=== PATIENT | male | born 1950 | race Caucasian/White ===

== ENCOUNTER 2018-11-03 08:21 | Day surgery (SDC) | payer MEDICARE, SELFPAY | END 2018-11-03 14:33 | disposition home or self-care (01) | PROVIDERS: Family Provider Family Medicine; Visit Provider Podiatrist Foot & Ankle Surgery | DX: M86.8X7 Other osteomyelitis, ankle and foot (principal); E11.621 Type 2 diabetes mellitus with foot ulcer; Z79.2 Long term (current) use of antibiotics; I10 Essential (primary) hypertension; I25.2 Old myocardial infarction; E11.40 Type 2 diabetes mellitus with diabetic neuropathy, unspecified | CPT/HCPCS: 28810; 36569; 71045; 73620; 82962; 87070; 87077; 87176; 87186 ×5; 87205; 88304; 88311; 93005; J0690; J2001; J2704; J3010; J3490 ==

== ENCOUNTER 2019-11-19 10:29 | Outpatient (CLI) | payer MEDICARE, SELFPAY ==
--- NOTE | 2019-11-19 10:35 | MR_ITS ---
WS: [id number] MRI LUMBAR SPINE NONCONTRAST TECHNIQUE: Sagittal T1, T2 and STIR imaging. Axial T1 and T2 imaging. CLINICAL INFORMATION: LOW BACK PAIN COMPARISON: None. FINDINGS: Mild lumbar curve. No acute compression. Disc space narrowing throughout the lumbar spine. Endplate d egenerative changes. L1-L2: Mild disc bulging with narrowing of the subarticular recess bilaterally. Mild right and no sig nificant left foraminal narrowing. Mild facet arthropathy. L2-L3: Mild disc bulging with slight impingement on the left subarticular recess and traversing left L3 nerve root. Mild central canal stenosis. Mild left foraminal narrowing. Right foramen is patent. M ild facet arthropathy. L3-L4: Slight retrolisthesis L3 on L4. Disc osteophytic ridging with moderate facet arthropathy. Narr owing of the subarticular recess bilaterally. Mild to moderate left and mild right foraminal narrowin g. Mild to moderate central canal stenosis. L4-L5: Disc osteophyte complex with endplate ridging. Impingement traversing L5 nerve roots worse on the right. Moderate central canal stenosis. Moderate right and mild left foraminal narrowing. L5-S1: Mild disc bulging and osteophytic ridging. Moderate facet arthropathy. Moderate right and mild left foraminal narrowing. Slight impingement traversing right S1 nerve root. Visualized pelvic bony structures: Normal. Paravertebral soft tissues: Normal. MR/MR lumbar spine wo con* [id number] IMPRESSION: 1. Mild lumbar curve. No acute compression. 2. Moderate central canal stenosis L3-L4 and L4-L5 with impingement on the sub articular recess worse at right L4-5. 3. Disc bulging L5-S1 impinges the traversing S1 nerve root in the right subar ticular recess. 4. Mild to moderate foraminal narrowing worse at right L1-2, left L2-3, right L4-5 and right L5-S1
--- NOTE | 2019-11-19 12:30 | XRR_ITS ---
PROCEDURE INFORMATION: Exam: XR Lumbosacral Spine, 2 or 3 Views Exam date and time: 11/19/2019 12:50 PM Age: 69 years old Clinical indication: Low back pain; Additional info: Low back pain, please comment on presence or absence of spinal instabililty TECHNIQUE: Imaging protocol: XR of the lumbosacral spine, 2 or 3 views. COMPARISON: MR lumbar spine wo con* [id number] 11/19/2019 10:47 AM FINDINGS: Vertebrae: No acute fracture. No translation with extension or were flexion. There is disc space narrowing and osteophyte formation throughout the lumbar spine. Soft tissues: Unremarkable. XR/XR lumbar spine f/e only [id number] IMPRESSION: No translation with extension or were flexion.
== END 2019-11-19 10:30 | disposition home or self-care (01) ==
LOC: RAD 10:33
PROVIDERS: PCP Family Medicine; Visit Provider Nurse Practitioner
DX: M48.061 Spinal stenosis, lumbar region without neurogenic claudication (principal)
CPT/HCPCS: 72120; 72148

== ENCOUNTER 2020-09-29 11:23 | Emergency (ER) | payer MEDICARE, SELFPAY ==
[2020-09-29 11:39] VITALS: BP 173/83; PULSE 72; RESP 16; TEMP 36.8; O2SAT 96; BMI 32.5
[2020-09-29 11:47] VITALS: PULSE 77; O2SAT 95
--- NOTE | 2020-09-29 12:46 | XRR_ITS ---
PROCEDURE INFORMATION: Exam: XR Abdomen Exam date and time: 09/29/2020 12:46 PM Age: 70 years old Clinical indication: Abdominal pain; Prior surgery; Surgery date: 6+ months; Surgery type: Gallbladder; Patient HX: RT. Upper and lower quadrant more than left side; Additional info: No bm x 7 days TECHNIQUE: Imaging protocol: XR of the abdomen. Views: Frontal supine view of the abdomen. 1 View. COMPARISON: CR XR lumbar spine f/e only [id number] 11/19/2019 12:42 PM FINDINGS: Gastrointestinal tract: Moderate to severe retained feces. Bones/joints: Unremarkable. XR/XR KUB portable [id number] IMPRESSION: Moderate to severe retained feces.
[2020-09-29 12:47] VITALS: BP 178/93; PULSE 82; O2SAT 100
--- NOTE | 2020-09-29 12:55 | ED_ITS ---
HPI - General Adult General: Chief complaint: General Medical Stated complaint: No Recent Bowel Movement Time Seen by Provider: 09/29/20 12:43 History of Present Illness: HPI narrative: Patient said he has had a history of constipation and diarrhea. Constipation is gone for the last 7 days. Patient said he is not tried any ofud-prf-hlefrkr enemas are strong laxative had used a couple Duca locks. Said blood sugars are doing pretty good slightly high denies any other problems MD complaint: Constipation Onset (ago): day(s) Severity: mild Quality: aching Associated symptoms: Reports no associated symptoms; Deny chest pain, dyspnea, headache(s), nausea, rash or vomiting Review of Systems Const: Denies: fever(s), chills or body aches Eyes: Denies: change in vision or blurry vision ENMT: Denies: throat pain or nasal congestion Card: Denies: chest pain or dyspnea on exertion Resp: Denies: dyspnea, productive cough or non-productive cough GI: Reports: constipation; Denies: abdominal pain, nausea or vomiting : Denies: difficulty urinating Musc: Denies: extremity pain Skin/Breast: Denies: rash Neuro: Denies: headache(s) Psych: Denies: anxiety or depression Brooks/Lymph: Denies: easy bruising PFSH ED PFSH: Medical History (Updated 09/29/20 @ 13:17 by JUANIS Elmore) Carotid artery disease HTN (hypertension) Peripheral Vascular Disease Venous insufficiency Surgical History Status post amputation of toe of right foot Family History Father Heart disease Diabetes Mother Cancer Cervical CA Social History Smoking and tobacco status: never smoked History of recent travel: No Physical Exam Const: COMMON NORMALS: no acute distress, average body habitus and patient oriented x3 HENMT: COMMON NORMALS: normocephalic HEAD & SCALP: normal to inspection and normocephalic FACE & SINUS: normal facial exam Eye: COMMON NORMALS: conjunctivae normal GENERAL EYE: appearance normal, both eyes and all related structures CONJUNCTIVA: Yes conjunctivae normal Neck/C-Spine: COMMON NORMALS: no JVD Chest: COMMONS NORMALS: normal inspection of the chest Resp: COMMON NORMALS: normal respiratory effort Cardio: COMMON NORMALS: no JVD, regular rate and regular rhythm RATE: regular rate RHYTHM: regular rhythm GI: AUSCULTATION: Yes Hypoactive bowel sounds present PALPATION: Yes Tenderness to palpation present (GI) Details: RUQ PERCUSSION: dullness to percussion Extremity: COMMON NORMALS: normal to inspection and full ROM Neuro: COMMON NORMALS: patient oriented x3 Course Vital Signs: Vital signs: Vital Signs Temperature 98.3 F 09/29/20 11:39 Pulse Rate 121 H 09/29/20 13:33 Respiratory Rate 16 09/29/20 11:39 Blood Pressure 178/93 09/29/20 13:33 Pulse Oximetry 100 09/29/20 13:33 MDM - General Adult MDM Narrative: Medical decision making narrative: X-ray revealed moderate to severe feces retention. Which consistent with patient history. Patient encouraged to try some mheq-bmn-injljci measures are use lactulose to help with bowel movements and also went through long discussion about exercise , diet and follow-up primary care provider worsening symptoms patient return here see primary care provider is possible patient might have some IBS, and/or gastroparesis along with his use of hydrocodone which slows his got down. Discharge Plan Discharge Patient Disposition: Home Clinical Impression: Constipation Qualifiers: Constipation type: slow transit constipation Qualified Code(s): K59.01 - Slow transit constipation Condition: Stable Prescriptions: New lactulose 10 gram/15 mL solution 10 g PO DAILY PRN (Reason: constipation) Qty: 237 RF: 0 No Action atorvastatin 20 mg tablet 20 mg PO DAILY RF: 0 carbamazepine 200 mg tablet 200 mg PO Q8H RF: 0 amlodipine 5 mg tablet 5 mg PO DAILY RF: 0 metoprolol tartrate 25 mg tablet 12.5 mg PO DAILY RF: 0 metformin 850 mg tablet 850 mg PO BID RF: 0 dorzolamide 2 % drops 1 drop ophthalmic (eye) TID RF: 0 latanoprost 0.005 % drops 1 drop ophthalmic (eye) DAILY RF: 0 brimonidine 0.2 % drops 1 drop ophthalmic (eye) Q8H RF: 0 insulin lispro [Humalog KwikPen Insulin] 100 unit/mL insulin pen 15 unit SUBCUT TID RF: 0 aspirin [Adult Low Dose Aspirin] 81 mg tablet,delayed release (DR/EC) 81 mg PO DAILY RF: 0 losartan 100 mg tablet 100 mg PO DAILY RF: 0 hydrochlorothiazide 12.5 mg tablet 12.5 mg PO DAILY RF: 0 Discharge Orders: Discharge ED (Routine); Ordered 09/29/20 Ordered By: Juanjo Bernabe Referrals: Rashel Alford, [Primary Care Provider] - Discharge Diet: As Directed Patient Instructions: Constipation (ED) Activity Restrictions/Additional Instructions: Follow-up with medical provider as directed. Take medications as prescribed. Return to the ER or your medical provider if condition worsens. Please read and understand discharge instructions. If any questions ask please. I suggest increasing your physical activity. Increase in fiber in your diet. Follow strict diabetic diet. Can use sueo-[id number]-[id number] magnesium citrate to help with bowel movement. Can use fleets enemas also. Follow-up your primary care provider discuss your health status. Coding Level of Care Code ED Advertising Operations Manager for Chg Fwd Exam Comprehensive
[2020-09-29 13:33] VITALS: BP 178/93; PULSE 121; O2SAT 100
== END 2020-09-29 13:36 | disposition home or self-care (01) ==
PROVIDERS: Emergency Provider Nurse Practitioner Family; PCP Family Medicine
DX: K59.01 Slow transit constipation (principal); Z79.82 Long term (current) use of aspirin; Z79.4 Long term (current) use of insulin; I10 Essential (primary) hypertension
CPT/HCPCS: 74018; 99282

== ENCOUNTER → 2021-11-18 14:16 | Outpatient (BNVA) | payer MEDICARE, SELFPAY | PROVIDERS: PCP Family Medicine; Visit Provider Internal Medicine | DX: I73.9 Peripheral vascular disease, unspecified (principal); E78.2 Mixed hyperlipidemia; E16.0 Drug-induced hypoglycemia without coma; T38.3X5A Adverse effect of insulin and oral hypoglycemic [antidiabetic] drugs, initial encounter; E10.649 Type 1 diabetes mellitus with hypoglycemia without coma; Z79.4 Long term (current) use of insulin; Z79.84 Long term (current) use of oral hypoglycemic drugs | CPT/HCPCS: 99204 ==

== ENCOUNTER → 2022-02-10 10:17 | Outpatient (BNVA) | payer MEDICARE, SELFPAY | PROVIDERS: PCP Family Medicine; Visit Provider Internal Medicine | DX: E16.0 Drug-induced hypoglycemia without coma (principal); T38.3X5A Adverse effect of insulin and oral hypoglycemic [antidiabetic] drugs, initial encounter; E78.2 Mixed hyperlipidemia; E10.9 Type 1 diabetes mellitus without complications | CPT/HCPCS: 80061; 83036 ==

== ENCOUNTER → 2022-02-22 13:01 | Outpatient (BNVA) | payer MEDICARE, SELFPAY | PROVIDERS: PCP Family Medicine; Visit Provider Internal Medicine | DX: E10.649 Type 1 diabetes mellitus with hypoglycemia without coma (principal); E16.0 Drug-induced hypoglycemia without coma; T38.3X5A Adverse effect of insulin and oral hypoglycemic [antidiabetic] drugs, initial encounter; E78.2 Mixed hyperlipidemia; I73.9 Peripheral vascular disease, unspecified; Z79.4 Long term (current) use of insulin; Z79.84 Long term (current) use of oral hypoglycemic drugs | CPT/HCPCS: 99214 ==

== ENCOUNTER → 2022-05-19 10:56 | Outpatient (BNVA) | payer MEDICARE, SELFPAY | PROVIDERS: PCP Family Medicine; Visit Provider Internal Medicine | DX: E78.2 Mixed hyperlipidemia (principal); E10.9 Type 1 diabetes mellitus without complications; E16.0 Drug-induced hypoglycemia without coma; T38.3X5A Adverse effect of insulin and oral hypoglycemic [antidiabetic] drugs, initial encounter | CPT/HCPCS: 80053; 80061; 83036; 86337; 86341 ==

== ENCOUNTER → 2022-05-25 14:07 | Outpatient (BNVA) | payer MEDICARE, SELFPAY | PROVIDERS: PCP Family Medicine; Visit Provider Internal Medicine | DX: E10.51 Type 1 diabetes mellitus with diabetic peripheral angiopathy without gangrene (principal); E10.649 Type 1 diabetes mellitus with hypoglycemia without coma; E78.2 Mixed hyperlipidemia; I73.9 Peripheral vascular disease, unspecified; E16.0 Drug-induced hypoglycemia without coma; T38.3X5A Adverse effect of insulin and oral hypoglycemic [antidiabetic] drugs, initial encounter; Z79.4 Long term (current) use of insulin; Z79.84 Long term (current) use of oral hypoglycemic drugs | CPT/HCPCS: 99214 ==

== ENCOUNTER → 2022-06-02 13:24 | Outpatient (BNVA) | payer MEDICARE, SELFPAY | PROVIDERS: PCP Nurse Practitioner Family; Visit Provider Podiatrist Foot & Ankle Surgery | DX: E11.621 Type 2 diabetes mellitus with foot ulcer (principal); L97.522 Non-pressure chronic ulcer of other part of left foot with fat layer exposed; L97.312 Non-pressure chronic ulcer of right ankle with fat layer exposed; I73.9 Peripheral vascular disease, unspecified; L84 Corns and callosities; I87.2 Venous insufficiency (chronic) (peripheral); E11.42 Type 2 diabetes mellitus with diabetic polyneuropathy; L60.3 Nail dystrophy; Z89.432 Acquired absence of left foot; Z79.4 Long term (current) use of insulin | CPT/HCPCS: 11042 ==

== ENCOUNTER → 2022-06-16 14:42 | Outpatient (BNVA) | payer MEDICARE, SELFPAY | PROVIDERS: PCP Nurse Practitioner Family; Visit Provider Podiatrist Foot & Ankle Surgery | DX: I73.9 Peripheral vascular disease, unspecified (principal); I87.2 Venous insufficiency (chronic) (peripheral); E11.42 Type 2 diabetes mellitus with diabetic polyneuropathy; Z79.4 Long term (current) use of insulin; S91.001D Unspecified open wound, right ankle, subsequent encounter; Z89.421 Acquired absence of other right toe(s); X58.XXXD Exposure to other specified factors, subsequent encounter | CPT/HCPCS: 99214 ==

== ENCOUNTER → 2022-06-30 13:08 | Outpatient (BNVA) | payer MEDICARE, SELFPAY | PROVIDERS: PCP Nurse Practitioner Family; Visit Provider Podiatrist Foot & Ankle Surgery | DX: I73.9 Peripheral vascular disease, unspecified (principal); I87.2 Venous insufficiency (chronic) (peripheral); E11.42 Type 2 diabetes mellitus with diabetic polyneuropathy; E11.622 Type 2 diabetes mellitus with other skin ulcer; L97.311 Non-pressure chronic ulcer of right ankle limited to breakdown of skin; Z79.4 Long term (current) use of insulin; Z89.432 Acquired absence of left foot | CPT/HCPCS: 99214 ==

== ENCOUNTER → 2022-07-14 12:58 | Outpatient (BNVA) | payer MEDICARE, SELFPAY | PROVIDERS: PCP Nurse Practitioner Family; Visit Provider Podiatrist Foot & Ankle Surgery | DX: I73.9 Peripheral vascular disease, unspecified (principal); I87.2 Venous insufficiency (chronic) (peripheral); E11.42 Type 2 diabetes mellitus with diabetic polyneuropathy; Z89.9 Acquired absence of limb, unspecified; E11.621 Type 2 diabetes mellitus with foot ulcer; L97.319 Non-pressure chronic ulcer of right ankle with unspecified severity; Z79.4 Long term (current) use of insulin | CPT/HCPCS: 99213 ==

== ENCOUNTER → 2022-08-04 13:33 | Outpatient (BNVA) | payer MEDICARE, SELFPAY | PROVIDERS: PCP Nurse Practitioner Family; Visit Provider Podiatrist Foot & Ankle Surgery | DX: I87.2 Venous insufficiency (chronic) (peripheral) (principal); M20.42 Other hammer toe(s) (acquired), left foot; E11.42 Type 2 diabetes mellitus with diabetic polyneuropathy; S91.001A Unspecified open wound, right ankle, initial encounter; Z79.4 Long term (current) use of insulin; X58.XXXA Exposure to other specified factors, initial encounter | CPT/HCPCS: 99213 ==

== ENCOUNTER → 2022-08-24 08:59 | Outpatient (BNVA) | payer MEDICARE, SELFPAY | PROVIDERS: PCP Nurse Practitioner Family; Visit Provider Internal Medicine | DX: E10.9 Type 1 diabetes mellitus without complications (principal); E16.0 Drug-induced hypoglycemia without coma; T38.3X5A Adverse effect of insulin and oral hypoglycemic [antidiabetic] drugs, initial encounter; E78.2 Mixed hyperlipidemia | CPT/HCPCS: 80053; 80061; 82043; 83036 ==

== ENCOUNTER → 2022-08-25 13:48 | Outpatient (BNVA) | payer MEDICARE, SELFPAY | PROVIDERS: PCP Nurse Practitioner Family; Visit Provider Podiatrist Foot & Ankle Surgery | DX: I87.2 Venous insufficiency (chronic) (peripheral) (principal); E11.42 Type 2 diabetes mellitus with diabetic polyneuropathy; E11.621 Type 2 diabetes mellitus with foot ulcer; L97.522 Non-pressure chronic ulcer of other part of left foot with fat layer exposed; L97.511 Non-pressure chronic ulcer of other part of right foot limited to breakdown of skin; Z79.4 Long term (current) use of insulin; M20.42 Other hammer toe(s) (acquired), left foot | CPT/HCPCS: 99214 ==

== ENCOUNTER → 2022-08-30 14:26 | Outpatient (BNVA) | payer MEDICARE, SELFPAY | PROVIDERS: PCP Nurse Practitioner Family; Visit Provider Internal Medicine | DX: E10.649 Type 1 diabetes mellitus with hypoglycemia without coma (principal); E16.0 Drug-induced hypoglycemia without coma; T38.3X5A Adverse effect of insulin and oral hypoglycemic [antidiabetic] drugs, initial encounter; X58.XXXA Exposure to other specified factors, initial encounter; E78.2 Mixed hyperlipidemia; I73.9 Peripheral vascular disease, unspecified | CPT/HCPCS: 99214 ==

== ENCOUNTER 2022-09-04 20:18 | Inpatient (IN) | payer MEDICARE, SELFPAY ==
[2022-09-04] VITALS (9 sets, daily range): BP systolic 110–124; BP diastolic 53–69; PULSE 80–98; RESP 16–29; TEMP 36.7–36.8; O2SAT 89–97
--- NOTE | 2022-09-04 20:47 | XRR_ITS ---
PROCEDURE INFORMATION: Exam: XR Chest Exam date and time: 09/04/2022 9:07 PM Age: 72 years old Clinical indication: Shortness of breath; TECHNIQUE: Imaging protocol: Radiologic exam of the chest. Views: 1 view. COMPARISON: CR XR chest 1V [id number] 12/20/2018 7:23 PM FINDINGS: Lungs: Unremarkable. No consolidation. Pleural spaces: Blunting of the costophrenic angles is suggestive of small pleural effusions. Heart/Mediastinum: Unremarkable. No cardiomegaly. Bones/joints: Unremarkable. XR/XR chest 1V portable [id number] IMPRESSION: Blunting of the costophrenic angles is suggestive of small pleural effusions.
--- NOTE | 2022-09-04 20:47 | XRR_ITS ---
PROCEDURE INFORMATION: Exam: XR Cervical Spine Exam date and time: 09/04/2022 9:07 PM Age: 72 years old Clinical indication: Injury or trauma; Fall; Blunt trauma; Additional info: Neck pain, fell 3 days ago TECHNIQUE: Imaging protocol: Radiologic exam of the cervical spine. Views: 2 or 3 views. COMPARISON: CR XR chest 1V [id number] 12/20/2018 7:23 PM FINDINGS: Bones/joints: There are degenerative changes throughout the visualized spine including marginal osteophyte formations, endplate degenerative changes, and facet arthropathy. Multilevel disc space narrowing. Soft tissues: There are benign-appearing soft tissue calcifications. Other findings: Patient is edentulous. XR/XR cervical spine 3V* [id number] IMPRESSION: There are degenerative changes as described above. No evidence for acute fracture.
--- NOTE | 2022-09-04 20:48 | ECG_ITS ---
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 Measurements Intervals [facility] Rate: 93 P: 249 WA: 137 QRS: 266 QRSD: 77 T: 42 QT: 321 QTc: 401 Interpretive Statements SINUS RHYTHM POSSIBLE RIGHT VENTRICULAR HYPERTROPHY INFERIOR MYOCARDIAL INFARCTION , OF INDETERMINATE AGE ANTEROLATERAL MYOCARDIAL INFARCTION , OF INDETERMINATE AGE MARKED ST ELEVATION, CONSIDER SEPTAL INJURY [MARKED ST ELEVATION W/O NORMALLY INFLECTED T-WAVE IN V1/V2] ACUTE [place] Compared to ECG 12/20/2018 18:55:27 Myocardial infarct finding now present ST (T wave) deviation now present Sinus rhythm no longer present Left-axis deviation no longer present Electronically Signed On 09-05-2022 5:33:03 CDT by Elisa Alfaro M.D. [id number]
--- NOTE | 2022-09-04 20:50 | W.ED.FALL ---
Documented by User: MOHSEN Smith 09/04/22 21:52 HPI - Fall General: Chief Complaint: Fall Stated Complaint: neck/back apin, SOB Time Seen by Provider: 09/04/22 20:36 History of Present Illness: Patient is a 72-year-old male who comes to the ED with multiple complaints. is present in room and initially stated that since patient fell 3 days ago he has not been the same. He is complaining of increased shortness of breath over the last 2 days. Denies any worsening or improving factors. He endorses having a productive cough with a white sputum as well. Endorses some nasal drainage and congestion due to allergies. Patient also complains of having some left-sided neck pain that just started today. He says it is a constant throbbing type pain on the left side of neck. Neck pain started earlier today. Neck pain worsens slightly with range of motion. Patient did state that he fell in his house 3 days ago. He says he tripped and landed face first. Denies any loss of consciousness and is able to get up on his own. He had no complaints after fall. He is also complaining of bilateral flank pain its been going on for several weeks. Flank pain worsens when he stands up and starts walking. Denies any fevers, chest pain, palpitations, abdominal pain, nausea/vomiting, bladder or bowel symptoms. Associated symptoms-after fall: Reports neck pain; Denies abdominal pain, chest pain, headache(s) or hematuria Review of Systems Const: Denies: fever(s), chills or fatigue Eyes: Denies: change in vision or eye discomfort ENMT: Reports: nasal discharge and nasal congestion; Denies: throat pain or odynophagia Card: Denies: chest pain, palpitations, edema, swelling of feet/ankles, dyspnea on exertion or orthopnea Resp: Reports: dyspnea and productive cough; Denies: non-productive cough GI: Denies: abdominal pain, nausea, vomiting, diarrhea, constipation or hematochezia : Reports: flank pain (Bilateral flank pain); Denies: difficulty urinating, dysuria or hematuria Musc: Reports: neck pain; Denies: back pain or extremity swelling Skin/Breast: Denies: rash or new lesions Neuro: Denies: headache(s), numbness in extremities or weakness in extremities PFS ED PFSH: Medical History Carotid artery disease Diabetes mellitus HTN (hypertension) Peripheral Vascular Disease Venous insufficiency Surgical History Status post amputation of toe of right foot Family History Father Heart disease Diabetes Mother Cancer Cervical CA Social History Smoking and tobacco status: never smoked Physical Exam Const: COMMON NORMALS: patient oriented x3 and alert GENERAL APPEARANCE: cooperative HENMT: COMMON NORMALS: normocephalic HEAD & SCALP: normocephalic MOUTH: Normal oral and palatal mucosa present THROAT: posterior oropharynx normal and uvula midline Neck/C-Spine: COMMON NORMALS: supple GENERAL: Yes normal visual inspection Resp: COMMON NORMALS: normal respiratory effort, No retractions, No use of accessory muscles and clear to auscultation bilaterally AUSCULTATION: clear to auscultation bilaterally Cardio: COMMON NORMALS: regular rate, regular rhythm, S1 normal heart sound present, S2 normal heart sound present, No gallops present (Cardio), No clicks present (Cardio), No murmurs present (Cardio) and Peripheral pulses 2+ throughout RATE: regular rate RHYTHM: regular rhythm HEART SOUNDS: S1 normal heart sound present and S2 normal heart sound present PERIPHERAL PULSES: Peripheral pulses 2+ throughout GI: COMMON NORMALS: Normal to inspection, nondistended, normoactive bowel sounds present, Soft to palpation, non-tender and no masses PALPATION: Yes Soft to palpation : COMMON NORMALS: Yes no CVA tenderness BLADDER/KIDNEY EXAM: Yes no CVA tenderness Back/Pelvis: COMMON NORMALS: no CVA tenderness Neuro: COMMON NORMALS: patient oriented x3, CN's II-XII intact bilaterally, moves all extremities and no focal motor deficits SENSORIUM/ORIENTATION: Yes alert SPEECH: speech normal GAIT: Yes Normal gait present MOTOR EXAM: 5/5 motor strength present throughout Course Vital Signs: Vital signs: Vital Signs Temperature 98.0 F 09/04/22 20:25 Pulse Rate 89 09/04/22 21:39 Respiratory Rate 19 H 09/04/22 21:39 Blood Pressure 110/53 09/04/22 21:39 Pulse Oximetry 95 09/04/22 21:39 Oxygen Delivery Me thod Room Air 09/04/22 20:25 MDM - Fall Lab Data I reviewed the patient's lab results. 09/04/22 20:10 09/04/22 20:10 Radiology Impressions Chest X-Ray 09/04/22 20:47 IMPRESSION: Blunting of the costophrenic angles is suggestive of small pleural effusions. Laboratory Results WBC 7.5 10^3/uL (4.0-10.0) 09/04/22 20:10 RBC 3.80 10^6/uL (4.1-5.3) L 09/04/22 20:10 Hgb 11.7 g/dL (11.7-16.6) 09/04/22 20:10 Hct 35.9 % (42.0-52.0) L 09/04/22 20:10 MCV 94.5 fl (80-94) H 09/04/22 20:10 MCH 30.8 pg (28.0-34.0) 09/04/22 20:10 MCHC 32.6 g/dL (30.0-36.0) 09/04/22 20:10 RDW 12.6 % (12.1-15.1) 09/04/22 20:10 Plt Count 239 10^3/cmm (130-400) 09/04/22 20:10 MPV 10.5 fL (7.4-10.4) H 09/04/22 20:10 Neut % (Auto) 76.8 % 09/04/22 20:10 Lymph % (Auto) 13.8 % 09/04/22 20:10 [place] % (Auto) 7.1 % 09/04/22 20:10 Eos % (Auto) 1.3 % 09/04/22 20:10 Baso % (Auto) 0.7 % 09/04/22 20:10 Neut # (Auto) 5.77 10^3/uL (1.8-7.7) 09/04/22 20:10 Lymph # (Auto) 1.0 10^3/uL (0.8-4.8) 09/04/22 20:10 [place] # (Auto) 0.5 10^3/uL (0.2-0.9) 09/04/22 20:10 Eos # (Auto) 0.1 10^3/uL (0.0-0.8) 09/04/22 20:10 Baso # (Auto) 0.1 10^3/uL (0.0-0.1) 09/04/22 20:10 Nucleated RBC % (auto) 0 % 09/04/22 20:10 Nucleated RBCs # 0.0 /100WBC 09/04/22 20:10 Sodium 129 mmol/L (136-145) L 09/04/22 20:10 Potassium 3.6 mmol/L (3.5-5.1) 09/04/22 20:10 Chloride 93 mmol/L (98-107) L 09/04/22 20:10 Carbon Dioxide 27 mmol/L (22-29) 09/04/22 20:10 Anion Gap 12.6 (5-19) 09/04/22 20:10 BUN 22 mg/dL (8-23) 09/04/22 20:10 Creatinine 1.2 mg/dL (0.7-1.2) 09/04/22 20:10 GFR Calculation Not Reportable 09/04/22 20:10 Glucose 317 mg/dL (65-115) H 09/04/22 20:10 Calculated Osmolality 283 mOsm/kg (285-295) L 09/04/22 20:10 Calcium 8.5 mg/dL (8.5-10.5) 09/04/22 20:10 Total Bilirubin 0.4 mg/dL (0.15-1.2) 09/04/22 20:10 AST 26 U/L (0-40) 09/04/22 20:10 ALT 18 U/L (0-41) 09/04/22 20:10 Alkaline Phosphatase 144 U/L (40-130) H 09/04/22 20:10 Troponin T Baseline 1093 ng/L (0-15) H* 09/04/22 20:10 NT-Pro-B Natriuret Pep 83811 pg/mL (0-125) H 09/04/22 20:10 Total Protein 6.4 g/dL (6.6-8.7) L 09/04/22 20:10 Albumin 3.6 g/dL (3.5-5.2) 09/04/22 20:10 Globulin 2.8 g/dL (1.3-4.6) 09/04/22 20:10 EKG Data EKG 1: EKG interpretation date: 09/04/22 Interpretation: Concern for possible STEMI in V2 and V3, EKG taken to Dr. Kothari and he agreed and called STEMI alert. Discharge Plan Discharge Patient Disposition: Admitted As Inpatient Clinical Impression: ST elevation (STEMI) myocardial infarction Condition: Stable Coding Level of Care Code ED Residential Builder for Chg Fwd Documented by User: Nancy Kothari MD 09/04/22 21:46 HPI - Fall General: Chief Complaint: Fall Stated Complaint: neck/back apin, SOB Time Seen by Provider: 09/04/22 20:36 PFSH ED PFSH: Medical History Carotid artery disease Diabetes mellitus HTN (hypertension) Peripheral Vascular Disease Venous insufficiency Surgical History Status post amputation of toe of right foot Family History Father Heart disease Diabetes Mother Cancer Cervical CA Social History Smoking and tobacco status: never smoked Course Vital Signs: Vital signs: Vital Signs Temperature 98.0 F 09/04/22 20:25 Pulse Rate 89 09/04/22 21:39 Respiratory Rate 19 H 09/04/22 21:39 Blood Pressure 110/53 09/04/22 21:39 Pulse Oximetry 95 09/04/22 21:39 Oxygen Delivery Me thod Room Air 09/04/22 20:25 MDM - Fall Medical Decision Making Patient recently presented here with neck pain and shortness of breath. Patient had an EKG done at 2050 was brought to the midlevel never brought to the physician the midlevel showed me the EKG at [address] elevation STEMI in V1 V2 V3 I did call a STEMI alert at that time went and saw the patient he is having some neck pain dyspnea he is diaphoretic started on heparin and Plavix aspirin and patient is going to the Precision Agriculture Technician at this time. Lab Data 09/04/22 20:10 09/04/22 20:10 Radiology Impressions Chest X-Ray 09/04/22 20:47 IMPRESSION: Blunting of the costophrenic angles is suggestive of small pleural effusions. Laboratory Results WBC 7.5 10^3/uL (4.0-10.0) 09/04/22 20:10 RBC 3.80 10^6/uL (4.1-5.3) L 09/04/22 20:10 Hgb 11.7 g/dL (11.7-16.6) 09/04/22 20:10 Hct 35.9 % (42.0-52.0) L 09/04/22 20:10 MCV 94.5 fl (80-94) H 09/04/22 20:10 MCH 30.8 pg (28.0-34.0) 09/04/22 20:10 MCHC 32.6 g/dL (30.0-36.0) 09/04/22 20:10 RDW 12.6 % (12.1-15.1) 09/04/22 20:10 Plt Count 239 10^3/cmm (130-400) 09/04/22 20:10 MPV 10.5 fL (7.4-10.4) H 09/04/22 20:10 Neut % (Auto) 76.8 % 09/04/22 20:10 Lymph % (Auto) 13.8 % 09/04/22 20:10 [place] % (Auto) 7.1 % 09/04/22 20:10 Eos % (Auto) 1.3 % 09/04/22 20:10 Baso % (Auto) 0.7 % 09/04/22 20:10 Neut # (Auto) 5.77 10^3/uL (1.8-7.7) 09/04/22 20:10 Lymph # (Auto) 1.0 10^3/uL (0.8-4.8) 09/04/22 20:10 [place] # (Auto) 0.5 10^3/uL (0.2-0.9) 09/04/22 20:10 Eos # (Auto) 0.1 10^3/uL (0.0-0.8) 09/04/22 20:10 Baso # (Auto) 0.1 10^3/uL (0.0-0.1) 09/04/22 20:10 Nucleated RBC % (auto) 0 % 09/04/22 20:10 Nucleated RBCs # 0.0 /100WBC 09/04/22 20:10 Sodium 129 mmol/L (136-145) L 09/04/22 20:10 Potassium 3.6 mmol/L (3.5-5.1) 09/04/22 20:10 Chloride 93 mmol/L (98-107) L 09/04/22 20:10 Carbon Dioxide 27 mmol/L (22-29) 09/04/22 20:10 Anion Gap 12.6 (5-19) 09/04/22 20:10 BUN 22 mg/dL (8-23) 09/04/22 20:10 Creatinine 1.2 mg/dL (0.7-1.2) 09/04/22 20:10 GFR Calculation Not Reportable 09/04/22 20:10 Glucose 317 mg/dL (65-115) H 09/04/22 20:10 Calculated Osmolality 283 mOsm/kg (285-295) L 09/04/22 20:10 Calcium 8.5 mg/dL (8.5-10.5) 09/04/22 20:10 Total Bilirubin 0.4 mg/dL (0.15-1.2) 09/04/22 20:10 AST 26 U/L (0-40) 09/04/22 20:10 ALT 18 U/L (0-41) 09/04/22 20:10 Alkaline Phosphatase 144 U/L (40-130) H 09/04/22 20:10 Troponin T Baseline 1093 ng/L (0-15) H* 09/04/22 20:10 NT-Pro-B Natriuret Pep 54686 pg/mL (0-125) H 09/04/22 20:10 Total Protein 6.4 g/dL (6.6-8.7) L 09/04/22 20:10 Albumin 3.6 g/dL (3.5-5.2) 09/04/22 20:10 Globulin 2.8 g/dL (1.3-4.6) 09/04/22 20:10 Critical Care Time Critical Care Time: Critical Care Time: Yes Total Critical Care Time: 45 Attestation: The high probability of a clinically significant, sudden or life threatening deterioration of the patient's cv system(s) required my full and direct attention, intervention and personal management. The critical care time is as shown. This time is in addition to time spent performing any reported procedures but includes the following: [x] Data and vital sign review and interpretation [x] Patient assessment, examination and intervention [x] Documentation [x] Medication orders and management Discharge Plan Discharge Patient Disposition: Admitted As Inpatient Clinical Impression: ST elevation (STEMI) myocardial infarction Condition: Stable Coding Level of Care Code ED Residential Builder for Ashia Saldivar
[2022-09-04 21:02] LABS: Basophils # 0.1 10^3/uL (0.0-0.1); Basophils % 0.7 %; Eosinophils # 0.1 10^3/uL (0.0-0.8); Eosinophils % 1.3 %; Hematocrit 35.9 % (42.0-52.0); Hemoglobin 11.7 g/dL (11.7-16.6); Lymphocytes % 13.8 %; Mean Corpuscular HGB Conc 32.6 g/dL (30.0-36.0); Mean Corpuscular Hemoglobin 30.8 pg (28.0-34.0); Mean Corpuscular Volume 94.5 fl (80-94); Mean Platelet Volume 10.5 fL (7.4-10.4); Monocytes # 0.5 10^3/uL (0.2-0.9); Monocytes % 7.1 %; Neutrophils # 5.77 10^3/uL (1.8-7.7); Neutrophils % 76.8 %; Nucleated Red Blood Cells % 0 %; Platelet Count 239 10^3/cmm (130-400); Red Cell Distribution Width 12.6 % (12.1-15.1); White Blood Count 7.5 10^3/uL (4.0-10.0)
[2022-09-04] MEDS: clopidogrel 300 mg Tablet 600 MG PO (21:26)
[2022-09-04] MEDS: morphine 4 mg/mL SDV 1 mL IVP (21:27)
[2022-09-04] MEDS: aspirin 81 mg Chew Tablet 324 MG PO (21:27)
[2022-09-04 21:28] LABS: Alanine Aminotransferase 18 U/L (0-41); Albumin Level 3.6 g/dL (3.5-5.2); Alkaline Phosphatase 144 U/L (40-130); Anion Gap 12.6 (5-19); Aspartate Amino Transferase 26 U/L (0-40); Blood Urea Nitrogen 22 mg/dL (8-23); Calcium 8.5 mg/dL (8.5-10.5); Carbon Dioxide 27 mmol/L (22-29); Chloride 93 mmol/L (98-107); Globulin 2.8 g/dL (1.3-4.6); Glucose 317 mg/dL (65-115); NT Pro B Type Natriuretic Pept 10647 pg/mL (0-125); Osmolality Calculated 283 mOsm/kg (285-295); Potassium 3.6 mmol/L (3.5-5.1); Sodium 129 mmol/L (136-145); Total Bilirubin 0.4 mg/dL (0.15-1.2); Total Protein 6.4 g/dL (6.6-8.7)
[2022-09-04 21:30] LABS: Troponin(5th) Baseline 1093 ng/L (0-15)
[2022-09-04] MEDS: heparin 5,000 unit/mL INJ 1 mL 4000 UNIT IVP (21:30)
--- NOTE | 2022-09-04 21:36 | XACV_ITS ---
Exam Room: [facility] Ht: 183 cm Wt: 109 kg BSA: 2.39 m2 Gender: Male : 1950 Any Known Allergies: No known allergies Exam Priority: Routine Procedure(s): Procedure Description: Diagnostic procedure Procedure Description: PCI procedure Procedure Description: Coronary IVUS Procedure Description: Drug Eluting Coronary Stent Procedure Description: PTCA Procedure Description: Miscellaneous Procedure Description: ACT Procedure Description: Coronary Angiography Diagnostic Cath Status: Emergency Diagnostic Findings * INDICATION: 72 year old male with past medical history of diabetes, peripheral artery disease, hypertension was presented with 3 days of shortness of breath. He started having neck pain today in the afternoon. Also has been having back pain for several days. His initial EKG shows ST elevations in leads V1 to V4. Initial troponin is over 1000. [place] [address]. Blood pressure is stable. technical laboratory asst was activated by ER and patient brought to laboratory technical specialist emergently after activation. * Left Main has mild to moderate 30% distal stenosis. * Circumflex has mild luminal irregularities. * Right Coronary Artery has mild luminal irregularities. * Ostial Left Anterior Descending: critical 95% stenosis, YADIRA:1 flow. There is a large thrombus noted in the ostium LAD as well. Mid to distal vessel is very small in caliber, appearance consistent with prior ID.. * Coronary angiography shows right dominance. PCI Status: Emergency PCI Indication: STEMI - Immediate PCI for STEMI Interventional Findings * Procedure detail: We engaged left main artery with XB 3.5 guide catheter. IV heparin was administered to maintain anticoagulation. 0.014 run-through guidewire was used to cross critical ostial LAD stenosis and was put in distal vessel. We predilated the stenosis with 2.5 x 12 mm semicompliant balloon. This was followed by placement of 2.75 x 15 mm resolute Maximo drug-eluting stent. We then performed IVUS of the left main artery and the stent. MLA of left main artery was found to be 5.1 mm2. This was significant however as it is not critical, we decided to treated medically at this time. Guidewire and guide catheter were removed. Patient left the Chronometer Repairer in a stable condition.. Conclusions 1. Subtotal thrombotic occlusion of 2. ostial LAD s/p successful revascularization with ANTONINO x1. 3. Distally LAD is a very small caliber vessel 4. likely secondary to old ID. 5. This is 6. a late presentation of ST elevation ID.. 7. Left main artery has borderline severe disease with MLA of 5.1 mm2. We will medically manage it at this time. Recommendations * Dual platelet therapy with aspirin and Plavix for at least 1 year. * High intensity statin therapy. * Order echocardiogram.. * Transfer to ICU. Interventional RX Recommendation: PCI w/o planned CABG Diagnostic RX Recommendation: PCI w/o planned CABG Anticoagulation: Heparin Pressures Phase:Rest AO : 98 / 62 ( 79 ) @ 5:55:55 PM 93 / 61 ( 75 ) @ 5:55:55 PM 96 / 64 ( 80 ) @ 5:55:55 PM 96 / 62 ( 78 ) @ 5:55:55 PM 94 / 61 ( 75 ) @ 5:55:55 PM 89 / 56 ( 72 ) @ 5:55:55 PM Clinical Evaluation EBL: 5mL-10mL Procedural Details Pre-Procedure Time Out. Identified patient by full name and date of as verbalized by the patient/guarantor. Does the consent match the physician's order: N/A Emergent. Accurate & Complete Informed Consent: N/A Emergent. Inpatient/Outpatient History & Physical on Chart: N/A Emergent. If H&P is completed, is and addenduem needed: N/A Emergent; If yes, is the addendum complete: N/A Emergent. Visualize and Verify Site with Patient/Guarantor: N/A. Relevant Radiology Images available: N/A Emergent. The risks, benefits, and alternatives of sedation and/or procedure were discussed by physician. The patient agrees to continue. Procedure started. Chronometer Repairer Indications: ACS <= 24 hours. Chest Pain Symptom Assessment: Typical Angina Symptoms. Correct patient, site and procedure confirmed by cath team. Current diagnosis: STEMI. PERRLA. Strong, equal hand pulp roller bilaterally. Lungs clear x 5 lobes. IV Site on Arrival: 20 gauge in the right anticubital. IV Site on Arrival: 20 gauge in the left anticubital. IV Fluids: 0.9% NaCl at KVO. 50 mL infused prior to laboratory technical specialist. Pre Procedural Pulses: bilateral dorsalis pedis was 1+. Oxygen started at 2liters/min via nasal canula. bilateral groins was prepped with chloroprep then draped in the usual sterile fashion. Baseline sample Acquired. HR: 85 BPM. Physician notified. Physician arrived. Physician scrubbed in. Immediate Pre-Procedure Time Out. Correct Patient: N/A Emergent; Correct Procedure: N/A Emergent; Correct Site: N/A Emergent; Correct Patient Position: N/A Emergent; Correct Supplies: N/A Emergent; Dried Flammable Prep: N/A Emergent; Blood Products Available: N/A Emergent;. Lidocaine 1% infiltrated to the right groin. Arterial access obtained with micropuncture set. Admit Source: Emergency department. 6 ukrainian XB 3.5 guide catheter was inserted over the wire. Multiple views taken of left coronary artery. Runthrough guidewire was advanced through the guide catheter to lesion in the ostial LAD. Inflation number : 1 A AB TREK 2.50X12 RX BALLOON was prepped and advanced across the ostial LAD, then inflated to 12 RUI for 0:15 seconds. Inflation number: 2 The AB TREK 2.50X12 RX BALLOON was reinflated across the 1st Diag, to 12 RUI for 0:08 seconds. Balloon out. Results checked. Inflation Number : 3 Gorge Martini MAXIMO 2.75X15 ANTONINO -Lot Number#[id number] exp date 10/16/23 was prepped and advanced across the LAD. The stent was deployed at 12 RUI for 0:22 seconds. Stent balloon out over wire. Results checked. ACT drawn. Results 395 seconds. Therapeutic limits - pre-heparin administration 90-150 seconds and monitoring heparin during a vascular procedure >250 seconds. IVUS catherter inserted. IVUS catherter removed. Results checked. Wire out. A 5 ukrainian JR4 catheter in over wire. Multiple views taken of right coronary artery. Catheter out. ACT drawn. Results 257 seconds. Therapeutic limits - pre-heparin administration 90-150 seconds and monitoring heparin during a vascular procedure >250 seconds. Post Procedure: Pulses reassessed and unchanged. PERRLA. Strong, equal hand pulp roller bilaterally. No VTE prophylaxis required. Medication's Wasted: Heparin = 3000 units. Medication's Wasted: Other = versed 1 mg. Medication's Wasted: Other = 25 mcg fentanyl. Total IV fluids: 30 mL. A Suture was successful obtaining hemostatsis at the Right Femoral artery insertion site. Post-op diagnosis: subtotal thrombotic occlusion of the ostial LAD. S/p successful revascularization with ANTONINO x1.. Complications: none. Estimated blood loss: 5mL-10mL. Responsiveness - Normal response to verbal stimuli; alert and oriented, PERRLA. Airway - Unaffected, no intervention required; spontaneous ventilation. Circulation: W/N/L, pulses unchanged. Nausea/Vomiting: No. Procedure completed. Patient transferred by bed to ICU. Vital chart was stopped. Access Site Site: Right Femoral artery Sheath Size: 6 Fr Hemostasis Method: Suture Hemostasis Success: Successful Procedure Medications Start: 9:59 PM Stop: 9:59 PM Medication: Versed 1 mg and Fentanyl 25 mcg Amount: 1 Route: I.V. Start: 10:02 PM Stop: 10:02 PM Medication: Heparin Amount: 6000 units Route: I.V. Start: 10:12 PM Stop: 10:12 PM Medication: Fentanyl Amount: 25 mcg Route: I.V. Start: 10:25 PM Stop: 10:25 PM Medication: Aggrastat 12.5 mg/250 mL Amount: 55 ml Route: I.V. bolus Start: 10:25 PM Stop: 10:25 PM Medication: Aggrastat 12.5 mg/250 mL Amount: 19.8 ml/hr Route: I.V. drip Start: 10:28 PM Stop: 10:28 PM Medication: Fentanyl Amount: 25 mcg Route: I.V. I, the attending physician, have reviewed and verified all procedure medications. Yes, all medications given per verbal order Report Signatures Finalized by Jeremiah Mullins MD on 09/15/2022 06:13 PM
[2022-09-04] MEDS: sodium chloride 0.9% 1,000 ML 999 ML IV (21:47)
--- NOTE | 2022-09-04 21:51 | PM.HP ---
Providers/Chief Complaint Admitting Physician: Jeremiah Mullins MD/ Interventional Cardiology Primary Care Provider: Greer Kennedy NP Chief Complaint: Shortness of breath History of Present Illness Rashel Phillips is a 72 year old male with past medical history of diabetes, peripheral artery disease, hypertension was presented with 3 days of shortness of breath. He started having neck pain today in the afternoon. Also has been having back pain for several days. His initial EKG shows ST elevations in leads V1 to V4. Initial troponin is over 1000. [place] 72564. Blood pressure is stable. recyclable products sorter was activated by ER and patient brought to labor relations specialist emergently after activation. Review of Systems Const: Denies: fever(s), chills or fatigue Eyes: Denies: change in vision or eye discomfort ENMT: Reports: nasal discharge and nasal congestion; Denies: throat pain or odynophagia Card: Reports: dyspnea on exertion and orthopnea; Denies: chest pain, palpitations, edema or swelling of feet/ankles Resp: Reports: dyspnea and productive cough; Denies: non-productive cough GI: Denies: abdominal pain, nausea, vomiting, diarrhea, constipation or hematochezia : Reports: flank pain (Bilateral flank pain); Denies: difficulty urinating, dysuria or hematuria Musc: Reports: neck pain; Denies: back pain or extremity swelling Skin/Breast: Denies: rash or new lesions Neuro: Denies: headache(s), numbness in extremities or weakness in extremities Medications/Allergies Home Medications Medication Instructions Recorded Confirmed Last Taken Type amlodipine 5 mg tablet 5 mg PO DAILY 05/17/19 08/30/22 Unknown History aspirin 81 mg tablet,delayed 81 mg PO DAILY 05/17/19 08/30/22 Unknown History release (Adult Low Dose Aspirin) atorvastatin 20 mg tablet 20 mg PO DAILY 05/17/19 08/30/22 Unknown History brimonidine 0.2 % eye drops 1 drop ophthalmic (eye) Q8H 05/17/19 08/30/22 Unknown History carbamazepine 200 mg tablet 200 mg PO Q8H 05/17/19 08/30/22 Unknown History dorzolamide 2 % eye drops 1 drop ophthalmic (eye) TID 05/17/19 08/30/22 Unknown History hydrochlorothiazide 12.5 mg tablet 12.5 mg PO DAILY 05/17/19 08/30/22 Unknown History insulin lispro 100 unit/mL 15 unit SUBCUT TID 05/17/19 08/30/22 Unknown History subcutaneous pen (Humalog KwikPen (U-100) Insulin) latanoprost 0.005 % eye drops 1 drop ophthalmic (eye) DAILY 05/17/19 08/30/22 Unknown History losartan 100 mg tablet 100 mg PO DAILY 05/17/19 08/30/22 Unknown History metoprolol tartrate 25 mg tablet 12.5 mg PO DAILY 05/17/19 08/30/22 Unknown History glucagon 1 mg solution for 1 mg SUBCUT Q20M PRN hypoglycemia 11/18/21 08/30/22 Unknown Rx injection (Glucagon Emergency Kit) #1 ea insulin degludec 200 unit/mL (3 See Rx Instructions .Route 05/27/22 08/30/22 Unknown Rx mL) subcutaneous pen (Tresiba .COMPLEX #21.6 mL FlexTouch U-200 insulin) Excell SAP, PolyMem Max Silver, #1 ea 06/03/22 08/30/22 Unknown Rx and 2x2 Gauze FreeStyle Isma 2 Sensor (flash #6 ea 09/02/22 Unknown Rx glucose sensor) Allergies Allergy/AdvReac Type Severity Reaction Status Date / Time vancomycin Allergy ALGY-Hives Verified 09/04/22 20:30 Hay Fever Allergy ADR-Itching Uncoded 09/04/22 20:30 PFSH Acute PFSH: Medical History Carotid artery disease Diabetes mellitus HTN (hypertension) Peripheral Vascular Disease Venous insufficiency Surgical History Status post amputation of toe of right foot Family History Father Heart disease Diabetes Mother Cancer Cervical CA Social History Smoking and tobacco status: never smoked Vitals/I&O/Wt Last Vital Signs Temp 98.0 F 09/04/22 20:25 Pulse 89 09/04/22 21:39 Resp 19 H 09/04/22 21:39 BP 110/53 09/04/22 21:39 Pulse Ox 95 09/04/22 21:39 O2 Del Method Room Air 09/04/22 20:25 Weight last 48 hrs Weight 241 lb Physical Exam Narrative: GENERAL: Patient is alert, awake and oriented x3. [] NECK: No jugular vein distension. [] HEENT: No cyanosis. No icterus. No pallor. [] HEART: Regular S1 and S2. LUNGS:Diminished air entry bilaterally CENTRAL NERVOUS SYSTEM: Grossly nonfocal. [] EXTREMITIES: Lower extremities with 1+ edema bilaterally. Data 09/04/22 20:10 09/04/22 20:10 A&P Assessment and plan (1) ST elevation (STEMI) myocardial infarction: (2) Diabetes type 2, uncontrolled: (3) Carotid artery disease: (4) Peripheral Vascular Disease: (5) HTN (hypertension): Plan Patient has presented with several day symptoms of shortness of breath and neck pain that started today. EKG demonstrates ST elevation in septal and anterior leads. Given ongoing neck discomfort, will take him emergently to cardiac Low Voltage Electrician. He has been loaded with aspirin and Plavix. Heparin bolus given. Ordered echocardiogram. For management of diabetes and medical issues, we will consult medicine team. Attestations Medical Necessity Statement*: Care expected to cross 2 midnights. Patient has presented with late presentation of ST elevation GA. He will be going for coronary angiogram emergently. Coding Level of Care Code Acute Code for [facility] Fwd Diagnoses ST elevation (STEMI) myocardial infarction I21.3 Diabetes type 2, uncontrolled Carotid artery disease I73.9 Peripheral Vascular Disease I73.9 HTN (hypertension) I10
--- NOTE | 2022-09-04 21:55 | PC.NURSE ---
STEMI alert paper work given to collaborative physician nurses.
[2022-09-04 22:09] LABS: Influenza A by IFA negative (Negative); Influenza B by IFA negative (Negative)
[2022-09-04 22:30] LABS: SARS Covid-2 Antigen negative (Negative)
[2022-09-04] MEDS: tirofiban 5 MG/100 ML PREMIX 19.68 MG IV (23:15)
[2022-09-04] MEDS: FUROsemide 10 mg/mL SDV 4mL 40 MG IVP (23:30)
[2022-09-04] MEDS: fentaNYL 50 mcg/mL INJ 2mL IVP (23:49)
--- NOTE | 2022-09-04 23:55 | PM.CONSULT ---
Providers/Reason For Consult Consulting Physician/Specialty*: Marlene Joseph MD/Internal Medicine Hospitalist Reason for Consult*: Medical Management Attending Physician: Jeremiah Mullins M.D Primary Care Provider: Greer Kennedy NP History of Present Illness History of Present Illness Rashel Phillips is a 72 year old male With past medical history of carotid artery disease, diabetes mellitus uncontrolled, noncompliant to medication, hypertension, peripheral vascular disease presented to the hospital today mainly with increasing shortness of breath over the last 2 days. He was having some whitish sputum production as well. Nasal congestion and drainage as well. Today he developed left-sided neck pain which was constant throbbing type and it was related to position change. With range of motion the pain would worsen. He also had a fall 3 days ago in his house he reported that he tripped and landed face first. Denies any loss of consciousness. And he was able to get up on his own. No complaints after a fall. Unsure of circumstances prior to fall whether it was a mechanical fall or not. Patient denied any fever, chest pain in particular abdominal pain, nausea vomiting diarrhea. Above information was obtained by ER note. On arrival to ER blood pressure 110/53, respiratory 19, pulse 89, temperature 98.0 saturating 95% on room air. Chest x-ray did show blunting of costophrenic angles suggestive of small pleural effusion, hemoglobin 11.7, WBC 7.5, platelet 239 sodium 129, potassium 3.6, creatinine 1.2. Baseline troponin was still pending at the time EKG was obtained. EKG showed STEMI in V1 V2 V3 V4. STEMI alert was called. Patient was emergently taken to [facility]. Baseline troponin later returned at 1093. BNP 10,000 647. Spoke with cardiology. Patient had LAD thrombus and received 1 stent. Echo has been ordered already. Cardiology is primary. Patient was given Lasix 40 IV by cardiology. I was also told that he has chronic lower back pain and has been complaining of it for a long time. Back pain has been bothering him for the last couple of days now. Medicine was consulted for medical management of diabetes, back pain, other comorbid conditions. Patient will be going to ICU post-cath. I saw patient at bedside status post cath. He is unable to provide any history at this time. When asked any question he says I do not know. He is just wanting to rest for now. There is no family present at bedside. is gone home for the day. Patient however does state that he feels comfortable at this time and denies any chest pain, shortness of breath or any other symptoms. Medications/Allergies Home Medications Medication Instructions Recorded Confirmed Last Taken Type amlodipine 5 mg tablet 5 mg PO DAILY 05/17/19 08/30/22 Unknown History aspirin 81 mg tablet,delayed 81 mg PO DAILY 05/17/19 08/30/22 Unknown History release (Adult Low Dose Aspirin) atorvastatin 20 mg tablet 20 mg PO DAILY 05/17/19 08/30/22 Unknown History brimonidine 0.2 % eye drops 1 drop ophthalmic (eye) Q8H 05/17/19 08/30/22 Unknown History carbamazepine 200 mg tablet 200 mg PO Q8H 05/17/19 08/30/22 Unknown History dorzolamide 2 % eye drops 1 drop ophthalmic (eye) TID 05/17/19 08/30/22 Unknown History hydrochlorothiazide 12.5 mg tablet 12.5 mg PO DAILY 05/17/19 08/30/22 Unknown History insulin lispro 100 unit/mL 15 unit SUBCUT TID 05/17/19 08/30/22 Unknown History subcutaneous pen (Humalog KwikPen (U-100) Insulin) latanoprost 0.005 % eye drops 1 drop ophthalmic (eye) DAILY 05/17/19 08/30/22 Unknown History losartan 100 mg tablet 100 mg PO DAILY 05/17/19 08/30/22 Unknown History metoprolol tartrate 25 mg tablet 12.5 mg PO DAILY 05/17/19 08/30/22 Unknown History glucagon 1 mg solution for 1 mg SUBCUT Q20M PRN hypoglycemia 11/18/21 08/30/22 Unknown Rx injection (Glucagon Emergency Kit) #1 ea insulin degludec 200 unit/mL (3 See Rx Instructions .Route 05/27/22 08/30/22 Unknown Rx mL) subcutaneous pen (Tresiba .COMPLEX #21.6 mL FlexTouch U-200 insulin) Excell SAP, PolyMem Max Silver, #1 ea 06/03/22 08/30/22 Unknown Rx and 2x2 Gauze FreeStyle Isma 2 Sensor (flash #6 ea 09/02/22 Unknown Rx glucose sensor) Allergies Allergy/AdvReac Type Severity Reaction Status Date / Time vancomycin Allergy ALGY-Hives Verified 09/04/22 20:30 Hay Fever Allergy ADR-Itching Uncoded 09/04/22 20:30 Current Medications Generic Name Dose Route Start Last Admin Trade Name Freq PRN Reason Stop Dose Admin Fentanyl 50 mcg 09/04/22 22:57 09/04/22 23:49 Fentanyl 50 Mcg/Ml Inj 2ml IVP 50 mcg PRN PRN Administration Pain PFSH Acute PFSH: Medical History Carotid artery disease Diabetes mellitus HTN (hypertension) Peripheral Vascular Disease Venous insufficiency Surgical History Status post amputation of toe of right foot Family History Father Heart disease Diabetes Mother Cancer Cervical CA Social History Smoking and tobacco status: never smoked Vitals/I&O/Wt Last Vital Signs Temp 98.0 F 09/04/22 20:25 Pulse 89 09/04/22 21:39 Resp 22 H 09/04/22 23:49 BP 110/53 09/04/22 21:39 Pulse Ox 95 09/04/22 23:49 O2 Del Method Room Air 09/04/22 20:25 Weight last 48 hrs Weight 109.316 kg Physical Exam Narrative: General: Alert oriented x3, patient seen laying in bed appearing comfortable, appears slightly drowsy. He is status post cath. HEENT: Normocephalic, atraumatic, EOMI, eating 2 L nasal cannula at this time. Cardio: Regular rate rhythm, normal S1-S2 Respiratory: Clear to auscultation bilaterally GI: Abdomen soft, nontender, bowel sounds + Extremities: No edema bilateral lower extremities. Data 09/04/22 20:10 09/04/22 20:10 A&P Assessment and plan (1) ST elevation (STEMI) myocardial infarction: (2) BMI 32.0-32.9,adult: (3) Diabetes type 2, uncontrolled: (4) Peripheral Vascular Disease: (5) HTN (hypertension): (6) Venous insufficiency: (7) Carotid artery disease: Plan #ST elevation [place], anterior, V1 V2 V3 V4 #Dyslipidemia #Diabetes mellitus type 2, uncontrolled #Acute congestive systolic heart failure #Hypertension #Glaucoma #Peripheral vascular disease #Chronic lumbar back pain ? Patient presented with STEMI and was taken to [facility]. Received a stent to LAD ? For new onset heart failure received Lasix 40 IV x1 ? Cardiac echo pending. ? Place Schafer catheter for accurate output ? BNP 10,000 647. ? Baseline troponin 1000. ? Medicine has been consulted for medical management of comorbid conditions ? Accu-Chek ACHS. Consistent carbohydrate diet, cardiac ? Placed on moderate intensity sliding scale insulin ? Recently saw endocrinology. Most recent A1c 24 Aug 2022 10.2. ? He typically wears a glucose sensor. ? Patient on Tresiba 24 units daily at home. ? Patient on Humalog 12 to 16 units with meals. ? Metformin was recently stopped due to diarrhea. ? We will place on Lantus 20 units daily at this time ? Check lumbar CT spine in a.m. ? Continue aspirin atorvastatin, Plavix. ? Defer rest of cardiac management to cardiology. ? We will continue to follow. ? Discussed with cardiology and patient's nurse. ? Patient also recently had lipid profile done with endocrinology. I will not repeat at this time. Full code Consult Attestations Medical Necessity Statement: Defer to primary team. Coding Level of Care Code G0425 (30 min) TH Encounter Time (min): 45 Patient seen via Telehealth in the acute care setting (hospital or ED location) by agreement and consent of patient or patient employee relations representative. Telehealth technology used during the visit includes video and audio. This patient encounter is appropriate and reasonable under the circumstances given the patient?s particular presentation at this time. The patient has been advised of the potential risks and limitations of this mode of treatment (including but not limited to the absence of in-person examination at this time) and has agreed to be treated by an off-site physician for this visit. If deemed clinically necessary from this telehealth visit, or if condition or consent for telehealth visit changes, an in-person visit will be arranged. For this encounter, total time for the origination of telehealth care on this date is as shown. Diagnoses ST elevation (STEMI) myocardial infarction I21.3 BMI 32.0-32.9,adult Z68.32 Diabetes type 2, uncontrolled Peripheral Vascular Disease I73.9 HTN (hypertension) I10 Venous insufficiency I87.2 Carotid artery disease I73.9
[2022-09-05] VITALS (42 sets, daily range): BP systolic 88–143; BP diastolic 50–92; PULSE 69–92; RESP 15–29; TEMP 37.2–38.4; O2SAT 92–99
[2022-09-05 01:46] LABS: Partial Thromboplastin Time 85.5 SECONDS (23.9-36.7)
[2022-09-05 01:53] LABS: Troponin 5 2HR 1536 ng/L (0-15)
[2022-09-05 01:55] LABS: Troponin 5 2HR Delta 443 ABS# (0-10)
[2022-09-05 02:30] LABS: Urine Appearance Hazy (CLEAR); Urine Color Brown (Yellow); pH Urine 5 (5-7)
[2022-09-05 02:31] LABS: Add Urine Microscopic? YES; Bilirubin Urine Neg (Negative); Blood Urine 3+ (Negative); Glucose Urine UA Norm (Normal); Ketones Urine Negative (Negative); Leukocyte Esterase Urine Trace (Negative); Nitrate Urine Positive (Negative); Protein Urine 2+ (Negative); Urobilinogen Urine Norm (Negative)
[2022-09-05 02:34] LABS: RBC Urine TOO NUMEROUS TO CNT /hpf (0-2)
[2022-09-05 02:35] LABS: Squamous Epithelial Cell Urine 0-4 /hpf (0-5)
[2022-09-05 02:36] LABS: Add Urine Culture? Yes; Bacteria Urine 2+ /hpf
--- NOTE | 2022-09-05 03:11 | ECG_ITS ---
[facility] Test Date: 2022-09-05 Pat Name: Rashel Phillips Department: Room: ICU08 Gender: Male Fish Icer: : 1950 Requested By: Pravin Chi Order Number: [id number] Peoples MD: Elisa Alfaro M.D. Measurements Intervals [place] Rate: 83 P: 29 MA: 148 QRS: 268 QRSD: 109 T: 36 QT: 379 QTc: 447 Interpretive Statements SINUS RHYTHM POSSIBLE RIGHT VENTRICULAR HYPERTROPHY [SOME/ALL OF: PROMINENT R IN V1, LATE TRANSITION, RAD, ROSSANA, SSS] POSSIBLE ANTERIOR MYOCARDIAL INFARCTION , OF INDETERMINATE AGE [30 ms Q WAVE IN V3/V4, OR R < 0.2 mV IN V4] Compared to ECG 09/04/2022 20:51:42 Junctional rhythm no longer present ST (T wave) deviation no longer present Myocardial infarct finding still present Electronically Signed On 09-05-2022 5:38:31 CDT by Elisa Alfaro M.D. [email or web address]
--- NOTE | 2022-09-05 04:18 | CTR_ITS ---
PROCEDURE INFORMATION: Exam: CT Lumbar Spine Without Contrast Exam date and time: 09/05/2022 10:59 AM Age: 72 years old Clinical indication: Low back pain TECHNIQUE: Imaging protocol: Computed tomography of the lumbar spine without contrast. Total images: 1 Radiation optimization: All CT scans at this facility use at least one of these dose optimization techniques: automated exposure control; mA and/or kV adjustment per patient size (includes targeted exams where dose is matched to clinical indication); or iterative reconstruction. REPORTING DATA: Count of CT and Cardiac NM exams in prior 12 months: This patient has received 0 known CTs and 0 known cardiac nuclear medicine studies in the 12 months prior to the current study. COMPARISON: MR lumbar spine wo con* [id number] 11/19/2019 10:47 AM RADIATION DOSE METRICS: Total DLP (mGy-cm): 1179.64 FINDINGS: Bones/joints: Multilevel degenerative disc disease is noted with vacuum phenomenon. Osteophytes are noted extending from the vertebrae. No acute spinal pathology is detected. Facet joint degenerative changes are present. L3-L4 mild spinal canal stenosis and moderate right neural foraminal stenosis secondary to disc osteophyte complex and facet hypertrophy. L4-L5 moderate spinal canal stenosis and moderate bilateral neural foraminal stenosis secondary to disc osteophyte complex and facet hypertrophy. L5-S1 severe bilateral neural foraminal stenosis secondary to disc osteophyte complex and facet hypertrophy. L2-L5 Baastrup's disease. Vertebral body heights are maintained. No evidence of spondylolysis nor spondylolisthesis. Degenerative vertebral fusion T11-12. Pleural spaces: Small bilateral pleural effusions are present. Kidneys and ureters: Nonobstructive bilateral kidney stones measure as large as 7 mm. Vasculature: Moderate atherosclerotic disease is evident. Soft tissues: Unremarkable. CT/CT lumbar spine wo con* [id number] IMPRESSION: 1. Small bilateral pleural effusions are present. 2. L3-L4 mild spinal canal stenosis and moderate right neural foraminal stenosis secondary to disc osteophyte complex and facet hypertrophy. 3. L4-L5 moderate spinal canal stenosis and moderate bilateral neural foraminal stenosis secondary to disc osteophyte complex and facet hypertrophy. 4. L5-S1 severe bilateral neural foraminal stenosis secondary to disc osteophyte complex and facet hypertrophy. 5. L2-L5 Baastrup's disease.
[2022-09-05 05:41] LABS: Basophils % 0.4 %; Hematocrit 32.1 % (42.0-52.0); Hemoglobin 10.5 g/dL (11.7-16.6); Lymphocytes % 8.6 %; Mean Corpuscular HGB Conc 32.7 g/dL (30.0-36.0); Mean Corpuscular Hemoglobin 30.9 pg (28.0-34.0); Mean Corpuscular Volume 94.4 fl (80-94); Mean Platelet Volume 10.8 fL (7.4-10.4); Monocytes # 0.7 10^3/uL (0.2-0.9); Monocytes % 6.5 %; Neutrophils # 9.31 10^3/uL (1.8-7.7); Nucleated Red Blood Cells % 0 %; Platelet Count 204 10^3/cmm (130-400); Red Cell Distribution Width 12.9 % (12.1-15.1); White Blood Count 11.1 10^3/uL (4.0-10.0)
[2022-09-05 06:03] LABS: Anion Gap 13.6 (5-19); Blood Urea Nitrogen 24 mg/dL (8-23); Calcium 8.2 mg/dL (8.5-10.5); Carbon Dioxide 25 mmol/L (22-29); Chloride 99 mmol/L (98-107); Glucose 237 mg/dL (65-115); Osmolality Calculated 290 mOsm/kg (285-295); Potassium 3.6 mmol/L (3.5-5.1); Sodium 134 mmol/L (136-145)
[2022-09-05 06:23] LABS: Troponin 5 6HR 1823 ng/L (0-15); Troponin 5 6HR Delta 730 ng/L (0-12)
[2022-09-05 06:26] LABS: Partial Thromboplastin Time 30.7 SECONDS (23.9-36.7)
[2022-09-05] MEDS: fentaNYL 50 mcg/mL INJ 2mL IVP (07:42)
[2022-09-05 08:33] LABS: Glucose Point of Care 294 mg/dL (70-110)
[2022-09-05] MEDS: insulin lispro 100 unit/1 mL SUBCUT ×4 (08:47→20:48)
[2022-09-05] MEDS: aspirin 81 mg EC Tablet PO (08:47)
[2022-09-05] MEDS: clopidogrel 75 mg Tablet PO (08:47)
--- NOTE | 2022-09-05 09:07 | USR_ITS ---
PROCEDURE INFORMATION: Exam: US Retroperitoneal; Complete; Kidneys and Bladder Exam date and time: 09/05/2022 7:17 PM Age: 72 years old Clinical indication: Condition or disease; Kidney or ureter condition; Chronic kidney disease or failure; Not specified; Additional info: R/O pyleonephritis TECHNIQUE: Imaging protocol: Real-time ultrasound of the retroperitoneum with image documentation. Complete exam focused on the kidneys and bladder. COMPARISON: CR XR KUB portable [id number] 09/29/2020 12:47 PM FINDINGS: Right kidney: Normal. No stones. No hydronephrosis. Left kidney: Normal. No stones. No hydronephrosis. Urinary bladder: Unremarkable. US/US renal BI* [id number] IMPRESSION: Unremarkable kidneys and bladder.
--- NOTE | 2022-09-05 09:27 | PC.PHAR ---
pt states he takes care of his own medications-pt states he uses humalog kwikpen 10-12 units tid rx filled 07/28/22 15-20 units tid-on previous entered med list someone had entered atorvastatin 20mg daily ext doesnt show when last filled-pt states he doesnt take ozh augustus not open to verify if or when last filled
[2022-09-05] MEDS: tamsulosin 0.4 mg Capsule PO (09:37)
[2022-09-05] MEDS: cefTRIAXone 1,000 MG in sodium chloride 0.9% (plus) 50 ML 100 MG IV (09:37)
--- NOTE | 2022-09-05 09:44 | PC.NURSE ---
Sheath pull: Right groin sheath pulled at 0800 per protocol, 15min of pressure held. No hemotoma formation noted, distal pulses present, patient tolerated procedure well. Dressing in place, no bleeding noted at Q15 minute checks, distal pulses present. Patient reports no discomfort.
--- NOTE | 2022-09-05 10:31 | XRR_ITS ---
PROCEDURE INFORMATION: Exam: XR Chest Exam date and time: 09/05/2022 11:08 AM Age: 72 years old Clinical indication: Other: Chest congestion/fluid TECHNIQUE: Imaging protocol: Radiologic exam of the chest. Views: 1 view. Total images: 2 COMPARISON: CR (CHEST, ) 09/04/2022 9:07 PM FINDINGS: Lungs: Trace atelectasis or scar noted in the left lung base. Pleural spaces: Unremarkable. No pleural effusion. No pneumothorax. Heart/Mediastinum: Upper normal heart size noted. Bones/joints: Osseous structures are unchanged from the prior exam. XR/XR chest 1V portable [id number] IMPRESSION: Trace atelectasis or scar noted in the left lung base.
[2022-09-05] MEDS: FUROsemide 10 mg/mL SDV 10mL 60 MG IVP ×2 (10:47→17:16)
--- NOTE | 2022-09-05 10:50 | P.PN_ITS ---
Subjective Subjective: Patient says he is feeling well. He had late STEMI presentation. LAD was diffusely diseased and small caliber. Had large thrombus in ostial LAD with underlying stenosis. He underwent successful revascularization with ANTONINO x1. Vitals/I&O/Wt Last Vital Signs Temp 98.3 F 09/04/22 23:30 Pulse 80 09/05/22 00:30 Resp 15 09/05/22 07:42 BP 107/64 09/05/22 00:30 Pulse Ox 99 09/05/22 07:42 O2 Del Method Nasal Cannula 09/05/22 00:18 O2 Flow Rate 4 09/04/22 23:30 09/04/22 09/05/22 09/05/22 22:59 06:59 14:59 Intake Total 1100 / 1100 530 / 530 Output Total 400 / 400 Balance 700 / 700 530 / 530 Weight last 48 hrs Weight 241 lb Physical Exam Narrative: GENERAL: Patient is alert, awake and oriented x3. [] NECK: No jugular vein distension. [] HEENT: No cyanosis. No icterus. No pallor. [] HEART: Regular S1 and S2. LUNGS:Has bilateral crackles. CENTRAL NERVOUS SYSTEM: Grossly nonfocal. [] EXTREMITIES: Lower extremities with 1+ edema bilaterally. Urinary Catheter Management: Schafer: Cath Placed During This Visit: yes Reason for Continuing Indwelling Catheter: Accurate Measurement of Urinary Output in Critically Ill Patients Urinary Catheter Date of Insertion: 09/04/22 Urinary Catheter Time of Insertion: 23:30 Data 09/05/22 05:15 09/05/22 05:15 A&P Assessment and plan (1) ST elevation (STEMI) myocardial infarction: (2) Diabetes type 2, uncontrolled: (3) Carotid artery disease: (4) Peripheral Vascular Disease: (5) HTN (hypertension): (6) Acute heart failure: Plan Patient had presented with ST elevation TN. He underwent successful r evascularization of ostial LAD with ANTONINO x1. At this artery is diffusely diseased though and small caliber secondary to late presentation of TN. Dual antiplatelet therapy with aspirin and Plavix for 1 year High intensity statin therapy. Patient is volume overloaded. We will start Lasix 60 mg twice daily. He had 1 dose of Lasix last night. We will start low-dose beta-alta. Echocardiogram ordered. Medicine team is on board for diabetes management. Also has been started on antibiotics as has leukocytosis today. We will repeat chest x-ray. Appreciate recommendations Attestations Medical Necessity Statement*: Care expected to cross 2 midnights. Patient presented with non-ST elevation TN. Underwent successful revascularization of ostial LAD with ANTONINO x1. He is in heart failure. He will need diuresis. Coding Level of Care Code Acute Code for [facility] Diagnoses ST elevation (STEMI) myocardial infarction I21.3 Diabetes type 2, uncontrolled Carotid artery disease I73.9 Peripheral Vascular Disease I73.9 HTN (hypertension) I10 Acute heart failure I50.9
[2022-09-05 12:41] LABS: Glucose Point of Care 327 mg/dL (70-110)
[2022-09-05 17:16] LABS: Glucose Point of Care 275 mg/dL (70-110)
--- NOTE | 2022-09-05 17:16 | P.PN_ITS ---
Subjective Subjective: Patient was seen and examined this morning he was complaining of lower back pain, denied any chest pain shortness of breath, states that he has difficulty passing urine and has to strain. UA is consistent with UTI, also has hematuria.Possibly secondary to UTI. Medications: Medication Review Details: Generic Name Dose Route Start Last Admin Trade Name Elizabeth PRN Reason Stop Dose Admin Aspirin 81 mg 09/05/22 09:00 09/05/22 08:47 Aspirin 81 Mg Ec Tablet PO 81 mg DAILY JOSESITO Administration Clopidogrel Bisulf ate 75 mg 09/05/22 09:00 09/05/22 08:47 Clopidogrel 75 M g Tablet PO 75 mg DAILY JOSESITO Administration Furosemide 60 mg 09/05/22 11:00 09/05/22 10:47 Furosemide 10 Mg /Ml Sdv 10ml IVP 60 mg BID JOSESITO Administration Tirofiban/Sodium C hloride 5 mg in 100 mls @ 0 mls/hr 09/04/22 23:15 09/05/22 04:23 Aggrastat IV Infused .Q0M JOSESITO Titration Protocol Per Protocol Ceftriaxone Sodium 1,000 mg/ 50 mls @ 100 mls/ hr 09/05/22 09:15 09/05/22 10:22 Sodium Chloride IV Infused Q24H JOSESITO Infusion Protocol Insulin Human Lisp ro 0 unit 09/05/22 08:00 09/05/22 12:41 Insulin Lispro 1 00 Unit/1 Ml SUBCUT 14 unit WM&BEDTIME JOSESITO Administration Protocol Tamsulosin HCl 0.4 mg 09/05/22 09:30 09/05/22 09:37 Tamsulosin 0.4 M g Capsule PO 0.4 mg DAILY JOSESITO Administration Vitals/I&O/Wt Last Vital Signs Temp 98.3 F 09/04/22 23:30 Pulse 87 09/05/22 14:03 Resp 15 09/05/22 07:42 BP 107/64 09/05/22 00:30 Pulse Ox 99 09/05/22 07:42 O2 Del Method Nasal Cannula 09/05/22 00:18 O2 Flow Rate 4 09/04/22 23:30 09/05/22 09/05/22 09/05/22 06:59 14:59 22:59 Intake Total 1100 / 1100 1010 / 1010 Output Total 400 / 400 900 / 900 Balance 700 / 700 110 / 110 Weight last 48 hrs Weight 109.316 kg Physical Exam Const: COMMON NORMALS: patient oriented x3 HENMT: COMMON NORMALS: normocephalic and atraumatic HEAD & SCALP: normocephalic and atraumatic Resp: COMMON NORMALS: clear to auscultation bilaterally AUSCULTATION: clear to auscultation bilaterally Cardio: COMMON NORMALS: regular rate, regular rhythm, S1 normal heart sound present, S2 normal heart sound present, No gallops present (Cardio), No murmurs present (Cardio), No rub (Cardio) and Peripheral pulses 2+ throughout RATE: regular rate RHYTHM: regular rhythm HEART SOUNDS: S1 normal heart sound present and S2 normal heart sound present PERIPHERAL PULSES: Peripheral pulses 2+ throughout GI: COMMON NORMALS: Normal to inspection, nondistended, normoactive bowel sounds present, Soft to palpation, non-tender, No hepatosplenomegaly present and no masses AUSCULTATION: Yes normoactive bowel sounds PALPATION: Yes Soft to palpation and Yes No hepatosplenomegaly present RECTAL EXAM: Yes deferred Extremity: NARRATIVE EXTREMITY EXAM: Trace bilateral lower extremity pitting edema Neuro: COMMON NORMALS: patient oriented x3 Urinary Catheter Management: Schafer: Cath Placed During This Visit: yes Reason for Continuing Indwelling Catheter: Accurate Measurement of Urinary Output in Critically Ill Patients Urinary Catheter Date of Insertion: 09/04/22 Urinary Catheter Time of Insertion: 23:30 Data 09/05/22 05:15 09/05/22 05:15 A&P Assessment and plan (1) ST elevation (STEMI) myocardial infarction: (2) BMI 32.0-32.9,adult: (3) Diabetes type 2, uncontrolled: (4) Peripheral Vascular Disease: (5) HTN (hypertension): (6) Venous insufficiency: (7) Carotid artery disease: (8) UTI (urinary tract infection): (9) Hematuria: Plan 72-year-old male with past medical history of hypertension diabetes, carotid artery disease, came in with chief complaint of worsening shortness of breath as well as left-sided neck pain, He was diagnosed with STEMI on arrival, s/p PCI to LAD with ANTONINO*1, medicine on consult for management of comorbid medical condition. Assessment: STEMI: 2D echo is pending S/p PCI to LAD. Currently on aspirin Plavix statin Cardiology on board UTI: Follow urine culture Empirically on ceftriaxone Hematuria:Could be possibly secondary to UTI Renal ultrasound: Follow repeat urinalysis after some time If hematuria persist: Patient will have to follow urology for further work-up. History of diabetes: Currently on Lantus medium dose sliding scale insulin Monitor fingerstick glucose Diabetic diet Acute heart failure: On Lasix 60 twice daily Monitor output charting Daily weight Monitor electrolytes History of hypertension: Currently blood pressure is on the softer side Home antihypertensive medication on hold Chronic low back pain: CT scan lumbar spine without contrast has shown: L3-L4 mild spinal canal stenosis and moderate right neural foraminal stenosis secondary to disc osteophyte complex and facet hypertrophy. L4-L5 moderate spinal canal stenosis and moderate bilateral neural foraminal stenosis secondary to disc osteophyte complex and facet hypertrophy. L5-S1 severe bilateral neural foraminal stenosis secondary to disc osteophyte complex and facet hypertrophy. L2-L5 Baastrup's disease. Pain control Muscle relaxant Spine surgery follow-up as outpatient CODE STATUS: Full code Attestations Medical Necessity Statement*: Per primary team Coding Level of Care Code Acute Code for [facility] Diagnoses ST elevation (STEMI) myocardial infarction I21.3 BMI 32.0-32.9,adult Z68.32 Diabetes type 2, uncontrolled Peripheral Vascular Disease I73.9 HTN (hypertension) I10 Venous insufficiency I87.2 Carotid artery disease I73.9 UTI (urinary tract infection) N39.0 Hematuria R31.9
--- NOTE | 2022-09-05 18:25 | PC.NURSE ---
Dr. Tejada notified of increased temperature of 101.1. Verbal order to give PRN Tylenol, and requested blood cultures. See MAR for administration.
[2022-09-05] MEDS: acetaminophen 325 mg Tablet 650 MG PO (18:30)
[2022-09-05 19:25] LABS: Lactate (Lactic Acid level) 1.8 mmol/L (0.5-2.2)
[2022-09-05 19:33] LABS: Procalcitonin 0.24 ng/mL (0-0.5)
[2022-09-05 20:44] LABS: Glucose Point of Care 264 mg/dL (70-110)
[2022-09-05] MEDS: atorvastatin 40 mg Tablet 80 MG PO (20:47)
[2022-09-05] MEDS: insulin glargine 100 units/1 mL 20 UNIT SUBCUT (20:48)
[2022-09-05] MEDS: temazepam 15 mg Capsule PO (20:48)
--- NOTE | 2022-09-05 23:02 | USCV_ITS ---
Rashel Phillips Age: 72 Gender: M : 1950 Exam Date: 09/05/2022 19:34 Ordering Phys: Jeremiah Mullins M.D ([email or web address]) Technologist: GARRET [place] [facility] [place] stem[place] BP: / HR: 81 Rhythm: Sinus Technical Quality: Adequate MEASUREMENTS (Male / Female) Normal Values 2D ECHO LV Diastolic Diameter PLAX 6.7 cm 4.2 - 5.9 / 3.9 - 5.3 cm LV Systolic Diameter PLAX 5.5 cm IVS Diastolic Thickness 0.9 cm 0.6 - 1.0 / 0.6 - 0.9 cm IVS Systolic Thickness 1.2 cm LVPW Diastolic Thickness 0.9 cm 0.6 - 1.0 / 0.6 - 0.9 cm LVPW Systolic Thickness 1.2 cm LVOT Diameter 2.4 cm LV Ejection Fraction 2D Teich 35.9 % LV Ejection Fraction MOD 2C 21.9 % LV Ejection Fraction 2C AL 22.8 % LA Diameter 3.7 cm M-MODE Aortic Annulus Diameter 3.4 cm LA Ao Ratio MM 1.1 MV E Point Septal Separation 0.4 cm DOPPLER AV Peak Velocity 116.0 cm/s LVOT Peak Velocity 76.0 cm/s AV Area Cont Eq vti 3.0 cm squared AV Area Cont Eq pk 2.9 cm squared MV Area PHT 4.5 cm squared Mitral E to A Ratio 1.2 MV E' Velocity 44.0 cm/s Mitral E to MV E' Ratio 13.1 Mitral E to LV E' Lateral Ratio 10.6 Mitral E to LV E' Septal Ratio 17.3 TR Peak Velocity 302.0 cm/s TR Peak Gradient 36.5 mmHg TV Peak E Velocity 51.0 cm/s Right Atrial Pressure 6.0 mmHg Pulmonary Artery Systolic Pressu 42.5 mmHg PV Peak Velocity 73.0 cm/s FINDINGS Left Ventricle Left ventricle is dilated. LV systolic function is severely reduced with EF 15 to 20%. Apical and anterior shaffer are akinetic Right Ventricle Grossly normal Right Atrium Normal in size Left Atrium Normal in size Mitral Valve Moderate mitral annular calcification. Trace mitral regurgitation. Aortic Valve Grossly normal. No significant stenosis or regurgitation is seen. Tricuspid Valve Mild tricuspid regurgitation. RVSP is 40 to 45 mmHg. This is consistent with mild pulmonary hypertension. Pulmonic Valve Not well-visualized Pericardium Normal Aorta Normal in size IVC Not well visualized CONCLUSIONS Left ventricle is dilated. LV systolic function is severely reduced with EF of 15 to 20%. Trace mitral regurgitation Mild tricuspid regurgitation Mild pulmonary hypertension No comparison studies are available Jeremiah Mullins MD (Electronically Signed) Final Date: 06 September 2022 08:02 S
[2022-09-06] VITALS (25 sets, daily range): BP systolic 96–141; BP diastolic 38–81; PULSE 79–99; RESP 16–27; TEMP 36.8–37.2; O2SAT 91–97
[2022-09-06 03:46] LABS: Basophils % 0.3 %; Eosinophils # 0.2 10^3/uL (0.0-0.8); Eosinophils % 2.3 %; Hematocrit 33.1 % (42.0-52.0); Hemoglobin 10.8 g/dL (11.7-16.6); Lymphocytes # 1.5 10^3/uL (0.8-4.8); Lymphocytes % 15.3 %; Mean Corpuscular HGB Conc 32.6 g/dL (30.0-36.0); Mean Corpuscular Volume 95.1 fl (80-94); Mean Platelet Volume 10.8 fL (7.4-10.4); Monocytes # 0.6 10^3/uL (0.2-0.9); Monocytes % 6.6 %; Neutrophils # 7.28 10^3/uL (1.8-7.7); Neutrophils % 75.3 %; Nucleated Red Blood Cells % 0 %; Platelet Count 205 10^3/cmm (130-400); Red Blood Count 3.48 10^6/uL (4.1-5.3); White Blood Count 9.7 10^3/uL (4.0-10.0)
[2022-09-06 04:04] LABS: Blood Urea Nitrogen 31 mg/dL (8-23); Calcium 8.5 mg/dL (8.5-10.5); Carbon Dioxide 26 mmol/L (22-29); Chloride 99 mmol/L (98-107); Glucose 142 mg/dL (65-115); Osmolality Calculated 293 mOsm/kg (285-295); Sodium 137 mmol/L (136-145)
[2022-09-06 07:36] LABS: Glucose Point of Care 181 mg/dL (70-110)
[2022-09-06] MEDS: cefTRIAXone 1,000 MG in sodium chloride 0.9% (plus) 50 ML 100 MG IV (08:09)
[2022-09-06] MEDS: clopidogrel 75 mg Tablet PO (08:09)
[2022-09-06] MEDS: aspirin 81 mg EC Tablet PO (08:09)
[2022-09-06] MEDS: tamsulosin 0.4 mg Capsule PO (08:09)
--- NOTE | 2022-09-06 08:09 | USCV_ITS ---
Alan Rashel Age: 72 Gender: M : 1950 Exam Date: 09/06/2022 09:46 Ordering Phys: Jeremiah Mullins M.D ([email or web address]) Technologist: Flaquito Shepherd [place] [facility] [place]: ? lv thrombus BP: / HR: Rhythm: Sinus Technical Quality: Adequate MEASUREMENTS (Male / Female) Normal Values 2D ECHO LV Ejection Fraction MOD 2C 29.5 % LV Ejection Fraction 2C AL 28.4 % FINDINGS Left Ventricle Right Ventricle Right Atrium Left Atrium Mitral Valve Aortic Valve Tricuspid Valve Pulmonic Valve Pericardium Aorta IVC CONCLUSIONS This is a limited echocardiogram performed to rule out LV thrombus. Systolic function is severely reduced with EF of 20 to 25%. Apical wall is hypokinetic. Severe hypokinesis of anterior wall. No LV thrombus is seen Jeremiah Mullins MD (Electronically Signed) Final Date: 06 September 2022 17:25 S
--- NOTE | 2022-09-06 08:09 | PM.PN ---
Subjective Subjective: Patient is currently being treated for UTI. He had 1 for episode of fever yesterday. He denies complaints of chest pain. Has mild shortness of breath. Vitals/I&O/Wt Last Vital Signs Temp 98.9 F 09/06/22 00:00 Pulse 84 09/06/22 06:00 Resp 20 H 09/06/22 06:00 BP 140/69 09/06/22 06:00 Pulse Ox 96 09/06/22 06:00 O2 Del Method Nasal Cannula 09/05/22 18:28 O2 Flow Rate 2 09/05/22 18:28 09/05/22 09/06/22 09/06/22 22:59 06:59 14:59 Intake Total 300 / 1310 250 / 1560 Output Total 775 / 1675 500 / 2175 Balance -475 / -365 -250 / -615 Weight last 48 hrs Weight 241 lb Physical Exam Narrative: GENERAL: Patient is alert, awake and oriented x3. [] NECK: No jugular vein distension. [] HEENT: No cyanosis. No icterus. No pallor. [] HEART: Regular S1 and S2. LUNGS:Has bilateral crackles. CENTRAL NERVOUS SYSTEM: Grossly nonfocal. [] EXTREMITIES: Lower extremities with 1+ edema bilaterally. Urinary Catheter Management: Schafer: Cath Placed During This Visit: yes Reason for Continuing Indwelling Catheter: Accurate Measurement of Urinary Output in Critically Ill Patients Urinary Catheter Date of Insertion: 09/04/22 Urinary Catheter Time of Insertion: 23:30 Data 09/06/22 03:01 09/06/22 03:01 Micro: Microbiology 09/05/22 18:45 Blood Culture - Preliminary Blood SPECIMEN COLLECTED 09/05/22 18:45 Blood Culture - Preliminary Blood SPECIMEN COLLECTED A&P Assessment and plan (1) ST elevation (STEMI) myocardial infarction: (2) Diabetes type 2, uncontrolled: (3) Carotid artery disease: (4) Peripheral Vascular Disease: (5) HTN (hypertension): (6) Acute heart failure: (7) UTI (urinary tract infection): (8) Hematuria: Plan Patient had presented with ST elevation NC. He underwent successful revascularization of ostial LAD with ANTONINO x1. This artery is diffusely diseased though and small caliber secondary to late presentation of NC. Dual antiplatelet therapy with aspirin and Plavix for 1 year High intensity statin therapy. We will down titrate Lasix to 40 mg twice daily today. Creatinine went up slightly. Monitor renal function. I&O's. LV systolic function is severely reduced with EF of 15 to 20%. We will have a limited echo with contrast to rule out LV thrombus. Medicine team is on board for diabetes management. Currently on ceftriaxone per medicine team for UTI treatment. He had one febrile episode yesterday. He is hypokalemic today. We will replace potassium. Attestations Medical Necessity Statement*: Care expected to cross 2 midnights. Patient had presented with ST elevation NC. Also has UTI. He is in congestive heart failure and getting treatment for that. Coding Level of Care Code Acute Code for [facility] Diagnoses ST elevation (STEMI) myocardial infarction I21.3 Diabetes type 2, uncontrolled Carotid artery disease I73.9 Peripheral Vascular Disease I73.9 HTN (hypertension) I10 Acute heart failure I50.9 UTI (urinary tract infection) N39.0 Hematuria R31.9
[2022-09-06] MEDS: insulin lispro 100 unit/1 mL SUBCUT ×4 (08:10→20:43)
[2022-09-06] MEDS: FUROsemide 10 mg/mL SDV 10mL 60 MG IVP (08:10)
[2022-09-06] MEDS: metoprolol tartrate 25 mg Tablet PO ×2 (08:15→20:42)
[2022-09-06] MEDS: perflutren protein-a microsphr 0.22 mg/mL SDV 3 mL IV (10:06)
[2022-09-06] MEDS: potassium chloride premix 100 ML 25 MEQ IV (11:10)
[2022-09-06] MEDS: potassium chloride ER 20 mEq Tablet 40 MEQ PO (11:10)
[2022-09-06] MEDS: lidocaine 1% INJ 10 mL (per mL) 5 ML IV (11:10)
[2022-09-06 11:11] LABS: Glucose Point of Care 338 mg/dL (70-110)
[2022-09-06 11:29] LABS: Iron 14 ug/dL (59-158); Percent Saturation 7.3 % (20-50); Total Iron Binding Capacity 190 mcg/dl; Unsaturated Iron Binding 176 ug/dL (112-347)
[2022-09-06 11:37] LABS: Thyroid Stimulating Hormone 0.87 uIU/mL (0.27-4.20)
[2022-09-06 11:45] LABS: Vitamin B12 1174 pg/mL (232-1245)
[2022-09-06 16:49] LABS: Glucose Point of Care 348 mg/dL (70-110)
--- NOTE | 2022-09-06 17:10 | P.PN_ITS ---
Subjective Subjective: Hospital course, labs appreciated. On examination patient lying comfortably in bed. Denies any nausea, vomiting, headache. Denies any chest pain. States she is feeling extremely weak. Vitals appreciated to be stable. Requiring 2 L to maintain oxygen saturation over 92%. Blood work appreciated for resolution of leukocytosis, stable hemoglobin of around 10, potassium of 3, creatinine of 1.2 Vitals/I&O/Wt Last Vital Signs Temp 98.9 F 09/06/22 00:00 Pulse 84 09/06/22 16:00 Resp 25 H 09/06/22 16:00 BP 108/68 09/06/22 16:00 Pulse Ox 94 09/06/22 15:00 O2 Del Method Nasal Cannula 09/06/22 11:29 O2 Flow Rate 2 09/06/22 11:29 09/06/22 09/06/22 09/06/22 06:59 14:59 22:59 Intake Total 250 / 1560 480 / 480 Output Total 500 / 2175 550 / 550 Balance -250 / -615 480 / 480 -550 / -70 Weight last 48 hrs Weight 109.316 kg Physical Exam Narrative: General: Alert oriented x3, patient seen laying in bed appearing comfortable, appears slightly drowsy. He is status post cath. HEENT: Normocephalic, atraumatic, EOMI, eating 2 L nasal cannula at this time. Cardio: Regular rate rhythm, normal S1-S2 Respiratory: Clear to auscultation bilaterally GI: Abdomen soft, nontender, bowel sounds + Extremities: No edema bilateral lower extremities. Const: COMMON NORMALS: patient oriented x3 HENMT: COMMON NORMALS: normocephalic and atraumatic HEAD & SCALP: normocephalic and atraumatic Resp: COMMON NORMALS: clear to auscultation bilaterally AUSCULTATION: clear to auscultation bilaterally Cardio: COMMON NORMALS: regular rate, regular rhythm, S1 normal heart sound present, S2 normal heart sound present, No gallops present (Cardio), No murmurs present (Cardio), No rub (Cardio) and Peripheral pulses 2+ throughout RATE: regular rate RHYTHM: regular rhythm HEART SOUNDS: S1 normal heart sound present and S2 normal heart sound present PERIPHERAL PULSES: Peripheral pulses 2+ throughout GI: COMMON NORMALS: Normal to inspection, nondistended, normoactive bowel sounds present, Soft to palpation, non-tender, No hepatosplenomegaly present and no masses AUSCULTATION: Yes normoactive bowel sounds PALPATION: Yes Soft to palpation and Yes No hepatosplenomegaly present RECTAL EXAM: Yes deferred Extremity: NARRATIVE EXTREMITY EXAM: Trace bilateral lower extremity pitting edema Neuro: COMMON NORMALS: patient oriented x3 Urinary Catheter Management: Schafer: Cath Placed During This Visit: yes Reason for Continuing Indwelling Catheter: Accurate Measurement of Urinary Output in Critically Ill Patients Urinary Catheter Date of Insertion: 09/04/22 Urinary Catheter Time of Insertion: 23:30 Data 09/06/22 03:01 09/06/22 03:01 Micro: Microbiology 09/04/22 02:15 Urine Culture - Preliminary Urine,Clean Catch 09/05/22 18:45 Blood Culture - Preliminary Blood SPECIMEN COLLECTED 09/05/22 18:45 Blood Culture - Preliminary Blood SPECIMEN COLLECTED A&P Assessment and plan (1) UTI (urinary tract infection): (2) ST elevation (STEMI) myocardial infarction: (3) Diabetes type 2, uncontrolled: (4) BMI 32.0-32.9,adult: (5) Peripheral Vascular Disease: (6) HTN (hypertension): (7) Venous insufficiency: (8) Carotid artery disease: (9) Hematuria: Plan 72-year-old male with past medical history of hypertension diabetes, carotid artery disease, came in with chief complaint of worsening shortness of breath as well as left-sided neck pain, He was diagnosed with STEMI on arrival, s/p PCI to LAD with ANTONINO*1, medicine on consult for management of comorbid medical condition. Assessment: STEMI: Treatment as per primary team. Post PCI to LAD. Continue on aspirin, Plavix, statin. Echocardiogram done shows EF of 1525%, apical anterior wall akinesia with mild MR. Fever: Most likely in setting of UTI: Follow-up urine culture. Continue with IV ceftriaxone. Blood cultures so far negative. Type 2 diabetes mellitus: History of uncontrolled diabetes. Blood sugars trending up. Increase Lantus to 25 units nightly, insulin sliding scale to high-dose protocol. Check HbA1c. Acute systolic congestive heart failure: Ischemic cardiomyopathy. Strict input output charting, daily weights. Lasix as per primary team. Monitor electrolytes. Does have hypokalemia today. Repleted with 40 mEq of IV. Start on potassium 20 mEq twice daily. Repeat BMP in evening. Chronic lower back pain: CT scan appreciated. Plan to follow-up as an outpatient with orthopedic surgery. WILLIAM Schafer. Physical therapy evaluation. Full code. Carb consistent diet. Start on heparin for DVT prophylaxis. Famotidine for PUD prophylaxis. Can transfer out of ICU to CSU if okay with primary team. Attestations Medical Necessity Statement*: Requires further hospitalization for management of UTI in a patient who was admitted with acute ST elevation [place] post PCI to [facility] Diagnoses UTI (urinary tract infection) N39.0 ST elevation (STEMI) myocardial infarction I21.3 Diabetes type 2, uncontrolled BMI 32.0-32.9,adult Z68.32 Peripheral Vascular Disease I73.9 HTN (hypertension) I10 Venous insufficiency I87.2 Carotid artery disease I73.9 Hematuria R31.9
[2022-09-06 17:43] LABS: Anion Gap 12.8 (5-19); Blood Urea Nitrogen 40 mg/dL (8-23); Calcium 8.1 mg/dL (8.5-10.5); Carbon Dioxide 27 mmol/L (22-29); Chloride 93 mmol/L (98-107); Glucose 327 mg/dL (65-115); Osmolality Calculated 290 mOsm/kg (285-295); Potassium 3.8 mmol/L (3.5-5.1); Sodium 129 mmol/L (136-145)
[2022-09-06] MEDS: heparin 5,000 unit/mL INJ 1 mL 5000 UNIT SUBCUT (17:45)
[2022-09-06] MEDS: famotidine 20 mg Tablet PO (17:46)
[2022-09-06] MEDS: potassium chloride ER 10 mEq Tablet PO (17:46)
[2022-09-06] MEDS: FUROsemide 10 mg/mL SDV 10mL 40 MG IVP (17:46)
--- NOTE | 2022-09-06 18:42 | PC.NURSE ---
Schafer removed at 1640
[2022-09-06] MEDS: sodium chloride 0.9% 1,000 ML 50 ML IV (18:58)
--- NOTE | 2022-09-06 19:28 | PC.NURSE ---
Unequal Eyes Patient's left eye unreactive to light with a pupil size of 3 while his right eye is brisk and a size 2. Patient states this is normal for him, he states he has glaucoma and has had multiple eye surgeries in the left.
[2022-09-06 20:36] LABS: Glucose Point of Care 367 mg/dL (70-110)
[2022-09-06] MEDS: insulin glargine 100 units/1 mL 25 UNIT SUBCUT (20:42)
[2022-09-06] MEDS: atorvastatin 40 mg Tablet 80 MG PO (20:42)
[2022-09-06] MEDS: TRAMadol 50 mg Tablet PO (22:25)
--- NOTE | 2022-09-06 22:25 | PC.NURSE ---
Pain/Straight Cath Schafer catheter removed around 1640 in the afternoon. By 2039, patient sill unable to urinate despite patient efforts. Bladder scan performed revealing 277 ml of urine remaining in the bladder. Additionally, patient complaining of generalized pain at a 9 on a numerical pain scale of 1-10. Dr. Tan contacted; order received for 50 mg tramodol PO once and to straight cath patient. Straight cath performed with a return of 260 ml.
[2022-09-07] VITALS (29 sets, daily range): BP systolic 109–140; BP diastolic 57–87; PULSE 74–103; RESP 16–29; TEMP 36.9; O2SAT 84–97; BMI 32.5
[2022-09-07 03:08] LABS: Glucose Point of Care 127 mg/dL (70-110)
[2022-09-07 04:07] LABS: Basophils % 0.5 %; Eosinophils # 0.4 10^3/uL (0.0-0.8); Eosinophils % 4.2 %; Hematocrit 31.3 % (42.0-52.0); Hemoglobin 10.1 g/dL (11.7-16.6); Lymphocytes # 1.6 10^3/uL (0.8-4.8); Mean Corpuscular HGB Conc 32.3 g/dL (30.0-36.0); Mean Corpuscular Hemoglobin 30.6 pg (28.0-34.0); Mean Corpuscular Volume 94.8 fl (80-94); Mean Platelet Volume 11.1 fL (7.4-10.4); Monocytes # 0.6 10^3/uL (0.2-0.9); Monocytes % 6.7 %; Neutrophils # 6.04 10^3/uL (1.8-7.7); Neutrophils % 70.3 %; Nucleated Red Blood Cells % 0 %; Platelet Count 217 10^3/cmm (130-400); Red Cell Distribution Width 12.6 % (12.1-15.1); White Blood Count 8.6 10^3/uL (4.0-10.0)
[2022-09-07 04:22] LABS: Alanine Aminotransferase 15 U/L (0-41); Albumin Level 2.7 g/dL (3.5-5.2); Alkaline Phosphatase 110 U/L (40-130); Anion Gap 12.6 (5-19); Aspartate Amino Transferase 17 U/L (0-40); Blood Urea Nitrogen 39 mg/dL (8-23); Calcium 8.3 mg/dL (8.5-10.5); Carbon Dioxide 27 mmol/L (22-29); Chloride 98 mmol/L (98-107); Globulin 2.8 g/dL (1.3-4.6); Glucose 112 mg/dL (65-115); Osmolality Calculated 288 mOsm/kg (285-295); Potassium 3.6 mmol/L (3.5-5.1); Sodium 134 mmol/L (136-145); Total Bilirubin 0.3 mg/dL (0.15-1.2); Total Protein 5.5 g/dL (6.6-8.7)
[2022-09-07 04:41] LABS: Folate Level 12.2 ng/mL (4.5-32.2)
[2022-09-07] MEDS: heparin 5,000 unit/mL INJ 1 mL 5000 UNIT SUBCUT ×2 (05:56→17:46)
[2022-09-07] MEDS: ondansetron 2 mg/ML SDV 2 mL 4 MG IVP (06:01)
--- NOTE | 2022-09-07 06:40 | PC.NURSE ---
Straight Cath/Nausea Around 0300, patient still unable to urinate; bladder scan reveals 244 mls of urine. While standing at bedside to attempt to urinate, patient became dizzy and nauseous. No change in vital signs. Patient returned to bed, nausea slightly better. At 0445, patient still unable to urinate and still complaining of nausea. Dr. Tan contacted; order received for 4 mg zofran IVP Q6H PRN for nausea and to straight cath as needed. At 0640, no urine output. Bladder scan revealed 404 mls of urine remaining in the bladder. Straight cath performed with a return of 350 ml of urine. See MAR for medication administration.
[2022-09-07 07:15] LABS: Glucose Point of Care 158 mg/dL (70-110)
[2022-09-07] MEDS: potassium chloride ER 10 mEq Tablet PO ×2 (09:03→17:45)
[2022-09-07] MEDS: tamsulosin 0.4 mg Capsule PO (09:03)
[2022-09-07] MEDS: clopidogrel 75 mg Tablet PO (09:03)
[2022-09-07] MEDS: aspirin 81 mg EC Tablet PO (09:03)
[2022-09-07] MEDS: famotidine 20 mg Tablet PO ×2 (09:04→17:46)
[2022-09-07] MEDS: metoprolol tartrate 25 mg Tablet PO ×2 (09:05→21:58)
[2022-09-07] MEDS: cefTRIAXone 1,000 MG in sodium chloride 0.9% (plus) 50 ML 100 MG IV (09:05)
--- NOTE | 2022-09-07 10:35 | PC.SOCIAL ---
Imm update Imm updated with patient at bedside. Copy of page 2 provided. Patient verbalized understanding. Copy in chart initialed, dated and timed.
--- NOTE | 2022-09-07 15:47 | PM.PN ---
Subjective Subjective: No acute events overnight. Patient denies any nausea, vomiting, headache. States he feels weak but better than yesterday. Worked with physical therapy yesterday and today morning. Had some dizziness yesterday morning when he stood up but none today. Sat down in chair for few hours yesterday. Denies any nausea, vomiting, headache. Vitals appreciated. Blood work appreciated for resolving BILL, no leukocytosis. Has remained afebrile in last 24 hours. Vitals/I&O/Wt Last Vital Signs Temp 98.4 F 09/07/22 03:00 Pulse 77 09/07/22 13:24 Resp 19 H 09/07/22 10:00 BP 122/72 09/07/22 12:00 Pulse Ox 93 09/07/22 13:24 O2 Del Method Nasal Cannula 09/07/22 13:24 O2 Flow Rate 2 09/07/22 13:24 09/07/22 09/07/22 09/07/22 06:59 14:59 22:59 Intake Total 480 / 480 Output Total 350 / 1160 1800 / 1800 Balance -350 / -390 -1320 / -1320 Weight last 48 hrs Weight 108.771 kg Physical Exam Narrative: General: Alert oriented x3, patient seen laying in bed appearing comfortable, appears slightly drowsy. He is status post cath. HEENT: Normocephalic, atraumatic, EOMI, eating 2 L nasal cannula at this time. Cardio: Regular rate rhythm, normal S1-S2 Respiratory: Clear to auscultation bilaterally GI: Abdomen soft, nontender, bowel sounds + Extremities: No edema bilateral lower extremities. Urinary Catheter Management: Schafer: Cath Placed During This Visit: yes Reason for Continuing Indwelling Catheter: Accurate Measurement of Urinary Output in Critically Ill Patients Urinary Catheter Date of Insertion: 09/04/22 Urinary Catheter Time of Insertion: 23:30 Data 09/07/22 02:45 09/07/22 02:45 Micro: Microbiology 09/04/22 02:15 Urine Culture - Final Urine,Clean Catch 09/05/22 18:45 Blood Culture - Preliminary Blood NEGATIVE TO DATE 09/05/22 18:45 Blood Culture - Preliminary Blood NEGATIVE TO DATE A&P Assessment and plan (1) UTI (urinary tract infection): (2) ST elevation (STEMI) myocardial infarction: (3) Diabetes type 2, uncontrolled: (4) BMI 32.0-32.9,adult: (5) Peripheral Vascular Disease: (6) HTN (hypertension): (7) Venous insufficiency: (8) Carotid artery disease: (9) Hematuria: (10) Acute kidney injury: Plan 72-year-old male with past medical history of hypertension diabetes, carotid artery disease, came in with chief complaint of worsening shortness of breath as well as left-sided neck pain, He was diagnosed with STEMI on arrival, s/p PCI to LAD with ANTONINO*1, medicine on consult for management of comorbid medical condition. Assessment: STEMI: Treatment as per primary team. Post PCI to LAD. Continue on aspirin, Plavix, statin. Echocardiogram done shows EF of 1525%, apical anterior wall akinesia with mild MR. Fever: Most likely in setting of UTI: Blood culture has remained negative, urine culture negative. Leukocytosis has resolved. Patient has remained afebrile for next 24 hours. Continue IV ceftriaxone to finish a 5-day course with last dose on 09/10. If getting discharged prior to that can discharge on oral Levaquin or Keflex. Acute kidney injury: Most likely in setting of mild LAMONTE along with dehydration while patient was on Lasix for congestive heart failure. Gentle IV hydration done yesterday. BILL has resolved. Hold off on any further Lasix or fluid for now. Medical reconciliation done for nephrotoxic drugs. Holding off on JERALD inhibitors for now. Type 2 diabetes mellitus: History of uncontrolled diabetes. Blood sugars better controlled. Continue with Lantus 30 units nightly, sliding scale at high-dose protocol. A1c 10.2. Acute systolic congestive heart failure: Ischemic cardiomyopathy. Strict input output charting, daily weights. Lasix as per primary team. Monitor electrolytes. Hypokalemia has resolved. Chronic lower back pain: CT scan appreciated. Plan to follow-up as an outpatient with orthopedic surgery. Appreciate PT evaluation. Orthostatic check. Full code. Carb consistent diet. Start on heparin for DVT prophylaxis. Famotidine for PUD prophylaxis. Transfer to CSU. Care discussed in detail with patient's primary team, RN at bedside. Please feel free to call back if any questions. Attestations Medical Necessity Statement*: Requires further hospitalization for management of post STEMI care, BILL, UTI while safe discharge planning is sought Diagnoses UTI (urinary tract infection) N39.0 ST elevation (STEMI) myocardial infarction I21.3 Diabetes type 2, uncontrolled BMI 32.0-32.9,adult Z68.32 Peripheral Vascular Disease I73.9 HTN (hypertension) I10 Venous insufficiency I87.2 Carotid artery disease I73.9 Hematuria R31.9 Acute kidney injury N17.9
[2022-09-07 16:58] LABS: Glucose Point of Care 475 mg/dL (70-110)
--- NOTE | 2022-09-07 17:08 | P.PN_ITS ---
Subjective Subjective: Patient is feeling better. No chest pain. Minimal shortness of breath. Yesterday creatinine went up and Lasix was held. He was started on IV fluids. Vitals/I&O/Wt Last Vital Signs Temp 98.4 F 09/07/22 03:00 Pulse 84 09/07/22 16:00 Resp 24 H 09/07/22 16:00 BP 129/72 09/07/22 16:00 Pulse Ox 84 L 09/07/22 16:00 O2 Del Method Room Air 09/07/22 16:00 O2 Flow Rate 2 09/07/22 13:24 09/07/22 09/07/22 09/07/22 06:59 14:59 22:59 Intake Total 480 / 480 Output Total 350 / 1160 1800 / 1800 Balance -350 / -390 -1320 / -1320 Weight last 48 hrs Weight 239 lb 12.8 oz Physical Exam Narrative: GENERAL: Patient is alert, awake and oriented x3. [] NECK: No jugular vein distension. [] HEENT: No cyanosis. No icterus. No pallor. [] HEART: Regular S1 and S2. LUNGS:Has bilateral crackles. CENTRAL NERVOUS SYSTEM: Grossly nonfocal. [] EXTREMITIES: Lower extremities with 1+ edema bilaterally. Urinary Catheter Management: Schafer: Cath Placed During This Visit: yes Reason for Continuing Indwelling Catheter: Accurate Measurement of Urinary Output in Critically Ill Patients Urinary Catheter Date of Insertion: 09/04/22 Urinary Catheter Time of Insertion: 23:30 Data 09/07/22 02:45 09/07/22 02:45 Micro: Microbiology 09/04/22 02:15 Urine Culture - Final Urine,Clean Catch 09/05/22 18:45 Blood Culture - Preliminary Blood NEGATIVE TO DATE 09/05/22 18:45 Blood Culture - Preliminary Blood NEGATIVE TO DATE A&P Assessment and plan (1) ST elevation (STEMI) myocardial infarction: (2) Diabetes type 2, uncontrolled: (3) Carotid artery disease: (4) Peripheral Vascular Disease: (5) HTN (hypertension): (6) Acute heart failure: (7) UTI (urinary tract infection): (8) Hematuria: Plan We will continue dual antiplatelet therapy with aspirin and Plavix. High intensity statin therapy. Lasix were held yesterday and was put on IV fluids. We will hold IV fluids today. Monitor renal function closely. Medicine team on board for medical therapy. LV systolic function is severely reduced. We will order LifeVest prior to discharge Patient will be transferred out of ICU Attestations Medical Necessity Statement*: Care expected to cross 2 midnights. Patient had STEMI and has congestive heart failure. Getting active treatment and monitoring of renal function Coding Level of Care Code Acute Code for [facility] Fwd Diagnoses ST elevation (STEMI) myocardial infarction I21.3 Diabetes type 2, uncontrolled Carotid artery disease I73.9 Peripheral Vascular Disease I73.9 HTN (hypertension) I10 Acute heart failure I50.9 UTI (urinary tract infection) N39.0 Hematuria R31.9
[2022-09-07] MEDS: insulin lispro 100 unit/1 mL SUBCUT ×2 (17:44→21:59)
[2022-09-07] MEDS: ferrous gluconate 324 mg Tablet PO (17:46)
[2022-09-07 21:34] LABS: Glucose Point of Care 414 mg/dL (70-110)
[2022-09-07] MEDS: finasteride 5 mg Tablet PO (21:58)
[2022-09-07] MEDS: atorvastatin 40 mg Tablet 80 MG PO (21:58)
[2022-09-07] MEDS: insulin glargine 100 units/1 mL 30 UNIT SUBCUT (21:59)
[2022-09-08] VITALS (11 sets, daily range): BP systolic 111–134; BP diastolic 64–87; PULSE 75–92; RESP 17–33; TEMP 37; O2SAT 90–99
[2022-09-08] MEDS: heparin 5,000 unit/mL INJ 1 mL 5000 UNIT SUBCUT ×2 (04:16→17:50)
[2022-09-08 06:10] LABS: Basophils # 0.1 10^3/uL (0.0-0.1); Basophils % 0.7 %; Eosinophils # 0.4 10^3/uL (0.0-0.8); Eosinophils % 5.4 %; Hematocrit 31.5 % (42.0-52.0); Hemoglobin 10.4 g/dL (11.7-16.6); Lymphocytes # 1.1 10^3/uL (0.8-4.8); Lymphocytes % 15.2 %; Mean Corpuscular Hemoglobin 31.1 pg (28.0-34.0); Mean Corpuscular Volume 94.3 fl (80-94); Mean Platelet Volume 10.8 fL (7.4-10.4); Monocytes # 0.5 10^3/uL (0.2-0.9); Monocytes % 6.7 %; Neutrophils # 5.14 10^3/uL (1.8-7.7); Neutrophils % 71.6 %; Nucleated Red Blood Cells % 0 %; Platelet Count 259 10^3/cmm (130-400); Red Blood Count 3.34 10^6/uL (4.1-5.3); Red Cell Distribution Width 12.5 % (12.1-15.1); White Blood Count 7.2 10^3/uL (4.0-10.0)
[2022-09-08 06:29] LABS: Alanine Aminotransferase 14 U/L (0-41); Albumin Level 2.7 g/dL (3.5-5.2); Alkaline Phosphatase 111 U/L (40-130); Anion Gap 11.8 (5-19); Aspartate Amino Transferase 15 U/L (0-40); Blood Urea Nitrogen 37 mg/dL (8-23); Calcium 8.7 mg/dL (8.5-10.5); Carbon Dioxide 27 mmol/L (22-29); Chloride 98 mmol/L (98-107); Glucose 127 mg/dL (65-115); Osmolality Calculated 286 mOsm/kg (285-295); Potassium 3.8 mmol/L (3.5-5.1); Sodium 133 mmol/L (136-145); Total Bilirubin 0.4 mg/dL (0.15-1.2); Total Protein 5.7 g/dL (6.6-8.7)
[2022-09-08 06:35] LABS: Glucose Point of Care 143 mg/dL (70-110)
[2022-09-08] MEDS: famotidine 20 mg Tablet PO ×2 (08:00→17:49)
[2022-09-08] MEDS: metoprolol tartrate 25 mg Tablet PO ×2 (08:00→19:59)
[2022-09-08] MEDS: FUROsemide 40 mg Tablet PO ×2 (08:00→17:54)
[2022-09-08] MEDS: potassium chloride ER 10 mEq Tablet PO ×2 (08:00→17:50)
[2022-09-08] MEDS: aspirin 81 mg EC Tablet PO (08:00)
[2022-09-08] MEDS: ferrous gluconate 324 mg Tablet PO ×2 (08:00→17:49)
[2022-09-08] MEDS: clopidogrel 75 mg Tablet PO (08:01)
[2022-09-08] MEDS: tamsulosin 0.4 mg Capsule PO (08:01)
[2022-09-08] MEDS: insulin lispro 100 unit/1 mL SUBCUT ×4 (08:01→19:58)
[2022-09-08] MEDS: insulin glargine 100 units/1 mL 20 UNIT SUBCUT ×2 (08:14→17:50)
[2022-09-08] MEDS: cefTRIAXone 1,000 MG in sodium chloride 0.9% (plus) 50 ML 100 MG IV (08:14)
[2022-09-08 11:43] LABS: Glucose Point of Care 153 mg/dL (70-110)
--- NOTE | 2022-09-08 12:38 | PM.PN ---
Subjective Subjective: Patient doing well. Denies complaints of chest pain. Vitals/I&O/Wt Last Vital Signs Temp 98.4 F 09/07/22 03:00 Pulse 75 09/08/22 08:00 Resp 21 H 09/08/22 08:00 BP 114/71 09/08/22 08:00 Pulse Ox 99 09/08/22 08:00 O2 Del Method Nasal Cannula 09/08/22 08:00 O2 Flow Rate 2 09/08/22 08:00 09/07/22 09/08/22 09/08/22 22:59 06:59 14:59 Intake Total 1290 / 1770 200 / 1970 410 / 410 Output Total 350 / 2150 450 / 2600 Balance 940 / -380 -250 / -630 410 / 410 Weight last 48 hrs Weight 245 lb 11.2 oz Weight 239 lb 12.8 oz Physical Exam Narrative: GENERAL: Patient is alert, awake and oriented x3. [] NECK: No jugular vein distension. [] HEENT: No cyanosis. No icterus. No pallor. [] HEART: Regular S1 and S2. LUNGS: Diminished air entry CENTRAL NERVOUS SYSTEM: Grossly nonfocal. [] EXTREMITIES: Lower extremities with 1+ edema bilaterally. Urinary Catheter Management: Schafer: Cath Placed During This Visit: yes Reason for Continuing Indwelling Catheter: Accurate Measurement of Urinary Output in Critically Ill Patients Urinary Catheter Date of Insertion: 09/04/22 Urinary Catheter Time of Insertion: 23:30 Data 09/08/22 05:05 09/08/22 05:05 Micro: Microbiology 09/04/22 02:15 Urine Culture - Final Urine,Clean Catch A&P Assessment and plan (1) ST elevation (STEMI) myocardial infarction: (2) Diabetes type 2, uncontrolled: (3) Carotid artery disease: (4) Peripheral Vascular Disease: (5) HTN (hypertension): (6) Acute heart failure: (7) UTI (urinary tract infection): (8) Hematuria: Plan Patient overall doing well. Continue aspirin and Plavix. High intensity statin therapy. P.o. Lasix started today. Monitor renal function closely. Medicine team on board for medical therapy. Appreciate recommendations. LV systolic function is severely reduced. LifeVest ordered. If patient stays stable by tomorrow, can discharge home. Attestations Medical Necessity Statement*: Care expected to cross 2 midnights. Patient did come with ST elevation [place]. He has congestive heart failure. Getting treatment for that. Awaiting LifeVest. Possible discharge tomorrow. Coding Level of Care Code Acute Code for g Fwd Diagnoses ST elevation (STEMI) myocardial infarction I21.3 Diabetes type 2, uncontrolled Carotid artery disease I73.9 Peripheral Vascular Disease I73.9 HTN (hypertension) I10 Acute heart failure I50.9 UTI (urinary tract infection) N39.0 Hematuria R31.9
--- NOTE | 2022-09-08 14:17 | PM.PN ---
Subjective Subjective: No acute events overnight. Patient has remained hemodynamically stable and afebrile. Last episode of fever on 09/05. Denies any nausea, vomiting, headache, dizziness or chest pain. Working with physical therapy. Vitals/I&O/Wt Last Vital Signs Temp 98.4 F 09/07/22 03:00 Pulse 82 09/08/22 12:00 Resp 24 H 09/08/22 12:00 BP 118/64 09/08/22 12:00 Pulse Ox 98 09/08/22 12:00 O2 Del Method Nasal Cannula 09/08/22 12:00 O2 Flow Rate 2 09/08/22 08:00 09/07/22 09/08/22 09/08/22 22:59 06:59 14:59 Intake Total 1290 / 1770 200 / 1970 890 / 890 Output Total 350 / 2150 450 / 2600 650 / 650 Balance 940 / -380 -250 / -630 240 / 240 Weight last 48 hrs Weight 111.448 kg Weight 108.771 kg Physical Exam Narrative: General: Alert oriented x3, patient seen laying in bed appearing comfortable, appears slightly drowsy. He is status post cath. HEENT: Normocephalic, atraumatic, EOMI, eating 2 L nasal cannula at this time. Cardio: Regular rate rhythm, normal S1-S2 Respiratory: Clear to auscultation bilaterally GI: Abdomen soft, nontender, bowel sounds + Extremities: No edema bilateral lower extremities. Urinary Catheter Management: Schafer: Cath Placed During This Visit: yes Reason for Continuing Indwelling Catheter: Accurate Measurement of Urinary Output in Critically Ill Patients Urinary Catheter Date of Insertion: 09/04/22 Urinary Catheter Time of Insertion: 23:30 Data 09/08/22 05:05 09/08/22 05:05 A&P Assessment and plan (1) UTI (urinary tract infection): (2) ST elevation (STEMI) myocardial infarction: (3) Diabetes type 2, uncontrolled: (4) BMI 32.0-32.9,adult: (5) Peripheral Vascular Disease: (6) HTN (hypertension): (7) Venous insufficiency: (8) Carotid artery disease: (9) Hematuria: (10) Acute kidney injury: (11) Urinary retention: Plan 72-year-old male with past medical history of hypertension diabetes, carotid artery disease, came in with chief complaint of worsening shortness of breath as well as left-sided neck pain, He was diagnosed with STEMI on arrival, s/p PCI to LAD with ANTONINO*1, medicine on consult for management of comorbid medical condition. Assessment: STEMI: Treatment as per primary team. Post PCI to LAD. Continue on aspirin, Plavix, statin. Echocardiogram done shows EF of 15?25%, apical anterior wall akinesia with mild MR. Plan for LifeVest per primary team. Fever: Most likely in setting of UTI: Blood culture has remained negative, urine culture negative. Leukocytosis has resolved. Patient has remained afebrile for next 24 hours. Continue IV ceftriaxone to finish a 7-day course with last dose on 09/12 given requirement of recatheterization. If getting discharged prior to that can discharge on Keflex. Urinary retention: Failed Schafer removal. Schafer replaced on 09/07. Continue with Flomax. Finasteride added. Acute kidney injury: Resolved. Most likely in setting of mild LAMONTE along with dehydration while patient was on Lasix for congestive heart failure. Restart oral Lasix 40 mg twice daily today. Continue to monitor. Medical reconciliation done for nephrotoxic drugs. Holding off on JERALD inhibitors for now. Type 2 diabetes mellitus: History of uncontrolled diabetes. Blood sugars continues to remain uncontrolled. We will change Lantus to 20 units twice daily. Continue insulin sliding scale high-dose protocol. Most likely will discharge patient on Lantus twice daily along with Humalog. A1c 10.2. Acute systolic congestive heart failure: Ischemic cardiomyopathy. Strict input output charting, daily weights. Restarted oral Lasix 40 mg twice daily today. Monitor electrolytes. Hypokalemia has resolved. Chronic lower back pain: CT scan appreciated. Plan to follow-up as an outpatient with orthopedic surgery. Appreciate PT evaluation. Plan for discharge with home health. Full code. Carb consistent diet. Start on heparin for DVT prophylaxis. Famotidine for PUD prophylaxis. Care discussed in detail with patient's primary team, RN at bedside. Please feel free to call back if any questions. Attestations Medical Necessity Statement*: Requires further hospitalization for management of both [employer]IVE care vitae LifeVest is arranged, acute systolic congestive heart failure, resolving BILL, uncontrolled type 2 diabetes mellitus and urinary retention leading to UTI Diagnoses UTI (urinary tract infection) N39.0 ST elevation (STEMI) myocardial infarction I21.3 Diabetes type 2, uncontrolled BMI 32.0-32.9,adult Z68.32 Peripheral Vascular Disease I73.9 HTN (hypertension) I10 Venous insufficiency I87.2 Carotid artery disease I73.9 Hematuria R31.9 Acute kidney injury N17.9 Urinary retention R33.9
[2022-09-08 16:28] LABS: Glucose Point of Care 244 mg/dL (70-110)
[2022-09-08] MEDS: finasteride 5 mg Tablet PO (19:59)
[2022-09-08] MEDS: temazepam 15 mg Capsule PO (19:59)
[2022-09-08] MEDS: atorvastatin 40 mg Tablet 80 MG PO (19:59)
[2022-09-08 20:18] LABS: Glucose Point of Care 278 mg/dL (70-110)
[2022-09-09] VITALS (15 sets, daily range): BP systolic 76–141; BP diastolic 33–86; PULSE 77–116; RESP 17–27; TEMP 36.7–36.9; O2SAT 90–97
[2022-09-09] MEDS: heparin 5,000 unit/mL INJ 1 mL 5000 UNIT SUBCUT ×2 (04:00→17:36)
[2022-09-09 06:07] LABS: Glucose Point of Care 128 mg/dL (70-110)
--- NOTE | 2022-09-09 06:16 | PC.NURSE ---
Patient reports feeling some chest congestion this morning. Having problems coughing anything up. Auscultated patient heard some moisture that moves and clears with cough. Informed Dr Emanuel of patient's request.
[2022-09-09] MEDS: potassium chloride ER 10 mEq Tablet PO ×2 (08:17→17:37)
[2022-09-09] MEDS: tamsulosin 0.4 mg Capsule PO (08:17)
[2022-09-09] MEDS: aspirin 81 mg EC Tablet PO (08:17)
[2022-09-09] MEDS: ferrous gluconate 324 mg Tablet PO ×2 (08:17→17:37)
[2022-09-09] MEDS: clopidogrel 75 mg Tablet PO (08:18)
[2022-09-09] MEDS: metoprolol tartrate 25 mg Tablet PO ×2 (08:18→20:45)
--- NOTE | 2022-09-09 08:21 | PC.SOCIAL ---
IMM Update pg 2 of IMM updated and reviewed w/ patient. Copy provided and Copy in chart dated, and initialed.
[2022-09-09] MEDS: insulin glargine 100 units/1 mL 20 UNIT SUBCUT ×2 (08:25→17:35)
[2022-09-09] MEDS: FUROsemide 10 mg/mL SDV 4mL 40 MG IVP ×2 (08:25→09:39)
--- NOTE | 2022-09-09 08:31 | XR_ITS ---
WS: [id number] XR chest 1V portable [id number] REASON FOR EXAM: SOB FINDINGS: The chest is unchanged compared to 09/05/2022. Moderate tortuosity the thoracic aorta. Heart size at the upper limits of normal. Calcified granulomatous disease bilaterally. Mild chronic interstitial lung opacities. No acute pulmonary parenchymal or pleural abnormality is id entified. Degenerative spondylosis, moderate, in the mid and lower thoracic spine. XR/XR chest 1V portable [id number] IMPRESSION: Chronic appearing lung changes with no definite acute abnormality.
[2022-09-09 08:54] LABS: Anion Gap 13.8 (5-19); Blood Urea Nitrogen 24 mg/dL (8-23); Calcium 8.4 mg/dL (8.5-10.5); Carbon Dioxide 28 mmol/L (22-29); Chloride 99 mmol/L (98-107); Glucose 121 mg/dL (65-115); Osmolality Calculated 289 mOsm/kg (285-295); Potassium 3.8 mmol/L (3.5-5.1); Sodium 137 mmol/L (136-145)
[2022-09-09] MEDS: famotidine 20 mg Tablet PO ×2 (09:39→17:37)
[2022-09-09] MEDS: losartan 50 mg Tablet PO (09:39)
[2022-09-09] MEDS: cefTRIAXone 1,000 MG in sodium chloride 0.9% (plus) 50 ML 100 MG IV (09:39)
--- NOTE | 2022-09-09 10:41 | PM.PN ---
Subjective Subjective: Patient got short of breath earlier this morning and desatted. Denies chest pain. Vitals/I&O/Wt Last Vital Signs Temp 98.5 F 09/09/22 07:02 Pulse 79 09/09/22 09:29 Resp 20 H 09/09/22 07:02 BP 135/69 09/09/22 09:39 Pulse Ox 97 09/09/22 09:29 O2 Del Method Nasal Cannula 09/09/22 09:29 O2 Flow Rate 2 09/09/22 08:00 09/08/22 09/09/22 09/09/22 22:59 06:59 14:59 Intake Total 677 / 1567 478 / 478 Output Total 850 / 1500 900 / 2400 1000 / 1000 Balance -173 / 67 -900 / -833 -522 / -522 Weight last 48 hrs Weight 243 lb 12.8 oz Weight 245 lb 11.2 oz Physical Exam Narrative: GENERAL: Patient is alert, awake and oriented x3. [] NECK: No jugular vein distension. [] HEENT: No cyanosis. No icterus. No pallor. [] HEART: Regular S1 and S2. LUNGS: Diminished air entry, mild bilateral crackles CENTRAL NERVOUS SYSTEM: Grossly nonfocal. [] EXTREMITIES: Lower extremities with 1+ edema bilaterally. Urinary Catheter Management: Schafer: Cath Placed During This Visit: yes Reason for Continuing Indwelling Catheter: Accurate Measurement of Urinary Output in Critically Ill Patients Urinary Catheter Date of Insertion: 09/04/22 Urinary Catheter Time of Insertion: 23:30 Data 09/08/22 05:05 09/09/22 08:25 A&P Assessment and plan (1) ST elevation (STEMI) myocardial infarction: (2) Diabetes type 2, uncontrolled: (3) Carotid artery disease: (4) Peripheral Vascular Disease: (5) HTN (hypertension): (6) Acute heart failure: (7) UTI (urinary tract infection): (8) Hematuria: Plan Patient getting IV Lasix today as it got more short of breath and. Volume overloaded. We will obtain chest x-ray. Continue dual antiplatelet therapy with aspirin and Plavix. LifeVest has been set up. Once he gets euvolemic, we will discharge him home. Hospitalist team on board. Appreciate recommendations Attestations Medical Necessity Statement*: Care expected to cross 2 midnights. Coding Level of Care Code Acute Code for Chg Fwd Diagnoses ST elevation (STEMI) myocardial infarction I21.3 Diabetes type 2, uncontrolled Carotid artery disease I73.9 Peripheral Vascular Disease I73.9 HTN (hypertension) I10 Acute heart failure I50.9 UTI (urinary tract infection) N39.0 Hematuria R31.9
--- NOTE | 2022-09-09 11:13 | PC.NURSE ---
0730 AM pt sitting up on the side of the bed, report of being short of breath,congested unable to cough up phlegm pt denies any chest pain or discomfort. Lungs sounds are crackly throughout upon auscultation. Pt stated he feels lightheaded. Assisted pt back in bed, noticed oxygen desaturated down to 86-87% when repositioned laying in bed. Applied 2 L NC, spo2 came up to 94%. BP-141/86, HR-85. Notified hospitalist, received order to give IVP 40 mg lasix. Notified chief customer officer and received orders to give additional dose of 40 mg IV lasix for a total of 80 mg, 50 mg of losartan and a portable chest xray.
[2022-09-09 11:19] LABS: Glucose Point of Care 269 mg/dL (70-110)
[2022-09-09] MEDS: insulin lispro 100 unit/1 mL SUBCUT ×3 (12:20→20:46)
--- NOTE | 2022-09-09 13:09 | P.PN_ITS ---
Subjective Subjective: No acute events overnight. Patient has remained hemodynamically stable and afebrile. Today morning patient did complain of difficulty in breathing along with chest pressure for which he received IV Lasix. After that he put out around 1100 cc of urine and his breathing improved. Examination patient is back on room air. Denies any further chest heaviness. Denies any nausea, vomiting, headache. Blood was appreciated for a stable CBC, creatinine of 1, sodium of 137 and potassium of 3.8. BUN slightly elevated 24. Blood sugar much better controlled. Vitals/I&O/Wt Last Vital Signs Temp 98.1 F 09/09/22 11:18 Pulse 81 09/09/22 11:18 Resp 18 09/09/22 11:18 BP 133/69 09/09/22 11:18 Pulse Ox 97 09/09/22 11:18 O2 Del Method Room Air 09/09/22 11:18 O2 Flow Rate 2 09/09/22 08:00 09/08/22 09/09/22 09/09/22 22:59 06:59 14:59 Intake Total 677 / 1567 886 / 886 Output Total 850 / 1500 900 / 2400 2100 / 2100 Balance -173 / 67 -900 / -833 -1214 / -1214 Weight last 48 hrs Weight 110.586 kg Weight 111.448 kg Physical Exam Narrative: General: Alert oriented x3, patient seen laying in bed appearing comfortable, appears slightly drowsy. He is status post cath. HEENT: Normocephalic, atraumatic, EOMI, eating 2 L nasal cannula at this time. Cardio: Regular rate rhythm, normal S1-S2 Respiratory: Clear to auscultation bilaterally GI: Abdomen soft, nontender, bowel sounds + Extremities: No edema bilateral lower extremities. Const: COMMON NORMALS: patient oriented x3 HENMT: COMMON NORMALS: normocephalic and atraumatic HEAD & SCALP: normocephalic and atraumatic Resp: COMMON NORMALS: clear to auscultation bilaterally AUSCULTATION: clear to auscultation bilaterally Cardio: COMMON NORMALS: regular rate, regular rhythm, S1 normal heart sound present, S2 normal heart sound present, No gallops present (Cardio), No murmurs present (Cardio), No rub (Cardio) and Peripheral pulses 2+ throughout RATE: regular rate RHYTHM: regular rhythm HEART SOUNDS: S1 normal heart sound present and S2 normal heart sound present PERIPHERAL PULSES: Peripheral puls es 2+ throughout GI: COMMON NORMALS: Normal to inspection, nondistended, normoactive bowel sounds present, Soft to palpation, non-tender, No hepatosplenomegaly present and no masses AUSCULTATION: Yes normoactive bowel sounds PALPATION: Yes Soft to palpation and Yes No hepatosplenomegaly present RECTAL EXAM: Yes deferred Extremity: NARRATIVE EXTREMITY EXAM: Trace bilateral lower extremity pitting edema Neuro: COMMON NORMALS: patient oriented x3 Urinary Catheter Management: Schafer: Cath Placed During This Visit: yes Reason for Continuing Indwelling Catheter: Accurate Measurement of Urinary Output in Critically Ill Patients Urinary Catheter Date of Insertion: 09/04/22 Urinary Catheter Time of Insertion: 23:30 Data 09/08/22 05:05 09/09/22 08:25 A&P Assessment and plan (1) UTI (urinary tract infection): (2) ST elevation (STEMI) myocardial infarction: (3) Diabetes type 2, uncontrolled: (4) BMI 32.0-32.9,adult: (5) Peripheral Vascular Disease: (6) HTN (hypertension): (7) Venous insufficiency: (8) Carotid artery disease: (9) Hematuria: (10) Acute kidney injury: (11) Urinary retention: Plan 72-year-old male with past medical history of hypertension diabetes, carotid artery disease, came in with chief complaint of worsening shortness of breath as well as left-sided neck pain, He was diagnosed with STEMI on arrival, s/p PCI to LAD with ANTONINO*1, medicine on consult for management of comorbid medical condition. Assessment: STEMI: Treatment as per primary team. Post PCI to LAD. Continue on aspirin, Plavix, statin. Echocardiogram done shows EF of 15?25%, apical anterior wall akinesia with mild MR. Plan for LifeVest per primary team. Fever: Most likely in setting of UTI: Blood culture has remained negative, urine culture negative. Leukocytosis has resolved. Patient has remained afebrile for next 24 hours. Continue IV ceftriaxone to finish a 7-day course with last dose on 09/12 given requirement of recatheterization. If getting discharged prior to that can discharge on Keflex. Urinary retention: Failed Schafer removal. Schafer replaced on 09/07. Continue with Flomax. Finasteride added. Acute kidney injury: Resolved. Most likely in setting of mild LAMONTE along with dehydration while patient was on Lasix for congestive heart failure. Restart oral Lasix 40 mg twice daily today. Continue to monitor. Medical reconciliation done for nephrotoxic drugs. Holding off on JERALD inhibitors for now. Type 2 diabetes mellitus: History of uncontrolled diabetes. Blood sugars continues to remain uncontrolled. We will change Lantus to 20 units twice daily. Continue insulin sliding scale high-dose protocol. Most likely will discharge patient on Lantus twice daily along with Humalog. A1c 10.2. Acute systolic congestive heart failure: Ischemic cardiomyopathy. Strict input output charting, daily weights. Restarted oral Lasix 40 mg twice daily today. Monitor electrolytes. Hypokalemia has resolved. Chronic lower back pain: CT scan appreciated. Plan to follow-up as an outpatient with orthopedic surgery. Appreciate PT evaluation. Plan for discharge with home health. Full code. Carb consistent diet. Start on heparin for DVT prophylaxis. Famotidine for PUD prophylaxis. Plan for the day: Continue IV ceftriaxone to finish a 7-day course. LifeVest today. Continue with DAPT, beta-alta. IV Lasix 40 mg one-time. Will repeat oral Lasix in a.m. Strict input output charting. Patient did have acute hypoxia with mild failure today morning for which she required extra dose of Lasix after which she improved. Monitor BMP daily. Continue with current insulin sliding scale and Lantus 20 units twice daily. Most likely will discharge him on the same. Care discussed in detail with patient's primary team, RN at bedside. Please feel free to call back if any questions. Attestations Medical Necessity Statement*: Requires further hospitalization for management of systolic congestive heart failure in setting of need for recent ST elevation [place], UTI Diagnoses UTI (urinary tract infection) N39.0 ST elevation (STEMI) myocardial infarction I21.3 Diabetes type 2, uncontrolled BMI 32.0-32.9,adult Z68.32 Peripheral Vascular Disease I73.9 HTN (hypertension) I10 Venous insufficiency I87.2 Carotid artery disease I73.9 Hematuria R31.9 Acute kidney injury N17.9 Urinary retention R33.9
--- NOTE | 2022-09-09 16:23 | PC.NURSE ---
nurse was notified over BP retook manually and BP was 82/50
[2022-09-09] MEDS: FUROsemide 40 mg Tablet PO (17:36)
[2022-09-09 17:46] LABS: Glucose Point of Care 282 mg/dL (70-110)
--- NOTE | 2022-09-09 18:00 | PC.NURSE ---
life vest in pt's room
[2022-09-09] MEDS: finasteride 5 mg Tablet PO (20:45)
[2022-09-09] MEDS: atorvastatin 40 mg Tablet 80 MG PO (20:45)
[2022-09-09 21:51] LABS: Glucose Point of Care 84 mg/dL (70-110)
[2022-09-09 23:00] LABS: Glucose Point of Care 66 mg/dL (70-110)
[2022-09-09 23:18] LABS: Glucose Point of Care 67 mg/dL (70-110)
[2022-09-09 23:49] LABS: Glucose Point of Care 94 mg/dL (70-110)
[2022-09-10] VITALS (8 sets, daily range): BP systolic 104–127; BP diastolic 52–72; PULSE 75–87; RESP 18–20; TEMP 36.6–37; O2SAT 91–94
[2022-09-10] MEDS: heparin 5,000 unit/mL INJ 1 mL 5000 UNIT SUBCUT (04:39)
[2022-09-10 07:37] LABS: Glucose Point of Care 266 mg/dL (70-110)
[2022-09-10] MEDS: ferrous gluconate 324 mg Tablet PO (08:16)
[2022-09-10] MEDS: clopidogrel 75 mg Tablet PO (08:17)
[2022-09-10] MEDS: losartan 50 mg Tablet 25 MG PO (08:17)
[2022-09-10] MEDS: insulin lispro 100 unit/1 mL SUBCUT ×2 (08:18→11:52)
[2022-09-10] MEDS: famotidine 20 mg Tablet PO (08:18)
[2022-09-10] MEDS: tamsulosin 0.4 mg Capsule PO (08:18)
[2022-09-10] MEDS: aspirin 81 mg EC Tablet PO (08:18)
[2022-09-10] MEDS: potassium chloride ER 10 mEq Tablet PO (08:18)
[2022-09-10] MEDS: insulin glargine 100 units/1 mL 20 UNIT SUBCUT (08:51)
[2022-09-10 09:02] LABS: Basophils # 0.1 10^3/uL (0.0-0.1); Basophils % 0.6 %; Eosinophils # 0.3 10^3/uL (0.0-0.8); Eosinophils % 3.5 %; Hematocrit 35.9 % (42.0-52.0); Hemoglobin 11.8 g/dL (11.7-16.6); Lymphocytes # 1.2 10^3/uL (0.8-4.8); Lymphocytes % 14.7 %; Mean Corpuscular HGB Conc 32.9 g/dL (30.0-36.0); Mean Corpuscular Hemoglobin 31.2 pg (28.0-34.0); Mean Platelet Volume 10.2 fL (7.4-10.4); Monocytes # 0.7 10^3/uL (0.2-0.9); Monocytes % 8.4 %; Neutrophils # 5.72 10^3/uL (1.8-7.7); Neutrophils % 72.4 %; Nucleated Red Blood Cells % 0 %; Platelet Count 308 10^3/cmm (130-400); Red Blood Count 3.78 10^6/uL (4.1-5.3); Red Cell Distribution Width 12.6 % (12.1-15.1); White Blood Count 7.9 10^3/uL (4.0-10.0)
[2022-09-10 09:22] LABS: Anion Gap 12.8 (5-19); Blood Urea Nitrogen 20 mg/dL (8-23); Calcium 8.3 mg/dL (8.5-10.5); Carbon Dioxide 28 mmol/L (22-29); Chloride 99 mmol/L (98-107); Glucose 238 mg/dL (65-115); Osmolality Calculated 292 mOsm/kg (285-295); Potassium 3.8 mmol/L (3.5-5.1); Sodium 136 mmol/L (136-145)
[2022-09-10] MEDS: FUROsemide 10 mg/mL SDV 10mL 60 MG IVP (09:49)
--- NOTE | 2022-09-10 09:52 | PC.NURSE ---
Dr Mullins ordered a one time order for lasix 60mg IVP given at 0900 (documentation says [id number]) and to hold the PO lasix this morning.
[2022-09-10] MEDS: metoprolol tartrate 25 mg Tablet PO (10:14)
[2022-09-10 11:07] LABS: Glucose Point of Care 298 mg/dL (70-110)
--- NOTE | 2022-09-10 12:47 | P.DS_ITS ---
Discharge Providers Date of Admission: 09/04/22 22:43 Date of Discharge: September 10, 2022 Attending Provider at Admission: Jeremiah Mullins M.D Attending Provider at Discharge: Jeremiah Mullins M.D Primary Care Provider: Greer Kennedy NP Diagnoses at Discharge Discharge Diagnosis (1) ST elevation (STEMI) myocardial infarction: Status: Acute (2) Diabetes type 2, uncontrolled: Status: Acute (3) Carotid artery disease: Status: Inactive (4) Peripheral Vascular Disease: Status: Inactive (5) HTN (hypertension): Status: Inactive (6) Acute heart failure: Status: Inactive (7) UTI (urinary tract infection): Status: Acute (8) Hematuria: Status: Inactive (9) Urinary retention: Status: Acute (10) HFrEF (heart failure with reduced ejection fraction): Status: Acute Reason for Visit Reason for Visit: Shortness of breath Brief History: 72 year old male with past medical history of diabetes, peripheral artery disease, hypertension presented with 3 days of shortness of breath.? He started having neck pain today in the afternoon.? Also has been having back pain for several days.? His initial EKG shows ST elevations in leads V1 to V4.? Initial troponin is over 1000. NT Pro BNP is over 15769.? Blood pressure is stable. geophysical laboratory chief was activated by ER and patient brought to laboratory cureman emergently after a ctivation. Hospital Course Hospital Course Coronary angiogram confirmed delayed presentation of ST elevation [place]. Patient had critical thrombotic stenosis of ostial LAD that underwent successful revascularization with ANTONINO x1. Left main artery was borderline significant on the IVUS. We decided to treat it medically. Patient had a severely reduced LV systolic function with EF of 15-20%. Patient had diuresis. He had urinary retention and was discharged home with a urinary catheter and outpatient urology consullt. Medicine team helped with managment of medical issues. He was also treated for UTI. Patient was also discharged home on a Lifevest with close outpatient cardiology follow up. Physical Exam Narrative: GENERAL: Patient is alert, awake and oriented x3. [] NECK: No jugular vein distension. [] HEENT: No cyanosis. No icterus. No pallor. [] HEART: Regular S1 and S2. LUNGS: Diminished air entry, mild bilateral crackles CENTRAL NERVOUS SYSTEM: Grossly nonfocal. [] EXTREMITIES: Lower extremities with 1+ edema bilaterally. Urinary Catheter Management: Schafer: Cath Placed During This Visit: yes Reason for Continuing Indwelling Catheter: Accurate Measurement of Urinary Output in Critically Ill Patients Urinary Catheter Date of Insertion: 09/04/22 Urinary Catheter Time of Insertion: 23:30 Discharge Data Studies Completed and Pending Completed Studies During Hospitalization Category Date Time Status CT lumbar spine wo con* [id number] Routine Cat Scan 09/05/22 04:18 Completed XR cervical spine 3V* [id number] Stat Exams 09/04/22 20:47 Completed XR chest 1V portable [id number] Routine Exams 09/05/22 10:31 Completed XR chest 1V portable [id number] Stat Exams 09/04/22 20:47 Completed XR chest 1V portable [id number] Stat Exams 09/09/22 08:31 Completed CV. echo complete* [id number] Routine Ultrasound 09/05/22 23:02 Completed US echo limited with contrast [CV. echo lmt w/w contras Ultrasound 09/06/22 08:09 Completed [id number]] Routine US renal BI* [id number] Routine Ultrasound 09/05/22 09:07 Completed Pending at discharge Category Date Time Status BLEACHER SULFITE PULP request for service Stat Exams 09/04/22 21:36 Taken Blood Culture Stat Lab 09/05/22 18:45 Results Radiology Impressions Cervical Spine X-Ray 09/04/22 20:47 IMPRESSION: There are degenerative changes as described above. No evidence for acute fracture. Lumbar Spine CT 09/05/22 04:18 IMPRESSION: 1. Small bilateral pleural effusions are present. 2. L3-L4 mild spinal canal stenosis and moderate right neural foraminal stenosis secondary to disc osteophyte complex and facet hypertrophy. 3. L4-L5 moderate spinal canal stenosis and moderate bilateral neural foraminal stenosis secondary to disc osteophyte complex and facet hypertrophy. 4. L5-S1 severe bilateral neural foraminal stenosis secondary to disc osteophyte complex and facet hypertrophy. 5. L2-L5 Baastrup's disease. Renal Ultrasound 09/05/22 09:07 IMPRESSION: Unremarkable kidneys and bladder. Chest X-Ray 09/09/22 08:31 IMPRESSION: Chronic appearing lung changes with no definite acute abnormality. Laboratory Results WBC 7.9 10^3/uL (4.0-10.0) 09/10/22 08:45 RBC 3.78 10^6/uL (4.1-5.3) L 09/10/22 08:45 Hgb 11.8 g/dL (11.7-16.6) 09/10/22 08:45 Hct 35.9 % (42.0-52.0) L 09/10/22 08:45 MCV 95.0 fl (80-94) H 09/10/22 08:45 MCH 31.2 pg (28.0-34.0) 09/10/22 08:45 MCHC 32.9 g/dL (30.0-36.0) 09/10/22 08:45 RDW 12.6 % (12.1-15.1) 09/10/22 08:45 Plt Count 308 10^3/cmm (130-400) 09/10/22 08:45 MPV 10.2 fL (7.4-10.4) 09/10/22 08:45 Neut % (Auto) 72.4 % 09/10/22 08:45 Lymph % (Auto) 14.7 % 09/10/22 08:45 Desha % (Auto) 8.4 % 09/10/22 08:45 Eos % (Auto) 3.5 % 09/10/22 08:45 Baso % (Auto) 0.6 % 09/10/22 08:45 Neut # (Auto) 5.72 10^3/uL (1.8-7.7) 09/10/22 08:45 Lymph # (Auto) 1.2 10^3/uL (0.8-4.8) 09/10/22 08:45 Desha # (Auto) 0.7 10^3/uL (0.2-0.9) 09/10/22 08:45 Eos # (Auto) 0.3 10^3/uL (0.0-0.8) 09/10/22 08:45 Baso # (Auto) 0.1 10^3/uL (0.0-0.1) 09/10/22 08:45 Nucleated RBC % (auto) 0 % 09/10/22 08:45 Nucleated RBCs # 0.0 /100WBC 09/10/22 08:45 APTT 30.7 SECONDS (23.9-36.7) D 09/05/22 05:15 Sodium 136 mmol/L (136-145) 09/10/22 08:45 Potassium 3.8 mmol/L (3.5-5.1) 09/10/22 08:45 Chloride 99 mmol/L (98-107) 09/10/22 08:45 Carbon Dioxide 28 mmol/L (22-29) 09/10/22 08:45 Anion Gap 12.8 (5-19) 09/10/22 08:45 BUN 20 mg/dL (8-23) 09/10/22 08:45 Creatinine 0.9 mg/dL (0.7-1.2) 09/10/22 08:45 GFR Calculation Not Reportable 09/10/22 08:45 Glucose 238 mg/dL (65-115) H 09/10/22 08:45 POC Glucose 298 mg/dL (70-110) H 09/10/22 10:54 Calculated Osmolality 292 mOsm/kg (285-295) 09/10/22 08:45 Lactate 1.8 mmol/L (0.5-2.2) 09/05/22 18:45 Calcium 8.3 mg/dL (8.5-10.5) L 09/10/22 08:45 Iron 14 ug/dL (59-158) L 09/06/22 03:01 TIBC 190 mcg/dl 09/06/22 03:01 % Saturation 7.3 % (20-50) L 09/06/22 03:01 Unsat Iron Binding 176 ug/dL (112-347) 09/06/22 03:01 Total Bilirubin 0.4 mg/dL (0.15-1.2) 09/08/22 05:05 AST 15 U/L (0-40) 09/08/22 05:05 ALT 14 U/L (0-41) 09/08/22 05:05 Alkaline Phosphatase 111 U/L (40-130) 09/08/22 05:05 Troponin T Baseline 1093 ng/L (0-15) H* 09/04/22 20:10 Troponin T 120 Minute 1536 ng/L (0-15) H 09/04/22 01:10 Delta Troponin T 443 ABS# (0-10) H* 09/04/22 01:10 Troponin T Hi Sens 6Hr 1823 ng/L (0-15) H 09/05/22 05:15 Troponin T Hi Sens 6Hr Delta 730 ng/L (0-12) H* 09/05/22 05:15 NT-Pro-B Natriuret Pep 31596 pg/mL (0-125) H 09/04/22 20:10 Total Protein 5.7 g/dL (6.6-8.7) L 09/08/22 05:05 Albumin 2.7 g/dL (3.5-5.2) L 09/08/22 05:05 Globulin 3.0 g/dL (1.3-4.6) 09/08/22 05:05 Vitamin B12 1174 pg/mL (232-1245) 09/06/22 03:01 Folate 12.2 ng/mL (4.5-32.2) 09/07/22 02:45 Procalcitonin 0.24 ng/mL (0-0.5) 09/05/22 18:45 TSH 0.87 uIU/mL (0.27-4.20) 09/06/22 03:01 Urine Color Brown (Yellow) 09/04/22 02:15 Urine Appearance Hazy (CLEAR) A 09/04/22 02:15 Urine pH 5 (5-7) 09/04/22 02:15 Ur Specific [place] 1.000 (1.005-1.030) L 09/04/22 02:15 Urine Protein 2+ (Negative) H 09/04/22 02:15 Urine Glucose (UA) Norm (Normal) 09/04/22 02:15 Urine Ketones Negative (Negative) 09/04/22 02:15 Urine Blood 3+ (Negative) H 09/04/22 02:15 Urine Nitrate Positive (Negative) H 09/04/22 02:15 Urine Bilirubin Neg (Negative) 09/04/22 02:15 Urine Urobilinogen Norm mg/dL (Negative) 09/04/22 02:15 Ur Leukocyte Esterase Trace (Negative) H 09/04/22 02:15 Urine RBC Too numerous to cnt /hpf (0-2) H 09/04/22 02:15 Urine WBC 5-10 /hpf (0-5) H 09/04/22 02:15 Ur Squamous Epith Cells 0-4 /hpf (0-5) H 09/04/22 02:15 Amorphous Sediment Not Reportable 09/04/22 02:15 Urine Bacteria 2+ /hpf (NONE) H 09/04/22 02:15 Influenza Type A Ag negative (Negative) 09/04/22 21:17 Influenza Type B Ag negative (Negative) 09/04/22 21:17 SARS-CoV-2 Ag (Rapid) negative (Negative) 09/04/22 21:17 Vitals Last Vital Signs Temp 97.8 F 09/10/22 12:00 Pulse 75 09/10/22 12:00 Resp 18 09/10/22 12:00 BP 105/61 09/10/22 12:00 Pulse Ox 94 09/10/22 12:00 O2 Del Method Room Air 09/10/22 12:00 O2 Flow Rate 2 09/09/22 08:00 Discharge Plan Discharge Patient Disposition: Home Health Service Condition: Stable Prescriptions: New famotidine 20 mg Tablet 20 mg PO BID Qty: 60 0RF tamsulosin 0.4 mg Capsule 0.4 mg PO DAILY Qty: 30 0RF finasteride 5 mg Tablet 5 mg PO BEDTIME Qty: 30 0RF ferrous gluconate 324 mg (37.5 mg iron) Tablet 324 mg PO BIDWM Qty: 60 0RF aspirin 81 mg Tablet,Delayed Release (Dr/Ec) 81 mg PO DAILY Qty: 90 3RF clopidogrel 75 mg Tablet 75 mg PO DAILY Qty: 90 3RF Continued carbamazepine 200 mg tablet 200 mg PO Q8H latanoprost 0.005 % drops 1 drop ophthalmic (eye) QPM Rx Instructions: left eye insulin lispro [Humalog KwikPen Insulin] 100 unit/mL insulin pen 10 - 12 unit SUBCUT TID Glucagon Emergency Kit (human) 1 mg recon soln 1 mg SUBCUT Q20M PRN (Reason: hypoglycemia) Qty: 1 0RF Rx Instructions: until target blood sugar attained (DME) Excell SAP, PolyMem Max Silver, and 2x2 Gauze See Rx Instructions .Route .MEDSUPPLY Qty: 1 0RF Rx Instructions: As directed HOME needs dressing changes Twice a Day- for 90 days (DME) FreeStyle Isma 2 Sensor Kit See Rx Instructions .ROUTE .MEDSUPPLY Qty: 6 0RF Rx Instructions: change every 14 days brimonidine 0.2 % drops 1 drp ophthalmic (eye) BID Rx Instructions: left eye dorzolamide-timolol 22.3-6.8 mg/mL Drops 1 drp OPHTHALMIC (EYE) DAILY Rx Instructions: Left Eye Changed Tresiba FlexTouch U-200 200 unit/mL (3 mL) insulin pen 30 unit SUBCUT QAM Qty: 9 0RF metoprolol tartrate 25 mg tablet 25 mg PO BEDTIME Qty: 120 3RF Discontinued amlodipine 5 mg tablet 5 mg PO BEDTIME aspirin [Adult Low Dose Aspirin] 81 mg tablet,delayed release (DR/EC) 81 mg PO QAM losartan 100 mg tablet 100 mg PO QAM hydrochlorothiazide 12.5 mg tablet 12.5 mg PO DAILY chlorthalidone 25 mg tablet 25 mg PO DAILY No Action atorvastatin 40 mg tablet 80 mg PO BEDTIME Qty: 90 3RF furosemide 40 mg tablet 40 mg PO BID@08,16 Qty: 180 3RF metolazone 2.5 mg tablet 2.5 mg PO DAILY Qty: 7 0RF Rx Instructions: Take 30 minutes before morning lasix dose Klor-Con 10 20 mEq tablet extended release 20 meq PO BID Qty: 7 1RF Rx Instructions: Increase dose while taking metolazone, then resume 10mEq twice a day Cipro 500 mg tablet 500 mg PO BID Qty: 20 0RF metolazone 5 mg tablet 5 mg PO DAILY Qty: 30 0RF Levsin 0.125 mg tablet 0.125 mg PO Q8H PRN (Reason: bladder spasms) Qty: 30 0RF Discharge Orders: Discharge Order (Routine); Ordered 09/10/22 Ordered By: Jeremiah Mullins Other Ambulatory Orders: Basic Metabolic Panel (Routine) Timeframe: [id number] Location: Determined by Patient Ordered By: Jeremiah Mullins DME: Walker (Order) Location: None Selected Ordered By: Brian Emanuel Referrals: [facility] [place] [facility] ([facility]) [Outside] J Luis Triana [Referring] - (Please call Dr. Triana's Office on Tuesday at [phone] to schedule a follow up appointment for 2 weeks. Thank you.) Jeremiah Mullins M.D [Physician] - 6 Weeks (Your Dr. Mullins follow up appointment will be scheduled while you are at your Jaimee Sepulveda appointment. Thank you.) Jaimee Sepulveda FNP [Nurse Practitioner] - 09/16/22 9:15 am (Please follow-up with Jaimee Sepulveda on September 16 at 9:15A.M. If youhave any questions or need to reschedule. Please call ) Ambreen Jesus MD [Physician] - 09/29/22 9:15 am Greer Kennedy NP [Primary Care Provider] - 09/29/22 9:40 am Discharge Diet: Cardiac and Diabetic Discharge Activity: Increase activity as tolerated Patient Instructions: Cephalexin (By mouth) (Bio-Cef, Keflex), Iron Supplements (By mouth) (Duofer, Fe-20, Bifera, Jonathan-Iron), Metoprolol (By mouth) (Lopressor, Toprol XL), Famotidine (By mouth) (Acid Controller, Acid Curriculum Designer, Pepcid AC, Pepcid), Potassium Chloride (By mouth) (K-Dur, K-Lisa, K-Tab, Vic Mur), Aspirin (By mouth) (Kishore Extra Strength, Kishore Aspirin Children's,..., Finasteride (By mouth) (Propecia, Proscar), Atorvastatin (By mouth) (Lipitor), Tamsulosin (By mouth) (Flomax), Clopidogrel (By mouth) (Plavix), Insulin Glargine (By injection) (Lantus, Lantus SoloStar, Toujeo, Semglee), Insulin Degludec (By injection) (Tresiba), Heart Failure (DC), Coronary Angioplasty (DC), Opioid Safety, Post Angiogram Home Care Instructions, Post Heart Attack Stoplight Activity Restrictions/Additional Instructions: If Schafer catheter remains in place for more than 1 month it should be replaced. Please follow-up with urology as an outpatient. Finasteride has been added to Flomax. Dose of Tresiba has been increased to 30 units. Please check your blood sugar and blood pressure daily at home and maintain a blood sugar and blood pressure diary. Please follow-up with your primary care provider within next 1 week. You should follow-up with endocrinology within next 1 month as well for further adjustment of antidiabetic's. Discharge Attestations Time Spent in Discharge Care*: greater than 30 min Quality Metrics Clinical Quality Measures [ Acute Myocardial Infaction { Clinical Trial Participant: No; Contraindication to aspirin: None; Aspirin prescribed; Contraindication to statin: None; Statin prescribed; Contraindication to PCI: None; PCI performed;}] Coding Level of Care Code Acute Code for Chg Fwd Diagnoses ST elevation (STEMI) myocardial infarction I21.3 Diabetes type 2, uncontrolled Carotid artery disease I73.9 Peripheral Vascular Disease I73.9 HTN (hypertension) I10 Acute heart failure I50.9 UTI (urinary tract infection) N39.0 Hematuria R31.9 Urinary retention R33.9 HFrEF (heart failure with reduced ejection fraction) I50.20
--- NOTE | 2022-09-10 14:37 | PM.PN ---
Subjective Subjective: No acute events overnight. Today morning seen with family at bedside. Patient denies any active complaints. No chest pain. States feeling better. Continues to remain on room air. Documented urine output in last 24 hours of 4 L. Around 2.1 L negative in last 24 hours. Has remained hemodynamically stable. Plan for discharge as per primary team. Vitals/I&O/Wt Last Vital Signs Temp 97.8 F 09/10/22 12:00 Pulse 79 09/10/22 14:00 Resp 18 09/10/22 12:00 BP 105/61 09/10/22 12:00 Pulse Ox 94 09/10/22 12:00 O2 Del Method Room Air 09/10/22 12:00 O2 Flow Rate 2 09/09/22 08:00 09/09/22 09/10/22 09/10/22 22:59 06:59 14:59 Intake Total 350 / 1236 500 / 1736 240 / 240 Output Total 525 / 2625 1300 / 3925 Balance -175 / -1389 -800 / -2189 240 / 240 Weight last 48 hrs Weight 108.21 kg Weight 110.586 kg Physical Exam Narrative: General: Alert oriented x3, patient seen laying in bed appearing comfortable, appears slightly drowsy. He is status post cath. HEENT: Normocephalic, atraumatic, EOMI, eating 2 L nasal cannula at this time. Cardio: Regular rate rhythm, normal S1-S2 Respiratory: Clear to auscultation bilaterally GI: Abdomen soft, nontender, bowel sounds + Extremities: No edema bilateral lower extremities. Urinary Catheter Management: Schafer: Cath Placed During This Visit: yes Reason for Continuing Indwelling Catheter: Accurate Measurement of Urinary Output in Critically Ill Patients Urinary Catheter Date of Insertion: 09/04/22 Urinary Catheter Time of Insertion: 23:30 Data 09/10/22 08:45 09/10/22 08:45 A&P Assessment and plan (1) UTI (urinary tract infection): (2) ST elevation (STEMI) myocardial infarction: (3) Diabetes type 2, uncontrolled: (4) BMI 32.0-32.9,adult: (5) Peripheral Vascular Disease: (6) HTN (hypertension): (7) Venous insufficiency: (8) Carotid artery disease: (9) Hematuria: (10) Acute kidney injury: (11) Urinary retention: Plan 72-year-old male with past medical history of hypertension diabetes, carotid artery disease, came in with chief complaint of worsening shortness of breath as well as left-sided neck pain, He was diagnosed with STEMI on arrival, s/p PCI to LAD with ANTONINO*1, medicine on consult for management of comorbid medical condition. Assessment: STEMI: Treatment as per primary team. Post PCI to LAD. Continue on aspirin, Plavix, statin. Echocardiogram done shows EF of 15?25%, apical anterior wall akinesia with mild MR. Plan for LifeVest per primary team. Fever: Most likely in setting of UTI: Blood culture has remained negative, urine culture negative. Leukocytosis has resolved. Patient has remained afebrile for next 24 hours. Continue IV ceftriaxone to finish a 7-day course with last dose on 09/12 given requirement of recatheterization. If getting discharged prior to that can discharge on Keflex. Urinary retention: Failed Schafer removal. Schafer replaced on 09/07. Continue with Flomax. Finasteride added. Acute kidney injury: Resolved. Most likely in setting of mild LAMONTE along with dehydration while patient was on Lasix for congestive heart failure. Restart oral Lasix 40 mg twice daily today. Continue to monitor. Medical reconciliation done for nephrotoxic drugs. Holding off on JERALD inhibitors for now. Type 2 diabetes mellitus: History of uncontrolled diabetes. Blood sugars continues to remain uncontrolled. We will change Lantus to 20 units twice daily. Continue insulin sliding scale high-dose protocol. Most likely will discharge patient on Lantus twice daily along with Humalog. A1c 10.2. Acute systolic congestive heart failure: Ischemic cardiomyopathy. Strict input output charting, daily weights. Restarted oral Lasix 40 mg twice daily today. Monitor electrolytes. Hypokalemia has resolved. Chronic lower back pain: CT scan appreciated. Plan to follow-up as an outpatient with orthopedic surgery. Appreciate PT evaluation. Plan for discharge with home health. Full code. Carb consistent diet. Start on heparin for DVT prophylaxis. Famotidine for PUD prophylaxis. Plan for the day: Patient is stable to be discharged from medical team. We will discharge on Keflex twice daily for 3 days to finish a 7-day course. Dose of Tresiba has been increased to 30 units daily. Please check your blood pressure daily and maintain a blood pressure diary. Please check your blood sugar daily and maintain a blood sugar diary. Finasteride has been added to home dose of Flomax. Patient will need to follow-up with urologist as an outpatient for voiding trial. If Schafer catheter remains in place for more than 1 month it should be replaced. Discharge plan discussed in detail with patient and patient's family at bedside. All the questions were answered. Discussed in detail with primary team and RN. Discussed with case management. Home health is being arranged. Attestations Medical Necessity Statement*: To be discharged as per primary team. Diagnoses UTI (urinary tract infection) N39.0 ST elevation (STEMI) myocardial infarction I21.3 Diabetes type 2, uncontrolled BMI 32.0-32.9,adult Z68.32 Peripheral Vascular Disease I73.9 HTN (hypertension) I10 Venous insufficiency I87.2 Carotid artery disease I73.9 Hematuria R31.9 Acute kidney injury N17.9 Urinary retention R33.9
== END 2022-09-10 15:53 | disposition home health service (06) | DRG 246 ==
LOC: ER 21:46 → CCL 21:50 → ICU 22:43 → CSU 09-07 15:31
PROVIDERS: Internal Medicine; Physician Assistant; Student in an Organized Health Care Education/Training Program; Admitting Provider Internal Medicine; Emergency Provider Emergency Medicine; PCP Nurse Practitioner Family; Visit Provider Internal Medicine
PROC: 027034Z Dilation of Coronary Artery, One Artery with Drug-eluting Intraluminal Device, Percutaneous Approach (ICD-10-PCS; principal; 2022-09-04 21:30)
PROC: 027034Z Dilation of Coronary Artery, One Artery with Drug-eluting Intraluminal Device, Percutaneous Approach (ICD-10-PCS; 2022-09-04 21:30)
DX: I21.02 ST elevation (STEMI) myocardial infarction involving left anterior descending coronary artery (principal); I50.21 Acute systolic (congestive) heart failure; N39.0 Urinary tract infection, site not specified; N17.9 Acute kidney failure, unspecified; E11.65 Type 2 diabetes mellitus with hyperglycemia; E11.51 Type 2 diabetes mellitus with diabetic peripheral angiopathy without gangrene; I11.0 Hypertensive heart disease with heart failure; R33.9 Retention of urine, unspecified; T50.8X5A Adverse effect of diagnostic agents, initial encounter; E86.0 Dehydration; I25.5 Ischemic cardiomyopathy; E87.6 Hypokalemia; R31.9 Hematuria, unspecified; I25.10 Atherosclerotic heart disease of native coronary artery without angina pectoris; H40.9 Unspecified glaucoma; E78.5 Hyperlipidemia, unspecified; Z89.421 Acquired absence of other right toe(s); M54.50 Low back pain, unspecified; G89.29 Other chronic pain
CPT/HCPCS: 36415; 36416; 51702; 71045; 72040; 72131; 76770; 80048; 80053; 81001; 82607; 82746; 82962; 83540; 83550; 83605; 83880; 84145; 84443; 84484; 85025; 85347; 85730; 87040; 87086; 87426; 87804; 92978; 93005; 93306; 93454; 96365; 96367; 96372; 96374; 96375; 96376; 97110; 97116; 97161; 97530; 99152; 99153; 99291; C1725; C1753; C1769; C1874; C1887; C1894; C8924; C9600; J0696; J1644; J1815; J1940; J2250; J2270; J2405; J3010; J3480; J3490; J7030; Q9956; Q9967

== ENCOUNTER → 2022-09-16 09:23 | Outpatient (BNVA) | payer MEDICARE, SELFPAY | PROVIDERS: PCP Nurse Practitioner Family; Visit Provider Nurse Practitioner Family | DX: I11.0 Hypertensive heart disease with heart failure (principal); I50.20 Unspecified systolic (congestive) heart failure; I21.3 ST elevation (STEMI) myocardial infarction of unspecified site | CPT/HCPCS: 36415; 83880; 99214 ==

== ENCOUNTER 2022-09-18 10:18 | Emergency (ER) | payer MEDICARE, SELFPAY ==
[2022-09-18 10:23] VITALS: BP 114/66; PULSE 81; RESP 18; TEMP 36.6; O2SAT 99; BMI 33.2
--- NOTE | 2022-09-18 10:45 | W.ED.GENADLT ---
HPI - General Adult General: Chief complaint: Urogenital-Male Stated complaint: can't urinate, swollen legs, cough, weakness Time Seen by Provider: 09/18/22 10:44 History of Present Illness: Mr. Phillips is a 72-year-old gentleman with complex recent history including STEMI with resulting heart failure with reduced ejection fraction presented to the emergency department for concern over possible volume overload and decreased urinary output. He reports having a catheter for measurement of output during hospitalization and since removal a few days ago has had difficulty with urine. He does note continued mild discomfort just from the catheter however denies penile swelling or other discharge. He notes mild abdominal discomfort. He has noticed shortness of breath and increased leg swelling. Overall course of symptoms has worsened. Intensity is moderate. No other specific changes in health, exacerbating, or alleviating factors identified. Onset (ago): day(s) Review of Systems General: Reports: 10 or more systems reviewed and unremarkable except in HPI and below PFSH ED PFSH: Medical History Acute heart failure BMI 32.0-32.9,adult Carotid artery disease Diabetes mellitus Glaucoma Hematuria HTN (hypertension) Neuropathy Peripheral Vascular Disease ST elevation (STEMI) myocardial infarction Venous insufficiency Surgical History H/O toe surgery left toe S/P cholecystectomy S/P eye surgery left S/P insertion of penile implant and removal Status post amputation of toe of right foot Family History Father Heart disease Diabetes Mother Cancer Cervical CA Social History Smoking and tobacco status: never smoked Physical Exam Const: COMMON NORMALS: alert GENERAL APPEARANCE: cooperative and well developed HENMT: COMMON NORMALS: normocephalic and atraumatic HEAD & SCALP: normocephalic and atraumatic Eye: COMMON NORMALS: conjunctivae normal CONJUNCTIVA: Yes conjunctivae normal SCLERA: sclerae normal Neck/C-Spine: COMMON NORMALS: supple GENERAL: Yes trachea midline Resp: COMMON NORMALS: normal respiratory effort EFFORT & INSPECTION: Yes able to speak in complete sentences AUSCULTATION: crackles (Bilateral bases) Cardio: COMMON NORMALS: regular rate and regular rhythm RATE: regular rate RHYTHM: regular rhythm GI: COMMON NORMALS: Soft to palpation PALPATION: Yes Soft to palpation and No Tenderness to palpation present (GI) : OTHER: Normal external genitalia Extremity: GENERAL: Yes normal exam except as noted and Yes edema Neuro: COMMON NORMALS: moves all extremities SENSORIUM/ORIENTATION: Yes alert and No Orientation impaired Psych: COMMON NORMALS: mental status grossly normal and Normal thought process present THOUGHT PROCESS: Normal thought process present Course Vital Signs: Vital signs: Vital Signs Temperature 97.8 F 09/18/22 10:23 Pulse Rate 83 09/18/22 13:51 Respiratory Rate 18 09/18/22 13:51 Blood Pressure 133/58 09/18/22 13:51 Pulse Oximetry 97 09/18/22 13:51 Oxygen Delivery Me thod Room Air 09/18/22 10:23 [facility] - General Adult Medical Decision Making 72-year-old gentleman presenting with concern over urine output and heart failure symptoms. Exam as above. EKG demonstrates sinus rhythm with septal Q waves and kussmaul QRS complexes, no STEMI, nonspecific ST segment abnormalities. Labs notable for leukocytosis, mild anemia, thrombocytosis. No severe electrolyte derangement. Troponin is improved from prior and within reasonable range given timeline of recent history. BNP elevated. UTI present. Chest x-ray with no lobar consolidation or pneumothorax. Catheter was replaced with adequate urine output and improvement in abdominal pain. Discussed with cardiology who recommended increase in metolazone. Will treat UTI with abx. The results of ED evaluation were discussed with the patient including prescriptions and/or symptomatic cares (if applicable) including appropriate and responsible use, followup plan, and return precautions. The patient verbalized understanding and felt safe for discharge. Medical Records I reviewed the patient's medical records. Lab Data I reviewed the patient's lab results. 09/18/22 11:36 09/18/22 11:36 Radiology Impressions Chest X-Ray 09/18/22 10:51 IMPRESSION: No acute findings. Laboratory Results WBC 14.9 10^3/uL (4.0-10.0) H 09/18/22 11:36 RBC 3.74 10^6/uL (4.1-5.3) L 09/18/22 11:36 Hgb 11.4 g/dL (11.7-16.6) L 09/18/22 11:36 Hct 37.2 % (42.0-52.0) L 09/18/22 11:36 MCV 99.5 fl (80-94) H 09/18/22 11:36 MCH 30.5 pg (28.0-34.0) 09/18/22 11:36 MCHC 30.6 g/dL (30.0-36.0) 09/18/22 11:36 RDW 13.5 % (12.1-15.1) 09/18/22 11:36 Plt Count 418 10^3/cmm (130-400) H 09/18/22 11:36 MPV 9.4 fL (7.4-10.4) 09/18/22 11:36 Neut % (Auto) 79.2 % 09/18/22 11:36 Lymph % (Auto) 12.4 % 09/18/22 11:36 [place] % (Auto) 6.7 % 09/18/22 11:36 Eos % (Auto) 1.1 % 09/18/22 11:36 Baso % (Auto) 0.3 % 09/18/22 11:36 Neut # (Auto) 11.78 10^3/uL (1.8-7.7) H 09/18/22 11:36 Lymph # (Auto) 1.9 10^3/uL (0.8-4.8) 09/18/22 11:36 [place] # (Auto) 1.0 10^3/uL (0.2-0.9) H 09/18/22 11:36 Eos # (Auto) 0.2 10^3/uL (0.0-0.8) 09/18/22 11:36 Baso # (Auto) 0.1 10^3/uL (0.0-0.1) 09/18/22 11:36 Nucleated RBC % (auto) 0 % 09/18/22 11:36 Nucleated RBCs # 0.0 /100WBC 09/18/22 11:36 Sodium 141 mmol/L (136-145) 09/18/22 11:36 Potassium 4.0 mmol/L (3.5-5.1) 09/18/22 11:36 Chloride 102 mmol/L (98-107) 09/18/22 11:36 Carbon Dioxide 29 mmol/L (22-29) 09/18/22 11:36 Anion Gap 14.0 (5-19) 09/18/22 11:36 BUN 16 mg/dL (8-23) 09/18/22 11:36 Creatinine 0.9 mg/dL (0.7-1.2) 09/18/22 11:36 GFR Calculation Not Reportable 09/18/22 11:36 Glucose 117 mg/dL (65-115) H 09/18/22 11:36 Calculated Osmolality 294 mOsm/kg (285-295) 09/18/22 11:36 Calcium 8.7 mg/dL (8.5-10.5) 09/18/22 11:36 Total Bilirubin 0.4 mg/dL (0.15-1.2) 09/18/22 11:36 AST 17 U/L (0-40) 09/18/22 11:36 ALT 13 U/L (0-41) 09/18/22 11:36 Alkaline Phosphatase 137 U/L (40-130) H 09/18/22 11:36 Troponin T Baseline 237 ng/L (0-15) H* 09/18/22 11:36 NT-Pro-B Natriuret Pep 70344 pg/mL (0-125) H 09/18/22 11:36 Total Protein 5.9 g/dL (6.6-8.7) L 09/18/22 11:36 Albumin 3.4 g/dL (3.5-5.2) L 09/18/22 11:36 Globulin 2.5 g/dL (1.3-4.6) 09/18/22 11:36 Urine Color Straw (Yellow) 09/18/22 11:36 Urine Appearance Hazy (CLEAR) A 09/18/22 11:36 Urine pH 7 (5-7) 09/18/22 11:36 Ur Specific [place]our 1.005 (1.005-1.030) 09/18/22 11:36 Urine Protein Neg (Negative) 09/18/22 11:36 Urine Glucose (UA) Norm (Normal) 09/18/22 11:36 Urine Ketones Negative (Negative) 09/18/22 11:36 Urine Blood 2+ (Negative) H 09/18/22 11:36 Urine Nitrate Positive (Negative) H 09/18/22 11:36 Urine Bilirubin Neg (Negative) 09/18/22 11:36 Urine Urobilinogen Norm mg/dL (Negative) 09/18/22 11:36 Ur Leukocyte Esterase 2+ (Negative) H 09/18/22 11:36 Urine RBC 5-10 /hpf (0-2) H 09/18/22 11:36 Urine WBC 25-40 /hpf (0-5) H 09/18/22 11:36 Ur Squamous Epith Cells None /hpf (0-5) 09/18/22 11:36 Amorphous Sediment Not Reportable 09/18/22 11:36 Urine Bacteria 3+ /hpf (NONE) H 09/18/22 11:36 Discharge Plan Discharge Patient Disposition: Home Clinical Impression: Acute urinary retention, UTI (urinary tract infection) Condition: Stable Prescriptions: New metolazone 5 mg tablet 5 mg PO DAILY Qty: 30 0RF No Action carbamazepine 200 mg tablet 200 mg PO Q8H latanoprost 0.005 % drops 1 drop ophthalmic (eye) QPM Rx Instructions: left eye insulin lispro [Humalog KwikPen Insulin] 100 unit/mL insulin pen 12 - 15 unit SUBCUT TID Rx Instructions: only with meals tid. Glucagon Emergency Kit (human) 1 mg recon soln 1 mg SUBCUT Q20M PRN (Reason: hypoglycemia) Qty: 1 0RF Rx Instructions: until target blood sugar attained atorvastatin 80 mg tablet 80 mg PO DAILY ferrous gluconate 324 mg (37.5 mg iron) tablet 324 mg PO BIDWM insulin degludec [Tresiba FlexTouch U-200] 200 unit/mL (3 mL) insulin pen 45 unit SUBCUT QAM metoprolol tartrate 25 mg tablet 12.5 mg PO BEDTIME potassium chloride 10 mEq capsule, extended release 10 meq PO BID tamsulosin 0.4 mg capsule 0.4 mg PO DAILY Qty: 30 0RF famotidine 20 mg tablet 20 mg PO BID Qty: 60 0RF finasteride 5 mg tablet 5 mg PO BEDTIME Qty: 30 0RF (DME) FreeStyle Isma 2 Sensor Kit See Rx Instructions .ROUTE .MEDSUPPLY Qty: 6 0RF Rx Instructions: change every 14 days (DME) Excell SAP, PolyMem Max Silver, and 2x2 Gauze See Rx Instructions .Route .MEDSUPPLY Qty: 1 0RF Rx Instructions: As directed HOME needs dressing changes Twice a Day- for 90 days furosemide 40 mg tablet 40 mg PO BID@08,16 Qty: 180 3RF brimonidine 0.2 % drops 1 drp ophthalmic (eye) BID Rx Instructions: left eye dorzolamide-timolol 22.3-6.8 mg/mL Drops 1 drp OPHTHALMIC (EYE) DAILY Rx Instructions: Left Eye aspirin 81 mg Tablet,Delayed Release (Dr/Ec) 81 mg PO DAILY Qty: 90 3RF clopidogrel 75 mg Tablet 75 mg PO DAILY Qty: 90 3RF Discharge Orders: Discharge ED (Routine); Ordered 09/18/22 Ordered By: Hunter Lynn Referrals: Greer Kennedy NP [Primary Care Provider] - Discharge Diet: Usual diet Discharge Activity: Limit activity as instructed Patient Instructions: Urinary Tract Infection in Men (ED), Schafer Catheter Placement and Care (ED) Activity Restrictions/Additional Instructions: Thank you for visiting the emergency department. You were seen and evaluated for urinary concerns. The most likely cause of your symptoms is urinary retention. We placed a catheter again that you require further outpatient follow-up with urology. I will also increase your metolazone from 2.5 mg daily to 5 mg daily. Please follow-up with cardiology and urology. Please also follow-up with your primary care provider. Return to the emergency department for changes in urine output, chest pain, shortness of breath, worsening weight gain, or anything else that you are concerned about and feel needs emergency department evaluation. Coding Level of Care Code ED Commercial Field Inspector for Ashia Saldivar
--- NOTE | 2022-09-18 10:51 | XRR_ITS ---
PROCEDURE INFORMATION: Exam: XR Chest Exam date and time: 09/18/2022 11:00 AM Age: 72 years old Clinical indication: Shortness of breath; Additional info: SOB TECHNIQUE: Imaging protocol: Radiologic exam of the chest. Views: 1 view. COMPARISON: CR XR chest 1V portable [id number] 09/09/2022 7:37 AM FINDINGS: Lungs: Unremarkable. No consolidation. Pleural spaces: Unremarkable. No pleural effusion. No pneumothorax. Heart/Mediastinum: Unremarkable. No cardiomegaly. Bones/joints: Unremarkable. XR/XR chest 1V portable [id number] IMPRESSION: No acute findings.
--- NOTE | 2022-09-18 10:52 | ECG_ITS ---
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 Measurements Intervals [place] Rate: 73 P: 28 CT: 163 QRS: 203 QRSD: 106 T: 131 QT: 447 QTc: 495 Interpretive Statements SINUS RHYTHM POSSIBLE RIGHT VENTRICULAR HYPERTROPHY [SOME/ALL OF: PROMINENT R IN V1, LATE TRANSITION, RAD, ROSSANA, SSS] ANTEROSEPTAL MYOCARDIAL INFARCTION , OF INDETERMINATE AGE [40+ ms Q WAVE IN V1-V4] Compared to ECG 09/05/2022 03:11:02 No significant changes Electronically Signed On 09-18-2022 12:28:01 CDT by Jeremiah Mullins M.D. [id number]
[2022-09-18 11:54] LABS: Basophils # 0.1 10^3/uL (0.0-0.1); Basophils % 0.3 %; Eosinophils # 0.2 10^3/uL (0.0-0.8); Eosinophils % 1.1 %; Hematocrit 37.2 % (42.0-52.0); Hemoglobin 11.4 g/dL (11.7-16.6); Lymphocytes # 1.9 10^3/uL (0.8-4.8); Lymphocytes % 12.4 %; Mean Corpuscular HGB Conc 30.6 g/dL (30.0-36.0); Mean Corpuscular Hemoglobin 30.5 pg (28.0-34.0); Mean Corpuscular Volume 99.5 fl (80-94); Mean Platelet Volume 9.4 fL (7.4-10.4); Monocytes % 6.7 %; Neutrophils # 11.78 10^3/uL (1.8-7.7); Neutrophils % 79.2 %; Nucleated Red Blood Cells % 0 %; Platelet Count 418 10^3/cmm (130-400); Red Blood Count 3.74 10^6/uL (4.1-5.3); Red Cell Distribution Width 13.5 % (12.1-15.1); White Blood Count 14.9 10^3/uL (4.0-10.0)
[2022-09-18 12:01] LABS: Glucose Urine UA Norm (Normal); Ketones Urine Negative (Negative); Protein Urine Neg (Negative); Specific Gravity, Urine 1.005 (1.005-1.030); Urine Appearance Hazy (CLEAR); Urine Color Straw (Yellow); pH Urine 7 (5-7)
[2022-09-18 12:02] LABS: Add Urine Culture? Yes; Add Urine Microscopic? YES; Bacteria Urine 3+ /hpf; Bilirubin Urine Neg (Negative); Blood Urine 2+ (Negative); Leukocyte Esterase Urine 2+ (Negative); Nitrate Urine Positive (Negative); Urobilinogen Urine Norm (Negative); WBC Urine 25-40 /hpf (0-5)
[2022-09-18 12:27] LABS: Alanine Aminotransferase 13 U/L (0-41); Albumin Level 3.4 g/dL (3.5-5.2); Alkaline Phosphatase 137 U/L (40-130); Aspartate Amino Transferase 17 U/L (0-40); Blood Urea Nitrogen 16 mg/dL (8-23); Calcium 8.7 mg/dL (8.5-10.5); Carbon Dioxide 29 mmol/L (22-29); Chloride 102 mmol/L (98-107); Globulin 2.5 g/dL (1.3-4.6); Glucose 117 mg/dL (65-115); NT Pro B Type Natriuretic Pept 15491 pg/mL (0-125); Osmolality Calculated 294 mOsm/kg (285-295); Sodium 141 mmol/L (136-145); Total Bilirubin 0.4 mg/dL (0.15-1.2); Total Protein 5.9 g/dL (6.6-8.7)
[2022-09-18 12:29] LABS: Troponin(5th) Baseline 237 ng/L (0-15)
--- NOTE | 2022-09-18 12:52 | ECG_ITS ---
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 Measurements Intervals [place] Rate: 79 P: 40 LA: 161 QRS: 205 QRSD: 100 T: 125 QT: 424 QTc: 487 Interpretive Statements SINUS RHYTHM POSSIBLE RIGHT VENTRICULAR HYPERTROPHY [SOME/ALL OF: PROMINENT R IN V1, LATE TRANSITION, RAD, ROSSANA, SSS] ANTEROSEPTAL MYOCARDIAL INFARCTION , OF INDETERMINATE AGE [40+ ms Q WAVE IN V1-V4] Compared to ECG 09/18/2022 10:58:48 No significant changes Electronically Signed On 09-18-2022 14:12:38 CDT by Jeremiah Mullins M.D. [id number]
[2022-09-18 13:51] VITALS: BP 133/58; PULSE 83; RESP 18; O2SAT 97
== END 2022-09-18 13:53 | disposition home or self-care (01) ==
PROVIDERS: Emergency Provider Emergency Medicine; PCP Nurse Practitioner Family
DX: R33.9 Retention of urine, unspecified (principal); N39.0 Urinary tract infection, site not specified; Z79.4 Long term (current) use of insulin; Z79.82 Long term (current) use of aspirin; Z79.02 Long term (current) use of antithrombotics/antiplatelets; E11.9 Type 2 diabetes mellitus without complications; I10 Essential (primary) hypertension; I25.2 Old myocardial infarction
CPT/HCPCS: 51702; 51798; 71045; 80053; 81001; 83880; 84484; 85025; 87077; 87086; 87186; 93005; 96374; 99285; J1980

== ENCOUNTER 2022-09-27 11:56 | Emergency (ER) | payer MEDICARE, SELFPAY ==
[2022-09-27 12:01] VITALS: BMI 33.9
--- NOTE | 2022-09-27 12:02 | XRR_ITS ---
PROCEDURE INFORMATION: Exam: XR Chest Exam date and time: 09/27/2022 12:07 PM Age: 72 years old Clinical indication: Other: Weakness TECHNIQUE: Imaging protocol: Radiologic exam of the chest. Views: 1 view. COMPARISON: CR (CHEST, ) 09/18/2022 11:00 AM FINDINGS: Lungs: Unremarkable. No consolidation. Pleural spaces: Unremarkable. No pleural effusion. No pneumothorax. Heart/Mediastinum: Unremarkable. No cardiomegaly. Bones/joints: Unremarkable. XR/XR chest 1V portable [id number] IMPRESSION: No acute findings.
[2022-09-27 12:09] VITALS: BP 98/50; PULSE 83; RESP 18; TEMP 37; O2SAT 92
--- NOTE | 2022-09-27 12:24 | PC.NURSE ---
Patient also states he has not had a bowel movement since last and is having a lot of gas.
[2022-09-27 12:30] LABS: Basophils # 0.1 10^3/uL (0.0-0.1); Basophils % 0.8 %; Eosinophils # 0.1 10^3/uL (0.0-0.8); Eosinophils % 1.5 %; Hematocrit 36.6 % (42.0-52.0); Hemoglobin 11.9 g/dL (11.7-16.6); Lymphocytes % 12.9 %; Mean Corpuscular HGB Conc 32.5 g/dL (30.0-36.0); Mean Corpuscular Hemoglobin 30.4 pg (28.0-34.0); Mean Corpuscular Volume 93.6 fl (80-94); Mean Platelet Volume 9.8 fL (7.4-10.4); Monocytes # 0.5 10^3/uL (0.2-0.9); Monocytes % 6.9 %; Neutrophils # 6.06 10^3/uL (1.8-7.7); Neutrophils % 77.6 %; Nucleated Red Blood Cells % 0 %; Platelet Count 249 10^3/cmm (130-400); Red Blood Count 3.91 10^6/uL (4.1-5.3); Red Cell Distribution Width 12.6 % (12.1-15.1); White Blood Count 7.8 10^3/uL (4.0-10.0)
--- NOTE | 2022-09-27 12:35 | ED_ITS ---
HPI - General Adult General: Chief complaint: General Medical Stated complaint: hyperglycemia Time Seen by Provider: 09/27/22 11:56 Source: patient Mode of arrival: ambulatory Limitations: no limitations History of Present Illness: 72-year-old male who had had a STEMI roughly 3 weeks ago he states that ever since then he just been feeling weak he is a diabetic states his blood sugars been running over 600 for 1 to 2 weeks he has not seen his house carpenter helper he states he has been taking his meds he had no vomiting or diarrhea he denies any chest pain denies any fevers denies any dysuria does have a Schafer in place from urinary retention. Associated symptoms: Reports malaise; Deny chest pain, dyspnea, headache(s), nausea, rash or vomiting Review of Systems Const: Reports: fatigue and malaise; Denies: fever(s), chills or body aches Eyes: Denies: eye discomfort ENMT: Denies: throat pain or dental pain Card: Denies: chest pain Resp: Denies: dyspnea GI: Denies: abdominal pain, nausea, vomiting or diarrhea Musc: Denies: neck pain or back pain Skin/Breast: Denies: rash Neuro: Denies: headache(s) Psych: Denies: depression PFSH ED PFSH: Medical History Acute heart failure BMI 32.0-32.9,adult Carotid artery disease Diabetes mellitus Glaucoma Hematuria HTN (hypertension) Neuropathy Peripheral Vascular Disease ST elevation (STEMI) myocardial infarction Venous insufficiency Surgical History H/O toe surgery left toe S/P cholecystectomy S/P eye surgery left S/P insertion of penile implant and removal Status post amputation of toe of right foot Family History Father Heart disease Diabetes Mother Cancer Cervical CA Social History Smoking and tobacco status: never smoked Physical Exam Const: COMMON NORMALS: no acute distress, patient oriented x3 and healthy appearing HENMT: COMMON NORMALS: normocephalic and atraumatic HEAD & SCALP: normocephalic and atraumatic Eye: COMMON NORMALS: Equal, round and reactive pupils present and EOMs intact bilaterally PUPIL: Yes Equal, round and reactive pupils present Neck/C-Spine: COMMON NORMALS: full ROM and supple Chest: COMMONS NORMALS: normal inspection of the chest and normal palpation of entire chest wall Resp: COMMON NORMALS: normal respiratory effort, No retractions, No use of accessory muscles and clear to auscultation bilaterally AUSCULTATION: clear to auscultation bilaterally Cardio: COMMON NORMALS: regular rate, regular rhythm and No murmurs present (Cardio) RATE: regular rate RHYTHM: regular rhythm GI: COMMON NORMALS: Normal to inspection, nondistended, normoactive bowel sounds present, Soft to palpation, non-tender and no masses PALPATION: Yes Soft to palpation Extremity: COMMON NORMALS: normal to inspection and full ROM Neuro: COMMON NORMALS: patient oriented x3, moves all extremities and no focal motor deficits Psych: COMMON NORMALS: mental status grossly normal, Normal thought process present and cooperative THOUGHT PROCESS: Normal thought process present Skin: COMMON NORMALS: no rashes or lesions noted and no wounds GENERAL SKIN EXAM: no rashes or lesions noted Course Vital Signs: Vital signs: Vital Signs Temperature 98.6 F 09/27/22 12:09 Pulse Rate 84 09/27/22 13:42 Respiratory Rate 19 H 09/27/22 13:42 Blood Pressure 125/68 09/27/22 13:42 Pulse Oximetry 92 09/27/22 13:42 Oxygen Delivery Me thod Room Air 09/27/22 13:42 MDM - General Adult Medical Decision Making Patient presents here with weakness to going on for almost a month he is well- appearing here he is hyperglycemic blood sugars improved here. He has no signs of acute coronary syndrome he feels improved here he is to follow-up with his house carpenter helper and return if worsening. Medical Records I reviewed the patient's medical records. Lab Data I reviewed the patient's lab results. 09/27/22 12:24 09/27/22 12:24 Radiology Impressions Chest X-Ray 09/27/22 12:02 IMPRESSION: No acute findings. Laboratory Results WBC 7.8 10^3/uL (4.0-10.0) 09/27/22 12:24 RBC 3.91 10^6/uL (4.1-5.3) L 09/27/22 12:24 Hgb 11.9 g/dL (11.7-16.6) 09/27/22 12:24 Hct 36.6 % (42.0-52.0) L 09/27/22 12:24 MCV 93.6 fl (80-94) 09/27/22 12:24 MCH 30.4 pg (28.0-34.0) 09/27/22 12:24 MCHC 32.5 g/dL (30.0-36.0) 09/27/22 12:24 RDW 12.6 % (12.1-15.1) 09/27/22 12:24 Plt Count 249 10^3/cmm (130-400) 09/27/22 12:24 MPV 9.8 fL (7.4-10.4) 09/27/22 12:24 Neut % (Auto) 77.6 % 09/27/22 12:24 Lymph % (Auto) 12.9 % 09/27/22 12:24 Mathews % (Auto) 6.9 % 09/27/22 12:24 Eos % (Auto) 1.5 % 09/27/22 12:24 Baso % (Auto) 0.8 % 09/27/22 12:24 Neut # (Auto) 6.06 10^3/uL (1.8-7.7) 09/27/22 12:24 Lymph # (Auto) 1.0 10^3/uL (0.8-4.8) 09/27/22 12:24 Mathews # (Auto) 0.5 10^3/uL (0.2-0.9) 09/27/22 12:24 Eos # (Auto) 0.1 10^3/uL (0.0-0.8) 09/27/22 12:24 Baso # (Auto) 0.1 10^3/uL (0.0-0.1) 09/27/22 12:24 Nucleated RBC % (auto) 0 % 09/27/22 12: Nucleated RBCs # 0.0 /100WBC 09/27/22 12:24 Sodium 129 mmol/L (136-145) L 09/27/22 12:24 Potassium 3.4 mmol/L (3.5-5.1) L 09/27/22 12:24 Chloride 84 mmol/L (98-107) L 09/27/22 12:24 Carbon Dioxide 31 mmol/L (22-29) H 09/27/22 12:24 Anion Gap 17.4 (5-19) 09/27/22 12:24 BUN 31 mg/dL (8-23) H 09/27/22 12:24 Creatinine 1.3 mg/dL (0.7-1.2) H 09/27/22 12:24 GFR Calculation Not Reportable 09/27/22 12:24 Glucose 591 mg/dL (65-115) H* 09/27/22 12:24 POC Glucose 397 mg/dL (70-110) H 09/27/22 15:04 Calculated Osmolality 302 mOsm/kg (285-295) H 09/27/22 12:24 Calcium 8.8 mg/dL (8.5-10.5) 09/27/22 12:24 Total Bilirubin 0.3 mg/dL (0.15-1.2) 09/27/22 12:24 AST 13 U/L (0-40) 09/27/22 12:24 ALT 11 U/L (0-41) 09/27/22 12:24 Alkaline Phosphatase 117 U/L (40-130) 09/27/22 12:24 Total Protein 6.3 g/dL (6.6-8.7) L 09/27/22 12:24 Albumin 2.9 g/dL (3.5-5.2) L 09/27/22 12:24 Globulin 3.4 g/dL (1.3-4.6) 09/27/22 12:24 Lipase 5 U/L (13-60) L 09/27/22 12:24 Urine Color Straw (Yellow) 09/27/22 13:40 Urine Appearance Sl hazy (CLEAR) A 09/27/22 13:40 Urine pH 5 (5-7) 09/27/22 13:40 Ur Specific [place] 1.010 (1.005-1.030) 09/27/22 13:40 Urine Protein Trace (Negative) 09/27/22 13:40 Urine Glucose (UA) 4+ (Normal) H 09/27/22 13:40 Urine Ketones 1+ (Negative) H 09/27/22 13:40 Urine Blood 3+ (Negative) H 09/27/22 13:40 Urine Nitrate Negative (Negative) 09/27/22 13:40 Urine Bilirubin Neg (Negative) 09/27/22 13:40 Urine Urobilinogen Norm mg/dL (Negative) 09/27/22 13:40 Ur Leukocyte Esterase Negative (Negative) 09/27/22 13:40 Urine RBC 0-4 /hpf (0-2) H 09/27/22 13:40 Urine WBC 0-4 /hpf (0-5) H 09/27/22 13:40 Ur Squamous Epith Cells 0-4 /hpf (0-5) H 09/27/22 13:40 Amorphous Sediment Not Reportable 09/27/22 13:40 Urine Bacteria Trace /hpf (NONE) 09/27/22 13:40 Urine Yeast 1+ /hpf H 09/27/22 13:40 EKG Data EKG 1: I personally reviewed and interpreted this EKG as follows: EKG interpretation date: 09/27/22 EKG interpretation time: 14:28 Interpretation: nsr hr [address] or t wave abnormalities qrs 112 qtc 480 Computer generated interpretation: Chest X-Ray 09/27/22 12:02 IMPRESSION: No acute findings. Discharge Plan Discharge Patient Disposition: Home Clinical Impression: Hyperglycemia, Weakness Condition: Stable Prescriptions: No Action carbamazepine 200 mg tablet 200 mg PO Q8H latanoprost 0.005 % drops 1 drop ophthalmic (eye) QPM Rx Instructions: left eye insulin lispro [Humalog KwikPen Insulin] 100 unit/mL insulin pen 12 - 15 unit SUBCUT TID Glucagon Emergency Kit (human) 1 mg recon soln 1 mg SUBCUT Q20M PRN (Reason: hypoglycemia) Qty: 1 0RF Rx Instructions: until target blood sugar attained (DME) Excell SAP, PolyMem Max Silver, and 2x2 Gauze See Rx Instructions .Route .MEDSUPPLY Qty: 1 0RF Rx Instructions: As directed HOME needs dressing changes Twice a Day- for 90 days (DME) FreeStyle Isma 2 Sensor Kit See Rx Instructions .ROUTE .MEDSUPPLY Qty: 6 0RF Rx Instructions: change every 14 days atorvastatin 40 mg tablet 80 mg PO BEDTIME Qty: 90 3RF furosemide 40 mg tablet 40 mg PO BID@08,16 Qty: 180 3RF Klor-Con 10 20 mEq tablet extended release 20 meq PO BID Qty: 7 1RF Rx Instructions: Increase dose while taking metolazone, then resume 10mEq twice a day brimonidine 0.2 % drops 1 drp ophthalmic (eye) BID Rx Instructions: left eye dorzolamide-timolol 22.3-6.8 mg/mL Drops 1 drp OPHTHALMIC (EYE) DAILY Rx Instructions: Left Eye famotidine 20 mg Tablet 20 mg PO BID Qty: 60 0RF tamsulosin 0.4 mg Capsule 0.4 mg PO DAILY Qty: 30 0RF finasteride 5 mg Tablet 5 mg PO BEDTIME Qty: 30 0RF ferrous gluconate 324 mg (37.5 mg iron) Tablet 324 mg PO BIDWM Qty: 60 0RF insulin degludec [Tresiba FlexTouch U-200] 200 unit/mL (3 mL) insulin pen 30 unit SUBCUT QAM Qty: 9 0RF aspirin 81 mg Tablet,Delayed Release (Dr/Ec) 81 mg PO DAILY Qty: 90 3RF clopidogrel 75 mg Tablet 75 mg PO DAILY Qty: 90 3RF metoprolol tartrate 25 mg tablet 25 mg PO BEDTIME Qty: 120 3RF metolazone 5 mg tablet 5 mg PO DAILY Qty: 30 0RF hyoscyamine sulfate [Levsin] 0.125 mg tablet 0.125 mg PO Q8H PRN (Reason: bladder spasms) Qty: 30 0RF Discharge Orders: Discharge ED (Routine); Ordered 09/27/22 Ordered By: Nancy Kothari Referrals: Ambreen Jesus MD [Physician] - 1-3 days Greer Kennedy NP [Primary Care Provider] - Discharge Diet: Advance as tolerated Discharge Activity: Resume usual activity Patient Instructions: Diabetic Hyperglycemia (ED) Coding Level of Care Code 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
[2022-09-27 12:40] LABS: Glucose Point of Care 540 mg/dL (70-110)
[2022-09-27] MEDS: insulin regular-human 100 units/1 mL 15 UNIT IVP (12:42)
[2022-09-27 12:56] LABS: Alanine Aminotransferase 11 U/L (0-41); Albumin Level 2.9 g/dL (3.5-5.2); Alkaline Phosphatase 117 U/L (40-130); Anion Gap 17.4 (5-19); Aspartate Amino Transferase 13 U/L (0-40); Blood Urea Nitrogen 31 mg/dL (8-23); Calcium 8.8 mg/dL (8.5-10.5); Carbon Dioxide 31 mmol/L (22-29); Chloride 84 mmol/L (98-107); Globulin 3.4 g/dL (1.3-4.6); Lipase 5 U/L (13-60); Osmolality Calculated 302 mOsm/kg (285-295); Potassium 3.4 mmol/L (3.5-5.1); Sodium 129 mmol/L (136-145); Total Bilirubin 0.3 mg/dL (0.15-1.2); Total Protein 6.3 g/dL (6.6-8.7)
[2022-09-27 12:58] LABS: Creatinine Clr Calc Pharmacy 67.7609; Glucose 591 mg/dL (65-115)
[2022-09-27 13:37] LABS: Glucose Point of Care 533 mg/dL (70-110)
[2022-09-27 13:42] VITALS: BP 125/68; PULSE 84; RESP 19; O2SAT 92
[2022-09-27] MEDS: sodium chloride 0.9% 250 ML 999 ML IV (14:07)
[2022-09-27] MEDS: insulin regular-human 100 units/1 mL 10 UNIT IVP (14:08)
[2022-09-27 14:19] LABS: Glucose Urine UA 4+ (Normal); Protein Urine Trace (Negative); Urine Appearance SL Hazy (CLEAR); Urine Color Straw (Yellow); pH Urine 5 (5-7)
[2022-09-27 14:20] LABS: Add Urine Microscopic? YES; Bilirubin Urine Neg (Negative); Blood Urine 3+ (Negative); Ketones Urine 1+ (Negative); Leukocyte Esterase Urine Negative (Negative); Nitrate Urine Negative (Negative); RBC Urine 0-4 /hpf (0-2); Squamous Epithelial Cell Urine 0-4 /hpf (0-5); Urobilinogen Urine Norm (Negative); WBC Urine 0-4 /hpf (0-5)
[2022-09-27 14:22] LABS: Bacteria Urine TRACE /hpf
[2022-09-27 14:23] LABS: Add Urine Culture? Yes
[2022-09-27 14:28] LABS: Glucose Point of Care 526 mg/dL (70-110)
--- NOTE | 2022-09-27 14:28 | ECG_ITS ---
[facility] Test Date: 2022-09-27 Pat Name: Rashel Phillips Department: Room: Gender: Male Podiatrist Assistant: : 1950 Requested By: Nancy Kothari Order Number: [id number] Richelle MD: Surjit Larose M.D. Measurements Intervals [place] Rate: 80 P: 26 RI: 160 QRS: 239 QRSD: 112 T: 117 QT: 444 QTc: 515 Interpretive Statements SINUS RHYTHM POSSIBLE RIGHT VENTRICULAR HYPERTROPHY [SOME/ALL OF: PROMINENT R IN V1, LATE TRANSITION, RAD, ROSSANA, SSS] POSSIBLE ANTERIOR MYOCARDIAL INFARCTION , OF INDETERMINATE AGE [30 ms Q WAVE IN V3/V4, OR R < 0.2 mV IN V4] Compared to ECG 09/18/2022 12:59:34 No significant changes Electronically Signed On 09-27-2022 18:41:05 CDT by Surjit Larose M.D. [id number]
[2022-09-27 15:07] LABS: Glucose Point of Care 397 mg/dL (70-110)
[2022-09-27] MEDS: insulin nph human 100 units/1 mL 8 UNIT SUBCUT (15:42)
== END 2022-09-27 15:45 | disposition home or self-care (01) ==
PROVIDERS: Emergency Provider Emergency Medicine; PCP Nurse Practitioner Family
DX: E11.65 Type 2 diabetes mellitus with hyperglycemia (principal); E11.42 Type 2 diabetes mellitus with diabetic polyneuropathy; I25.2 Old myocardial infarction; I11.0 Hypertensive heart disease with heart failure; I50.9 Heart failure, unspecified; Z79.899 Other long term (current) drug therapy; Z79.4 Long term (current) use of insulin
CPT/HCPCS: 36415; 36416; 71045; 80053; 81001; 82962; 83690; 85025; 87077; 87086; 87186; 93005; 96372; 96374; 96376; 99285; J1815; J7050

== ENCOUNTER → 2022-09-29 09:33 | Outpatient (BNVA) | payer MEDICARE, SELFPAY | PROVIDERS: PCP Nurse Practitioner Family; Visit Provider Internal Medicine | DX: Z09 Encounter for follow-up examination after completed treatment for conditions other than malignant neoplasm (principal); E10.59 Type 1 diabetes mellitus with other circulatory complications; E10.649 Type 1 diabetes mellitus with hypoglycemia without coma; E16.0 Drug-induced hypoglycemia without coma; T38.3X5A Adverse effect of insulin and oral hypoglycemic [antidiabetic] drugs, initial encounter; E78.2 Mixed hyperlipidemia; I73.9 Peripheral vascular disease, unspecified; I25.2 Old myocardial infarction; I11.0 Hypertensive heart disease with heart failure; X58.XXXA Exposure to other specified factors, initial encounter; Z79.4 Long term (current) use of insulin | CPT/HCPCS: 99214 ==

== ENCOUNTER → 2022-10-21 10:03 | Outpatient (BNVA) | payer MEDICARE, SELFPAY | PROVIDERS: PCP Nurse Practitioner Family; Visit Provider Family Medicine | DX: E11.621 Type 2 diabetes mellitus with foot ulcer (principal); L97.529 Non-pressure chronic ulcer of other part of left foot with unspecified severity | CPT/HCPCS: 80053 ==

== ENCOUNTER → 2022-10-26 11:05 | Outpatient (BNVA) | payer MEDICARE, SELFPAY | PROVIDERS: PCP Nurse Practitioner Family; Visit Provider Podiatrist Foot & Ankle Surgery | DX: E11.621 Type 2 diabetes mellitus with foot ulcer (principal); L97.529 Non-pressure chronic ulcer of other part of left foot with unspecified severity; I87.2 Venous insufficiency (chronic) (peripheral); E11.42 Type 2 diabetes mellitus with diabetic polyneuropathy; L97.319 Non-pressure chronic ulcer of right ankle with unspecified severity; Z89.432 Acquired absence of left foot; Z79.4 Long term (current) use of insulin | CPT/HCPCS: 99213 ==

== ENCOUNTER → 2022-11-08 13:36 | Outpatient (BNVA) | payer MEDICARE, SELFPAY | PROVIDERS: PCP Nurse Practitioner Family; Visit Provider Nurse Practitioner Family | DX: E11.52 Type 2 diabetes mellitus with diabetic peripheral angiopathy with gangrene (principal); L89.623 Pressure ulcer of left heel, stage 3; L89.892 Pressure ulcer of other site, stage 2 ==

== ENCOUNTER 2022-11-15 13:08 | Emergency (ER) | payer MEDICARE, SELFPAY ==
[2022-11-15 13:14] VITALS: BMI 32.3
[2022-11-15 13:21] LABS: Glucose Point of Care 484 mg/dL (70-110)
[2022-11-15 13:22] VITALS: BP 119/76; PULSE 93; RESP 16; TEMP 36.7; O2SAT 98
--- NOTE | 2022-11-15 13:27 | ECG_ITS ---
[facility] Test Date: 2022-11-15 Pat Name: Rashel Phillips Department: Room: Gender: Male Digital Media Representative: : 1950 Requested By: Donald Franco Order Number: [id number] Richelle MD: Elisa Alfaro M.D. Measurements Intervals [place] Rate: 89 P: 7 NE: 148 QRS: -79 QRSD: 104 T: 125 QT: 371 QTc: 453 Interpretive Statements SINUS RHYTHM INDETERMINATE AXIS LEFT ANTERIOR FASCICULAR BLOCK [QRS AXIS <= -45, QR IN I, RS IN II] POSSIBLE ANTERIOR MYOCARDIAL INFARCTION , OF INDETERMINATE AGE [30 ms Q WAVE IN V3/V4, OR R < 0.2 mV IN V4] Compared to ECG 09/27/2022 14:28:20 Indeterminate axis now present Left anterior fascicular block now present Atrial abnormality no longer present Myocardial infarct finding still present Electronically Signed On 11-15-2022 17:14:20 CDT by Elisa Alfaro M.D. [id number]
--- NOTE | 2022-11-15 13:46 | XR_ITS ---
WS: [id number] EXAMINATION: XR chest 1V portable [id number] REASON FOR EXAM: sob COMPARISON: 09/27/2022 ORDER DATE: 11/15/2022 1:48 PM TECHNIQUE: A single, portable frontal chest x-ray was obtained. X-RAY FINDINGS: The lungs are clear. Pleural spaces are clear. No pleural effusions or pneumothorax. Cardiomediastinal silhouette is normal. No evidence for pulmonary edema. Soft tissue and osseous structures are unremarkable. A life vest superimposes the chest. IMPRESSION: Unremarkable frontal portable chest x-ray.
--- NOTE | 2022-11-15 13:48 | ED_ITS ---
HPI - SOB/Dyspnea General: Chief Complaint: Shortness of Breath/Dyspnea Stated Complaint: sob, legs swelling Time Seen by Provider: 11/15/22 13:55 Source: patient and family Mode of arrival: ambulatory Limitations: no limitations History of Present Illness: HPI Narrative: This patient was referred to the emergency department from primary care office. The patient has known coronary disease and recently had a LAD STEMI with stent placed. He has a reduced ejection fraction subsequently. He apparently was sleeping last night and had a sensation of air hunger awoke his . She wears CPAP and placed her CPAP mask on him and he had resolution of his symptoms and felt better. tried to convince him to come to the emergency department at that time but he declined. He was seen on a routine visit at his primary care office and that history was obtained as well as an elevated blood sugar prompting them to advise him to come to the emergency department. He currently states he has air hunger when he exerts greater than normal and also has a sensation of fullness in his upper chest. He denies any fevers or chills. He does have a cough but is generally nonproductive. He states has been taking all his medications as prescribed. He has not eaten today. Pertinent past history: congestive heart failure Exacerbating factors: lying flat and exertion Associated symptoms: Reports chest pain; Deny abdominal pain, extremity pain, fever(s), nausea or vomiting Review of Systems Const: Denies: fever(s) or chills Eyes: Denies: change in vision ENMT: Denies: odynophagia, nasal congestion or nasal obstruction Card: Reports: chest pain and dyspnea on exertion Resp: Reports: non-productive cough; Denies: productive cough or wheezing GI: Denies: abdominal pain, nausea or vomiting : Reports: other (Has an indwelling Schafer due to chronic urinary retention) Musc: Denies: neck pain, back pain or extremity pain Skin/Breast: Reports: non-healing lesions (Pressure ulcer left heel); Denies: rash Neuro: Reports: numbness in extremities; Denies: headache(s) or weakness in extremities [facility] [place] [facility] PFSH: Medical History Acute heart failure BMI 32.0-32.9,adult Carotid artery disease Diabetes mellitus Glaucoma Hematuria HTN (hypertension) Neuropathy Peripheral Vascular Disease ST elevation (STEMI) myocardial infarction Venous insufficiency Surgical History H/O toe surgery left toe S/P cholecystectomy S/P eye surgery left S/P insertion of penile implant and removal Status post amputation of toe of right foot Family History Father Heart disease Diabetes Mother Cancer Cervical CA Social History Smoking and tobacco status: never smoked Alcohol intake: never Substance/Drug Use: never Physical Exam Narrative: EXAM NARRATIVE: Patient is alert and able to answer questions in a goal-directed fashion. Appears comfortable. Const: COMMON NORMALS: no acute distress and patient oriented x3 GENERAL APPEARANCE: cooperative and comfortable NUTRITIONAL APPEARANCE: overweight HENMT: COMMON NORMALS: normocephalic, Normal nasal mucous membranes and turbinates present and oropharynx normal HEAD & SCALP: normocephalic FACE & SINUS: face symmetric NOSE: Normal nasal mucous membranes and turbinates present Eye: COMMON NORMALS: Equal, round and reactive pupils present, EOMs intact bilaterally and conjunctivae normal CONJUNCTIVA: Yes conjunctivae normal PUPIL: Yes Equal, round and reactive pupils present Neck/C-Spine: COMMON NORMALS: full ROM, no lymphadenopathy, no JVD, Thyroid normal and No carotid bruits THYROID: Thyroid normal Chest: COMMONS NORMALS: normal inspection of the chest and normal palpation of entire chest wall Resp: COMMON NORMALS: normal respiratory effort and No retractions AUSCULTATION: crackles (At bases) Laterality: bilateral Cardio: COMMON NORMALS: no JVD, regular rate, regular rhythm, No murmurs present (Cardio) and Peripheral pulses 2+ throughout RATE: regular rate RHYTHM: regular rhythm PERIPHERAL PULSES: Peripheral pulses 2+ throughout GI: COMMON NORMALS: Normal to inspection, nondistended, normoactive bowel sounds present, Soft to palpation and non-tender INSPECTION: Yes central obesity PALPATION: Yes Soft to palpation : BLADDER/KIDNEY EXAM: Yes catheter in place Back/Pelvis: COMMON NORMALS: thoracic and lumbar spine normal to inspection, no thoracic nor lumbar tenderness and thoraco-lumbar ROM normal Extremity: COMMON NORMALS: capillary refill normal, no calf tenderness and no pedal edema NARRATIVE EXTREMITY EXAM: He has an AFO on his left lower extremity. He has a dressing over his left heel. Neuro: COMMON NORMALS: patient oriented x3, moves all extremities and no focal motor deficits CRANIAL NERVES: Yes CN normal except as noted SENSORY EXAM: Yes extremities (Decreased sensation to touch in both lower extremities.) Psych: COMMON NORMALS: mental status grossly normal Skin: COMMON NORMALS: no rashes or lesions noted and turgor normal GENERAL SKIN EXAM: no rashes or lesions noted and turgor normal Course Reevaluation(s): Reevaluation #1: Patient states he is improving and feels better. Serial troponins are essentially unchanged and I suspect he is probably has chronically elevated troponins due to his congestive heart failure and decreased ejection fraction. No dynamic changes on EKGs to represent acute ischemia at this time. He has diuresed well with additional dose of Lasix. His blood sugars were elevated these can be managed with resuming his normal short acting daily insulin. Discussed plan of care with the patient and he voices understanding. Time: 16:51 Vital Signs: Vital signs: Vital Signs Temperature 98.1 F 11/15/22 13:22 Pulse Rate 88 11/15/22 17:32 Respiratory Rate 18 11/15/22 17:32 Blood Pressure 136/83 11/15/22 17:32 Pulse Oximetry 99 11/15/22 17:32 Oxygen Delivery Me thod Room Air 11/15/22 15:17 MDM - SOB/Dyspnea Medical Decision Making This patient with a known history of coronary disease and a diminished ejection fraction presented to the emergency department because he had increasing orthopnea felt congested and was noted to have some increased edema over the past few days. He had recently been admitted to the hospital in August for a nonocclusive NM and found to have a LAD that required stenting. He was discharged after convalescing from that episode. He also has a history of type 2 diabetes which is has varying control as well as a diabetic ulcer on his left heel. He was evaluation today was to ensure there is no evidence of ACS significant pulmonary edema or other potential causes of his shortness of breath. Serial EKGs showed no dynamic changes and serial troponins were elevated over the URL but did not show any delta changes which is likely related to his clinical status with significant coronary disease with diminished ejection fraction resulting in a chronically elevated high-sensitivity troponin. Did not show any evidence of pneumonia or other potential worrisome etiology of his symptoms. He responded well to diuresis in the emergency department with significant urine output as per his chronic indwelling Schafer and subjective improvement. Blood sugar was elevated but this is apparently a chronically and fluctuating issue for him and he has shorting act short acting insulin at home available to address this issue. Was not felt to warrant acute care hospitalization or prolonged observation based upon his response to therapy and he desired to be discharged for continued home care and monitoring with good return precautions. Medical Records I reviewed the patient's medical records. Reviewed past hospital records from his August to include review of his BNP's and troponins at that time. Lab Data I reviewed the patient's lab results. 11/15/22 13:56 11/15/22 13:56 Labs/Radiology: Laboratory Results WBC 10.5 10^3/uL (4.0-10.0) H 11/15/22 13:56 RBC 3.70 10^6/uL (4.1-5.3) L 11/15/22 13:56 Hgb 11.0 g/dL (11.7-16.6) L 11/15/22 13:56 Hct 34.3 % (42.0-52.0) L 11/15/22 13:56 MCV 92.7 fl (80-94) 11/15/22 13:56 MCH 29.7 pg (28.0-34.0) 11/15/22 13:56 MCHC 32.1 g/dL (30.0-36.0) 11/15/22 13:56 RDW 14.3 % (12.1-15.1) 11/15/22 13:56 Plt Count 263 10^3/cmm (130-400) 11/15/22 13:56 MPV 9.7 fL (7.4-10.4) 11/15/22 13:56 Neut % (Auto) 74.3 % 11/15/22 13:56 Lymph % (Auto) 17.0 % 11/15/22 13:56 Turner % (Auto) 6.8 % 11/15/22 13:56 Eos % (Auto) 1.0 % 11/15/22 13:56 Baso % (Auto) 0.6 % 11/15/22 13:56 Neut # (Auto) 7.79 10^3/uL (1.8-7.7) H 11/15/22 13:56 Lymph # (Auto) 1.8 10^3/uL (0.8-4.8) 11/15/22 13:56 Turner # (Auto) 0.7 10^3/uL (0.2-0.9) 11/15/22 13:56 Eos # (Auto) 0.1 10^3/uL (0.0-0.8) 11/15/22 13:56 Baso # (Auto) 0.1 10^3/uL (0.0-0.1) 11/15/22 13:56 Nucleated RBC % (auto) 0 % 11/15/22 13:56 Nucleated RBCs # 0.0 /100WBC 11/15/22 13:56 Sodium 133 mmol/L (136-145) L 11/15/22 13:56 Potassium 3.8 mmol/L (3.5-5.1) 11/15/22 13:56 Chloride 94 mmol/L (98-107) L 11/15/22 13:56 Carbon Dioxide 30 mmol/L (22-29) H 11/15/22 13:56 Anion Gap 12.8 (5-19) 11/15/22 13:56 BUN 18 mg/dL (8-23) 11/15/22 13:56 Creatinine 0.8 mg/dL (0.7-1.2) 11/15/22 13:56 GFR Calculation Not Reportable 11/15/22 13:56 Glucose 452 mg/dL (65-115) H 11/15/22 13:56 POC Glucose 484 mg/dL (70-110) H 11/15/22 13:18 Calculated Osmolality 298 mOsm/kg (285-295) H 11/15/22 13:56 Calcium 8.7 mg/dL (8.5-10.5) 11/15/22 13:56 Total Bilirubin 0.4 mg/dL (0.15-1.2) 11/15/22 13:56 AST 13 U/L (0-40) 11/15/22 13:56 ALT 10 U/L (0-41) 11/15/22 13:56 Alkaline Phosphatase 164 U/L (40-130) H 11/15/22 13:56 Troponin T Baseline 35 ng/L (0-15) H 11/15/22 13:56 Troponin T 120 Minute 36.26 ng/L (0-15) H 11/15/22 16:01 Delta Troponin T 1.26 ABS# (0-10) 11/15/22 16:01 NT-Pro-B Natriuret Pep 5553 pg/mL (0-125) H 11/15/22 13:56 Total Protein 5.9 g/dL (6.6-8.7) L 11/15/22 13:56 Albumin 3.6 g/dL (3.5-5.2) 11/15/22 13:56 Globulin 2.3 g/dL (1.3-4.6) 11/15/22 13:56 EKG Data EKG 1: I personally reviewed and interpreted this EKG as follows: Interpretation: Resting EKG reveals a ventricular rate of 89 bpm consistent with sinus rhythm. He has a VA interval, QRS duration, corrected QT interval ulnar normal range. He has a leftward axis consistent with an ant left anterior Heema block. No acute ST-T wave changes noted at this time. He has low voltage across the precordium. EKG 2: I personally reviewed and interpreted this EKG as follows: Interpretation: Contemporaneous review of second EKG this visit reveals ventricular rate of 88 bpm, VA interval 155 ms, QRS duration 105 ms which is normal. Corrected QT intervals normal. Tyner are leftward. This EKG is essentially unchanged other than his leftward axis is shifted somewhat this is likely due to lead placement. No acute ST-T wave changes noted. Discharge Plan Discharge Patient Disposition: Home Clinical Impression: Congestive heart failure, Chronic hyperglycemia Condition: Stable Prescriptions: No Action carbamazepine 200 mg tablet 200 mg PO Q8H latanoprost 0.005 % drops 1 drop ophthalmic (eye) QPM Rx Instructions: left eye Glucagon Emergency Kit (human) 1 mg recon soln 1 mg SUBCUT Q20M PRN (Reason: hypoglycemia) Qty: 1 0RF Rx Instructions: until target blood sugar attained atorvastatin 80 mg tablet 80 mg PO DAILY ferrous gluconate 324 mg (37.5 mg iron) tablet 324 mg PO BIDWM insulin degludec [Tresiba FlexTouch U-200] 200 unit/mL (3 mL) insulin pen 35 - 45 unit SUBCUT QAM potassium chloride 10 mEq capsule, extended release 10 meq PO BID famotidine 20 mg tablet 20 mg PO BID Qty: 60 11RF finasteride 5 mg tablet 5 mg PO BEDTIME Qty: 30 11RF metoprolol tartrate 25 mg tablet 12.5 mg PO BEDTIME Qty: 90 3RF insulin lispro [Humalog KwikPen Insulin] 100 unit/mL insulin pen 12 - 15 unit SUBCUT TID Qty: 15 11RF Rx Instructions: only with meals tid. (DME) FreeStyle Isma 2 Sensor Kit See Rx Instructions .ROUTE .MEDSUPPLY Qty: 6 0RF Rx Instructions: change every 14 days (DME) Excell SAP, PolyMem Max Silver, and 2x2 Gauze See Rx Instructions .Route .MEDSUPPLY Qty: 1 0RF Rx Instructions: As directed HOME needs dressing changes Twice a Day- for 90 days furosemide 40 mg tablet 40 mg PO BID@08,16 Qty: 180 3RF brimonidine 0.2 % drops 1 drp ophthalmic (eye) BID Rx Instructions: left eye dorzolamide-timolol 22.3-6.8 mg/mL Drops 1 drp OPHTHALMIC (EYE) DAILY Rx Instructions: Left Eye metolazone 5 mg tablet 5 mg PO DAILY Qty: 30 0RF clopidogrel 75 mg tablet 75 mg PO DAILY@12 aspirin 81 mg tablet,delayed release (DR/EC) 81 mg PO DAILY@12 tamsulosin 0.4 mg capsule 0.4 mg PO DAILY@12 Discharge Orders: Discharge ED (Routine); Ordered 11/15/22 Ordered By: Roderick Colney Referrals: Greer eKnnedy NP [Primary Care Provider] - Discharge Diet: Low Salt Discharge Activity: Increase activity as tolerated Patient Instructions: Opioid Safety, Pain Management Activity Restrictions/Additional Instructions: As we discussed you have increased fluid retention and we would like to have you take an additional dose of Lasix daily for the next 5 days. You should take your first dose in the morning and then a second dose around dinnertime or thereafter. Do this for 5 days and then go back to your usual dose of medications. You should also monitor your blood sugar carefully and use your short acting insulin to adjust your blood sugars downward. If this does not continue to improve your symptoms or they worsen at any time return to the emergency department immediately for reevaluation. Follow-up with your simulation analyst as scheduled. Coding Level of Care Code ED Manufacturing Technician for Chg Fwd
[2022-11-15 14:18] LABS: Basophils # 0.1 10^3/uL (0.0-0.1); Basophils % 0.6 %; Eosinophils # 0.1 10^3/uL (0.0-0.8); Hematocrit 34.3 % (42.0-52.0); Lymphocytes # 1.8 10^3/uL (0.8-4.8); Mean Corpuscular HGB Conc 32.1 g/dL (30.0-36.0); Mean Corpuscular Hemoglobin 29.7 pg (28.0-34.0); Mean Corpuscular Volume 92.7 fl (80-94); Mean Platelet Volume 9.7 fL (7.4-10.4); Monocytes # 0.7 10^3/uL (0.2-0.9); Monocytes % 6.8 %; Neutrophils # 7.79 10^3/uL (1.8-7.7); Neutrophils % 74.3 %; Nucleated Red Blood Cells % 0 %; Platelet Count 263 10^3/cmm (130-400); Red Cell Distribution Width 14.3 % (12.1-15.1); White Blood Count 10.5 10^3/uL (4.0-10.0)
[2022-11-15 14:36] LABS: Alanine Aminotransferase 10 U/L (0-41); Albumin Level 3.6 g/dL (3.5-5.2); Alkaline Phosphatase 164 U/L (40-130); Anion Gap 12.8 (5-19); Aspartate Amino Transferase 13 U/L (0-40); Blood Urea Nitrogen 18 mg/dL (8-23); Calcium 8.7 mg/dL (8.5-10.5); Carbon Dioxide 30 mmol/L (22-29); Chloride 94 mmol/L (98-107); Globulin 2.3 g/dL (1.3-4.6); Glucose 452 mg/dL (65-115); Osmolality Calculated 298 mOsm/kg (285-295); Potassium 3.8 mmol/L (3.5-5.1); Sodium 133 mmol/L (136-145); Total Bilirubin 0.4 mg/dL (0.15-1.2); Total Protein 5.9 g/dL (6.6-8.7)
[2022-11-15 14:38] LABS: Troponin(5th) Baseline 35 ng/L (0-15)
[2022-11-15 15:07] LABS: NT Pro B Type Natriuretic Pept 5553 pg/mL (0-125)
[2022-11-15 15:17] VITALS: BP 140/89; PULSE 83; RESP 20; O2SAT 96
[2022-11-15 15:30] VITALS: BP 158/81; PULSE 84; RESP 17; O2SAT 96
--- NOTE | 2022-11-15 15:32 | PC.PHAR ---
pt state he takes care of his own medications-pt states he doesnt take chlorthalidone 25mg daily filled 08/31/22 90d/s-amlodipine 5mg daily filled 08/31/22 30d/s-and losartan 100mg daily filled 07/28/22 90d/s-pt states he finished the doxycycline hyclate 100mg bid filled 10/26/22 10d/s-pt states he is still taking carbamazepine 200mg q8h ozh [place] states last filled 07/28/22 30d/s-pt states he has been out of metolazone 5mg daily for a week ozh last filled 09/20/22 30d/s 5mg daily-pts state the pt got out of the ms october 18 2022 but states he has been taking care of his own medications -
--- NOTE | 2022-11-15 15:42 | ECG_ITS ---
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 Measurements Intervals [place] Rate: 88 P: 16 OR: 155 QRS: -41 QRSD: 105 T: 45 QT: 375 QTc: 456 Interpretive Statements SINUS RHYTHM WITH OCCASIONAL SUPRAVENTRICULAR PREMATURE COMPLEXES LEFT AXIS DEVIATION [QRS AXIS < -30] POSSIBLE ANTERIOR MYOCARDIAL INFARCTION , OF INDETERMINATE AGE [30 ms Q WAVE IN V3/V4, OR R < 0.2 mV IN V4] Compared to ECG 11/15/2022 13:27:34 Left-axis deviation now present Indeterminate axis no longer present Left anterior fascicular block no longer present Myocardial infarct finding still present Electronically Signed On 11-15-2022 17:16:32 CDT by Elisa Alfaro M.D. [id number]
[2022-11-15] MEDS: insulin lispro 100 unit/1 mL 12 UNIT SUBCUT (16:15)
[2022-11-15] MEDS: FUROsemide 10 mg/mL SDV 4mL 40 MG IVP (16:15)
[2022-11-15 16:23] LABS: Troponin 5 2HR 36.26 ng/L (0-15)
[2022-11-15 16:27] LABS: Troponin 5 2HR Delta 1.26 ABS# (0-10)
[2022-11-15 16:30] VITALS: BP 154/76; PULSE 86; RESP 18; O2SAT 97
[2022-11-15 17:00] VITALS: BP 136/83; PULSE 86; RESP 12; O2SAT 97
[2022-11-15 17:32] VITALS: BP 136/83; PULSE 88; RESP 18; O2SAT 99
[2022-11-16 19:35] LABS: Glucose Point of Care 461 mg/dL (70-110)
== END 2022-11-15 17:33 | disposition home or self-care (01) ==
PROVIDERS: Emergency Provider Emergency Medicine; PCP Nurse Practitioner Family
DX: I11.0 Hypertensive heart disease with heart failure (principal); I50.9 Heart failure, unspecified; E11.65 Type 2 diabetes mellitus with hyperglycemia; Z79.82 Long term (current) use of aspirin; Z79.02 Long term (current) use of antithrombotics/antiplatelets; Z79.4 Long term (current) use of insulin; I25.2 Old myocardial infarction
CPT/HCPCS: 36415; 36416; 71045; 80053; 82962; 83880; 84484; 85025; 93005; 96372; 96374; 99285; J1815; J1940

== ENCOUNTER 2022-11-17 17:33 | Emergency (ER) | payer MEDICARE, SELFPAY ==
[2022-11-17 17:39] VITALS: BP 148/62; PULSE 85; TEMP 38.1; O2SAT 96; BMI 32.3
--- NOTE | 2022-11-17 17:43 | XRR_ITS ---
PROCEDURE INFORMATION: Exam: XR Chest Exam date and time: 11/17/2022 5:50 PM Age: 72 years old Clinical indication: Pain; Chest pressure; Prior surgery; Surgery date: 1-6 months; Surgery type: Stent, maker in August; Additional info: Chest pain TECHNIQUE: Imaging protocol: Radiologic exam of the chest. Views: 1 view. COMPARISON: CR XR chest 1V portable [id number] 11/15/2022 1:51 PM FINDINGS: Lungs: Atelectasis versus fibrosis noted at the lung bases. No consolidative pulmonary infiltrates are noted. Pleural spaces: No pleural effusion. No pneumothorax. Heart/Mediastinum: No cardiomegaly. Bones/joints: Degenerative thoracic spine changes are noted. XR/XR chest 1V portable [id number] IMPRESSION: 1. No acute abnormality demonstrated. 2. There is no interval change from the prior examination.
--- NOTE | 2022-11-17 17:50 | ECG_ITS ---
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 Measurements Intervals [place] Rate: 84 P: 5 ND: 144 QRS: -70 QRSD: 106 T: 63 QT: 365 QTc: 433 Interpretive Statements SINUS RHYTHM PATTERN CONSISTENT WITH PULMONARY DISEASE LEFT ANTERIOR FASCICULAR BLOCK [QRS AXIS <= -45, QR IN I, RS IN II] MODERATE T-WAVE ABNORMALITY, CONSIDER ANTERIOR ISCHEMIA [-0.1+ mV T-WAVE IN V3/V4] Compared to ECG 11/15/2022 15:42:37 Left anterior fascicular block now present T-wave abnormality now present Possible ischemia now present Left-axis deviation no longer present Myocardial infarct finding no longer present Electronically Signed On 11-17-2022 20:08:17 CDT by Surjit Larose M.D. [id number]
--- NOTE | 2022-11-17 18:09 | W.ED.CHESTPA ---
HPI - Chest Pain General: Chief Complaint: Chest Pain Stated Complaint: Chest pain Time Seen by Provider: 11/17/22 17:42 History of Present Illness: Presents to the ER via EMS with complaints of left-sided chest pain that started around 6:00 this morning. Patient also felt the little bit short of breath and has a temperature of 100.6. Patient has extensive cardiac history with ejection fraction approximately 10% with multiple MIs and multiple stents in the past. Review of Systems General: Reports: 10 or more systems reviewed and unremarkable except in HPI and below PFSH ED PFSH: Medical History Acute heart failure BMI 32.0-32.9,adult Carotid artery disease Diabetes mellitus Glaucoma Hematuria HTN (hypertension) Neuropathy Peripheral Vascular Disease ST elevation (STEMI) myocardial infarction Venous insufficiency Surgical History H/O toe surgery left toe S/P cholecystectomy S/P eye surgery left S/P insertion of penile implant and removal Status post amputation of toe of right foot Family History Father Heart disease Diabetes Mother Cancer Cervical CA Social History Smoking and tobacco status: never smoked Alcohol intake: never Substance/Drug Use: never Physical Exam Const: COMMON NORMALS: no acute distress, average body habitus, patient oriented x3, no limitations, healthy appearing, alert and well nourished HENMT: COMMON NORMALS: normocephalic, atraumatic, hearing grossly normal bilaterally, external ears normal, Normal external nose present and moist oral mucous membranes HEAD & SCALP: normocephalic and atraumatic NOSE: Normal external nose present EXTERNAL EAR: Yes external ears normal Neck/C-Spine: COMMON NORMALS: full ROM, no lymphadenopathy, supple, no meningeal signs, no JVD and Thyroid normal THYROID: Thyroid normal Chest: COMMONS NORMALS: normal inspection of the chest and normal palpation of entire chest wall Resp: COMMON NORMALS: normal respiratory effort, No retractions, No use of accessory muscles and clear to auscultation bilaterally AUSCULTATION: clear to auscultation bilaterally Cardio: COMMON NORMALS: no JVD, regular rate, regular rhythm, S1 normal heart sound present, S2 normal heart sound present, No gallops present (Cardio), No clicks present (Cardio), No murmurs present (Cardio) and No rub (Cardio) RATE: regular rate RHYTHM: regular rhythm HEART SOUNDS: S1 normal heart sound present and S2 normal heart sound present GI: COMMON NORMALS: Normal to inspection, nondistended, normoactive bowel sounds present, Soft to palpation, non-tender, No hepatosplenomegaly present and no masses PALPATION: Yes Soft to palpation and Yes No hepatosplenomegaly present : COMMON NORMALS: Yes no CVA tenderness BLADDER/KIDNEY EXAM: Yes no CVA tenderness Back/Pelvis: COMMON NORMALS: no CVA tenderness Neuro: COMMON NORMALS: patient oriented x3 SENSORIUM/ORIENTATION: Yes alert MENINGEAL SIGNS: Yes no meningeal signs Course Vital Signs: Vital signs: Vital Signs Temperature 100.6 F H 11/17/22 17:39 Pulse Rate 84 11/17/22 21:00 Respiratory Rate 19 H 11/17/22 18:33 Blood Pressure 120/55 11/17/22 21:00 Pulse Oximetry 98 11/17/22 21:00 Oxygen Delivery Me thod Room Air 11/17/22 21:00 MDM - Chest Pain Medical Decision Making Presents to the ER with complaints of chest pain. Patient does have extensive cardiac history. Patient had physical exam performed and lab work in the normal cardiac fashion with serial troponins and serial EKGs. All of these which were benign for the patient. Patient have a temperature of 100.6 but chest x-ray was negative as well as COVID swab. These findings were explained to the patient and patient felt comfortable in going home. Patient be discharged home to follow-up with his PCP Differential Diagnosis Unlikely acute massive pulmonary embolism, acute respiratory failure, acute myocardial infarction, cardiac arrest or sudden cardiac Medical Records I reviewed the patient's medical records. Lab Data I reviewed the patient's lab results. 11/17/22 18:37 11/17/22 18:37 Radiology Impressions Chest X-Ray 11/17/22 17:43 IMPRESSION: 1. No acute abnormality demonstrated. 2. There is no interval change from the prior examination. Laboratory Results WBC 10.75 10^3/uL (3.29-11.43) 11/17/22 18:37 RBC 3.77 10^6/uL (3.85-5.65) L 11/17/22 18:37 Hgb 11.10 g/dL (11.27-16.99) L 11/17/22 18:37 Hct 34.5 % (37-53) L 11/17/22 18:37 MCV 91.5 fl (82-101) 11/17/22 18:37 MCH 29.4 pg (27-33) 11/17/22 18:37 MCHC 32.2 g/dL (30-55) 11/17/22 18:37 RDW 14.1 % (12.1-15.1) 11/17/22 18:37 Plt Count 267 10^3/cmm (157-399) 11/17/22 18:37 MPV 9.7 fL (7.4-10.4) 11/17/22 18:37 Neut % (Auto) 75.2 % 11/17/22 18:37 Lymph % (Auto) 17.4 % 11/17/22 18:37 [place] % (Auto) 4.9 % 11/17/22 18:37 Eos % (Auto) 1.7 % 11/17/22 18:37 Baso % (Auto) 0.5 % 11/17/22 18:37 Neut # (Auto) 8.09 10^3/uL (1.8-7.7) H 11/17/22 18:37 Lymph # (Auto) 1.9 10^3/uL (0.8-4.8) 11/17/22 18:37 [place] # (Auto) 0.5 10^3/uL (0.2-0.9) 11/17/22 18:37 Eos # (Auto) 0.2 10^3/uL (0.0-0.8) 11/17/22 18:37 Baso # (Auto) 0.1 10^3/uL (0.0-0.1) 11/17/22 18:37 Nucleated RBC % (auto) 0 % 11/17/22 18:37 Nucleated RBCs # 0.0 /100WBC 11/17/22 18:37 PT 13.50 SECONDS (12.1-14.9) 11/17/22 18:37 INR 1.00 (0.8-1.2) 11/17/22 18:37 Sodium 140 mmol/L (136-145) 11/17/22 18:37 Potassium 3.5 mmol/L (3.5-5.1) 11/17/22 18:37 Chloride 98 mmol/L (98-107) 11/17/22 18:37 Carbon Dioxide 32 mmol/L (22-29) H 11/17/22 18:37 Anion Gap 13.5 (5-19) 11/17/22 18:37 BUN 14 mg/dL (8-23) 11/17/22 18:37 Creatinine 0.7 mg/dL (0.7-1.2) 11/17/22 18:37 GFR Calculation Not Reportable 11/17/22 18:37 Glucose 144 mg/dL (65-115) H 11/17/22 18:37 Calculated Osmolality 293 mOsm/kg (285-295) 11/17/22 18:37 Calcium 8.4 mg/dL (8.5-10.5) L 11/17/22 18:37 Magnesium 1.7 mg/dL (1.7-2.3) 11/17/22 18:37 Total Bilirubin 0.4 mg/dL (0.15-1.2) 11/17/22 18:37 AST 16 U/L (0-40) 11/17/22 18:37 ALT 10 U/L (0-41) 11/17/22 18:37 Alkaline Phosphatase 129 U/L (40-130) 11/17/22 18:37 Troponin T Baseline 39 ng/L (0-15) H 11/17/22 18:37 Troponin T 120 Minute 43.37 ng/L (0-15) H 11/17/22 20:35 Delta Troponin T 4.37 ABS# (0-10) 11/17/22 20:35 NT-Pro-B Natriuret Pep 3549 pg/mL (0-125) H 11/17/22 18:37 Total Protein 6.1 g/dL (6.6-8.7) L 11/17/22 18:37 Albumin 3.2 g/dL (3.5-5.2) L 11/17/22 18:37 Globulin 2.9 g/dL (1.3-4.6) 11/17/22 18:37 SARS-CoV-2 Ag (Rapid) negative (Negative) 11/17/22 20:33 EKG Data EKG 1: I personally reviewed and interpreted this EKG as follows: EKG interpretation date: 11/17/22 EKG interpretation time: 17:50 Prior EKG tracings: not available for review Interpretation: EKG showed ventricular rate 84 beats a minute, NC interval 144, QRS duration 106, QTc of 406, sinus rhythm, left anterior fascicular block, moderate T wave abnormality T waves negative in V3 and V4 EKG 2: I personally reviewed and interpreted this EKG as follows: EKG interpretation date: 11/17/22 EKG interpretation time: 19:59 Prior EKG tracings: available for review Interpretation: EKG showed ventricular rate 84 beats minute, NC interval 151, QRS duration 108, QTc of 411, sinus rhythm with left axis deviation, T waves in V3 and V4 Discharge Plan Discharge Patient Disposition: Home Clinical Impression: Atypical chest pain Condition: Stable Prescriptions: No Action carbamazepine 200 mg tablet 200 mg PO Q8H latanoprost 0.005 % drops 1 drop ophthalmic (eye) QPM Rx Instructions: left eye Glucagon Emergency Kit (human) 1 mg recon soln 1 mg SUBCUT Q20M PRN (Reason: hypoglycemia) Qty: 1 0RF Rx Instructions: until target blood sugar attained atorvastatin 80 mg tablet 80 mg PO DAILY ferrous gluconate 324 mg (37.5 mg iron) tablet 324 mg PO BIDWM insulin degludec [Tresiba FlexTouch U-200] 200 unit/mL (3 mL) insulin pen 35 - 45 unit SUBCUT QAM potassium chloride 10 mEq capsule, extended release 10 meq PO BID famotidine 20 mg tablet 20 mg PO BID Qty: 60 11RF finasteride 5 mg tablet 5 mg PO BEDTIME Qty: 30 11RF metoprolol tartrate 25 mg tablet 12.5 mg PO BEDTIME Qty: 90 3RF insulin lispro [Humalog KwikPen Insulin] 100 unit/mL insulin pen 12 - 15 unit SUBCUT TID Qty: 15 11RF Rx Instructions: only with meals tid. (DME) FreeStyle Isma 2 Sensor Kit See Rx Instructions .ROUTE .MEDSUPPLY Qty: 6 0RF Rx Instructions: change every 14 days (DME) Excell SAP, PolyMem Max Silver, and 2x2 Gauze See Rx Instructions .Route .MEDSUPPLY Qty: 1 0RF Rx Instructions: As directed HOME needs dressing changes Twice a Day- for 90 days furosemide 40 mg tablet 40 mg PO BID@08,16 Qty: 180 3RF brimonidine 0.2 % drops 1 drp ophthalmic (eye) BID Rx Instructions: left eye dorzolamide-timolol 22.3-6.8 mg/mL Drops 1 drp OPHTHALMIC (EYE) DAILY Rx Instructions: Left Eye metolazone 5 mg tablet 5 mg PO DAILY Qty: 30 0RF clopidogrel 75 mg tablet 75 mg PO DAILY@12 aspirin 81 mg tablet,delayed release (DR/EC) 81 mg PO DAILY@12 tamsulosin 0.4 mg capsule 0.4 mg PO DAILY@12 Discharge Orders: Discharge ED (Routine); Ordered 11/17/22 Ordered By: Jose Guadalupe Saldaña Referrals: Greer Kennedy, ENGINEERING ANALYST [Primary Care Provider] - 1 week Patient Instructions: Noncardiac Chest Pain (ED) Activity Restrictions/Additional Instructions: Follow-up with your family practice physician in the next 7 to 10 days or sooner as needed. If your pain returns or worsens please feel free to come back to the ER for further evaluation. Coding Level of Care Code ED [employer] Professor for Ashia Saldivar
[2022-11-17] MEDS: aspirin 81 mg Chew Tablet 324 MG PO (18:30)
[2022-11-17 18:33] VITALS: BP 112/61; PULSE 94; RESP 19; O2SAT 100
--- NOTE | 2022-11-17 18:34 | PC.NURSE ---
PATIENT HOOKED UP TO CONTINUOUS BEDSIDE CARDIAC MONITORING.
[2022-11-17 19:04] LABS: Basophils # 0.1 10^3/uL (0.0-0.1); Basophils % 0.5 %; Eosinophils # 0.2 10^3/uL (0.0-0.8); Eosinophils % 1.7 %; Hematocrit 34.5 % (37-53); Lymphocytes # 1.9 10^3/uL (0.8-4.8); Lymphocytes % 17.4 %; Mean Corpuscular HGB Conc 32.2 g/dL (30-55); Mean Corpuscular Hemoglobin 29.4 pg (27-33); Mean Corpuscular Volume 91.5 fl (82-101); Mean Platelet Volume 9.7 fL (7.4-10.4); Monocytes # 0.5 10^3/uL (0.2-0.9); Monocytes % 4.9 %; Neutrophils # 8.09 10^3/uL (1.8-7.7); Neutrophils % 75.2 %; Nucleated Red Blood Cells % 0 %; Platelet Count 267 10^3/cmm (157-399); Red Blood Count 3.77 10^6/uL (3.85-5.65); Red Cell Distribution Width 14.1 % (12.1-15.1); White Blood Count 10.75 10^3/uL (3.29-11.43)
[2022-11-17 19:29] LABS: Troponin(5th) Baseline 39 ng/L (0-15)
[2022-11-17 19:37] LABS: Alanine Aminotransferase 10 U/L (0-41); Albumin Level 3.2 g/dL (3.5-5.2); Alkaline Phosphatase 129 U/L (40-130); Anion Gap 13.5 (5-19); Aspartate Amino Transferase 16 U/L (0-40); Blood Urea Nitrogen 14 mg/dL (8-23); Calcium 8.4 mg/dL (8.5-10.5); Carbon Dioxide 32 mmol/L (22-29); Chloride 98 mmol/L (98-107); Globulin 2.9 g/dL (1.3-4.6); Glucose 144 mg/dL (65-115); Magnesium 1.7 mg/dL (1.7-2.3); NT Pro B Type Natriuretic Pept 3549 pg/mL (0-125); Osmolality Calculated 293 mOsm/kg (285-295); Potassium 3.5 mmol/L (3.5-5.1); Sodium 140 mmol/L (136-145); Total Bilirubin 0.4 mg/dL (0.15-1.2); Total Protein 6.1 g/dL (6.6-8.7)
--- NOTE | 2022-11-17 19:43 | ECG_ITS ---
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 Measurements Intervals [place] Rate: 84 P: 20 HI: 151 QRS: -52 QRSD: 108 T: 55 QT: 369 QTc: 439 Interpretive Statements SINUS RHYTHM LEFT AXIS DEVIATION [QRS AXIS < -30] POSSIBLE ANTERIOR MYOCARDIAL INFARCTION , OF INDETERMINATE AGE [30 ms Q WAVE IN V3/V4, OR R < 0.2 mV IN V4] Compared to ECG 11/17/2022 17:50:38 Left-axis deviation now present Myocardial infarct finding now present Left anterior fascicular block no longer present T-wave abnormality no longer present Possible ischemia no longer present Electronically Signed On 11-17-2022 20:55:41 CDT by Surjit Larose M.D. [email or web address]/[id number]
[2022-11-17 20:00] VITALS: BP 114/63; PULSE 88; O2SAT 99
[2022-11-17 20:58] LABS: SARS Covid-2 Antigen negative (Negative)
[2022-11-17 21:00] VITALS: BP 120/55; PULSE 84; O2SAT 98
[2022-11-17 21:11] LABS: Troponin 5 2HR 43.37 ng/L (0-15)
[2022-11-17 21:13] LABS: Troponin 5 2HR Delta 4.37 ABS# (0-10)
[2022-11-17 21:43] VITALS: BP 127/63; PULSE 87; O2SAT 91
== END 2022-11-17 21:45 | disposition home or self-care (01) ==
PROVIDERS: Emergency Provider Emergency Medicine; PCP Nurse Practitioner Family
DX: R07.89 Other chest pain (principal); Z79.82 Long term (current) use of aspirin; Z79.02 Long term (current) use of antithrombotics/antiplatelets; Z79.4 Long term (current) use of insulin; Z20.822 Contact with and (suspected) exposure to COVID-19; I11.0 Hypertensive heart disease with heart failure; I50.9 Heart failure, unspecified; E11.9 Type 2 diabetes mellitus without complications; I25.2 Old myocardial infarction
CPT/HCPCS: 36415; 71045; 80053; 83735; 83880; 84484; 85025; 85610; 87426; 93005; 99285

== ENCOUNTER → 2022-11-23 17:03 | Outpatient (BNVA) | payer MEDICARE, SELFPAY | PROVIDERS: PCP Nurse Practitioner Family; Visit Provider Internal Medicine | DX: E16.0 Drug-induced hypoglycemia without coma (principal); T38.3X5A Adverse effect of insulin and oral hypoglycemic [antidiabetic] drugs, initial encounter | CPT/HCPCS: 80053; 80061; 82043; 83036 ==

== ENCOUNTER → 2022-12-02 11:18 | Outpatient (BNVA) | payer MEDICARE, SELFPAY | PROVIDERS: PCP Nurse Practitioner Family; Visit Provider Internal Medicine | DX: E16.0 Drug-induced hypoglycemia without coma (principal); T38.3X5A Adverse effect of insulin and oral hypoglycemic [antidiabetic] drugs, initial encounter; Z09 Encounter for follow-up examination after completed treatment for conditions other than malignant neoplasm; E78.2 Mixed hyperlipidemia; I73.9 Peripheral vascular disease, unspecified; Z79.4 Long term (current) use of insulin | CPT/HCPCS: 99215 ==

== ENCOUNTER → 2022-12-08 13:04 | Outpatient (BNVA) | payer MEDICARE, SELFPAY | PROVIDERS: PCP Nurse Practitioner Family; Visit Provider Internal Medicine | DX: I11.0 Hypertensive heart disease with heart failure (principal); I50.20 Unspecified systolic (congestive) heart failure; E10.9 Type 1 diabetes mellitus without complications; Z79.4 Long term (current) use of insulin; I25.10 Atherosclerotic heart disease of native coronary artery without angina pectoris | CPT/HCPCS: 99214 ==

== ENCOUNTER 2022-12-22 14:03 | Outpatient (CLI) | payer MEDICARE, SELFPAY ==
--- NOTE | 2022-12-22 14:15 | USCV_ITS ---
Alan Rashel Age: 72 Gender: M : 1950 Exam Date: 12/22/2022 14:52 Ordering Phys: Jeremiah Mullins M.D ([email or web address]) Technologist: Sangeeta Hawkins Exam Location: [facility] [place] Indication: EVALUATION OF EF BP: 109 / 80 HR: 84 Rhythm: Sinus Technical Quality: Adequate MEASUREMENTS (Male / Female) Normal Values 2D ECHO LV Diastolic Diameter PLAX 3.9 cm 4.2 - 5.9 / 3.9 - 5.3 cm LV Systolic Diameter PLAX 2.6 cm LV Chamber Size 2.7 cm IVS Diastolic Thickness 0.8 cm 0.6 - 1.0 / 0.6 - 0.9 cm IVS Systolic Thickness 1.2 cm LVPW Diastolic Thickness 1.4 cm 0.6 - 1.0 / 0.6 - 0.9 cm LVPW Systolic Thickness 1.3 cm RV Chamber Size 3.2 cm LVOT Diameter 2.1 cm LV Ejection Fraction 2D Teich 59.6 % LV Ejection Fraction MOD 2C 36.6 % LV Ejection Fraction 2C AL 38.4 % LA Diameter 3.6 cm LA Width 3.8 cm LA Height 4.5 cm RA Width 3.4 cm RA Height 4.6 cm Aorta at Sinotubular Diameter 3.3 cm M-MODE Aortic Annulus Diameter 3.6 cm LA Ao Ratio MM 1.2 MV E Point Septal Separation 2.6 cm DOPPLER AV Peak Velocity 113.0 cm/s LVOT Peak Velocity 73.3 cm/s AV Area Cont Eq vti 2.5 cm squared AV Area Cont Eq pk 2.2 cm squared MV Area PHT 7.6 cm squared Mitral E to A Ratio 0.6 MV E' Velocity 33.0 cm/s Mitral E to MV E' Ratio 9.5 Mitral E to LV E' Lateral Ratio 9.5 Mitral E to LV E' Septal Ratio 9.7 TR Peak Velocity 225.9 cm/s TR Peak Gradient 20.4 mmHg TR Mean Velocity 142.5 cm/s TR Mean Gradient 10.1 mmHg TR Velocity Time Integral 48.6 cm TV Peak E Velocity 54.0 cm/s Right Atrial Pressure 3.0 mmHg Pulmonary Artery Systolic Pressu 23.4 mmHg RV Acceleration Time 0.1 s RV Ejection Time 0.3 s RV AcT/ET 0.4 FINDINGS Left Ventricle Left ventricle is normal in size. LV systolic function is moderately reduced with EF of 35 to 40%. Moderate hypokinesis of apical wall. Grade 1 diastolic dysfunction. Right Ventricle Grossly RV function is normal Right Atrium Normal in size Left Atrium Normal in size Mitral Valve Moderate mitral annular calcification seen. Aortic Valve Grossly normal. No significant stenosis or regurgitation is seen. Tricuspid Valve Trace tricuspid regurgitation. Insufficient TR jet to calculate RVSP Pulmonic Valve Not well visualized Pericardium Small pericardial effusion seen. Aorta Normal in size IVC Not well visualized CONCLUSIONS LV systolic function is moderately reduced with EF of 35 to 40%. Grade 1 diastolic dysfunction Grossly RV function is normal Trace tricuspid regurgitation Small pericardial effusion. Compared to prior echocardiogram performed 09/04/2022, LV systolic function is significantly improved and is EF is 35 to 40% now. Small sized pericardial effusion is seen Jeremiah Mullins MD (Electronically Signed) Final Date: 26 December 2022 21:28 S
[2022-12-22] MEDS: perflutren protein-a microsphr 0.22 mg/mL SDV 3 mL IV (15:30)
== END 2022-12-22 14:04 | disposition home or self-care (01) ==
PROVIDERS: PCP Nurse Practitioner Family; Visit Provider Internal Medicine
DX: R07.9 Chest pain, unspecified (principal); R06.02 Shortness of breath; I51.89 Other ill-defined heart diseases; I31.39 Other pericardial effusion (noninflammatory)
CPT/HCPCS: C8929; Q9956

== ENCOUNTER 2023-01-05 10:24 | Observation (INO) | payer MEDICARE, SELFPAY ==
[2023-01-05] VITALS (58 sets, daily range): BP systolic 104–150; BP diastolic 62–86; PULSE 69–104; RESP 11–31; TEMP 36.6–36.9; O2SAT 77–100; BMI 31.8
--- NOTE | 2023-01-05 10:26 | XRR_ITS ---
PROCEDURE INFORMATION: Exam: XR Chest Exam date and time: 01/05/2023 10:40 AM Age: 72 years old Clinical indication: Pain; Angina pectoris; Prior surgery; Surgery date: 6+ months; Patient HX: Increased heart palp; Defib went off; Additional info: Cp TECHNIQUE: Imaging protocol: Radiologic exam of the chest. Views: 1 view. COMPARISON: CR (CHEST, ) 11/17/2022 5:50 PM FINDINGS: Tubes, catheters and devices: Unchanged electronic devices projecting over the lower chest and upper abdomen. Lungs: Unremarkable. No consolidation. Pleural spaces: Unremarkable. No pleural effusion. No pneumothorax. Heart/Mediastinum: Unremarkable. No cardiomegaly. Bones/joints: Unchanged mild and moderate multilevel thoracic spondylosis. XR/XR chest 1V portable [id number] IMPRESSION: No acute disease.
--- NOTE | 2023-01-05 10:35 | ECG_ITS ---
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 Measurements Intervals [place] Rate: 131 P: 0 MT: 0 QRS: -63 QRSD: 94 T: 30 QT: 337 QTc: 497 Interpretive Statements ATRIAL FIBRILLATION WITH RAPID VENTRICULAR RESPONSE LEFT ANTERIOR FASCICULAR BLOCK [QRS AXIS <= -45, QR IN I, RS IN II] POSSIBLE ANTERIOR MYOCARDIAL INFARCTION , OF INDETERMINATE AGE [30 ms Q WAVE IN V3/V4, OR R < 0.2 mV IN V4] Compared to ECG 11/17/2022 19:59:01 Left anterior fascicular block now present Sinus rhythm no longer present Left-axis deviation no longer present Myocardial infarct finding still present Electronically Signed On 01-05-2023 16:48:06 CDT by Victorino Marie M.D. [id number]
--- NOTE | 2023-01-05 10:35 | W.ED.ARRPALP ---
HPI - Arrhythmia/Palpitations General: Chief Complaint: Arrhythmia/Palpitations Stated Complaint: defib issues Time Seen by Provider: 01/05/23 10:25 Source: patient and EMS Mode of arrival: EMS Limitations: no limitations History of Present Illness: 72-year-old male who states he had an external defibrillator placed he states he is walking this morning and the defibrillator fired and shocked him. He denies having any chest pain he did not feel lightheaded he states that he has had no chest pain since the event this happened a little over an hour ago. Denies vomiting or shortness of breath. Associated symptoms: Deny nausea or vomiting Review of Systems Const: Denies: fever(s) or chills ENMT: Denies: throat pain or dental pain Card: Denies: chest pain Resp: Denies: dyspnea GI: Denies: abdominal pain, nausea, vomiting or diarrhea : Denies: dysuria Musc: Denies: neck pain or back pain Skin/Breast: Denies: rash Neuro: Denies: headache(s) PFSH ED PFSH: Medical History Acute heart failure BMI 32.0-32.9,adult Carotid artery disease Diabetes mellitus Glaucoma Hematuria HTN (hypertension) Neuropathy Peripheral Vascular Disease ST elevation (STEMI) myocardial infarction Venous insufficiency Surgical History H/O toe surgery left toe S/P cholecystectomy S/P eye surgery left S/P insertion of penile implant and removal Status post amputation of toe of right foot Family History Father Heart disease Diabetes Mother Cancer Cervical CA Social History Smoking and tobacco status: never smoked Alcohol intake: never Substance/Drug Use: never Physical Exam Const: COMMON NORMALS: patient oriented x3 HENMT: COMMON NORMALS: normocephalic and atraumatic HEAD & SCALP: normocephalic and atraumatic Eye: COMMON NORMALS: Equal, round and reactive pupils present and EOMs intact bilaterally PUPIL: Yes Equal, round and reactive pupils present Neck/C-Spine: COMMON NORMALS: full ROM and supple Chest: COMMONS NORMALS: normal inspection of the chest and normal palpation of entire chest wall Resp: COMMON NORMALS: normal respiratory effort, No retractions, No use of accessory muscles and clear to auscultation bilaterally AUSCULTATION: clear to auscultation bilaterally Cardio: COMMON NORMALS: regular rate, regular rhythm and No murmurs present (Cardio) RATE: regular rate RHYTHM: regular rhythm GI: COMMON NORMALS: Normal to inspection, nondistended, normoactive bowel sounds present, Soft to palpation, non-tender and no masses PALPATION: Yes Soft to palpation Extremity: COMMON NORMALS: normal to inspection and full ROM Neuro: COMMON NORMALS: patient oriented x3, moves all extremities and no focal motor deficits Psych: COMMON NORMALS: mental status grossly normal, Normal thought process present and cooperative THOUGHT PROCESS: Normal thought process present Skin: COMMON NORMALS: no rashes or lesions noted and no wounds GENERAL SKIN EXAM: no rashes or lesions noted Course Vital Signs: Vital signs: Vital Signs Temperature 97.8 F 01/05/23 10:26 Pulse Rate 92 01/05/23 11:01 Respiratory Rate 18 01/05/23 11:01 Blood Pressure 118/76 01/05/23 11:01 Pulse Oximetry 95 01/05/23 11:01 Oxygen Delivery Me thod Room Air 01/05/23 11:01 MDM - Arrhythmia/Palpitations Medical Decision Making Patient presents here after his defibrillator fired he has an external LifeVest I spoke to the hospitalist along with tuft machine operator and will admit at this time. He had no chest pain here his original EKG did show an A-fib no known history of A-fib heart rates now 84. Medical Records I reviewed the patient's medical records. Lab Data I reviewed the patient's lab results. 01/05/23 10:34 01/05/23 10:34 Radiology Impressions Chest X-Ray 01/05/23 10:26 IMPRESSION: No acute disease. Laboratory Results WBC 8.42 10^3/uL (3.29-11.43) 01/05/23 10:34 RBC 3.92 10^6/uL (3.85-5.65) 01/05/23 10:34 Hgb 11.50 g/dL (11.27-16.99) 01/05/23 10:34 Hct 35.5 % (37-53) L 01/05/23 10:34 MCV 90.6 fl (82-101) 01/05/23 10:34 MCH 29.3 pg (27-33) 01/05/23 10:34 MCHC 32.4 g/dL (30-55) 01/05/23 10:34 RDW 13.4 % (12.1-15.1) 01/05/23 10:34 Plt Count 372 10^3/cmm (157-399) 01/05/23 10:34 MPV 9.3 fL (7.4-10.4) 01/05/23 10:34 Neut % (Auto) 80.4 % 01/05/23 10:34 Lymph % (Auto) 12.5 % 01/05/23 10:34 [place] % (Auto) 4.8 % 01/05/23 10:34 Eos % (Auto) 1.5 % 01/05/23 10:34 Baso % (Auto) 0.6 % 01/05/23 10:34 Neut # (Auto) 6.77 10^3/uL (1.8-7.7) 01/05/23 10:34 Lymph # (Auto) 1.1 10^3/uL (0.8-4.8) 01/05/23 10:34 [place] # (Auto) 0.4 10^3/uL (0.2-0.9) 01/05/23 10:34 Eos # (Auto) 0.1 10^3/uL (0.0-0.8) 01/05/23 10:34 Baso # (Auto) 0.1 10^3/uL (0.0-0.1) 01/05/23 10:34 Nucleated RBC % (auto) 0 % 01/05/23 10:34 Nucleated RBCs # 0.0 /100WBC 01/05/23 10:34 PT 13.90 SECONDS (12.1-14.9) 01/05/23 10:34 INR 1.04 (0.8-1.2) 01/05/23 10:34 Sodium 134 mmol/L (136-145) L 01/05/23 10:34 Potassium 3.0 mmol/L (3.5-5.1) L 01/05/23 10:34 Chloride 85 mmol/L (98-107) L 01/05/23 10:34 Carbon Dioxide 38 mmol/L (22-29) H 01/05/23 10:34 Anion Gap 14.0 (5-19) 01/05/23 10:34 BUN 24 mg/dL (8-23) H 01/05/23 10:34 Creatinine 1.0 mg/dL (0.7-1.2) 01/05/23 10:34 GFR Calculation Not Reportable 01/05/23 10:34 Glucose 310 mg/dL (65-115) H 01/05/23 10:34 Calculated Osmolality 294 mOsm/kg (285-295) 01/05/23 10:34 Calcium 8.9 mg/dL (8.5-10.5) 01/05/23 10:34 Total Bilirubin 0.4 mg/dL (0.15-1.2) 01/05/23 10:34 AST 13 U/L (0-40) 01/05/23 10:34 ALT 9 U/L (0-41) 01/05/23 10:34 Alkaline Phosphatase 111 U/L (40-130) 01/05/23 10:34 Troponin T Baseline 36 ng/L (0-15) H 01/05/23 10:34 Total Protein 6.9 g/dL (6.6-8.7) 01/05/23 10:34 Albumin 2.7 g/dL (3.5-5.2) L 01/05/23 10:34 Globulin 4.2 g/dL (1.3-4.6) 01/05/23 10:34 No radiology studies performed this visit EKG Data EKG 1: I personally reviewed and interpreted this EKG as follows: EKG interpretation date: 01/05/23 EKG interpretation time: 10:35 Interpretation: afib with rvr hr [address] or t wave abnormalities qrs 94 qtc 414 Other EKG comments: Chest X-Ray 01/05/23 10:26 IMPRESSION: No acute disease. Discharge Plan Discharge Patient Disposition: Admitted As Inpatient Clinical Impression: Defibrillator discharge Condition: Stable Prescriptions: No Action carbamazepine 200 mg tablet 200 mg PO Q8H latanoprost 0.005 % drops 1 drop ophthalmic (eye) QPM Rx Instructions: left eye Glucagon Emergency Kit (human) 1 mg recon soln 1 mg SUBCUT Q20M PRN (Reason: hypoglycemia) Qty: 1 0RF Rx Instructions: until target blood sugar attained lubricants Gel 1 ea topical ONCE Qty: 1 0RF ferrous gluconate 324 mg (37.5 mg iron) tablet 324 mg PO BIDWM Qty: 180 3RF metolazone 5 mg tablet 5 mg PO DAILY Qty: 90 0RF (DME) FreeStyle Isma 2 Sensor Kit See Rx Instructions .ROUTE .MEDSUPPLY Qty: 6 0RF Rx Instructions: change every 14 days atorvastatin 80 mg tablet 80 mg PO DAILY insulin degludec [Tresiba FlexTouch U-200] 200 unit/mL (3 mL) insulin pen 35 - 45 unit SUBCUT QAM potassium chloride 10 mEq capsule, extended release 10 meq PO BID famotidine 20 mg tablet 20 mg PO BID Qty: 60 11RF finasteride 5 mg tablet 5 mg PO BEDTIME Qty: 30 11RF metoprolol tartrate 25 mg tablet 12.5 mg PO BEDTIME Qty: 90 3RF insulin lispro [Humalog KwikPen Insulin] 100 unit/mL insulin pen 12 - 15 unit SUBCUT TID Qty: 15 11RF Rx Instructions: only with meals tid. lidocaine HCl [Lidocaine Viscous] 2 % solution 1 applic topical ONCE Qty: 1 0RF lidocaine HCl [Lidocaine Viscous] 2 % solution 1 applic topical ONCE Qty: 1 0RF lidocaine HCl [Lidocaine Viscous] 2 % solution 1 applic topical ONCE Qty: 1 0RF (DME) Excell SAP, PolyMem Max Silver, and 2x2 Gauze See Rx Instructions .Route .MEDSUPPLY Qty: 1 0RF Rx Instructions: As directed HOME needs dressing changes Twice a Day- for 90 days furosemide 40 mg tablet 40 mg PO BID@08,16 Qty: 180 3RF brimonidine 0.2 % drops 1 drp ophthalmic (eye) BID Rx Instructions: left eye dorzolamide-timolol 22.3-6.8 mg/mL Drops 1 drp OPHTHALMIC (EYE) DAILY Rx Instructions: Left Eye clopidogrel 75 mg tablet 75 mg PO DAILY@12 aspirin 81 mg tablet,delayed release (DR/EC) 81 mg PO DAILY@12 tamsulosin 0.4 mg capsule 0.4 mg PO DAILY@12 Referrals: Greer Kennedy NP [Primary Care Provider] - Coding Level of Care Code ED Chief Cloth Finishing Range Operator for g Fwd
[2023-01-05 10:42] LABS: Basophils # 0.1 10^3/uL (0.0-0.1); Basophils % 0.6 %; Eosinophils # 0.1 10^3/uL (0.0-0.8); Eosinophils % 1.5 %; Hematocrit 35.5 % (37-53); Lymphocytes # 1.1 10^3/uL (0.8-4.8); Lymphocytes % 12.5 %; Mean Corpuscular HGB Conc 32.4 g/dL (30-55); Mean Corpuscular Hemoglobin 29.3 pg (27-33); Mean Corpuscular Volume 90.6 fl (82-101); Mean Platelet Volume 9.3 fL (7.4-10.4); Monocytes # 0.4 10^3/uL (0.2-0.9); Monocytes % 4.8 %; Neutrophils # 6.77 10^3/uL (1.8-7.7); Neutrophils % 80.4 %; Nucleated Red Blood Cells % 0 %; Platelet Count 372 10^3/cmm (157-399); Red Blood Count 3.92 10^6/uL (3.85-5.65); Red Cell Distribution Width 13.4 % (12.1-15.1); White Blood Count 8.42 10^3/uL (3.29-11.43)
[2023-01-05 10:53] LABS: INR 1.04 (0.8-1.2)
[2023-01-05 11:01] LABS: Alanine Aminotransferase 9 U/L (0-41); Albumin Level 2.7 g/dL (3.5-5.2); Alkaline Phosphatase 111 U/L (40-130); Aspartate Amino Transferase 13 U/L (0-40); Blood Urea Nitrogen 24 mg/dL (8-23); Calcium 8.9 mg/dL (8.5-10.5); Carbon Dioxide 38 mmol/L (22-29); Chloride 85 mmol/L (98-107); Globulin 4.2 g/dL (1.3-4.6); Glucose 310 mg/dL (65-115); Osmolality Calculated 294 mOsm/kg (285-295); Sodium 134 mmol/L (136-145); Total Bilirubin 0.4 mg/dL (0.15-1.2); Total Protein 6.9 g/dL (6.6-8.7); Troponin(5th) Baseline 36 ng/L (0-15)
--- NOTE | 2023-01-05 11:47 | PC.PHAR ---
Addendum entered by Kavitha Saab 01/05/23 11:54: PT ALSO, HAS 4 HYPERTENSION MEDICATIONS: AMLODIPINE 5 MG DAILY, CHLORTHALIDONE 25 MG DAILY, LOSARTAIN 100MG DAILY, AND METOPROLOL TARTRATE 25MG 12 TABLET DAILY AT BEDTIME. FYI Original Note: PT STATES HE TAKES BOTH HCTZ 12.5 ONCE DAILY AND FUROSEMIDE 40 MG TWICE DAILY. HE ALSO, STATES HE HAS HAD NO MEDICATIONS AT ALL TODAY. 01/05/23
--- NOTE | 2023-01-05 12:26 | ECG_ITS ---
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 Measurements Intervals [place] Rate: 87 P: 27 [place]: 163 QRS: -56 QRSD: 106 T: 17 QT: 395 QTc: 477 Interpretive Statements SINUS RHYTHM LEFT ANTERIOR FASCICULAR BLOCK [QRS AXIS <= -45, QR IN I, RS IN II] POSSIBLE ANTERIOR MYOCARDIAL INFARCTION , OF INDETERMINATE AGE [30 ms Q WAVE IN V3/V4, OR R < 0.2 mV IN V4] Compared to ECG 01/05/2023 10:35:16 Atrial fibrillation no longer present Myocardial infarct finding still present Electronically Signed On 01-05-2023 16:50:38 CDT by Victorino Marie M.D. [id number]
[2023-01-05 12:45] LABS: Magnesium 1.9 mg/dL (1.7-2.3); Thyroid Stimulating Hormone 1.22 uIU/mL (0.27-4.20)
[2023-01-05] MEDS: potassium chloride ER 20 mEq Tablet 40 MEQ PO (12:58)
[2023-01-05] MEDS: potassium chloride premix 100 ML 25 MEQ IV (12:59)
--- NOTE | 2023-01-05 13:04 | PM.HP ---
Providers/Chief Complaint Admitting Physician: Mat Arriaga MD Primary Care Provider: Greer Kennedy NP Chief Complaint: defib issues History of Present Illness Rashel Phillips is a 72 year old male who presents to the hospital after his LifeVest fired. He reports he had this placed following myocardial infarction in August and low ejection fraction. He reports it has not fired before. He denies any recent illness. He has had no vomiting or diarrhea. He has had no blood in his stools or black or tarry stools. The most he thinks he has had recently is an occasional dry cough. He reports his back hurts currently but that he has chronic back pain and this is not unusual. Review of Systems General: Reports: 10 or more systems reviewed and unremarkable except in HPI and below Card: Denies: chest pain Resp: Denies: dyspnea GI: Denies: abdominal pain, nausea, vomiting, hematochezia or melena Medications/Allergies Home Medications Medication Instructions Recorded Confirmed Last Taken Type carbamazepine 200 mg tablet 200 mg PO Q8H 05/17/19 01/05/23 01/04/23 History latanoprost 0.005 % eye drops 1 drop ophthalmic (eye) QPM 05/17/19 01/05/23 01/04/23 History glucagon 1 mg solution for 1 mg SUBCUT Q20M PRN hypoglycemia 11/18/21 01/05/23 Unknown Rx injection (Glucagon Emergency Kit) #1 ea Excell SAP, PolyMem Max Silver, #1 ea 06/03/22 01/05/23 Unknown Rx and 2x2 Gauze brimonidine 0.2 % eye drops 1 drp ophthalmic (eye) BID 09/05/22 01/05/23 01/04/23 History dorzolamide 22.3 mg-timolol 6.8 1 drp ophthalmic (eye) DAILY 09/09/22 01/05/23 01/04/23 History mg/mL eye drops furosemide 40 mg tablet 40 mg PO BID@08,16 #180 tabs 09/13/22 01/05/23 01/04/23 Rx atorvastatin 80 mg tablet 80 mg PO DAILY 09/30/22 01/05/23 01/04/23 History insulin degludec 200 unit/mL (3 35 - 45 unit SUBCUT QAM 09/30/22 01/05/23 01/04/23 History mL) subcutaneous pen (Tresiba FlexTouch U-200 insulin) potassium chloride 10 mEq 10 meq PO BID 09/30/22 01/05/23 01/04/23 History capsule,extended release famotidine 20 mg tablet 20 mg PO BID #60 tabs 10/21/22 01/05/23 01/04/23 Rx finasteride 5 mg tablet 5 mg PO BEDTIME #30 tabs 10/21/22 01/05/23 01/04/23 Rx insulin lispro 100 unit/mL 12 - 15 unit (0.12 - 0.15 mL) 10/21/22 01/05/23 01/04/23 Rx subcutaneous pen (Humalog KwikPen SUBCUT TID #15 mL (U-100) Insulin) metoprolol tartrate 25 mg tablet 12.5 mg PO BEDTIME #90 tabs 10/21/22 01/05/23 01/04/23 Rx aspirin 81 mg tablet,delayed 81 mg PO DAILY@11/15/22 01/05/23 01/04/23 History release clopidogrel 75 mg tablet 75 mg PO DAILY@11/15/22 01/05/23 01/04/23 History tamsulosin 0.4 mg capsule 0.4 mg PO DAILY@11/15/22 01/05/23 01/04/23 History ferrous gluconate 324 mg (37.5 mg 324 mg PO BIDWM #180 tabs 11/30/22 01/05/23 01/04/23 Rx iron) tablet metolazone 5 mg tablet 5 mg PO DAILY #90 tabs 11/30/22 01/05/23 01/04/23 Rx FreeStyle Isma 2 Sensor (flash #6 ea 12/02/22 01/05/23 Unknown Rx glucose sensor) amlodipine 5 mg tablet (Norvasc) 5 mg PO DAILY 01/05/23 01/05/23 01/04/23 History chlorthalidone 25 mg tablet 25 mg PO DAILY 01/05/23 01/05/23 01/04/23 History hydrochlorothiazide 12.5 mg tablet 12.5 mg PO DAILY 01/05/23 01/05/23 01/04/23 History losartan 100 mg tablet 100 mg PO DAILY 01/05/23 01/05/23 01/04/23 History Allergies Allergy/AdvReac Type Severity Reaction Status Date / Time vancomycin Allergy ALGY-Hives Verified 12/08/22 13:31 Hay Fever Allergy ADR-Itching Uncoded 12/08/22 13:31 PFSH Acute PFSH: Medical History (Updated 01/05/23 @ 13:14 by Mat Arriaga MD) Acute heart failure BMI 32.0-32.9,adult CAD (coronary artery disease) Carotid artery disease Diabetes mellitus Glaucoma Hematuria HTN (hypertension) Neuropathy Peripheral Vascular Disease ST elevation (STEMI) myocardial infarction Venous insufficiency Surgical History (Updated 01/05/23 @ 13:07 by Mat Arriaga MD) H/O toe surgery left toe History of coronary artery stent placement S/P cholecystectomy S/P eye surgery left S/P insertion of penile implant and removal Status post amputation of toe of right foot Family History Father Heart disease Diabetes Mother Cancer Cervical CA Social History Smoking and tobacco/nicotine status: never used tobacco/nicotine Alcohol intake: never Substance/Drug Use: never Vitals/I&O/Wt Last Vital Signs Temp 97.8 F 01/05/23 10:26 Pulse 89 01/05/23 12:55 Resp 15 01/05/23 12:55 BP 145/81 01/05/23 12:55 Pulse Ox 93 01/05/23 12:55 O2 Del Method Room Air 01/05/23 11:53 Weight last 48 hrs Weight 106.594 kg Physical Exam Narrative: General exam is a white male, conversant, reporting he has some chronic back pain HEENT: Atraumatic normocephalic. Pupils equally round. Oropharynx clear. Neck is supple no lymphadenopathy thyromegaly Cardiovascular regular rate and rhythm, no murmur. LifeVest noted. Lungs clear no wheezing or crackles Abdomen is soft. Nontender. No obvious organomegaly exam demonstrates Schafer. He reports this has been in 4 weeks and not changed. Extremities no cyanosis clubbing or edema, cap refill brisk Multiple dressings right sanchez, left heel, right lateral ankle. I will need to remove these in view these when nurses do a wound assessment. Skin see findings above Neuro no obvious focal deficits. Data 01/05/23 10:34 01/05/23 10:34 Other Labs: INR 1.04 LFTs normal Troponin 36 Magnesium 1.9 Calcium and albumin are normal TSH is normal Chest x-ray reviewed by me demonstrates questionable interstitial markings, LifeVest overlying chest Echo on December 22 demonstrated an EF of 35 to 40%, 1/4 diastolic dysfunction, small pericardial effusion EKG reviewed by me demonstrates atrial fibrillation, rate around 130, left axis deviation, nonspecific ST-T wave changes. Repeat EKG appears to show sinus rhythm A&P Assessment and plan (1) Defibrillator discharge: Patient with defibrillator discharge Interrogate device Cardiology consultation Supplement potassium TSH and magnesium are normal (2) Atrial fibrillation: Patient appears to be in atrial fibrillation on arrival Cardiology consult is being obtained Lovenox subcutaneous full dose currently. Rate is now under control. (3) Diabetes type 2, uncontrolled: Consistent carb diet Lantus 20 units daily Sliding scale insulin (4) Hypokalemia: Patient with hypokalemia Supplement oral and IV Recheck potassium tomorrow Magnesium has been checked and normal. Mag (5) Cardiomyopathy: Patient has underlying ischemic cardiomyopathy with EF of 35 to 40%. Continue Plavix, statin, beta-alta, diuretic. Continue ARB As he will be going on anticoagulation initially for atrial fibrillation will discontinue low-dose aspirin (6) Urinary retention: Patient with longstanding urinary retention Make sure he is taking Flomax Change out catheter as it has been 4 weeks since his last change Plan Diabetic foot ulcers Multiple other medical problems as outlined in past medical history Full code SCDs for DVT prophylaxis Lovenox will suffice for for pharmacological prophylaxis. Attestations Medical Necessity Statement*: Will need less than 2 midnight stay for evaluation of defibrillator discharge. Diagnoses Defibrillator discharge Z45.02 Atrial fibrillation I48.91 Diabetes type 2, uncontrolled Hypokalemia E87.6 Cardiomyopathy I42.9 Urinary retention R33.9 Time Spent (min) 49
[2023-01-05 13:31] LABS: Troponin 5 2HR 38.03 ng/L (0-15)
[2023-01-05 13:33] LABS: Troponin 5 2HR Delta 2.03 ABS# (0-10)
[2023-01-05] MEDS: carBAMazepine 200 mg Tablet PO ×2 (13:49→20:28)
[2023-01-05] MEDS: sodium chloride 0.9% 1,000 ML 30 ML IV (13:50)
[2023-01-05 13:51] LABS: Carbamazepine Tegretol 4.1 ug/mL (4.0-12.0)
[2023-01-05] MEDS: enoxaparin 100 mg/mL Syringe SUBCUT (16:15)
--- NOTE | 2023-01-05 16:26 | ECG_ITS ---
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 Measurements Intervals [place] Rate: 84 P: 9 [place]: 149 QRS: -43 QRSD: 100 T: 24 QT: 434 QTc: 514 Interpretive Statements SINUS RHYTHM LEFT AXIS DEVIATION [QRS AXIS < -30] POSSIBLE ANTERIOR MYOCARDIAL INFARCTION , OF INDETERMINATE AGE [30 ms Q WAVE IN V3/V4, OR R < 0.2 mV IN V4] Compared to ECG 01/05/2023 12:30:35 Left-axis deviation now present Left anterior fascicular block no longer present Myocardial infarct finding still present Electronically Signed On 01-06-2023 21:36:46 CDT by Surjit Larose M.D. [email or web address].[email or web address]/store/[id number]
[2023-01-05 17:03] LABS: Troponin 5 6HR 41.54 ng/L (0-15)
[2023-01-05 17:05] LABS: Troponin 5 6HR Delta 5.54 ng/L (0-12)
[2023-01-05 17:20] LABS: Glucose Point of Care 319 mg/dL (70-110)
[2023-01-05] MEDS: insulin lispro 100 unit/1 mL SUBCUT ×2 (18:00→21:12)
[2023-01-05] MEDS: FUROsemide 40 mg Tablet PO (18:01)
[2023-01-05] MEDS: docusate sodium 100 mg Capsule PO (18:01)
[2023-01-05] MEDS: potassium chloride ER 20 mEq Tablet PO (18:01)
[2023-01-05] MEDS: famotidine 20 mg Tablet PO (18:01)
[2023-01-05] MEDS: metoprolol tartrate 25 mg Tablet 12.5 MG PO (20:29)
[2023-01-05] MEDS: insulin glargine 100 units/1 mL 20 UNIT SUBCUT (20:29)
[2023-01-05] MEDS: finasteride 5 mg Tablet PO (20:29)
--- NOTE | 2023-01-05 20:41 | PM.CONSULT ---
Providers/Reason For Consult Consulting Physician/Specialty*: VINICIO Larose MD/cardiology Reason for Consult*: Patient with history of coronary disease, recent myocardial infarction presenting with a syncopal episode and? Discharge from the LifeVest Requesting Physician: Dr. Arriaga Attending Physician: Mat Arriaga MD Primary Care Provider: Greer Kennedy NP History of Present Illness History of Present Illness Rashel Phillips is a 72 year old male with a history of coronary disease, recent myocardial infarction in August of this year presented to the emergency room today with complaints of passing out spell and possible discharge from the LifeVest This patient is a very poor historian. He was admitted to hospital in August of this year with a features of an acute ST elevation myocardial infarction. His cardiac catheterization revealed thrombotic occlusion of the ostial LAD for which he underwent PCI with a drug-eluting stent. He had some disease in the left main but was not significant enough to be intervened, based on the intravascular ultrasound findings. Patient was found to have LV ejection fraction around 20%. He was placed on a LifeVest and was discharged home. According the patient, he had 2 episodes where he found himself on the floor. The first episode was a week ago when while he was in the kitchen, he dropped down to the floor with no chest pain, palpitations or any discomfort prior to this. He uses a walker for ambulation because of the hip pain. Today also he was at home moving around with a walker. He is of the red alert buttons on the LifeVest. He did not have any chest pain or palpitations. No dizziness. According to him, his feet became listless and dropped down to the floor. He do not know for sure whether the device discharge or not. He do not know for sure whether he completely passed out or not. He has no other associated symptoms. No seizure activities. No bladder or bowel incontinence. Patient denies any fever or chills. No cough. No unusual shortness of breath. Review of Systems Narrative: CONSTITUTIONAL: No fever or chills. [] EYES: No blurring of vision or other visual disturbances lately. [] ENT: No hoarseness of voice, auditory disturbances or sore throat. [] CARDIOVASCULAR: As mentioned above. [] RESPIRATORY: No significant cough. [] GASTROINTESTINAL: No hematemesis or melena. [] GENITOURINARY: No dysuria or hematuria. INTEGUMENTARY: No skin rashes or history of skin cancer. [] NEURO: No transient ischemic attacks or amaurosis. PSYCHIATRIC: No history of psychosis or major depression. [] HEMATOLOGIC: No bleeding disorders or significant anemia. [] ENDOCRINE: No history of polyuria or polydipsia. [] MUSCULOSKELETAL: No recent joint pain or swelling. [] ALLERGY/IMMUNOLOGY: As mentioned above. [] Medications/Allergies Home Medications Medication Instructions Recorded Confirmed Last Taken Type carbamazepine 200 mg tablet 200 mg PO Q8H 05/17/19 01/05/23 01/04/23 History latanoprost 0.005 % eye drops 1 drop ophthalmic (eye) QPM 05/17/19 01/05/23 01/04/23 History glucagon 1 mg solution for 1 mg SUBCUT Q20M PRN hypoglycemia 11/18/21 01/05/23 Unknown Rx injection (Glucagon Emergency Kit) #1 ea Excell SAP, PolyMem Max Silver, #1 ea 06/03/22 01/05/23 Unknown Rx and 2x2 Gauze brimonidine 0.2 % eye drops 1 drp ophthalmic (eye) BID 09/05/22 01/05/23 01/04/23 History dorzolamide 22.3 mg-timolol 6.8 1 drp ophthalmic (eye) DAILY 09/09/22 01/05/23 01/04/23 History mg/mL eye drops furosemide 40 mg tablet 40 mg PO BID@08,16 #180 tabs 09/13/22 01/05/23 01/04/23 Rx atorvastatin 80 mg tablet 80 mg PO DAILY 09/30/22 01/05/23 01/04/23 History insulin degludec 200 unit/mL (3 35 - 45 unit SUBCUT QAM 09/30/22 01/05/23 01/04/23 History mL) subcutaneous pen (Tresiba FlexTouch U-200 insulin) potassium chloride 10 mEq 10 meq PO BID 09/30/22 01/05/23 01/04/23 History capsule,extended release famotidine 20 mg tablet 20 mg PO BID #60 tabs 10/21/22 01/05/23 01/04/23 Rx finasteride 5 mg tablet 5 mg PO BEDTIME #30 tabs 10/21/22 01/05/23 01/04/23 Rx insulin lispro 100 unit/mL 12 - 15 unit (0.12 - 0.15 mL) 10/21/22 01/05/23 01/04/23 Rx subcutaneous pen (Humalog KwikPen SUBCUT TID #15 mL (U-100) Insulin) metoprolol tartrate 25 mg tablet 12.5 mg PO BEDTIME #90 tabs 10/21/22 01/05/23 01/04/23 Rx aspirin 81 mg tablet,delayed 81 mg PO DAILY@11/15/22 01/05/23 01/04/23 History release clopidogrel 75 mg tablet 75 mg PO DAILY@11/15/22 01/05/23 01/04/23 History tamsulosin 0.4 mg capsule 0.4 mg PO DAILY@11/15/22 01/05/23 01/04/23 History ferrous gluconate 324 mg (37.5 mg 324 mg PO BIDWM #180 tabs 11/30/22 01/05/23 01/04/23 Rx iron) tablet metolazone 5 mg tablet 5 mg PO DAILY #90 tabs 11/30/22 01/05/23 01/04/23 Rx FreeStyle Isma 2 Sensor (flash #6 ea 12/02/22 01/05/23 Unknown Rx glucose sensor) amlodipine 5 mg tablet (Norvasc) 5 mg PO DAILY 01/05/23 01/05/23 01/04/23 History chlorthalidone 25 mg tablet 25 mg PO DAILY 01/05/23 01/05/23 01/04/23 History hydrochlorothiazide 12.5 mg tablet 12.5 mg PO DAILY 01/05/23 01/05/23 01/04/23 History losartan 100 mg tablet 100 mg PO DAILY 01/05/23 01/05/23 01/04/23 History Allergies Allergy/AdvReac Type Severity Reaction Status Date / Time vancomycin Allergy ALGY-Hives Verified 12/08/22 13:31 Hay Fever Allergy ADR-Itching Uncoded 12/08/22 13:31 Current Medications Generic Name Dose Route Start Last Admin Trade Name Freq PRN Reason Stop Dose Admin Carbamazepine 200 mg 01/05/23 13:32 01/05/23 20:28 Carbamazepine 200 Mg Tablet PO 200 mg Q8H JOSESITO Administration Docusate Sodium 100 mg 01/05/23 18:00 01/05/23 18:01 Docusate Sodium 100 Mg Capsule PO 100 mg BID JOSESITO Administration Enoxaparin Sodium 100 mg 01/05/23 14:00 01/05/23 16:15 Enoxaparin 100 Mg/Ml Syringe SUBCUT 100 mg Q12H JOSESITO Administration Famotidine 20 mg 01/05/23 18:00 01/05/23 18:01 Famotidine 20 Mg Tablet PO 20 mg BID JOSESITO Administration Finasteride 5 mg 01/05/23 21:00 01/05/23 20:29 Finasteride 5 Mg Tablet PO 5 mg BEDTIME JOSESITO Administration Furosemide 40 mg 01/05/23 16:00 01/05/23 18:01 Furosemide 40 Mg Tablet PO 40 mg BID@08,16 JOSESITO Administration Sodium Chloride 1,000 mls @ 30 mls/hr 01/05/23 13:45 01/05/23 13:50 Sodium Chloride 0.9% IV 30 mls/hr .Q24H JOSESITO Administration Insulin Glargine 20 unit 01/05/23 21:00 01/05/23 20:29 Insulin Glargine 100 Units/1 Ml SUBCUT 20 unit BEDTIME JOSESITO Administration Insulin Human Lispro 0 unit 01/05/23 18:00 01/05/23 18:00 Insulin Lispro 100 Unit/1 Ml SUBCUT 10 unit WM&BEDTIME JOSESITO Administration Protocol Metoprolol Tartrate 12.5 mg 01/05/23 21:00 01/05/23 20:29 Metoprolol Tartrate 25 Mg Tablet PO 12.5 mg BEDTIME JOSESITO Administration Potassium Chloride 20 meq 01/05/23 18:00 01/05/23 18:01 Potassium Chloride Er 20 Meq Tablet PO 20 meq BID JOSESITO Administration PFSH Acute PFSH: Medical History Acute heart failure BMI 32.0-32.9,adult CAD (coronary artery disease) Carotid artery disease Diabetes mellitus Glaucoma Hematuria HTN (hypertension) Neuropathy Peripheral Vascular Disease ST elevation (STEMI) myocardial infarction Venous insufficiency Surgical History H/O toe surgery left toe History of coronary artery stent placement S/P cholecystectomy S/P eye surgery left S/P insertion of penile implant and removal Status post amputation of toe of right foot Family History Father Heart disease Diabetes Mother Cancer Cervical CA Social History Smoking and tobacco/nicotine status: never used tobacco/nicotine Alcohol intake: never Substance/Drug Use: never Vitals/I&O/Wt Last Vital Signs Temp 97.8 F 01/05/23 10:26 Pulse 88 01/05/23 16:49 Resp 31 H 01/05/23 16:00 BP 150/83 01/05/23 16:00 Pulse Ox 100 01/05/23 16:00 O2 Del Method Nasal Cannula 01/05/23 15:13 01/05/23 01/05/23 01/05/23 06:59 14:59 22:59 Intake Total 576.667 / 576.667 Balance 576.667 / 576.667 Weight last 48 hrs Weight 235 lb Physical Exam Narrative: GENERAL: The patient is alert and oriented times three. Not in any acute distress. HEENT: No significant pallor, icterus or lymphadenopathy.Oral cavity: There are no mucous membrane lesions. NECK: Trachea appears to be central. No masses noted. No JVD or thyromegaly appreciated. RESPIRATORY: Chest is symmetrical. No intercostals muscle retraction or any accessory muscle activation. There is no chest wall tenderness. Breath sounds are heard bilaterally. No rales or rhonchi heard. No evidence of any consolidation. BREASTS: Deferred. HEART: The heart sounds are normal. No S3 or S4. No significant murmurs. No pericardial rub ABDOMEN: No vessel pulsations or distention. No tenderness. No organomegaly appreciated. Bowel sounds are normally heard. : Deferred. RECTAL: Deferred. LYMPHATIC: No lymphadenopathy noted in the neck. EXTREMITIES: No edema or cyanosis. No clubbing. MUSCULOSKELETAL: No acute joint deformities or swelling SKIN: There are no significant rashes or ecchymosis NEUROPSYCHIATRIC: The patient is alert and oriented x3. Appears to be in a good mood. No tremors or rigidity noted. Urinary Catheter Management: Schafer: Cath Placed During This Visit: yes Reason for Continuing Indwelling Catheter: Acute Urinary Retention or Obstruction Urinary Catheter Date of Insertion: 01/05/23 Urinary Catheter Time of Insertion: 14:00 Data 01/06/23 04:05 01/06/23 04:05 Other Labs: Laboratory Last Values WBC 8.42 10^3/uL (3.29-11.43) 01/05/23 10:34 RBC 3.92 10^6/uL (3.85-5.65) 01/05/23 10:34 Hgb 11.50 g/dL (11.27-16.99) 01/05/23 10:34 Hct 35.5 % (37-53) L 01/05/23 10:34 MCV 90.6 fl (82-101) 01/05/23 10:34 MCH 29.3 pg (27-33) 01/05/23 10:34 MCHC 32.4 g/dL (30-55) 01/05/23 10:34 RDW 13.4 % (12.1-15.1) 01/05/23 10:34 Plt Count 372 10^3/cmm (157-399) 01/05/23 10:34 MPV 9.3 fL (7.4-10.4) 01/05/23 10:34 Neut % (Auto) 80.4 % 01/05/23 10:34 Lymph % (Auto) 12.5 % 01/05/23 10:34 [place] % (Auto) 4.8 % 01/05/23 10:34 Eos % (Auto) 1.5 % 01/05/23 10:34 Baso % (Auto) 0.6 % 01/05/23 10:34 Neut # (Auto) 6.77 10^3/uL (1.8-7.7) 01/05/23 10:34 Lymph # (Auto) 1.1 10^3/uL (0.8-4.8) 01/05/23 10:34 [place] # (Auto) 0.4 10^3/uL (0.2-0.9) 01/05/23 10:34 Eos # (Auto) 0.1 10^3/uL (0.0-0.8) 01/05/23 10:34 Baso # (Auto) 0.1 10^3/uL (0.0-0.1) 01/05/23 10:34 Nucleated RBC % (auto) 0 % 01/05/23 10:34 Nucleated RBCs # 0.0 /100WBC 01/05/23 10:34 PT 13.90 SECONDS (12.1-14.9) 01/05/23 10:34 INR 1.04 (0.8-1.2) 01/05/23 10:34 Sodium 134 mmol/L (136-145) L 01/05/23 10:34 Potassium 3.0 mmol/L (3.5-5.1) L 01/05/23 10:34 Chloride 85 mmol/L (98-107) L 01/05/23 10:34 Carbon Dioxide 38 mmol/L (22-29) H 01/05/23 10:34 Anion Gap 14.0 (5-19) 01/05/23 10:34 BUN 24 mg/dL (8-23) H 01/05/23 10:34 Creatinine 1.0 mg/dL (0.7-1.2) 01/05/23 10:34 GFR Calculation Not Reportable 01/05/23 10:34 Glucose 310 mg/dL (65-115) H 01/05/23 10:34 POC Glucose 319 mg/dL (70-110) H 01/05/23 17:10 Calculated Osmolality 294 mOsm/kg (285-295) 01/05/23 10:34 Calcium 8.9 mg/dL (8.5-10.5) 01/05/23 10:34 Magnesium 1.9 mg/dL (1.7-2.3) 01/05/23 10:34 Total Bilirubin 0.4 mg/dL (0.15-1.2) 01/05/23 10:34 AST 13 U/L (0-40) 01/05/23 10:34 ALT 9 U/L (0-41) 01/05/23 10:34 Alkaline Phosphatase 111 U/L (40-130) 01/05/23 10:34 Troponin T Baseline 36 ng/L (0-15) H 01/05/23 10:34 Troponin T 120 Minute 38.03 ng/L (0-15) H 01/05/23 13:07 Delta Troponin T 2.03 ABS# (0-10) 01/05/23 13:07 Troponin T Hi Sens 6Hr 41.54 ng/L (0-15) H 01/05/23 16:22 Troponin T Hi Sens 6Hr Delta 5.54 ng/L (0-12) 01/05/23 16:22 Total Protein 6.9 g/dL (6.6-8.7) 01/05/23 10:34 Albumin 2.7 g/dL (3.5-5.2) L 01/05/23 10:34 Globulin 4.2 g/dL (1.3-4.6) 01/05/23 10:34 TSH 1.22 uIU/mL (0.27-4.20) 01/05/23 10:34 Carbamazepine 4.1 ug/mL (4.0-12.0) 01/05/23 10:34 EKG 1: My Interpretation: The EKG showed sinus rhythm with a diffuse nonspecific T wave changes. Left axis deviation. Other data: Echocardiogram 12/22/2022 LV systolic function is moderately reduced with EF of 35 to 40%. ?Grade 1 diastolic dysfunction ?Grossly RV function is normal ?Trace tricuspid regurgitation ?Small pericardial effusion. ?Compared to prior echocardiogram performed 09/04/2022, LV ?systolic function is significantly improved and is EF is 35 to ?40% now. Small sized pericardial effusion is seen A&P Assessment and plan (1) Uses LifeVest defibrillator: The device was interrogated and I have reviewed the telemetry. Patient apparently was found to have atrial fibrillation with rapid ventricular rate with a heart rate in the 150s. There was no discharge from the device. Patient is a repeat echocardiogram on 12/22/2022 was found to be 35 to 40%. Since there is no documented ventricular tachycardia, the patient may not require the LifeVest at this point (2) Cardiomyopathy: The patient may benefit from Entresto. I may switch the losartan to Entresto twice daily. (3) Hypokalemia: Being corrected,Possibly from the diuretics. May discontinue the chlorthalidone and HCTZ at this point. Continue on the Lasix. Also may add spironolactone 25 mg p.o. daily. Cut back on the Lasix to 40 mg p.o. daily (4) Atrial fibrillation: Pt needs to be started on oral anticoagulation (5) Atherosclerosis of coronary artery of [place] heart without angina pectoris: May conatinue on the Plavix and other current meds Plan Based on the clinical progress other recommendations will be made thank for the opportunity to evaluate this patient and make these recommendations. Consult Attestations Medical Necessity Statement: Patient requires continued hospital stay for close monitoring and further management Coding Level of Care Code 63274 Diagnoses Uses LifeVest defibrillator Z95.810 Cardiomyopathy I42.9 Hypokalemia E87.6 Atrial fibrillation I48.91 Atherosclerosis of coronary artery of [place] heart without angina pectoris I25.10
[2023-01-05 21:00] LABS: Glucose Point of Care 376 mg/dL (70-110)
[2023-01-06] VITALS (59 sets, daily range): BP systolic 117–132; BP diastolic 59–69; PULSE 75–97; RESP 15–35; TEMP 36.7–37.2; O2SAT 88–100
[2023-01-06] MEDS: enoxaparin 100 mg/mL Syringe SUBCUT (02:04)
[2023-01-06 05:04] LABS: Basophils # 0.1 10^3/uL (0.0-0.1); Basophils % 0.9 %; Eosinophils # 0.3 10^3/uL (0.0-0.8); Eosinophils % 3.4 %; Hematocrit 29.4 % (37-53); Lymphocytes # 1.6 10^3/uL (0.8-4.8); Lymphocytes % 19.7 %; Mean Corpuscular Hemoglobin 29.7 pg (27-33); Mean Corpuscular Volume 89.9 fl (82-101); Mean Platelet Volume 9.4 fL (7.4-10.4); Monocytes # 0.4 10^3/uL (0.2-0.9); Monocytes % 5.4 %; Neutrophils % 70.2 %; Nucleated Red Blood Cells % 0 %; Platelet Count 363 10^3/cmm (157-399); Red Blood Count 3.27 10^6/uL (3.85-5.65); Red Cell Distribution Width 13.6 % (12.1-15.1); White Blood Count 7.97 10^3/uL (3.29-11.43)
[2023-01-06] MEDS: carBAMazepine 200 mg Tablet PO ×3 (05:15→20:42)
[2023-01-06 05:21] LABS: Alanine Aminotransferase 8 U/L (0-41); Albumin Level 2.7 g/dL (3.5-5.2); Alkaline Phosphatase 98 U/L (40-130); Anion Gap 10.7 (5-19); Aspartate Amino Transferase 13 U/L (0-40); Blood Urea Nitrogen 20 mg/dL (8-23); Calcium 8.4 mg/dL (8.5-10.5); Carbon Dioxide 38 mmol/L (22-29); Chloride 92 mmol/L (98-107); Globulin 3.3 g/dL (1.3-4.6); Glucose 161 mg/dL (65-115); Magnesium 1.9 mg/dL (1.7-2.3); Osmolality Calculated 292 mOsm/kg (285-295); Sodium 138 mmol/L (136-145); Total Bilirubin 0.3 mg/dL (0.15-1.2)
[2023-01-06 05:25] LABS: Potassium 2.7 mmol/L (3.5-5.1)
[2023-01-06 06:34] LABS: Glucose Point of Care 189 mg/dL (70-110)
[2023-01-06] MEDS: potassium chloride ER 20 mEq Tablet 40 MEQ PO ×3 (06:45→17:43)
[2023-01-06] MEDS: famotidine 20 mg Tablet PO ×2 (08:42→17:43)
[2023-01-06] MEDS: potassium chloride ER 20 mEq Tablet PO ×2 (08:42→17:43)
[2023-01-06] MEDS: atorvastatin 40 mg Tablet 80 MG PO (08:42)
[2023-01-06] MEDS: amlodipine 5 mg Tablet PO (08:42)
[2023-01-06] MEDS: FUROsemide 40 mg Tablet PO (08:43)
[2023-01-06] MEDS: losartan 50 mg Tablet 100 MG PO (08:43)
[2023-01-06] MEDS: docusate sodium 100 mg Capsule PO ×2 (08:43→17:43)
[2023-01-06] MEDS: lidocaine 1% 5 ML in potassium chloride premix 100 ML 26.25 ML IV ×2 (08:44→13:00)
[2023-01-06] MEDS: insulin lispro 100 unit/1 mL SUBCUT ×4 (08:45→20:44)
[2023-01-06] MEDS: chlorthalidone 25 mg Tablet PO (08:46)
[2023-01-06] MEDS: collagenase oint 30 gm 1 APPLIC TOPICAL (08:46)
--- NOTE | 2023-01-06 09:09 | P.PN_ITS ---
Subjective Subjective: Patient staying in normal sinus rhythm. Getting potassium replacement Vitals/I&O/Wt Last Vital Signs Temp 98.1 F 01/06/23 07:19 Pulse 79 01/06/23 07:19 Resp 24 H 01/06/23 07:19 BP 119/69 01/06/23 08:43 Pulse Ox 100 01/06/23 07:19 O2 Del Method Nasal Cannula 01/06/23 04:00 01/05/23 01/06/23 01/06/23 22:59 06:59 14:59 Intake Total 1056.667 / 1056.667 100 / 1156.667 Output Total 900 / 900 Balance 1056.667 / 1056.667 -800 / 256.667 Weight last 48 hrs Weight 235 lb Physical Exam Narrative: GENERAL: Patient is alert, awake and oriented x3. [] NECK: No jugular vein distension. [] HEENT: No cyanosis. No icterus. No pallor. [] HEART: Regular S1 and S2. LUNGS: Clear to auscultation CENTRAL NERVOUS SYSTEM: Grossly nonfocal. [] EXTREMITIES: Lower extremities with 1+ edema bilaterally. Urinary Catheter Management: Schafer: Cath Placed During This Visit: yes Reason for Continuing Indwelling Catheter: Chronic Indwelling Urinary Catheter on Admission Urinary Catheter Date of Insertion: 01/05/23 Urinary Catheter Time of Insertion: 14:00 Data 01/07/23 04:24 01/07/23 04:24 A&P Assessment and plan (1) Uses LifeVest defibrillator: (2) Cardiomyopathy: (3) Hypokalemia: (4) Atrial fibrillation: (5) Atherosclerosis of coronary artery of [place] heart without angina pectoris: Plan Patient is stable. Had afib per lifevest interrogation. Started on eliquis for stroke prevention.Continue plavix and eliquis at discharge. With no VT evidence and improvement of cardiac function to 35-40% on recent echo does not need lifevest any more Lasix 40mg daily and uptitration with daily weights Getting potassium replacement today. Depending on clinical progress, likely discharge home tomorrow Thank you for involving us with care of this patient. Please call with questions. Attestations Medical Necessity Statement*: Care expected to cross 2 midnights Coding Level of Care Code Acute Code for Chg Fwd Diagnoses Uses LifeVest defibrillator Z95.810 Cardiomyopathy I42.9 Hypokalemia E87.6 Atrial fibrillation I48.91 Atherosclerosis of coronary artery of [place] heart without angina pectoris I25.10
--- NOTE | 2023-01-06 09:23 | PM.PN ---
Subjective Subjective: Rashel reports he is doing okay this morning. He got his urinary catheter changed out. He denies any syncopal episodes, or chest pain. Medications: Reviewed: Yes Vitals/I&O/Wt Last Vital Signs Temp 98.1 F 01/06/23 07:19 Pulse 79 01/06/23 07:19 Resp 24 H 01/06/23 07:19 BP 119/69 01/06/23 08:43 Pulse Ox 100 01/06/23 07:19 O2 Del Method Nasal Cannula 01/06/23 04:00 01/05/23 01/06/23 01/06/23 22:59 06:59 14:59 Intake Total 1056.667 / 1056.667 100 / 1156.667 Output Total 900 / 900 Balance 1056.667 / 1056.667 -800 / 256.667 Weight last 48 hrs Weight 106.594 kg Physical Exam Narrative: General exam no distress Neck is supple no lymphadenopathy thyromegaly Cardiovascular regular rate and rhythm, no murmur. LifeVest noted. Lungs clear no wheezing or crackles Abdomen is soft. Nontender. No obvious organomegaly exam Schafer noted Extremities no cyanosis clubbing or edema, cap refill brisk Multiple wounds were reviewed yesterday. 2 pressure wounds on the left heel and left lateral foot as well as some abrasions right sanchez and also right lateral ankle Urinary Catheter Management: Schafer: Cath Placed During This Visit: yes Reason for Continuing Indwelling Catheter: Chronic Indwelling Urinary Catheter on Admission Urinary Catheter Date of Insertion: 01/05/23 Urinary Catheter Time of Insertion: 14:00 Data 01/06/23 04:05 01/06/23 04:05 A&P Assessment and plan (1) Defibrillator discharge: After investigation it was discovered his defibrillator did not discharge He did have an episode of atrial fibrillation with rapid ventricular rate. Cardiology consultation appreciated Potassium was low, magnesium normal Supplementation of potassium is still occurring TSH was checked and normal Change Lovenox to carvedilol Possible discharge tomorrow if no further arrhythmias Increase metoprolol to 12.5 mg twice daily (2) Atrial fibrillation: Patient appears to be in atrial fibrillation on arrival Cardiology consult is being obtained Changed to Eliquis Increase metoprolol to twice daily Rate currently under control (3) Diabetes type 2, uncontrolled: Consistent carb diet Lantus 20 units daily Sliding scale insulin (4) Hypokalemia: Patient with hypokalemia Supplement oral and IV again today Recheck potassium this afternoon Magnesium has been checked and normal. (5) Cardiomyopathy: Patient has underlying ischemic cardiomyopathy with EF of 35 to 40%. Continue Plavix, statin, beta-alta, diuretic. Continue ARB As he will be going on anticoagulation initially for atrial fibrillation will discontinue low-dose aspirin He appears better compensated. He was on 3 thiazide diuretics on admission. I have discontinued his hydrochlorothiazide, Zaroxolyn, chlorthalidone. I have continued his Lasix. Aldactone has been started by cardiology. Cardiology is considering Entresto. (6) Urinary retention: Patient with longstanding urinary retention Continue Flomax Urinary catheter has been changed out Plan Diabetic foot ulcers. Continue wound care Multiple other medical problems as outlined in past medical history Full code SCDs for DVT prophylaxis Eliquis will suffice for for pharmacological prophylaxis. Attestations Medical Necessity Statement*: Needs continued hospitalization for close monitoring secondary to new onset arrhythmia, and moderately severe hypokalemia with needed supplementation Diagnoses Defibrillator discharge Z45.02 Atrial fibrillation I48.91 Diabetes type 2, uncontrolled Hypokalemia E87.6 Cardiomyopathy I42.9 Urinary retention R33.9 Time Spent (min) 24
--- NOTE | 2023-01-06 10:37 | PC.CHAP ---
Pastoral Care Encounter/Spiritual Assessment Type of Contact [] Declined automotive service advisor visit [] Patient/Family/Request visit [] Outpatient visit [] Follow-up visit [] Physician referral [] Code/Alert [x] Routine visit [] Staff referral [] Actively dying [] Patient sleeping [] Family support [] [] Out of room [] Palliative care [] [x] Receiving care in room [] Pre-surgical visit [] Trauma [] Long length of stay [] ICU visit [] Other: Relational/Emotional Strength [x] Patient feels connected with others/family/visitors/staff [] Distress [] Loneliness/isolation [] Abandonment Spirituality of Patient [x] Person of Isa [] Attends Jain of their Isa [x] Believes in Prayer [] Reads Bible or Shinto materials [] There are Spiritual issues to be addressed Leaf Conditioner Interventions [x] Prayer [x] Active listening [x] Non-anxious presence [x] Spiritual/emotional support [] Crisis/trauma care [x] Spiritual counseling [] Bereavement support [] Provided bereavement packet [] Provided Bible/devotional materials [] Provided toy/stuffed animal, coloring book to patient or family member [] Provided Communion [] Anointing/[place] [] Salvation [x] Completed spiritual assessment [] Other: Impact on Illness or Injury [] Angry [] Fearful [] Anxious [] Often cries [] Exhaustion [] Unable to work [] Unable to attend mandaen [] Unable to walk/stand [] Unable to read [] Unable to drive [] Unable to eat/drink [] Unable to sleep [] Unable to be with family [] Patient intubated [] Other: Summary senior in some dissress Negative tests well go home Time spent with patient 10 mins
[2023-01-06] MEDS: clopidogrel 75 mg Tablet PO (13:01)
[2023-01-06] MEDS: tamsulosin 0.4 mg Capsule PO (13:01)
[2023-01-06] MEDS: spironolactone 25 mg Tablet PO (13:02)
[2023-01-06 17:21] LABS: Anion Gap 9.1 (5-19); Blood Urea Nitrogen 17 mg/dL (8-23); Calcium 8.1 mg/dL (8.5-10.5); Carbon Dioxide 37 mmol/L (22-29); Chloride 92 mmol/L (98-107); Glucose 331 mg/dL (65-115); Osmolality Calculated 292 mOsm/kg (285-295); Potassium 4.1 mmol/L (3.5-5.1); Sodium 134 mmol/L (136-145)
[2023-01-06 20:35] LABS: Glucose Point of Care 373 mg/dL (70-110)
[2023-01-06] MEDS: metoprolol tartrate 25 mg Tablet 12.5 MG PO (20:41)
[2023-01-06] MEDS: apixaban 5 mg Tablet PO (20:42)
[2023-01-06] MEDS: insulin glargine 100 units/1 mL 20 UNIT SUBCUT (20:43)
[2023-01-06] MEDS: finasteride 5 mg Tablet PO (20:43)
[2023-01-07] VITALS: BP 128/66; PULSE 81; RESP 15; TEMP 37.1; O2SAT 97
[2023-01-07 04:00] VITALS: BP 120/64; PULSE 74; RESP 21; TEMP 37.1; O2SAT 98
[2023-01-07 04:56] LABS: Basophils # 0.1 10^3/uL (0.0-0.1); Basophils % 0.7 %; Eosinophils # 0.3 10^3/uL (0.0-0.8); Eosinophils % 4.2 %; Hematocrit 32.2 % (37-53); Lymphocytes # 1.5 10^3/uL (0.8-4.8); Lymphocytes % 18.4 %; Mean Corpuscular HGB Conc 31.4 g/dL (30-55); Mean Corpuscular Hemoglobin 29.4 pg (27-33); Mean Corpuscular Volume 93.6 fl (82-101); Monocytes # 0.6 10^3/uL (0.2-0.9); Neutrophils # 5.68 10^3/uL (1.8-7.7); Neutrophils % 69.5 %; Nucleated Red Blood Cells % 0 %; Platelet Count 376 10^3/cmm (157-399); Red Blood Count 3.44 10^6/uL (3.85-5.65); Red Cell Distribution Width 13.6 % (12.1-15.1); White Blood Count 8.17 10^3/uL (3.29-11.43)
[2023-01-07 05:15] LABS: Anion Gap 9.4 (5-19); Blood Urea Nitrogen 17 mg/dL (8-23); Calcium 8.4 mg/dL (8.5-10.5); Carbon Dioxide 37 mmol/L (22-29); Chloride 99 mmol/L (98-107); Glucose 183 mg/dL (65-115); Magnesium 1.8 mg/dL (1.7-2.3); Osmolality Calculated 298 mOsm/kg (285-295); Potassium 4.4 mmol/L (3.5-5.1); Sodium 141 mmol/L (136-145)
[2023-01-07 05:23] VITALS: PULSE 76
[2023-01-07] MEDS: carBAMazepine 200 mg Tablet PO (05:44)
[2023-01-07 06:23] LABS: Glucose Point of Care 165 mg/dL (70-110)
--- NOTE | 2023-01-07 06:57 | P.PN_ITS ---
Subjective Subjective: No chest pain Vitals/I&O/Wt Last Vital Signs Temp 98.8 F 01/07/23 04:00 Pulse 76 01/07/23 05:23 Resp 21 H 01/07/23 04:00 BP 120/64 01/07/23 04:00 Pulse Ox 98 01/07/23 04:00 O2 Del Method Room Air 01/07/23 04:00 01/06/23 01/06/23 01/07/23 14:59 22:59 06:59 Intake Total 705 / 705 1105 / 1810 100 / 1910 Output Total 500 / 500 400 / 900 Balance 705 / 705 605 / 1310 -300 / 1010 Weight last 48 hrs Weight 235 lb Physical Exam Narrative: GENERAL: Patient is alert, awake and oriented x3. [] NECK: No jugular vein distension. [] HEENT: No cyanosis. No icterus. No pallor. [] HEART: Regular S1 and S2. LUNGS: Clear to auscultation CENTRAL NERVOUS SYSTEM: Grossly nonfocal. [] EXTREMITIES: Lower extremities with 1+ edema bilaterally. Urinary Catheter Management: Schafer: Cath Placed During This Visit: yes Reason for Continuing Indwelling Catheter: Chronic Indwelling Urinary Catheter on Admission Urinary Catheter Date of Insertion: 01/05/23 Urinary Catheter Time of Insertion: 14:00 Data 01/07/23 04:24 01/07/23 04:24 A&P Assessment and plan (1) Uses LifeVest defibrillator: (2) Cardiomyopathy: (3) Hypokalemia: (4) Atrial fibrillation: (5) Atherosclerosis of coronary artery of [place] heart without angina pectoris: Plan Patient is overall doing well. Continue Plavix and Eliquis. Patient does not need LifeVest anymore as LV systolic function has improved. P.o. Lasix daily. Low sodium diet advised Thank you for involving us with care of this patient. Please call with questions. Attestations 2 Medical Necessity Statement*: Care expected to cross 2 midnights. Coding Level of Care Code Acute Code for Chg Fwd Diagnoses Uses LifeVest defibrillator Z95.810 Cardiomyopathy I42.9 Hypokalemia E87.6 Atrial fibrillation I48.91 Atherosclerosis of coronary artery of [place] heart without angina pectoris I25.10
[2023-01-07 07:43] VITALS: BP 135/74; PULSE 81; RESP 22; TEMP 37; O2SAT 99
--- NOTE | 2023-01-07 08:08 | PC.SOCIAL ---
IMM Update pg 2 of IMM not updated as patient is currently in observation status.
--- NOTE | 2023-01-07 09:12 | PM.DCS ---
Discharge Providers Date of Admission: 01/05/23 13:32 Date of Discharge: January 07, 2023 Attending Provider at Admission: Mat Arriaag MD Attending Provider at Discharge: Mat Arriaga MD Primary Care Provider: Greer Kennedy NP Diagnoses at Discharge Discharge Diagnosis (1) Uses LifeVest defibrillator: Status: Acute (2) Cardiomyopathy: Status: Acute (3) Hypokalemia: Status: Acute (4) Atrial fibrillation: Status: Acute (5) Atherosclerosis of coronary artery of [place] heart without angina pectoris: Status: Acute Reason for Visit Reason for Visit: defib issues Hospital Course Hospital Course Rashel is a 72-year-old white male initially came to the emergency department with concerns that his defibrillator fired. He was found to be in atrial fibrillation on arrival, with controlled rate. Ultimately, after investigation/interrogation of his LifeVest it was found he had an episode of atrial fibrillation with rapid ventricular rate. Cardiology consultation was obtained. Multiple medications were adjusted. His metoprolol was increased. Diuretics were significantly decreased. He had hypokalemia on admission, that was supplemented. By his 2-hour EKG it was found that he had converted to sinus rhythm. The rest of his hospital course was uneventful. He was also placed on Eliquis for anticoagulation. At time of discharge she was awake, alert and without complaints. I reviewed his medications with cardiology, and he will follow-up with him in 2 weeks. I discussed medication changes in detail with the patient. He was given an opportunity to ask questions, and agrees with the plan. He does have urinary retention, and had a Schafer present on admission. This was changed out, and we will try to arrange home health and home physical therapy for his overall condition. Urology follow-up will also be arranged. He also has multiple foot ulcers, and he was instructed to continue to follow-up with wound care on a weekly basis. He has no evidence of infection of these ulcers currently. Physical Exam Narrative: General exam no distress Neck is supple Cardiovascular regular rate and rhythm Lungs clear Abdomen is soft Extremities no cyanosis clubbing or edema Urinary Catheter Management: Schafer: Cath Placed During This Visit: yes Reason for Continuing Indwelling Catheter: Chronic Indwelling Urinary Catheter on Admission Urinary Catheter Date of Insertion: 01/05/23 Urinary Catheter Time of Insertion: 14:00 Discharge Data Studies Completed and Pending Completed Studies During Hospitalization Category Date Time Status XR chest 1V portable [id number] Stat Exams 01/05/23 10:26 Completed Radiology Impressions Chest X-Ray 01/05/23 10:26 IMPRESSION: No acute disease. Laboratory Results WBC 8.17 10^3/uL (3.29-11.43) 01/07/23 04:24 RBC 3.44 10^6/uL (3.85-5.65) L 01/07/23 04:24 Hgb 10.10 g/dL (11.27-16.99) L 01/07/23 04:24 Hct 32.2 % (37-53) L 01/07/23 04:24 MCV 93.6 fl (82-101) 01/07/23 04:24 MCH 29.4 pg (27-33) 01/07/23 04:24 MCHC 31.4 g/dL (30-55) 01/07/23 04:24 RDW 13.6 % (12.1-15.1) 01/07/23 04:24 Plt Count 376 10^3/cmm (157-399) 01/07/23 04:24 MPV 9.0 fL (7.4-10.4) 01/07/23 04:24 Neut % (Auto) 69.5 % 01/07/23 04:24 Lymph % (Auto) 18.4 % 01/07/23 04:24 [place] % (Auto) 7.0 % 01/07/23 04:24 Eos % (Auto) 4.2 % 01/07/23 04:24 Baso % (Auto) 0.7 % 01/07/23 04:24 Neut # (Auto) 5.68 10^3/uL (1.8-7.7) 01/07/23 04:24 Lymph # (Auto) 1.5 10^3/uL (0.8-4.8) 01/07/23 04:24 [place] # (Auto) 0.6 10^3/uL (0.2-0.9) 01/07/23 04:24 Eos # (Auto) 0.3 10^3/uL (0.0-0.8) 01/07/23 04:24 Baso # (Auto) 0.1 10^3/uL (0.0-0.1) 01/07/23 04:24 Nucleated RBC % (auto) 0 % 01/07/23 04:24 Nucleated RBCs # 0.0 /100WBC 01/07/23 04:24 PT 13.90 SECONDS (12.1-14.9) 01/05/23 10:34 INR 1.04 (0.8-1.2) 01/05/23 10:34 Sodium 141 mmol/L (136-145) 01/07/23 04:24 Potassium 4.4 mmol/L (3.5-5.1) 01/07/23 04:24 Chloride 99 mmol/L (98-107) 01/07/23 04:24 Carbon Dioxide 37 mmol/L (22-29) H 01/07/23 04:24 Anion Gap 9.4 (5-19) 01/07/23 04:24 BUN 17 mg/dL (8-23) 01/07/23 04:24 Creatinine 1.0 mg/dL (0.7-1.2) 01/07/23 04:24 GFR Calculation Not Reportable 01/07/23 04:24 Glucose 183 mg/dL (65-115) H 01/07/23 04:24 POC Glucose 165 mg/dL (70-110) H 01/07/23 06:19 Calculated Osmolality 298 mOsm/kg (285-295) H 01/07/23 04:24 Calcium 8.4 mg/dL (8.5-10.5) L 01/07/23 04:24 Magnesium 1.8 mg/dL (1.7-2.3) 01/07/23 04:24 Total Bilirubin 0.3 mg/dL (0.15-1.2) 01/06/23 04:05 AST 13 U/L (0-40) 01/06/23 04:05 ALT 8 U/L (0-41) 01/06/23 04:05 Alkaline Phosphatase 98 U/L (40-130) 01/06/23 04:05 Troponin T Baseline 36 ng/L (0-15) H 01/05/23 10:34 Troponin T 120 Minute 38.03 ng/L (0-15) H 01/05/23 13:07 Delta Troponin T 2.03 ABS# (0-10) 01/05/23 13:07 Troponin T Hi Sens 6Hr 41.54 ng/L (0-15) H 01/05/23 16:22 Troponin T Hi Sens 6Hr Delta 5.54 ng/L (0-12) 01/05/23 16:22 Total Protein 6.0 g/dL (6.6-8.7) L 01/06/23 04:05 Albumin 2.7 g/dL (3.5-5.2) L 01/06/23 04:05 Globulin 3.3 g/dL (1.3-4.6) 01/06/23 04:05 TSH 1.22 uIU/mL (0.27-4.20) 01/05/23 10:34 Carbamazepine 4.1 ug/mL (4.0-12.0) 01/05/23 10:34 Vitals Last Vital Signs Temp 98.6 F 01/07/23 07:43 Pulse 81 01/07/23 07:43 Resp 22 H 01/07/23 07:43 BP 135/74 01/07/23 07:43 Pulse Ox 99 01/07/23 07:43 O2 Del Method Nasal Cannula 01/07/23 07:43 Discharge Plan Discharge Patient Disposition: Home Condition: Stable Prescriptions: New Eliquis 5 mg Tablet 5 mg PO BID@0900,2100 Qty: 60 0RF spironolactone 25 mg Tablet 25 mg PO DAILY Qty: 30 0RF metoprolol tartrate 25 mg tablet 25 mg PO BID Qty: 60 0RF potassium chloride 10 mEq tablet extended release 10 meq PO DAILY Qty: 30 0RF furosemide 40 mg Tablet 40 mg PO DAILY@0800 Qty: 30 0RF Continued carbamazepine 200 mg tablet 200 mg PO Q8H latanoprost 0.005 % drops 1 drop ophthalmic (eye) QPM Rx Instructions: left eye Glucagon Emergency Kit (human) 1 mg recon soln 1 mg SUBCUT Q20M PRN (Reason: hypoglycemia) Qty: 1 0RF Rx Instructions: until target blood sugar attained ferrous gluconate 324 mg (37.5 mg iron) tablet 324 mg PO BIDWM Qty: 180 3RF (DME) FreeStyle Isma 2 Sensor Kit See Rx Instructions .ROUTE .MEDSUPPLY Qty: 6 0RF Rx Instructions: change every 14 days atorvastatin 80 mg tablet 80 mg PO DAILY insulin degludec [Tresiba FlexTouch U-200] 200 unit/mL (3 mL) insulin pen 35 - 45 unit SUBCUT QAM famotidine 20 mg tablet 20 mg PO BID Qty: 60 11RF finasteride 5 mg tablet 5 mg PO BEDTIME Qty: 30 11RF insulin lispro [Humalog KwikPen Insulin] 100 unit/mL insulin pen 12 - 15 unit SUBCUT TID Qty: 15 11RF Rx Instructions: only with meals tid. (DME) Excell SAP, PolyMem Max Silver, and 2x2 Gauze See Rx Instructions .Route .MEDSUPPLY Qty: 1 0RF Rx Instructions: As directed HOME needs dressing changes Twice a Day- for 90 days brimonidine 0.2 % drops 1 drp ophthalmic (eye) BID Rx Instructions: left eye dorzolamide-timolol 22.3-6.8 mg/mL Drops 1 drp OPHTHALMIC (EYE) DAILY Rx Instructions: Left Eye clopidogrel 75 mg tablet 75 mg PO DAILY@12 aspirin 81 mg tablet,delayed release (DR/EC) 81 mg PO DAILY@12 tamsulosin 0.4 mg capsule 0.4 mg PO DAILY@12 Norvasc 5 mg tablet 5 mg PO DAILY losartan 100 mg tablet 100 mg PO DAILY Discontinued metolazone 5 mg tablet 5 mg PO DAILY Qty: 90 0RF potassium chloride 10 mEq capsule, extended release 10 meq PO BID metoprolol tartrate 25 mg tablet 12.5 mg PO BEDTIME Qty: 90 3RF furosemide 40 mg tablet 40 mg PO BID@08,16 Qty: 180 3RF chlorthalidone 25 mg tablet 25 mg PO DAILY hydrochlorothiazide 12.5 mg tablet 12.5 mg PO DAILY Discharge Orders: Discharge Order (Routine); Ordered 01/07/23 Ordered By: Mat Arriaga Referrals: Jeremiah Mullins M.D [Physician] - 2 weeks Greer Kennedy NP [Primary Care Provider] - 4-7 days Discharge Diet: Cardiac Discharge Activity: Increase activity as tolerated Patient Instructions: Metoprolol (By mouth) (Lopressor, Toprol XL), Spironolactone (By mouth) ([place], Karospir), Furosemide (By mouth) (Lasix), Potassium Chloride (By mouth) (K-Dur, K-Lisa, K-Tab, Vic Mur), Apixaban (By mouth) (Eliquis), Heart Failure (DC), CHF Stoplight, Opioid Safety Activity Restrictions/Additional Instructions: Take all medicine as prescribed.Follow-up with cardiology 2 weeks, primary care provider 3 to 5 days Arrange for follow-up with urology regarding urinary retention. Monitor for any swelling. If this occurs notify your primary care provider. Note that you were put on blood thinner. If you have any bleeding notify your physician immediately. Discharge Attestations Time Spent in Discharge Care*: greater than 30 min Quality Metrics Clinical Quality Measures [ No reported AMI, CVA or VTE this stay] Coding Level of Care Code 46443 Total time (in minutes) for Discharge: 36 Diagnoses Uses LifeVest defibrillator Z95.810 Cardiomyopathy I42.9 Hypokalemia E87.6 Atrial fibrillation I48.91 Atherosclerosis of coronary artery of [place] heart without angina pectoris I25.10
[2023-01-07] MEDS: insulin lispro 100 unit/1 mL SUBCUT (09:15)
[2023-01-07] MEDS: apixaban 5 mg Tablet PO (09:16)
[2023-01-07] MEDS: docusate sodium 100 mg Capsule PO (09:16)
[2023-01-07] MEDS: spironolactone 25 mg Tablet PO (09:16)
[2023-01-07] MEDS: atorvastatin 40 mg Tablet 80 MG PO (09:16)
[2023-01-07 09:17] VITALS: BP 135/74
[2023-01-07] MEDS: losartan 50 mg Tablet 100 MG PO (09:17)
[2023-01-07] MEDS: FUROsemide 40 mg Tablet PO (09:17)
[2023-01-07] MEDS: famotidine 20 mg Tablet PO (09:17)
[2023-01-07] MEDS: amlodipine 5 mg Tablet PO (09:17)
[2023-01-07] MEDS: collagenase oint 30 gm 1 APPLIC TOPICAL (09:54)
[2023-01-07] MEDS: metoprolol tartrate 25 mg Tablet 12.5 MG PO (09:55)
[2023-01-07 10:38] VITALS: BP 135/74; PULSE 85; RESP 18; O2SAT 95
== END 2023-01-07 10:57 | disposition home or self-care (01) ==
LOC: ER 11:48 → CSU 13:17
PROVIDERS: Admitting Provider Internal Medicine; Emergency Provider Emergency Medicine; PCP Nurse Practitioner Family; Visit Provider Internal Medicine
DX: Z95.810 Presence of automatic (implantable) cardiac defibrillator (principal); I42.9 Cardiomyopathy, unspecified; E87.6 Hypokalemia; I48.91 Unspecified atrial fibrillation; I25.10 Atherosclerotic heart disease of native coronary artery without angina pectoris; R33.9 Retention of urine, unspecified; E11.621 Type 2 diabetes mellitus with foot ulcer; L98.499 Non-pressure chronic ulcer of skin of other sites with unspecified severity; Z79.4 Long term (current) use of insulin; Z79.82 Long term (current) use of aspirin; I25.2 Old myocardial infarction; E11.40 Type 2 diabetes mellitus with diabetic neuropathy, unspecified; Z95.5 Presence of coronary angioplasty implant and graft; I44.4 Left anterior fascicular block
CPT/HCPCS: 36415; 36416; 51702; 71045; 80048; 80053; 80156; 82962; 83735; 84443; 84484; 85025; 85610; 93005; 96365; 96366; 96372; 99285; G0378; J1650; J1815; J3480; J7030

== ENCOUNTER → 2023-01-11 13:54 | Outpatient (BNVA) | payer MEDICARE, SELFPAY | PROVIDERS: PCP Nurse Practitioner Family; Visit Provider Nurse Practitioner Family | DX: I11.0 Hypertensive heart disease with heart failure (principal); I50.20 Unspecified systolic (congestive) heart failure; I48.91 Unspecified atrial fibrillation; Z79.01 Long term (current) use of anticoagulants; I25.10 Atherosclerotic heart disease of native coronary artery without angina pectoris | CPT/HCPCS: 36415; 80048; 83880; 99214 ==

== ENCOUNTER → 2023-03-01 14:52 | Outpatient (BNVA) | payer MEDICARE, SELFPAY | PROVIDERS: Visit Provider Nurse Practitioner Family | DX: E78.2 Mixed hyperlipidemia (principal); Z09 Encounter for follow-up examination after completed treatment for conditions other than malignant neoplasm; I73.9 Peripheral vascular disease, unspecified; E16.0 Drug-induced hypoglycemia without coma; T38.3X5A Adverse effect of insulin and oral hypoglycemic [antidiabetic] drugs, initial encounter | CPT/HCPCS: 80053; 80061; 82043; 83036 ==

== ENCOUNTER → 2023-03-04 08:32 | Outpatient (BNVA) | payer MEDICARE, SELFPAY | PROVIDERS: Visit Provider Internal Medicine | DX: Z09 Encounter for follow-up examination after completed treatment for conditions other than malignant neoplasm; E78.2 Mixed hyperlipidemia; E16.0 Drug-induced hypoglycemia without coma; T38.3X5A Adverse effect of insulin and oral hypoglycemic [antidiabetic] drugs, initial encounter; E11.649 Type 2 diabetes mellitus with hypoglycemia without coma; Z79.85 Long-term (current) use of injectable non-insulin antidiabetic drugs; Z79.4 Long term (current) use of insulin; X58.XXXA Exposure to other specified factors, initial encounter | CPT/HCPCS: 99214 ==

== ENCOUNTER 2023-04-14 12:13 | Inpatient (IN) | payer MEDICARE, SELFPAY ==
[2023-04-14] VITALS (19 sets, daily range): BP systolic 95–122; BP diastolic 55–62; PULSE 74–104; RESP 14–26; TEMP 36.3; O2SAT 93–98; BMI 33.9; BMI 36.6
--- NOTE | 2023-04-14 14:12 | XR_ITS ---
WS: [id number] Exam: XR chest 1V portable [id number] Date/Time of Exam: 04/14/2023 2:41 PM Reason For Exam: dyspnea/cough Comparison 01/05/2023. There is atelectasis and infiltrate in the RIGHT lower lobe. There is also mild infiltrate in the LEF T lower lobe. No pneumothorax or pleural effusion seen. Heart size top limits normal. The mediastinu m is normal in contour. Bony elements are intact. IMPRESSION: 1. Atelectasis and infiltrate in the RIGHT lower lobe. There is also probable mild infiltrate develop ing in the LEFT lower lobe. 2. Heart size top limits normal.
--- NOTE | 2023-04-14 14:14 | W.ED.SOB ---
HPI - SOB/Dyspnea General: Chief Complaint: Shortness of Breath/Dyspnea Stated Complaint: retaining water Time Seen by Provider: 04/14/23 14:00 Source: patient Mode of arrival: ambulatory History of Present Illness: HPI Narrative: 72-year-old male with a known history of heart disease previous LA presents emergency room with increasing weight gain in the last week dyspnea on conversation was nearly any activity even walking inside of the home causes severe shortness of breath. He denies any chest pain at this time he does state they have changed her medicines recently but cannot recall exactly what it was. He previously had an LA his ejection fraction 1 point was down to 15% and he was on a LifeVest they have since stopped the LifeVest because his EF improved back to around 45% per his report. He has a decubitus ulcer on his left heel that he has been seeing at wound care. He denies any recent fever sweats or chills. MD elicited complaint: shortness of breath Pertinent past history: congestive heart failure Onset (ago): week(s) Timing: constant Severity: moderate Exacerbating factors: lying flat and exertion Relieving factors: rest Known history of: congestive heart failure Associated symptoms: Reports chest congestion; Deny abdominal pain, chest pain, cough, diaphoresis, dizziness, extremity pain, fever(s), hemoptysis, lightheadedness, myalgias, nausea, orthopnea, palpitations, paresthesias, polydipsia, polyuria, rash, sense of impending doom, syncope or vomiting Treatment prior to arrival: none Review of Systems Const: Denies: fever(s), chills or diaphoresis Card: Denies: chest pain, palpitations, lightheadedness, syncope or orthopnea Resp: Reports: chest congestion; Denies: dyspnea or hemoptysis GI: Denies: abdominal pain, nausea or vomiting : Denies: dysuria, urinary frequency or urinary urgency Musc: Denies: neck pain, back pain or extremity pain Skin/Breast: Denies: rash Neuro: Denies: dizziness Endo: Denies: polyuria or polydipsia [facility] ED PFSH: Medical History Uses LifeVest defibrillator CAD (coronary artery disease) Glaucoma Neuropathy Hematuria Acute heart failure ST elevation (STEMI) myocardial infarction BMI 32.0-32.9,adult Diabetes mellitus Carotid artery disease Peripheral Vascular Disease HTN (hypertension) Venous insufficiency Surgical History History of coronary artery stent placement S/P eye surgery left S/P cholecystectomy H/O toe surgery left toe S/P insertion of penile implant and removal Status post amputation of toe of right foot Family History Father Heart disease Diabetes Mother Cancer Cervical CA Social History Smoking and tobacco/nicotine status: never used tobacco/nicotine Alcohol intake: never Substance/Drug Use: never Physical Exam Const: GENERAL APPEARANCE: cooperative ORIENTATION/CONSCIOUSNESS: Yes awake, Yes oriented to person, Yes oriented to place and Yes oriented to time HENMT: COMMON NORMALS: normocephalic, atraumatic and hearing grossly normal bilaterally HEAD & SCALP: normocephalic and atraumatic Resp: EFFORT & INSPECTION: Yes tachypneic AUSCULTATION: crackles OTHER: Conversational dyspnea Cardio: COMMON NORMALS: regular rate, regular rhythm and No murmurs present (Cardio) RATE: regular rate RHYTHM: regular rhythm GI: COMMON NORMALS: Soft to palpation and No hepatosplenomegaly present AUSCULTATION: Yes normoactive bowel sounds PALPATION: Yes Soft to palpation, No Tenderness to palpation present (GI), No Guarding due to palpation present (GI) and Yes No hepatosplenomegaly present Extremity: COMMON NORMALS: normal to inspection, capillary refill normal and no calf tenderness GENERAL: Yes edema (2+ edema lower extremities bilaterally) Neuro: SENSORIUM/ORIENTATION: Yes oriented to person, Yes oriented to place and Yes oriented to time Skin: COMMON NORMALS: no rashes or lesions noted GENERAL SKIN EXAM: no rashes or lesions noted Course Vital Signs: Vital signs: Vital Signs Temperature 97.6 F 04/16/23 04:03 Pulse Rate 68 04/16/23 05:27 Respiratory Rate 18 04/16/23 04:03 Blood Pressure 99/57 04/16/23 04:03 Pulse Oximetry 96 04/16/23 04:03 Oxygen Delivery Me thod Room Air 04/15/23 15:45 Oxygen Flow Rate 1.5 04/15/23 20:00 MDM - SOB/Dyspnea Medical Decision Making Decompensated systolic congestive heart failure with orthopnea and conversational dyspnea exertional dyspnea. Will admit diuresis given Lasix in the emergency room discussed with hospitalist orders written. No signs of PE at this time Differential Diagnosis Likely congestive heart failure, community acquired pneumonia and pulmonary embolism Medical Records I reviewed the patient's medical records. Lab Data I reviewed the patient's lab results. 04/14/23 14:22 04/16/23 04:18 Labs/Radiology: Laboratory Results WBC 6.66 10^3/uL (3.29-11.43) 04/14/23 14:22 RBC 4.16 10^6/uL (3.85-5.65) 04/14/23 14:22 Hgb 12.40 g/dL (11.27-16.99) 04/14/23 14:22 Hct 39.0 % (37-53) 04/14/23 14:22 MCV 93.8 fl (82-101) 04/14/23 14:22 MCH 29.8 pg (27-33) 04/14/23 14:22 MCHC 31.8 g/dL (30-55) 04/14/23 14:22 RDW 17.4 % (12.1-15.1) H 04/14/23 14:22 Plt Count 145 10^3/cmm (157-399) L 04/14/23 14:22 MPV 11.3 fL (7.4-10.4) H 04/14/23 14:22 Neut % (Auto) 68.4 % 04/14/23 14:22 Lymph % (Auto) 24.3 % 04/14/23 14:22 Guthrie % (Auto) 5.0 % 04/14/23 14:22 Eos % (Auto) 1.7 % 04/14/23 14:22 Baso % (Auto) 0.3 % 04/14/23 14:22 Neut # (Auto) 4.56 10^3/uL (1.8-7.7) 04/14/23 14:22 Lymph # (Auto) 1.6 10^3/uL (0.8-4.8) 04/14/23 14:22 Guthrie # (Auto) 0.3 10^3/uL (0.2-0.9) 04/14/23 14:22 Eos # (Auto) 0.1 10^3/uL (0.0-0.8) 04/14/23 14:22 Baso # (Auto) 0.0 10^3/uL (0.0-0.1) 04/14/23 14:22 Nucleated RBC % (auto) 0 % 04/14/23 14:22 Nucleated RBCs # 0.0 /100WBC 04/14/23 14:22 D-Dimer 2.72 ug/mLFEU (0-0.59) H 04/14/23 14:22 Sodium 140 mmol/L (136-145) 04/14/23 14:22 Potassium 5.6 mmol/L (3.5-5.1) H 04/14/23 14:22 Chloride 105 mmol/L (98-107) 04/14/23 14:22 Carbon Dioxide 25 mmol/L (22-29) 04/14/23 14:22 Anion Gap 15.6 (5-19) 04/14/23 14:22 BUN 30 mg/dL (8-23) H 04/14/23 14:22 Creatinine 1.0 mg/dL (0.7-1.2) 04/14/23 14:22 GFR Calculation Not Reportable 04/14/23 14:22 Glucose 183 mg/dL (65-115) H 04/14/23 14:22 Estimat Average Glucose 174 04/14/23 14:22 Hemoglobin A1c 7.7 % (4.0-6.0) H 04/14/23 14:22 Calculated Osmolality 301 mOsm/kg (285-295) H 04/14/23 14:22 Calcium 8.9 mg/dL (8.5-10.5) 04/14/23 14:22 Total Bilirubin 0.3 mg/dL (0.15-1.2) 04/14/23 14:22 AST 20 U/L (0-40) 04/14/23 14:22 ALT 15 U/L (0-41) 04/14/23 14:22 Alkaline Phosphatase 136 U/L (40-130) H 04/14/23 14:22 NT-Pro-B Natriuret Pep 47858 pg/mL (0-125) H 04/14/23 14:22 Total Protein 6.4 g/dL (6.6-8.7) L 04/14/23 14:22 Albumin 3.4 g/dL (3.5-5.2) L 04/14/23 14:22 Globulin 3.0 g/dL (1.3-4.6) 04/14/23 14:22 Vitamin B12 1117 pg/mL (232-1245) 04/14/23 14:22 Procalcitonin 0.04 ng/mL (0-0.5) 04/14/23 14:22 TSH 1.70 uIU/mL (0.27-4.20) 04/14/23 14:22 All radiology interpretation(s) finalized by discharge Discharge Plan Discharge Patient Disposition: Admitted As Inpatient Admit Provider: An Britton Clinical Impression: HFrEF (heart failure with reduced ejection fraction), CAD (coronary artery disease), Ulcer of left foot due to type 2 diabetes mellitus, Atrial fibrillation, Diabetes type 2, uncontrolled Condition: Stable Coding Level of Care Code ED [employer] for Ashia Saldivar
--- NOTE | 2023-04-14 14:25 | ECG_ITS ---
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 Measurements Intervals [place] Rate: 76 P: 67 MO: 187 QRS: 267 QRSD: 126 T: 92 QT: 424 QTc: 479 Interpretive Statements SINUS RHYTHM RIGHT AXIS DEVIATION [QRS AXIS > 100] RIGHT BUNDLE BRANCH BLOCK [120+ ms QRS DURATION, UPRIGHT V1, 40+ ms S IN I/aVL/V4/V5/V6] ANTEROSEPTAL MYOCARDIAL INFARCTION , OF INDETERMINATE AGE [40+ ms Q WAVE IN V1-V4] Compared to ECG 01/05/2023 17:58:17 Right-axis deviation now present Right bundle-branch block now present Left-axis deviation no longer present Myocardial infarct finding still present Electronically Signed On 04-14-2023 17:48:35 PRESIDENT AND CHIEF COMMERCIAL OFFICER by Jeremiah Mullins M.D. [id number]
[2023-04-14] MEDS: FUROsemide 10 mg/mL SDV 4mL 40 MG IVP (14:42)
[2023-04-14 14:44] LABS: Basophils % 0.3 %; Eosinophils # 0.1 10^3/uL (0.0-0.8); Eosinophils % 1.7 %; Lymphocytes # 1.6 10^3/uL (0.8-4.8); Lymphocytes % 24.3 %; Mean Corpuscular HGB Conc 31.8 g/dL (30-55); Mean Corpuscular Hemoglobin 29.8 pg (27-33); Mean Corpuscular Volume 93.8 fl (82-101); Mean Platelet Volume 11.3 fL (7.4-10.4); Monocytes # 0.3 10^3/uL (0.2-0.9); Neutrophils # 4.56 10^3/uL (1.8-7.7); Neutrophils % 68.4 %; Nucleated Red Blood Cells % 0 %; Platelet Count 145 10^3/cmm (157-399); Red Blood Count 4.16 10^6/uL (3.85-5.65); Red Cell Distribution Width 17.4 % (12.1-15.1); White Blood Count 6.66 10^3/uL (3.29-11.43)
[2023-04-14 15:09] LABS: Alanine Aminotransferase 15 U/L (0-41); Albumin Level 3.4 g/dL (3.5-5.2); Alkaline Phosphatase 136 U/L (40-130); Anion Gap 15.6 (5-19); Aspartate Amino Transferase 20 U/L (0-40); Blood Urea Nitrogen 30 mg/dL (8-23); Calcium 8.9 mg/dL (8.5-10.5); Carbon Dioxide 25 mmol/L (22-29); Chloride 105 mmol/L (98-107); Glucose 183 mg/dL (65-115); NT Pro B Type Natriuretic Pept 17310 pg/mL (0-125); Osmolality Calculated 301 mOsm/kg (285-295); Potassium 5.6 mmol/L (3.5-5.1); Sodium 140 mmol/L (136-145); Total Bilirubin 0.3 mg/dL (0.15-1.2); Total Protein 6.4 g/dL (6.6-8.7)
[2023-04-14 15:44] LABS: Procalcitonin 0.04 ng/mL (0-0.5)
--- NOTE | 2023-04-14 16:05 | P.HP_ITS ---
Providers/Chief Complaint 2 Admitting Physician: An Britton MD Primary Care Provider: Nelson Nava DO Chief Complaint: retaining water History of Present Illness Rashel Phillips is a 72 year old male with insulin-dependent diabetes, presented with chief complaint of orthopnea PND. Patient is stating that he has been suffering from the symptoms for last 2 weeks, he uses 2 pillows at baseline, he has not missed any of his Lasix, he watches sodium and fluid intake despite of that he has been suffering from fluid overload. Reduced ejection fraction heart failure recently LifeVest has been returned because EF has improved. He has not Any fever, chest pain, nausea or vomiting. In the ER he has been diagnosed with CHF exacerbation, I have requested D-dimer started Bumex IV for regimen his BNP is high chest x-ray showing mild pulm edema Review of Systems 2 Const: Denies: fever(s) Eyes: Denies: change in vision ENMT: Denies: throat pain Card: Reports: swelling of feet/ankles Resp: Reports: dyspnea GI: Denies: abdominal pain : Denies: flank pain Musc: Denies: neck pain Skin/Breast: Denies: rash Neuro: Denies: headache(s) Medications/Allergies Home Medications Medication Instructions Recorded Confirmed Last Taken Type carbamazepine 200 mg tablet 200 mg PO Q8H 05/17/19 04/14/23 04/14/23 History latanoprost 0.005 % eye drops 1 drop ophthalmic (eye) QPM 05/17/19 04/14/23 04/13/23 History glucagon 1 mg solution for 1 mg SUBCUT Q20M PRN hypoglycemia 11/18/21 04/14/23 Unknown Rx injection (Glucagon Emergency Kit) #1 ea Excell SAP, PolyMem Max Silver, #1 ea 06/03/22 04/14/23 Unknown Rx and 2x2 Gauze brimonidine 0.2 % eye drops 1 drp ophthalmic (eye) BID 09/05/22 04/14/23 04/14/23 History dorzolamide 22.3 mg-timolol 6.8 1 drp ophthalmic (eye) DAILY 09/09/22 04/14/23 04/14/23 History mg/mL eye drops atorvastatin 80 mg tablet 80 mg PO QAM 09/30/22 04/14/23 04/14/23 History insulin degludec 200 unit/mL (3 35 - 45 unit SUBCUT QAM 09/30/22 04/14/23 04/14/23 History mL) subcutaneous pen (Tresiba FlexTouch U-200 insulin) famotidine 20 mg tablet 20 mg PO BID #60 tabs 10/21/22 04/14/23 04/14/23 Rx finasteride 5 mg tablet 5 mg PO BEDTIME #30 tabs 10/21/22 04/14/23 04/13/23 Rx insulin lispro 100 unit/mL 12 - 15 unit (0.12 - 0.15 mL) 10/21/22 04/14/23 04/14/23 Rx subcutaneous pen (Humalog KwikPen SUBCUT TID #15 mL (U-100) Insulin) aspirin 81 mg tablet,delayed 81 mg PO DAILY@11/15/22 04/14/23 04/14/23 History release clopidogrel 75 mg tablet 75 mg PO DAILY@11/15/22 04/14/23 04/14/23 History tamsulosin 0.4 mg capsule 0.4 mg PO DAILY@11/15/22 04/14/23 04/14/23 History ferrous gluconate 324 mg (37.5 mg 324 mg PO BIDWM #180 tabs 11/30/22 04/14/23 04/14/23 Rx iron) tablet apixaban 5 mg tablet (Eliquis) 5 mg PO BID@0900,2100 #60 tabs 01/07/23 04/14/23 04/14/23 Rx furosemide 40 mg tablet 40 mg PO DAILY@0800 #30 tabs 01/07/23 04/14/23 04/14/23 Rx metoprolol tartrate 25 mg tablet 25 mg PO BID #60 tabs 01/07/23 04/14/23 04/14/23 Rx potassium chloride 10 mEq 10 meq PO DAILY #30 tabs 01/07/23 04/14/23 04/14/23 Rx tablet,extended release sacubitril 49 mg-valsartan 51 mg 1 tab PO BID #60 tabs 01/17/23 04/14/23 04/14/23 Rx tablet FreeStyle Isma 2 Sensor (flash #6 ea 02/22/23 04/14/23 Unknown Rx glucose sensor) metolazone 5 mg tablet 5 mg PO DAILY 04/14/23 04/14/23 Unknown History Allergies Allergy/AdvReac Type Severity Reaction Status Date / Time vancomycin Allergy ALGY-Hives Verified 04/14/23 12:25 Hay Fever Allergy ADR-Itching Uncoded 04/14/23 12:25 PFSH Acute 2 PFSH: Medical History Uses LifeVest defibrillator CAD (coronary artery disease) Glaucoma Neuropathy Hematuria Acute heart failure ST elevation (STEMI) myocardial infarction BMI 32.0-32.9,adult Diabetes mellitus Carotid artery disease Peripheral Vascular Disease HTN (hypertension) Venous insufficiency Surgical History History of coronary artery stent placement S/P eye surgery left S/P cholecystectomy H/O toe surgery left toe S/P insertion of penile implant and removal Status post amputation of toe of right foot Family History Father Heart disease Diabetes Mother Cancer Cervical CA Social History Smoking and tobacco/nicotine status: never used tobacco/nicotine Alcohol intake: never Substance/Drug Use: never Vitals/I&O/Wt Last Vital Signs Temp 97.4 F L 04/14/23 12:18 Pulse 76 04/14/23 15:30 Resp 18 04/14/23 15:30 BP 122/62 04/14/23 15:30 Pulse Ox 95 04/14/23 15:30 O2 Del Method Room Air 04/14/23 12:18 Weight last 48 hrs Weight 113.398 kg Physical Exam 2 Narrative: Patient is awake and alert Clinical signs of fluid overload 3+ edema of legs GCS [address] Abdomen soft Currently on 1.5 L No audible stridor or wheezing Pleasant and cooperative Data 04/14/23 14:22 04/14/23 14:22 A&P Assessment and plan (1) HFrEF (heart failure with reduced ejection fraction): (2) Cardiomyopathy: (3) Atrial fibrillation: (4) Diabetes type 2, uncontrolled: (5) Ulcer of left foot due to type 2 diabetes mellitus: (6) Urinary hesitancy due to benign prostatic hyperplasia: (7) Enlarged prostate: Plan Reduced ejection fraction heart for exacerbation Will repeat echo for his EF I will start him on IV Bumex No active chest pain Insulin-dependent diabetes We will use sliding scale along Lantus Patient uses Tresiba and sliding scale BPH self caths at home Will place Schafer catheter during this hospitalization continue tamsulosin Continue Entresto watch for low blood pressure Continue IV Bumex 2 mg daily Lower lobe infiltrate? I will keep him on azithromycin Continue Kath has history of A-fib no RVR Full code Cardiac diet For hyperkalemia I am anticipating this will improve with use of Bumex If it worsens we may have to hold Entresto Self interpretation of chest x-ray, mild pulm edema, questionable left lower lobe infiltrate Attestations 2 Medical Necessity Statement*: Less than 2 midnights anticipated for management of CHF exacerbation Diagnoses HFrEF (heart failure with reduced ejection fraction) I50.20 Cardiomyopathy I42.9 Atrial fibrillation I48.91 Diabetes type 2, uncontrolled Ulcer of left foot due to type 2 diabetes mellitus E11.621; L97.529 Urinary hesitancy due to benign prostatic hyperplasia N40.1; R39.11 Enlarged prostate N40.0
--- NOTE | 2023-04-14 16:09 | USCV_ITS ---
Rashel Phillips Age: 72 Gender: M : 1950 Exam Date: 04/14/2023 22:50 Ordering Phys: An Britton MD Technologist: CELINE [place] [facility] [place]: CHF, s/p [place] August 2022, one cardiac stent BP: 122 / 62 HR: 75 Rhythm: Atrial fibrillation Technical Quality: Adequate MEASUREMENTS (Male / Female) Normal Values 2D ECHO LV Diastolic Diameter PLAX 5.5 cm 4.2 - 5.9 / 3.9 - 5.3 cm LV Systolic Diameter PLAX 4.7 cm IVS Diastolic Thickness 0.9 cm 0.6 - 1.0 / 0.6 - 0.9 cm IVS Systolic Thickness 0.9 cm LVPW Diastolic Thickness 1.1 cm 0.6 - 1.0 / 0.6 - 0.9 cm LVPW Systolic Thickness 1.0 cm LVOT Diameter 2.2 cm LV Ejection Fraction 2D Teich 30.8 % LV Ejection Fraction MOD 2C 38.9 % LV Ejection Fraction 2C AL 37.8 % LA Diameter 5.2 cm LA Width 4.8 cm LA Height 5.6 cm RA Width 4.4 cm RA Height 5.3 cm Aorta at Sinotubular Diameter 3.1 cm IVC Diameter 2.5 cm M-MODE Aortic Annulus Diameter 3.4 cm LA Ao Ratio MM 1.6 MV E Point Septal Separation 2.1 cm DOPPLER AV Peak Velocity 87.0 cm/s LVOT Peak Velocity 48.0 cm/s AV Area Cont Eq vti 2.1 cm squared AV Area Cont Eq pk 2.0 cm squared MV Peak Velocity 80.0 cm/s MV Area PHT 3.2 cm squared MV E' Velocity 41.5 cm/s Mitral E to MV E' Ratio 18.4 Mitral E to LV E' Lateral Ratio 17.2 Mitral E to LV E' Septal Ratio 20.4 TR Peak Velocity 324.5 cm/s TR Peak Gradient 42.1 mmHg TV Peak E Velocity 50.0 cm/s Right Atrial Pressure 10.0 mmHg Pulmonary Artery Systolic Pressu 52.1 mmHg PV Peak Velocity 64.0 cm/s RV Acceleration Time 0.1 s RV Ejection Time 0.3 s RV AcT/ET 0.2 FINDINGS Left Ventricle Technically limited quality echocardiogram because of poor ultrasonic windows. LV systolic function is moderate to severely reduced with EF 30 to 35%. Moderate to severe global hypokinesis seen. Right Ventricle Not well visualized Right Atrium Normal in size Left Atrium Normal in size Mitral Valve Moderate mitral annular calcification. Mild mitral regurgitation. Aortic Valve Aortic valve is thickened. No significant stenosis or regurgitation. Tricuspid Valve Mild tricuspid regurgitation. RVSP is more than 60 mmHg 55 to 60 mmHg. This is consistent with moderate pulmonary hypertension. Pulmonic Valve Not well visualized Pericardium Normal. Pleural effusion is seen Aorta Normal in size IVC Dilated CONCLUSIONS Technically limited quality echocardiogram because of poor ultrasonic windows. LV systolic function is moderate to severely reduced with EF of 30-35%. Moderate to severe global hypokinesis. Mild mitral regurgitation Mild tricuspid regurgitation. Moderate pulmonary hypertension IVC is dilated Pleural effusion is seen Compared to prior echocardiogram from 11/2022, LV systolic function is slightly decreased however visualization is limited on current study(contrast was used on prior echocardiogram) Jeremiah Mullins MD (Electronically Signed) Final Date: 15 April 2023 13:03 S
--- NOTE | 2023-04-14 17:17 | PC.NURSE ---
scan blood sugar 163
[2023-04-14 17:19] LABS: Vitamin B12 1117 pg/mL (232-1245)
[2023-04-14] MEDS: insulin lispro 100 unit/1 mL SUBCUT (17:38)
[2023-04-14] MEDS: sacubitril/valsartan 24-26 mg Tablet 2 EACH PO (17:38)
[2023-04-14 17:56] LABS: D Dimer 2.72 ug/mLFEU (0-0.59)
--- NOTE | 2023-04-14 18:10 | PC.NURSE ---
does self cath at home 3 times aday and related he has been unable to go without .. noted decrease in urine out last several days
[2023-04-14] MEDS: bumetanide 0.25 mg/mL SDV 10 mL 2 MG IVP (18:48)
[2023-04-14 20:05] LABS: Estmated Average Glucose 174; Hemoglobin A1C 7.7 % (4.0-6.0)
[2023-04-14] MEDS: apixaban 5 mg Tablet PO (20:39)
[2023-04-14] MEDS: insulin glargine 100 units/1 mL 10 UNIT SUBCUT (20:39)
--- NOTE | 2023-04-14 20:43 | PC.NURSE ---
Blood Glucose 2100- Blood Glucose is 147
[2023-04-14 21:52] LABS: Glucose Point of Care 110 mg/dL (70-110)
--- NOTE | 2023-04-14 23:45 | PC.NURSE ---
Report was given to Kirea (NEGRITA) in [facility]. Patient was transferred with no complications.
[2023-04-15] VITALS (11 sets, daily range): BP systolic 89–122; BP diastolic 49–81; PULSE 66–82; RESP 15–18; TEMP 36.3–36.8; O2SAT 96–100
[2023-04-15 01:55] LABS: Glucose Point of Care 78 mg/dL (70-110)
[2023-04-15 02:35] LABS: Glucose Point of Care 126 mg/dL (70-110)
[2023-04-15 05:20] LABS: Anion Gap 10.5 (5-19); Blood Urea Nitrogen 28 mg/dL (8-23); Calcium 8.5 mg/dL (8.5-10.5); Carbon Dioxide 29 mmol/L (22-29); Chloride 106 mmol/L (98-107); Glucose 108 mg/dL (65-115); Magnesium 2.3 mg/dL (1.7-2.3); Osmolality Calculated 298 mOsm/kg (285-295); Phosphorus 4.5 mg/dL (2.5-4.5); Potassium 4.5 mmol/L (3.5-5.1); Sodium 141 mmol/L (136-145)
[2023-04-15 06:37] LABS: Glucose Point of Care 78 mg/dL (70-110)
--- NOTE | 2023-04-15 08:15 | USCV_ITS ---
Rashel Phillips Age: 72 Gender: M : 1950 Exam Date: 04/15/2023 09:08 Ordering Phys: An Britton MD Technologist: CT Exam Location: [facility] [place] Indication: swelling PROCEDURES: Venous duplex imaging was performed in bilateral lower extremities. Bilaterally, the common femoral, superficial femoral, profunda femoral, popliteal, posterior tibial, greater saphenous veins, and the peroneal trunk were identified and interrogated in the standard fashion. FINDINGS: Normal 2-D Doppler and augmentation and compressibility throughout the lower extremity venous structures. Additional imaging through the proximal calf veins also reveals no thrombus. Limited evaluation of the greater saphenous vein is patent with no thrombus. CONCLUSIONS No DVT bilateral lower extremities. Dr. Codie Dotson DO (Electronically Signed) Final Date: 15 April 2023 12:55 S
--- NOTE | 2023-04-15 08:15 | CT_ITS ---
WS: [id number] CT CHEST ANGIOGRAPHY WITH REFORMATS HISTORY: chf TECHNIQUE: Contiguous axial images are obtained through the chest during arterial injection of intrav enous contrast. Images are reconstructed to evaluate the pulmonary arteries. MIP imaging also reviewe d. All CT scans at [facility] use at least one of these dose optimization techniques: automat ed exposure control; mA and/or kV adjustment per patient size (includes targeted exams where dose is matched to clinical indication); or iterative reconstruction. CONTRAST: Omnipaque 350; 100 mL IV. DLP: 536.01 mGy.cm COMPARISON: None available. Good opacification of the pulmonary arteries. There are no filling defects or pulmonary emboli centra lly. Beyond the segmental branches in the lower lobe the arteries are obscured and difficult to visua lize due to the pleural effusions and areas of atelectasis. Normal size aorta. Moderate enlargement of the heart. No RIGHT heart strain. Very small pericardial effusion. Moderate b ilateral layering pleural effusions. There is mild compressive atelectasis at the lung bases adjacent to the effusions. No pneumonia. Mild mesenteric edema. No adenopathy. Mild tricuspid regurgitation i nto the hepatic veins. Mild hepatic congestion. Prior cholecystectomy. There is marked soft tissue anasarca through the uppe r abdomen and chest. No osseous destruction. Moderate degenerative disc and facet joint arthritis thr oughout the thoracic spine. IMPRESSION: 1. No central pulmonary embolism through the segmental branches. 2. Moderate bilateral layering pleural effusions with compressive atelectasis. 3. Moderate cardiomegaly. No RIGHT heart strain. 4. Marked soft tissue anasarca. 5. Hepatic congestion. 6. Prior cholecystectomy.
--- NOTE | 2023-04-15 09:07 | PC.SOCIAL ---
IMM Update pg 2 of IMM updated and reviewed w/ patient. Copy provided and copy dated, initialed and placed in chart.
[2023-04-15] MEDS: iohexol 350 mg/mL 500 mL Btl (per mL) IV (10:01)
--- NOTE | 2023-04-15 10:07 | PC.CHAP ---
Pastoral Care Encounter/Spiritual Assessment Type of Contact [] Declined helpdesk specialist visit [] Patient/Family/Request visit [] Outpatient visit [] Follow-up visit [] Physician referral [] Code/Alert [x] Routine visit [] Staff referral [] Actively dying [] Patient sleeping [] Family support [] [] Out of room [] Palliative care [] [] Receiving care in room [] Pre-surgical visit [] Trauma [] Long length of stay [] ICU visit [] Other: Relational/Emotional Strength [x] Patient feels connected with others/family/visitors/staff [] Distress [] Loneliness/isolation [] Abandonment Spirituality of Patient [x] Person of Isa [] Attends Mormonism of their Isa [x] Believes in Prayer [] Reads Bible or Faith materials [] There are Spiritual issues to be addressed Floor Steward/Stewardess Interventions [x] Prayer [x] Active listening [] Non-anxious presence [x] Spiritual/emotional support [] Crisis/trauma care [] Spiritual counseling [] Bereavement support [] Provided bereavement packet [] Provided Bible/devotional materials [] Provided toy/stuffed animal, coloring book to patient or family member [] Provided Communion [] Anointing/[place] [] Salvation [x] Completed spiritual assessment [] Other: Impact on Illness or Injury [] Angry [] Fearful [] Anxious [] Often cries [] Exhaustion [] Unable to work [] Unable to attend hindu [] Unable to walk/stand [] Unable to read [] Unable to drive [] Unable to eat/drink [] Unable to sleep [] Unable to be with family [] Patient intubated [] Other: Summary Time spent with patient 5 min
[2023-04-15] MEDS: sacubitril/valsartan 24-26 mg Tablet 2 EACH PO (10:50)
[2023-04-15] MEDS: azithromycin 250 mg Tablet 500 MG PO (10:50)
[2023-04-15] MEDS: apixaban 5 mg Tablet PO ×2 (10:50→21:25)
--- NOTE | 2023-04-15 11:36 | P.PN_ITS ---
Subjective 2 Subjective: Patient is to complain of shortness of breath, currently doing well on room air however patient asked for supplemental oxygen No active chest pain diuresis Awaiting echo report Vitals/I&O/Wt Last Vital Signs Temp 97.4 F L 04/15/23 07:59 Pulse 82 04/15/23 10:36 Resp 18 04/15/23 10:36 BP 106/69 04/15/23 07:59 Pulse Ox 98 04/15/23 10:36 O2 Del Method Nasal Cannula 04/15/23 10:36 O2 Flow Rate 2 04/15/23 10:36 04/14/23 04/15/23 04/15/23 22:59 06:59 14:59 Intake Total 250 / 250 560 / 560 Output Total 1999 / 1999 450 / 2450 Balance -1750 / -1750 -450 / -2200 560 / 560 Weight last 48 hrs Weight 123.377 kg Weight 122.498 kg Weight 113.398 kg Physical Exam 2 Narrative: Signs of fluid load present Low send edema has not improved Schafer catheter in place GCS 15 Nonfocal neuroexam S1, S2 Currently on 2 L Urinary Catheter Management: Schafer: Cath Placed During This Visit: yes Reason for Continuing Indwelling Catheter: Accurate Measurement of Urinary Output in Critically Ill Patients Urinary Catheter Date of Insertion: 04/14/23 Urinary Catheter Time of Insertion: 17:11 Data 04/14/23 14:22 04/15/23 04:21 A&P Assessment and plan (1) Cardiomyopathy: (2) HFrEF (heart failure with reduced ejection fraction): (3) Atrial fibrillation: (4) Diabetes type 2, uncontrolled: (5) Hypoglycemia due to insulin: (6) Diabetic ulcer of left foot: Qualifiers: Diabetic foot ulcer location: toe Diabetes mellitus type: type 2 Non- pressure ulcer stage: with fat layer exposed Qualified Code(s): E11.621 - Type 2 diabetes mellitus with foot ulcer; L97.522 - Non-pressure chronic ulcer of other part of left foot with fat layer exposed (7) Type 2 diabetes mellitus with foot ulcer: 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 Qualified Code(s): E11.621 - Type 2 diabetes mellitus with foot ulcer; L97.509 - Non- pressure chronic ulcer of other part of unspecified foot with unspecified severity; Z79.4 - nursing home (current) use of insulin (8) Urinary retention: (9) Urinary hesitancy due to benign prostatic hyperplasia: (10) Enlarged prostate: Plan Acute hypoxia related to CHF exacerbation Will request for thoracentesis Acute systolic CHF exacerbation Continue diuresis Adequate urine output response to current regimen Awaiting echo report High D-dimer rule out DVT thromboembolic phenomenon, requested CT chest and venous Doppler Full code Cardiac consistent carb diet Patient had low blood sugar overnight I will further reduce the dose of Lantus Low blood pressure I will hold off on Entresto today. Hyperkalemia: Improved Attestations 2 Medical Necessity Statement*: Continue medical management Coding Level of Care Code Acute Code for Chg Fwd Diagnoses Cardiomyopathy I42.9 HFrEF (heart failure with reduced ejection fraction) I50.20 Atrial fibrillation I48.91 Diabetes type 2, uncontrolled Hypoglycemia due to insulin E16.0; T38.3X5A Diabetic ulcer of toe of left foot associated with type 2 diabetes mellitus, with fat layer exposed E11.621; L97.522 Diabetic foot ulcer location: toe Diabetes mellitus type: type 2 Non-pressure ulcer stage: with fat layer exposed Type 2 diabetes mellitus with foot ulcer, with long-term current use of insulin E11.621; L97.509; Z79.4 Diabetes mellitus jail insulin use: with jail use Urinary retention R33.9 Urinary hesitancy due to benign prostatic hyperplasia N40.1; R39.11 Enlarged prostate N40.0
[2023-04-15 11:51] LABS: Glucose Point of Care 194 mg/dL (70-110)
[2023-04-15] MEDS: tamsulosin 0.4 mg Capsule PO (13:00)
[2023-04-15] MEDS: clopidogrel 75 mg Tablet PO (13:00)
[2023-04-15 17:15] LABS: Glucose Point of Care 210 mg/dL (70-110)
[2023-04-15] MEDS: insulin lispro 100 unit/1 mL SUBCUT (19:22)
[2023-04-15 20:11] LABS: Glucose Point of Care 284 mg/dL (70-110)
[2023-04-15] MEDS: insulin glargine 100 units/1 mL 5 UNIT SUBCUT (21:25)
[2023-04-16] VITALS (8 sets, daily range): BP systolic 99–130; BP diastolic 57–82; PULSE 67–73; RESP 15–26; TEMP 36.4–36.8; O2SAT 96–99
[2023-04-16 05:39] LABS: Alanine Aminotransferase 11 U/L (0-41); Albumin Level 2.8 g/dL (3.5-5.2); Alkaline Phosphatase 119 U/L (40-130); Anion Gap 12.4 (5-19); Aspartate Amino Transferase 12 U/L (0-40); Blood Urea Nitrogen 30 mg/dL (8-23); Calcium 8.2 mg/dL (8.5-10.5); Carbon Dioxide 27 mmol/L (22-29); Chloride 106 mmol/L (98-107); Globulin 2.6 g/dL (1.3-4.6); Glucose 130 mg/dL (65-115); Magnesium 2.3 mg/dL (1.7-2.3); NT Pro B Type Natriuretic Pept 19992 pg/mL (0-125); Osmolality Calculated 300 mOsm/kg (285-295); Potassium 4.4 mmol/L (3.5-5.1); Sodium 141 mmol/L (136-145); Total Bilirubin 0.3 mg/dL (0.15-1.2); Total Protein 5.4 g/dL (6.6-8.7)
[2023-04-16 06:59] LABS: Glucose Point of Care 117 mg/dL (70-110)
--- NOTE | 2023-04-16 07:00 | XRR_ITS ---
PROCEDURE INFORMATION: Exam: XR Chest Exam date and time: 04/16/2023 7:32 AM Age: 72 years old Clinical indication: Cardiovascular condition or disease; Congestive heart failure (chf); Cause unknown; Type unknown TECHNIQUE: Imaging protocol: Radiologic exam of the chest. Views: 1 view. COMPARISON: CT angio chest PE protcl [id number] 04/15/2023 9:51 AM FINDINGS: Lungs: Right lower lobe atelectasis or infiltrate. Slight vascular prominence without interstitial edema. Pleural spaces: Small bilateral pleural effusions, right larger than left. Heart/Mediastinum: See Vasculature finding. Vasculature: Borderline cardiomegaly and uncoiling of the thoracic aorta. Bones/joints: Unremarkable. XR/XR chest 1V portable [id number] IMPRESSION: Bilateral effusions likely due to mild CHF.
[2023-04-16] MEDS: azithromycin 250 mg Tablet 500 MG PO (08:12)
[2023-04-16] MEDS: apixaban 5 mg Tablet PO ×2 (08:12→19:43)
[2023-04-16] MEDS: potassium chloride ER 20 mEq Tablet 40 MEQ PO ×2 (08:12→17:22)
[2023-04-16 09:14] LABS: ABG PCO2 38.8 mmHg (35-45); ABG PH Result 7.44 (7.35-7.45); Alveolar-Arterial Oxygen Gradi 1.6 mmHg (5-10); Arterial Blood Gas Hematocrit 35.6 % (42-52); Base Excess ABG 2.3 mmol/L (-2.0-2.0); Blood Gas Allen Test Pos; Blood Gas LPM 1.5 %; Blood Gas Operator Identificat BROMA; Blood Gas Sample Site Brachial, left; Blood Gas Sample Type Arterial; Carboxyhemoglobin 1.1 %THgb (0.4-20.1); HCO3 ABG 26.5 mmol/L (22-26); HGB O2 Sat 97.1 % (95-100); Ionized Calcium Level - ABG 1.2 mmol/L (1.1-1.4); Methemoglobin 0.1 % (0.4-1.5); Oxygen Device NC; Oxygen Saturation ABG 98.2; PO2 ABG 91.9 mmHg (80.0-100.0); Potassium Level - ABG 4.4 mmol/L (3.5-5.0); Total Hemoglobin 11.6 g/dL (14-18)
[2023-04-16 11:22] LABS: Glucose Point of Care 175 mg/dL (70-110)
--- NOTE | 2023-04-16 12:10 | P.PN_ITS ---
Subjective 2 Subjective: Patient was complaining of shortness of breath this morning ABG unremarkable Chest x-ray showed mild pleural effusion I do not think he would need any thoracentesis at this point Echo showed EF 35% Patient is agreeable for AICD placement Vitals/I&O/Wt Last Vital Signs Temp 98.3 F 04/16/23 11:22 Pulse 67 04/16/23 11:22 Resp 15 04/16/23 11:22 BP 102/65 04/16/23 11:22 Pulse Ox 98 04/16/23 11:22 O2 Del Method Room Air 04/16/23 11:22 O2 Flow Rate 2 04/16/23 10:00 04/15/23 04/16/23 04/16/23 22:59 06:59 14:59 Intake Total 240 / 1280 240 / 1520 240 / 240 Output Total 700 / 700 250 / 950 Balance -460 / 580 -10 / 570 240 / 240 Weight last 48 hrs Weight 123.377 kg Weight 123.377 kg Weight 122.498 kg Weight 113.398 kg Physical Exam 2 Narrative: Shortness of breath on exertion Orthopnea PND slightly better Currently 1.5 to 2 L Sign of fluid load improving Schafer catheter in place GCS 15 No active shortness of breath No active chest pain Pleasant and cooperative during my evaluation Urinary Catheter Management: Schafer: Cath Placed During This Visit: yes Reason for Continuing Indwelling Catheter: Other Urinary Catheter Date of Insertion: 04/14/23 Urinary Catheter Time of Insertion: 17:11 Data 04/14/23 14:22 04/16/23 04:18 A&P Assessment and plan (1) HFrEF (heart failure with reduced ejection fraction): (2) Cardiomyopathy: (3) Diabetes type 2, uncontrolled: (4) Diabetic foot ulcer: Plan Reduced EF active heart failure exacerbation Continue diuresis Adequate urine output -1.2 L balance I would like aggressive diuresis Patient is not showing any signs of contraction alkalosis I will increase the dose of Bumex and add metolazone Patient i willing to go for AICD if recommended by industrial relations specialist Patient follows up with Dr. Mullins outpatient Patient is stating that his LifeVest was returned few months ago ABG unremarkable Chest x-ray mild pleural effusion Hyperglycemia improved Full code Cardiac diet History of A-fib continue Eliquis Patient may need rehab placement if he remains short of breath, will need outpatient AICD evaluation Attestations 2 Medical Necessity Statement*: Continue medical management Diagnoses HFrEF (heart failure with reduced ejection fraction) I50.20 Cardiomyopathy I42.9 Diabetes type 2, uncontrolled Diabetic foot ulcer E11.621; L97.509
[2023-04-16] MEDS: clopidogrel 75 mg Tablet PO (12:34)
[2023-04-16] MEDS: tamsulosin 0.4 mg Capsule PO (12:34)
[2023-04-16] MEDS: insulin lispro 100 unit/1 mL SUBCUT ×2 (12:34→17:18)
[2023-04-16] MEDS: FUROsemide 100 MG in sodium chloride 0.9% 40 ML IV (16:10)
--- NOTE | 2023-04-16 16:32 | PC.NURSE ---
received from med surg into room 106 at 1520.report received.oriented to room environment.lasix drip began at 1 mg/hr as ordered.instructed to notif staff for any sob,pain,cp,or for any concerns at all.pt verb understanding of instructions
[2023-04-16 16:52] LABS: Glucose Point of Care 191 mg/dL (70-110)
[2023-04-16 20:38] LABS: Glucose Point of Care 119 mg/dL (70-110)
[2023-04-16] MEDS: insulin glargine 100 units/1 mL 5 UNIT SUBCUT (20:54)
[2023-04-17] VITALS (11 sets, daily range): BP systolic 106–123; BP diastolic 55–90; PULSE 71–81; RESP 16–28; TEMP 36.4–37.1; O2SAT 98–100
[2023-04-17 06:12] LABS: Magnesium 2.3 mg/dL (1.7-2.3)
[2023-04-17 06:13] LABS: Anion Gap 10.9 (5-19); Blood Urea Nitrogen 29 mg/dL (8-23); Calcium 8.1 mg/dL (8.5-10.5); Carbon Dioxide 28 mmol/L (22-29); Chloride 106 mmol/L (98-107); Glucose 122 mg/dL (65-115); Osmolality Calculated 297 mOsm/kg (285-295); Potassium 4.9 mmol/L (3.5-5.1); Sodium 140 mmol/L (136-145)
[2023-04-17 06:33] LABS: Glucose Point of Care 138 mg/dL (70-110)
[2023-04-17] MEDS: ipratropium-albuterol 3 mL Neb INHALATION (07:55)
[2023-04-17] MEDS: apixaban 5 mg Tablet PO ×2 (09:12→19:50)
[2023-04-17] MEDS: potassium chloride ER 20 mEq Tablet 40 MEQ PO (09:12)
[2023-04-17] MEDS: azithromycin 250 mg Tablet 500 MG PO (09:12)
--- NOTE | 2023-04-17 10:10 | P.PN_ITS ---
Subjective 2 Subjective: Patient is endorsing feeling slightly better Turned off Lasix drip changed to Bumex Endorsing weakness and lethargy Request PT Vitals/I&O/Wt Last Vital Signs Temp 97.7 F 04/17/23 07:15 Pulse 76 04/17/23 08:07 Resp 16 04/17/23 07:53 BP 116/69 04/17/23 07:15 Pulse Ox 98 04/17/23 07:53 O2 Del Method Nasal Cannula 04/17/23 07:53 O2 Flow Rate 1 04/17/23 07:53 04/16/23 04/17/23 04/17/23 22:59 06:59 14:59 Intake Total 360 / 840 308.517 / 1148.517 200 / 200 Output Total 600 / 900 Balance 360 / 540 -291.483 / 248.517 200 / 200 Weight last 48 hrs Weight 122.787 kg Weight 123.377 kg Physical Exam 2 Narrative: Signs of euvolemia Currently on 1.5 L Sign of fluid load improving Pleasant S1, S2 Nonfocal neuroexam GCS 15 Urinary Catheter Management: Schafer: Cath Placed During This Visit: yes Reason for Continuing Indwelling Catheter: Accurate Measurement of Urinary Output in Critically Ill Patients Urinary Catheter Date of Insertion: 04/14/23 Urinary Catheter Time of Insertion: 17:11 Data 04/14/23 14:22 04/17/23 05:18 A&P Assessment and plan (1) HFrEF (heart failure with reduced ejection fraction): (2) Cardiomyopathy: (3) Diabetes type 2, uncontrolled: (4) Enlarged prostate: Plan Signs of fluid load improving Turn off Lasix drip Potassium has been normal No sign of contraction alkalosis Changed to Bumex 2 mg aggressive p.o. regimen Will touch base with Dr. Mullins tomorrow Plan at discharge by Tuesday Request PT patient is still very fatigued and lethargic Hypoxia requiring 1.5 L EF around 35% Holding Entresto to avoid hypotension Attestations 2 Medical Necessity Statement*: Discharge in next 24 to 48 hours Diagnoses HFrEF (heart failure with reduced ejection fraction) I50.20 Cardiomyopathy I42.9 Diabetes type 2, uncontrolled Enlarged prostate N40.0
[2023-04-17] MEDS: bumetanide 1 mg Tablet 2 MG PO (10:48)
--- NOTE | 2023-04-17 12:43 | PC.NURSE ---
Patients dex-com was 150 at 1200.
[2023-04-17] MEDS: clopidogrel 75 mg Tablet PO (12:54)
[2023-04-17] MEDS: insulin lispro 100 unit/1 mL SUBCUT ×2 (12:54→17:33)
[2023-04-17] MEDS: tamsulosin 0.4 mg Capsule PO (12:54)
[2023-04-17 20:51] LABS: Glucose Point of Care 215 mg/dL (70-110)
[2023-04-17] MEDS: hyDROXYzine 25 mg Capsule PO (21:06)
[2023-04-17] MEDS: insulin glargine 100 units/1 mL 5 UNIT SUBCUT (21:07)
[2023-04-18] VITALS (53 sets, daily range): BP systolic 105–127; BP diastolic 47–69; PULSE 69–82; RESP 19–31; TEMP 36.5–37.3; O2SAT 95–100
[2023-04-18 04:23] LABS: Anion Gap 10.4 (5-19); Blood Urea Nitrogen 29 mg/dL (8-23); Calcium 8.4 mg/dL (8.5-10.5); Carbon Dioxide 29 mmol/L (22-29); Chloride 106 mmol/L (98-107); Glucose 162 mg/dL (65-115); Osmolality Calculated 301 mOsm/kg (285-295); Potassium 4.4 mmol/L (3.5-5.1); Sodium 141 mmol/L (136-145)
[2023-04-18 04:51] LABS: Glucose Point of Care 143 mg/dL (70-110)
--- NOTE | 2023-04-18 04:53 | ECG_ITS ---
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 Measurements Intervals [place] Rate: 72 P: 0 MI: 156 QRS: 244 QRSD: 100 T: 100 QT: 415 QTc: 457 Interpretive Statements SINUS RHYTHM WITH FREQUENT VENTRICULAR PREMATURE COMPLEXES POSSIBLE RIGHT VENTRICULAR HYPERTROPHY [SOME/ALL OF: PROMINENT R IN V1, LATE TRANSITION, RAD, ROSSANA, SSS] INFERIOR MYOCARDIAL INFARCTION , PROBABLY OLD [40+ ms Q WAVE AND/OR ST/T ABNORMALITY IN II/aVF] ANTEROLATERAL MYOCARDIAL INFARCTION , OF INDETERMINATE AGE [40+ ms Q WAVE IN I/aVL/V3-V6] Compared to ECG 04/14/2023 14:25:00 Ventricular premature complex(es) now present Right-axis deviation no longer present Right bundle-branch block no longer present Myocardial infarct finding still present Electronically Signed On 04-18-2023 9:54:56 [employer]OUND [employer] TECHNICIAN by Victorino Marie M.D. [id number]
--- NOTE | 2023-04-18 07:33 | PC.SOCIAL ---
IMM Update Pg. 2 of IMM updated and reviewed with patient, who verbalized understanding. Copy provided. Copy in chart initial, dated, and timed.
--- NOTE | 2023-04-18 07:35 | PC.NURSE ---
late entry, pt has been in and out of bigeminy and bradycardic through the night, ekg obtained, Dr Bedoya notified, no new orders, continue to monitor
--- NOTE | 2023-04-18 07:53 | PC.NURSE ---
Patient at stress test 0730.
[2023-04-18] MEDS: azithromycin 250 mg Tablet 500 MG PO (08:27)
[2023-04-18] MEDS: insulin lispro 100 unit/1 mL SUBCUT ×3 (08:27→17:50)
[2023-04-18] MEDS: bumetanide 1 mg Tablet 2 MG PO (08:27)
[2023-04-18] MEDS: potassium chloride ER 20 mEq Tablet 40 MEQ PO (08:28)
--- NOTE | 2023-04-18 11:46 | P.PN_ITS ---
Subjective 2 Subjective: Patient is still endorsing fatigue lethargy and loose stools, C. difficile panel still pending I will give patient cholestyramine and p.o. vancomycin today Will request MUGA scan Case discussed with Dr. Thuan Emmanuel is available if EF below 35% Vitals/I&O/Wt Last Vital Signs Temp 97.7 F 04/18/23 07:48 Pulse 77 04/18/23 07:48 Resp 20 H 04/18/23 07:48 BP 124/69 04/18/23 07:48 Pulse Ox 97 04/18/23 07:48 O2 Del Method Nasal Cannula 04/18/23 07:48 O2 Flow Rate 1 04/18/23 07:48 04/17/23 04/18/23 04/18/23 22:59 06:59 14:59 Intake Total 512.116 / 961.483 Output Total 1500 / 1950 250 / 2200 Balance -987.884 / -988.517 -250 / -1238.517 Weight last 48 hrs Weight 122.924 kg Weight 122.787 kg Physical Exam 2 Narrative: Signs of fluid load improving Currently laying flat Currently on 1.5 L Lower extremity edema improving GCS 15 nonfocal neuroexam Fatigue and lethargy Urinary Catheter Management: Schafer: Cath Placed During This Visit: yes Reason for Continuing Indwelling Catheter: Accurate Measurement of Urinary Output in Critically Ill Patients Urinary Catheter Date of Insertion: 04/14/23 Urinary Catheter Time of Insertion: 17:11 Data 04/14/23 14:22 04/18/23 03:34 A&P Assessment and plan (1) HFrEF (heart failure with reduced ejection fraction): (2) Cardiomyopathy: (3) Diabetes type 2, uncontrolled: (4) Diarrhea: Plan Reduced ejection fraction heart for exacerbation Clinically patient is very fatigued and lethargy however sign improved over improved If EF below 35% then he will need AICD will do MUGA scan to verify his EF by tomorrow N.p.o. after midnight I am holding Entresto to avoid hypotensive episodes Continue high-dose Bumex No signs of contraction alkalosis Sugar well-controlled Patient is full code A-fib without RVR, hold Eliquis until MUGA scan in case patient will need AICD will switch him to therapeutic Lovenox Attestations 2 Medical Necessity Statement*: Continue medical management Diagnoses HFrEF (heart failure with reduced ejection fraction) I50.20 Cardiomyopathy I42.9 Diabetes type 2, uncontrolled Diarrhea R19.7
--- NOTE | 2023-04-18 12:19 | PC.NURSE ---
Patients dexcom read 248 at 1218.
[2023-04-18] MEDS: tamsulosin 0.4 mg Capsule PO (12:31)
[2023-04-18] MEDS: clopidogrel 75 mg Tablet PO (12:31)
[2023-04-18] MEDS: cholestyramine powder 4 gm Pkt PO ×2 (17:50→20:50)
--- NOTE | 2023-04-18 17:59 | PC.NURSE ---
Patients dexcom read 226 at 1702.
[2023-04-18 20:27] LABS: Glucose Point of Care 225 mg/dL (70-110)
[2023-04-18] MEDS: insulin glargine 100 units/1 mL 5 UNIT SUBCUT (20:50)
[2023-04-18] MEDS: enoxaparin 120 mg/0.8 mL Syringe SUBCUT (20:51)
[2023-04-19] VITALS (61 sets, daily range): BP systolic 99–128; BP diastolic 54–75; PULSE 67–83; RESP 9–29; TEMP 36.4–36.9; O2SAT 66–99
[2023-04-19 04:14] LABS: Anion Gap 9.4 (5-19); Blood Urea Nitrogen 32 mg/dL (8-23); Calcium 8.6 mg/dL (8.5-10.5); Carbon Dioxide 29 mmol/L (22-29); Chloride 104 mmol/L (98-107); Creatinine Clr Calc Pharmacy 83.4008; Glucose 110 mg/dL (65-115); Osmolality Calculated 294 mOsm/kg (285-295); Potassium 4.4 mmol/L (3.5-5.1); Sodium 138 mmol/L (136-145)
--- NOTE | 2023-04-19 07:46 | PC.NURSE ---
Patients dexcom read 115 at 0730.
[2023-04-19] MEDS: potassium chloride ER 20 mEq Tablet 40 MEQ PO (08:56)
[2023-04-19] MEDS: enoxaparin 120 mg/0.8 mL Syringe SUBCUT ×2 (08:57→22:28)
[2023-04-19] MEDS: bumetanide 1 mg Tablet 2 MG PO (08:57)
[2023-04-19] MEDS: cholestyramine powder 4 gm Pkt PO ×3 (08:57→22:28)
--- NOTE | 2023-04-19 09:40 | NMCV_ITS ---
NM card bld pool r or s*[id number] Rashel Phillips Age: 72 Gender: M : 1950 Exam Date: 04/19/2023 09:40 Ordering Phys: An Britton MD Technologist: MIRYAM Cherry Exam Location: [facility] Indications: Acute heart failure, CAD, diabetes, HTN Camera Used: [employer] Protocol: three view gated blood pool study Technical Image Quality: Good Dose: Admin Site: Administered By: [id number] Tagged RBCs: 25.6 IV - Right MIRYAM Cherry Antecubital PYP: EJECTION FRACTION: Automatic LV EF: 30 Rest RV EF: Manual LV EF: FINDINGS Diffuse hypokinesia of the left ventricle with ejection fraction of 30% CONCLUSIONS LV ejection fraction estimated to be 30% Diffuse hypokinesia of the left ventricle Dr Surjit Larose MD FACC (Electronically Signed) Final Date: 19 April 2023 12:42 S
--- NOTE | 2023-04-19 10:11 | P.PN_ITS ---
Subjective 2 Subjective: MUGA scan is pending Patient clinically looking less hypervolemic Patient is still complaining of diarrhea C. difficile panel still pending Creatinine normal Currently patient is on room air If EF is below 35% will consult Dr. Emmanuel Vitals/I&O/Wt Last Vital Signs Temp 98.4 F 04/19/23 07:31 Pulse 83 04/19/23 08:27 Resp 20 H 04/19/23 08:27 BP 128/68 04/19/23 07:31 Pulse Ox 93 04/19/23 08:27 O2 Del Method Room Air 04/19/23 08:27 O2 Flow Rate 1.5 04/18/23 20:00 04/18/23 04/19/23 04/19/23 22:59 06:59 14:59 Intake Total 560 / 1040 Output Total 525 / 525 600 / 1125 Balance 35 / 515 -600 / -85 Weight last 48 hrs Weight 123.547 kg Weight 122.924 kg Physical Exam 2 Narrative: Pleasant and cooperative lethargic Nonfocal neuroexam Currently on room air Hemodynamic stable GCS 15 Signs of fluid load improving S1, S2 Urinary Catheter Management: Schafer: Cath Placed During This Visit: yes Reason for Continuing Indwelling Catheter: Accurate Measurement of Urinary Output in Critically Ill Patients Urinary Catheter Date of Insertion: 04/14/23 Urinary Catheter Time of Insertion: 17:11 Data 04/14/23 14:22 04/19/23 03:27 A&P Assessment and plan (1) HFrEF (heart failure with reduced ejection fraction): (2) Cardiomyopathy: (3) Atrial fibrillation: (4) Diabetes type 2, uncontrolled: (5) Diabetic ulcer of left foot: Qualifiers: Diabetic foot ulcer location: toe Diabetes mellitus type: type 2 Non- pressure ulcer stage: with fat layer exposed Qualified Code(s): E11.621 - Type 2 diabetes mellitus with foot ulcer; L97.522 - Non-pressure chronic ulcer of other part of left foot with fat layer exposed (6) Ulcer of left foot due to type 2 diabetes mellitus: (7) Diarrhea: Plan Awaiting MUGA scan report If EF below 35% he will need AICD evaluation with Dr. Emmanuel Signs of fluid load improving Creatinine normal Currently doing well on room air Patient most likely will need short-term rehab/SNF Diabetic foot ulcers with need daily wound care and dressing change A-fib without RVR I have changed Eliquis to therapeutic Lovenox in case he would need AICD PT requested already Attestations 2 Medical Necessity Statement*: Continue medical management Diagnoses HFrEF (heart failure with reduced ejection fraction) I50.20 Cardiomyopathy I42.9 Atrial fibrillation I48.91 Diabetes type 2, uncontrolled Diabetic ulcer of toe of left foot associated with type 2 diabetes mellitus, with fat layer exposed E11.621; L97.522 Diabetic foot ulcer location: toe Diabetes mellitus type: type 2 Non-pressure ulcer stage: with fat layer exposed Ulcer of left foot due to type 2 diabetes mellitus E11.621; L97.529 Diarrhea R19.7
[2023-04-19] MEDS: clopidogrel 75 mg Tablet PO (12:22)
[2023-04-19] MEDS: insulin lispro 100 unit/1 mL SUBCUT ×2 (12:22→18:06)
[2023-04-19] MEDS: tamsulosin 0.4 mg Capsule PO (12:22)
--- NOTE | 2023-04-19 12:23 | PC.NURSE ---
Patients dexcom read 225 at 1210.
[2023-04-19 15:10] LABS: Clostridium Difficile PCR NOT DETECTED (NOT DETECTED)
[2023-04-19] MEDS: insulin glargine 100 units/1 mL 5 UNIT SUBCUT (22:27)
[2023-04-20] VITALS (11 sets, daily range): BP systolic 95–122; BP diastolic 63–79; PULSE 76–94; RESP 17–33; TEMP 36.4–37.3; O2SAT 84–95; BMI 36.9
[2023-04-20 04:14] LABS: Basophils % 0.7 %; Eosinophils # 0.1 10^3/uL (0.0-0.8); Eosinophils % 2.3 %; Hematocrit 37.2 % (37-53); Lymphocytes # 1.7 10^3/uL (0.8-4.8); Lymphocytes % 30.5 %; Mean Corpuscular HGB Conc 30.9 g/dL (30-55); Mean Corpuscular Hemoglobin 29.3 pg (27-33); Mean Corpuscular Volume 94.7 fl (82-101); Mean Platelet Volume 11.9 fL (7.4-10.4); Monocytes # 0.5 10^3/uL (0.2-0.9); Monocytes % 8.1 %; Neutrophils # 3.25 10^3/uL (1.8-7.7); Neutrophils % 58.2 %; Nucleated Red Blood Cells % 0 %; Platelet Count 153 10^3/cmm (157-399); Red Blood Count 3.93 10^6/uL (3.85-5.65); Red Cell Distribution Width 16.7 % (12.1-15.1); White Blood Count 5.58 10^3/uL (3.29-11.43)
[2023-04-20 04:40] LABS: Anion Gap 13.5 (5-19); Blood Urea Nitrogen 33 mg/dL (8-23); Calcium 8.7 mg/dL (8.5-10.5); Carbon Dioxide 25 mmol/L (22-29); Chloride 102 mmol/L (98-107); Glucose 165 mg/dL (65-115); Osmolality Calculated 293 mOsm/kg (285-295); Potassium 4.5 mmol/L (3.5-5.1); Sodium 136 mmol/L (136-145)
--- NOTE | 2023-04-20 06:41 | P.CONIM_ITS ---
Providers/Reason For Consult 2 Consulting Physician/Specialty*: Dr. Emmanuel/cardiothoracic surgery Reason for Consult*: Evaluation for AICD implantation Requesting Physician: Dr. Britton Attending Physician: An Britton MD Primary Care Provider: Nelson Nava DO History of Present Illness History of Present Illness Rashel Phillips is a 72 year old male with diabetes mellitus and cardiomyopathy on April 14 with presentation of dyspnea with CHF exacerbation. He has been previously evaluated by our cardiology service with cardiomyopathy and a LifeVest was placed though this was subsidy removed as ejection fraction had improved with medical management. He is also followed by Dr. Jesus from our endocrinology service and is well by Ms. Mariposa Kang from our [place] wound care practice for a left foot diabetic ulcer, which appears to be a pressure ulcer of the left calcaneus from a long term care stay. His left foot wound has substantially improved though still under care. He underwent cardiac catheterization and PCI to the LAD back in August 2022 after presenting with a STEMI. Drug-eluting stent x 1 was placed. During this hospitalization he underwent a gated nuclear study yesterday which revealed diffuse hypokinesia of the left ventricle with ejection fraction of 30%. Currently is resting comfortably with his head of bed slightly elevated. O2 saturation 92 to 94% on room air. He denies dyspnea. He has diffuse general lower extremity swelling including the scrotal and perineal region. There is a Schafer catheter in place. He denies chest pain. Bed monitor reveals sinus rhythm with a heart rate of 72 bpm. Chest x-ray from April 16 reveals cardiomegaly with probable small right pleural effusion Review of Systems 2 Const: Denies: fever(s) or chills Eyes: Denies: change in vision ENMT: Denies: throat pain or odynophagia Card: Denies: chest pain or palpitations Resp: Reports: dyspnea; Denies: productive cough or hemoptysis GI: Reports: other (Loss of appetite); Denies: abdominal pain or nausea : Reports: scrotal swelling Musc: Reports: extremity swelling; Denies: neck pain or extremity pain Neuro: Reports: numbness in extremities; Denies: headache(s) or weakness in extremities Brooks/Lymph: Denies: easy bruising Medications/Allergies Home Medications Medication Instructions Recorded Confirmed Last Taken Type carbamazepine 200 mg tablet 200 mg PO Q8H 05/17/19 04/14/23 04/14/23 History latanoprost 0.005 % eye drops 1 drop ophthalmic (eye) QPM 05/17/19 04/14/23 04/13/23 History glucagon 1 mg solution for 1 mg SUBCUT Q20M PRN hypoglycemia 11/18/21 04/14/23 Unknown Rx injection (Glucagon Emergency Kit) #1 ea Excell SAP, PolyMem Max Silver, #1 ea 06/03/22 04/14/23 Unknown Rx and 2x2 Gauze brimonidine 0.2 % eye drops 1 drp ophthalmic (eye) BID 09/05/22 04/14/23 04/14/23 History dorzolamide 22.3 mg-timolol 6.8 1 drp ophthalmic (eye) DAILY 09/09/22 04/14/23 04/14/23 History mg/mL eye drops atorvastatin 80 mg tablet 80 mg PO QAM 09/30/22 04/14/23 04/14/23 History insulin degludec 200 unit/mL (3 35 - 45 unit SUBCUT QAM 09/30/22 04/14/23 04/14/23 History mL) subcutaneous pen (Tresiba FlexTouch U-200 insulin) famotidine 20 mg tablet 20 mg PO BID #60 tabs 10/21/22 04/14/23 04/14/23 Rx finasteride 5 mg tablet 5 mg PO BEDTIME #30 tabs 10/21/22 04/14/23 04/13/23 Rx insulin lispro 100 unit/mL 12 - 15 unit (0.12 - 0.15 mL) 10/21/22 04/14/23 04/14/23 Rx subcutaneous pen (Humalog KwikPen SUBCUT TID #15 mL (U-100) Insulin) aspirin 81 mg tablet,delayed 81 mg PO DAILY@11/15/22 04/14/23 04/14/23 History release clopidogrel 75 mg tablet 75 mg PO DAILY@11/15/22 04/14/23 04/14/23 History tamsulosin 0.4 mg capsule 0.4 mg PO DAILY@11/15/22 04/14/23 04/14/23 History ferrous gluconate 324 mg (37.5 mg 324 mg PO BIDWM #180 tabs 11/30/22 04/14/2304/14/24 Rx iron) tablet apixaban 5 mg tablet (Eliquis) 5 mg PO BID@0900,2100 #60 tabs 01/07/23 04/14/23 04/14/23 Rx furosemide 40 mg tablet 40 mg PO DAILY@0800 #30 tabs 01/07/23 04/14/23 04/14/23 Rx metoprolol tartrate 25 mg tablet 25 mg PO BID #60 tabs 01/07/23 04/14/23 04/14/23 Rx potassium chloride 10 mEq 10 meq PO DAILY #30 tabs 01/07/23 04/14/23 04/14/23 Rx tablet,extended release sacubitril 49 mg-valsartan 51 mg 1 tab PO BID #60 tabs 01/17/23 04/14/23 04/14/23 Rx tablet FreeStyle Isma 2 Sensor (flash #6 ea 02/22/23 04/14/23 Unknown Rx glucose sensor) metolazone 5 mg tablet 5 mg PO DAILY 04/14/23 04/14/23 Unknown History Allergies Allergy/AdvReac Type Severity Reaction Status Date / Time vancomycin Allergy ALGY-Hives Verified 04/14/23 12:25 Hay Fever Allergy ADR-Itching Uncoded 04/14/23 12:25 Current Medications Generic Name Dose Route Start Last Admin Trade Name Freq PRN Reason Stop Dose Admin Albuterol/Ipratropium 3 ml 04/14/23 16:06 04/17/23 07:55 Ipratropium-Albuterol 3 Ml Neb INHALATION 3 ml Q6H PRN Administration SHORTNESS OF BREATH Apixaban 5 mg 04/14/23 21:00 04/17/23 19:50 Apixaban 5 Mg Tablet PO 5 mg BID@0900,2100 JOSESITO Administration Bumetanide 2 mg 04/17/23 10:10 04/19/23 08:57 Bumetanide 1 Mg Tablet PO 2 mg DAILY JOSESITO Administration Cholestyramine Resin 4 gm 04/18/23 15:00 04/19/23 22:28 Cholestyramine Powder 4 Gm Pkt PO 4 gm TID JOSESITO Administration Clopidogrel Bisulfate 75 mg 04/15/23 12:00 04/19/23 12:22 Clopidogrel 75 Mg Tablet PO 75 mg DAILY@12 JOSESITO Administration Enoxaparin Sodium 120 mg 04/18/23 21:00 04/19/23 22:28 Enoxaparin 120 Mg/0.8 Ml Syringe SUBCUT 120 mg Q12H JOSESITO Administration Insulin Glargine 5 unit 04/15/23 21:00 04/19/23 22:27 Insulin Glargine 100 Units/1 Ml SUBCUT 5 unit BEDTIME JOSESITO Administration Insulin Human Lispro 0 unit 04/14/23 18:00 04/19/23 18:06 Insulin Lispro 100 Unit/1 Ml SUBCUT 10 unit TIDWM JOSESITO Administration Protocol Potassium Chloride 40 meq 04/18/23 09:00 04/19/23 08:56 Potassium Chloride Er 20 Meq Tablet PO 40 meq DAILY JOSESITO Administration Sacubitril/Valsartan 2 each 04/14/23 18:00 04/15/23 10:50 Sacubitril/Valsartan 24-26 Mg Tablet PO 2 each BID JOSESITO Administration Tamsulosin HCl 0.4 mg 04/15/23 12:00 04/19/23 12:22 Tamsulosin 0.4 Mg Capsule PO 0.4 mg DAILY@12 JOSESITO Administration PFSH Acute 2 PFSH: Medical History Uses LifeVest defibrillator CAD (coronary artery disease) Glaucoma Neuropathy Hematuria Acute heart failure ST elevation (STEMI) myocardial infarction BMI 32.0-32.9,adult Diabetes mellitus Carotid artery disease Peripheral Vascular Disease HTN (hypertension) Venous insufficiency Surgical History History of coronary artery stent placement S/P eye surgery left S/P cholecystectomy H/O toe surgery left toe S/P insertion of penile implant and removal Status post amputation of toe of right foot Family History Father Heart disease Diabetes Mother Cancer Cervical CA Social History Smoking and tobacco/nicotine status: never used tobacco/nicotine Alcohol intake: never Substance/Drug Use: never Vitals/I&O/Wt Last Vital Signs Temp 97.6 F 04/20/23 01:25 Pulse 78 04/20/23 06:05 Resp 21 H 04/20/23 06:05 BP 111/75 04/20/23 06:05 Pulse Ox 92 04/20/23 06:05 O2 Del Method Room Air 04/19/23 16:52 O2 Flow Rate 1.5 04/18/23 20:00 04/19/23 04/19/23 04/20/23 14:59 22:59 06:59 Intake Total 600 / 600 300 / 900 200 / 1100 Output Total 750 / 750 125 / 875 Balance 600 / 600 -450 / 150 75 / 225 Weight last 48 hrs Weight 272 lb 6 oz Weight 272 lb 6 oz Physical Exam 2 Const: COMMON NORMALS: no acute distress, average body habitus and patient oriented x3; negative for healthy appearing HENMT: COMMON NORMALS: normocephalic and atraumatic HEAD & SCALP: n ormocephalic and atraumatic Eye: COMMON NORMALS: Equal, round and reactive pupils present and EOMs intact bilaterally PUPIL: Yes Equal, round and reactive pupils present Neck/C-Spine: COMMON NORMALS: no lymphadenopathy and No carotid bruits Chest: COMMONS NORMALS: normal inspection of the chest Resp: COMMON NORMALS: normal respiratory effort, No retractions, No use of accessory muscles and clear to auscultation bilaterally AUSCULTATION: clear to auscultation bilaterally Cardio: COMMON NORMALS: regular rate, regular rhythm and S1 normal heart sound present RATE: regular rate RHYTHM: regular rhythm HEART SOUNDS: S1 normal heart sound present GI: COMMON NORMALS: Normal to inspection, nondistended, normoactive bowel sounds present and Soft to palpation PALPATION: Yes Soft to palpation Extremity: COMMON NORMALS: no calf tenderness; negative for normal to inspection and negative for no pedal edema NARRATIVE EXTREMITY EXAM: 2+ lower extremity edema with substantia l edema in the scrotal region. Schafer catheter is in position. Neuro: COMMON NORMALS: patient oriented x3 Urinary Catheter Management: Schafer: Cath Placed During This Visit: yes Reason for Continuing Indwelling Catheter: Accurate Measurement of Urinary Output in Critically Ill Patients Urinary Catheter Date of Insertion: 04/14/23 Urinary Catheter Time of Insertion: 17:11 Data 04/20/23 03:36 04/20/23 03:36 A&P Assessment and plan (1) HFrEF (heart failure with reduced ejection fraction): Mr. Phillips was admitted on April 14 for exacerbation of CHF. He is currently undergoing management. He has previously worn a LifeVest due to reduced ejection fraction though apparently with medical management this did improve without that the LifeVest can be discontinued. While he may indeed need an AICD, it is unclear at this time as he continues treatment for an acute exacerbation, particular given that LifeVest was removed previously due to cardiac function improvement. Following hospitalization, it would be ideal if he underwent reevaluation by our cardiology service to determine that he has been maximally medically treated and then reassess as to whether defibrillator implantation is prudent. As well, he continues to undergo treatment for a left diabetic/pressure calcaneal ulcer. It appears that the ulcer is improving with wound care management. Consult Attestations 2 Time Spent in Patient Care: Greater than 35 minutes Coding Level of Care Code Acute Code for [facility] Fwd Diagnoses HFrEF (heart failure with reduced ejection fraction) I50.20
[2023-04-20] MEDS: bumetanide 1 mg Tablet 2 MG PO (08:13)
[2023-04-20] MEDS: insulin lispro 100 unit/1 mL SUBCUT ×2 (08:14→12:50)
[2023-04-20] MEDS: loperamide 2 mg Capsule PO (08:14)
[2023-04-20] MEDS: potassium chloride ER 20 mEq Tablet 40 MEQ PO ×2 (08:14→18:09)
[2023-04-20] MEDS: enoxaparin 120 mg/0.8 mL Syringe SUBCUT ×2 (08:23→22:26)
--- NOTE | 2023-04-20 10:23 | P.PN_ITS ---
Subjective 2 Subjective: Patient is stating that he has no energy at all to get out of bed His swelling has worsened today scrotal edema and lower extremity edema has worsened I will start him on Lasix drip again if his blood pressure drops we might need to transfer him to ICU's Will order LifeVest Will need outpatient AICD evaluation by Dr. Emmanuel Vitals/I&O/Wt Last Vital Signs Temp 97.9 F 04/20/23 08:26 Pulse 82 04/20/23 08:54 Resp 20 H 04/20/23 08:54 BP 108/64 04/20/23 08:26 Pulse Ox 93 04/20/23 08:54 O2 Del Method Room Air 04/20/23 08:54 O2 Flow Rate 1.5 04/18/23 20:00 04/19/23 04/20/23 04/20/23 22:59 06:59 14:59 Intake Total 300 / 900 200 / 1100 240 / 240 Output Total 750 / 750 125 / 875 Balance -450 / 150 75 / 225 240 / 240 Weight last 48 hrs Weight 123.547 kg Weight 123.547 kg Physical Exam 2 Narrative: Signs of fluid load worsened today Awake and alert GCS 15 Currently on room air Scrotal edema 3+ edema of lower extremities Abdomen soft Pleasant and cooperative Lethargic and fatigued Urinary Catheter Management: Schafer: Cath Placed During This Visit: yes Reason for Continuing Indwelling Catheter: Accurate Measurement of Urinary Output in Critically Ill Patients Urinary Catheter Date of Insertion: 04/14/23 Urinary Catheter Time of Insertion: 17:11 Data 04/20/23 03:36 04/20/23 03:36 A&P Assessment and plan (1) HFrEF (heart failure with reduced ejection fraction): (2) Cardiomyopathy: (3) Atrial fibrillation: (4) Diabetes type 2, uncontrolled: (5) Diabetic ulcer of left foot: Qualifiers: Diabetic foot ulcer location: toe Diabetes mellitus type: type 2 Non- pressure ulcer stage: with fat layer exposed Qualified Code(s): E11.621 - Type 2 diabetes mellitus with foot ulcer; L97.522 - Non-pressure chronic ulcer of other part of left foot with fat layer exposed (6) Diabetic foot ulcer: (7) Enlarged prostate: Plan I will start patient back on Lasix drip Will need ICU if blood pressure drops I will replenish potassium twice a day as well Check BMP twice a day Will order LifeVest Patient will need AICD outpatient evaluation He definitely needs skilled nursing placement he is very fatigued and lethargic from his recent diarrhea C. difficile ruled out I am okay with using Imodium for now Azithromycin discontinued I have encouraged patient to work with PT to at least get out of bed and use wheelchair or sitting in recliner he is agreeable Full code Cardiac diet Attestations 2 Medical Necessity Statement*: Patient may need to be transferred to ICU today Diagnoses HFrEF (heart failure with reduced ejection fraction) I50.20 Cardiomyopathy I42.9 Atrial fibrillation I48.91 Diabetes type 2, uncontrolled Diabetic ulcer of toe of left foot associated with type 2 diabetes mellitus, with fat layer exposed E11.621; L97.522 Diabetic foot ulcer location: toe Diabetes mellitus type: type 2 Non-pressure ulcer stage: with fat layer exposed Diabetic foot ulcer E11.621; L97.509 Enlarged prostate N40.0
--- NOTE | 2023-04-20 11:04 | PC.NURSE ---
pt up in chair with minimal assist.
--- NOTE | 2023-04-20 11:18 | PC.SOCIAL ---
IMM Updated Updated pt on IMM. No questions voiced. Provided pt a copy. Initialed, dated, & timed copy in chart.
--- NOTE | 2023-04-20 12:27 | PC.NURSE ---
dexcom blood sugar is 171
[2023-04-20] MEDS: clopidogrel 75 mg Tablet PO (12:50)
[2023-04-20] MEDS: tamsulosin 0.4 mg Capsule PO (12:50)
--- NOTE | 2023-04-20 14:31 | PC.NURSE ---
verified startting dose on pt's IV lasix drip to doctor he said to start the drip at 2 mg/hr.
[2023-04-20] MEDS: FUROsemide 100 MG in sodium chloride 0.9% 40 ML IV (14:33)
[2023-04-20 17:21] LABS: Glucose Point of Care 120 mg/dL (70-110)
[2023-04-20 19:20] LABS: Anion Gap 11.4 (5-19); Blood Urea Nitrogen 32 mg/dL (8-23); Calcium 8.8 mg/dL (8.5-10.5); Carbon Dioxide 27 mmol/L (22-29); Chloride 102 mmol/L (98-107); Glucose 171 mg/dL (65-115); Osmolality Calculated 293 mOsm/kg (285-295); Potassium 4.4 mmol/L (3.5-5.1); Sodium 136 mmol/L (136-145)
[2023-04-20] MEDS: cholestyramine powder 4 gm Pkt PO (22:25)
[2023-04-20] MEDS: insulin glargine 100 units/1 mL 5 UNIT SUBCUT (22:26)
[2023-04-21] VITALS (39 sets, daily range): BP systolic 100–136; BP diastolic 54–84; PULSE 75–103; RESP 12–41; TEMP 36.4–37; O2SAT 90–99; BMI 36.9
[2023-04-21 05:19] LABS: Anion Gap 17.1 (5-19); Blood Urea Nitrogen 33 mg/dL (8-23); Calcium 8.7 mg/dL (8.5-10.5); Carbon Dioxide 22 mmol/L (22-29); Chloride 102 mmol/L (98-107); Glucose 294 mg/dL (65-115); Osmolality Calculated 300 mOsm/kg (285-295); Potassium 5.1 mmol/L (3.5-5.1); Sodium 136 mmol/L (136-145)
[2023-04-21] MEDS: enoxaparin 120 mg/0.8 mL Syringe SUBCUT ×2 (08:50→20:23)
[2023-04-21] MEDS: potassium chloride ER 20 mEq Tablet 40 MEQ PO ×2 (08:50→18:14)
[2023-04-21] MEDS: ipratropium-albuterol 3 mL Neb INHALATION (08:51)
[2023-04-21] MEDS: insulin lispro 100 unit/1 mL SUBCUT ×2 (08:52→18:14)
--- NOTE | 2023-04-21 09:44 | P.PN_ITS ---
Subjective 2 Subjective: Plan is to transfer to ICU start dobutamine drip metolazone along Lasix Patient is stating that he would like to change his CODE STATUS to DNR/DNI Vitals/I&O/Wt Last Vital Signs Temp 98.3 F 04/21/23 08:00 Pulse 85 04/21/23 09:01 Resp 22 H 04/21/23 08:51 BP 122/80 04/21/23 08:00 Pulse Ox 95 04/21/23 08:51 O2 Del Method Room Air 04/21/23 08:51 O2 Flow Rate 1.5 04/18/23 20:00 04/20/23 04/21/23 04/21/23 22:59 06:59 14:59 Intake Total 420 / 660 60 / 720 360 / 360 Output Total 600 / 1230 Balance -180 / -570 60 / -510 360 / 360 Weight last 48 hrs Weight 123.604 kg Weight 123.547 kg Physical Exam 2 Narrative: Anasarca Scrotal swelling Currently on room air Lower extremity significant edema Abdomen distended but nontender Sitting in his bed S1, S2 GCS 15 Patient seems to be getting depressed Urinary Catheter Management: Schafre: Cath Placed During This Visit: yes Reason for Continuing Indwelling Catheter: Other Urinary Catheter Date of Insertion: 04/14/23 Urinary Catheter Time of Insertion: 17:11 Data 04/20/23 03:36 04/21/23 04:35 A&P Assessment and plan (1) HFrEF (heart failure with reduced ejection fraction): (2) Cardiomyopathy: (3) Atrial fibrillation: (4) Diabetes type 2, uncontrolled: (5) Diabetic foot ulcer: (6) Type 2 diabetes mellitus with foot ulcer: Qualifiers: Diabetes mellitus long term care phlebotomist insulin use: with long term care phlebotomist use Qualified Code(s): E11.621 - Type 2 diabetes mellitus with foot ulcer; L97.509 - Non- pressure chronic ulcer of other part of unspecified foot with unspecified severity; Z79.4 - long term (current) use of insulin (7) Diarrhea: (8) Enlarged prostate: Plan Acute reduced ejection fraction heart for exacerbation Resistant hypervolemia Anasarca Start dobutamine drip with Lasix drip Add metolazone Appreciate Dr. Mullins's recommendations Will need outpatient AICD evaluation Creatinine is normal Patient not requiring oxygen Patient stating that he does not want to be transferred for advanced heart failure care team management or dobutamine pump at this time Agreeable to go to ICU for dobutamine and IV Lasix Entresto resumed If creatinine stays normal I may switch him back to Eliquis DNR/DNI CODE STATUS changed today Case discussed with Dr. Mullins Attestations 2 Medical Necessity Statement*: Transferred to ICU Diagnoses HFrEF (heart failure with reduced ejection fraction) I50.20 Cardiomyopathy I42.9 Atrial fibrillation I48.91 Diabetes type 2, uncontrolled Diabetic foot ulcer E11.621; L97.509 Type 2 diabetes mellitus with foot ulcer, with long-term current use of insulin E11.621; L97.509; Z79.4 Diabetes mellitus long term care phlebotomist insulin use: with intermediate use Diarrhea R19.7 Enlarged prostate N40.0
[2023-04-21] MEDS: DOBUTamine drip 500 MG/250 ML PREMIX 9.27 MG IV (09:59)
[2023-04-21] MEDS: metOLazone 5 MG Tablet PO (09:59)
--- NOTE | 2023-04-21 10:48 | P.CONIM_ITS ---
Providers/Reason For Consult 2 Consulting Physician/Specialty*: Jeremiah Mullins MD/ Cardiology Reason for Consult*: Acute on chronic congestive heart failure Requesting Physician: Dr Britton Attending Physician: An Britton MD Primary Care Provider: Nelson Nava DO History of Present Illness History of Present Illness Rashel Phillips is a 72 year old male with past medical history of diabetes, CAD with prior LAD stenting, congestive heart failure who presented to hospital with worsening shortness of breath and orthopnea for the last 2 weeks. Per patient he has been compliant with his medications. Recent outpatient echocardiogram showed LV systolic function with EF of 35 to 40%. Patient has no chest pain. No acute ekg changes. Urine output has not improved. Review of Systems 2 Const: Denies: fever(s) or chills Eyes: Denies: change in vision ENMT: Denies: throat pain or odynophagia Card: Denies: chest pain or palpitations Resp: Reports: dyspnea; Denies: productive cough or hemoptysis GI: Reports: other (Loss of appetite); Denies: abdominal pain or nausea : Reports: scrotal swelling Musc: Reports: extremity swelling; Denies: neck pain or extremity pain Neuro: Reports: numbness in extremities; Denies: headache(s) or weakness in extremities Brooks/Lymph: Denies: easy bruising Medications/Allergies Home Medications Medication Instructions Recorded Confirmed Last Taken Type carbamazepine 200 mg tablet 200 mg PO Q8H 05/17/19 04/14/23 04/14/23 History latanoprost 0.005 % eye drops 1 drop ophthalmic (eye) QPM 05/17/19 04/14/23 04/13/23 History glucagon 1 mg solution for 1 mg SUBCUT Q20M PRN hypoglycemia 11/18/21 04/14/23 Unknown Rx injection (Glucagon Emergency Kit) #1 ea Excell SAP, PolyMem Max Silver, #1 ea 06/03/22 04/14/23 Unknown Rx and 2x2 Gauze brimonidine 0.2 % eye drops 1 drp ophthalmic (eye) BID 09/05/22 04/14/23 04/14/23 History dorzolamide 22.3 mg-timolol 6.8 1 drp ophthalmic (eye) DAILY 09/09/22 04/14/23 04/14/23 History mg/mL eye drops atorvastatin 80 mg tablet 80 mg PO QAM 09/30/22 04/14/23 04/14/23 History insulin degludec 200 unit/mL (3 35 - 45 unit SUBCUT QAM 09/30/22 04/14/23 04/14/23 History mL) subcutaneous pen (Tresiba FlexTouch U-200 insulin) famotidine 20 mg tablet 20 mg PO BID #60 tabs 10/21/22 04/14/23 04/14/23 Rx finasteride 5 mg tablet 5 mg PO BEDTIME #30 tabs 10/21/22 04/14/23 04/13/23 Rx insulin lispro 100 unit/mL 12 - 15 unit (0.12 - 0.15 mL) 10/21/22 04/14/23 04/14/23 Rx subcutaneous pen (Humalog KwikPen SUBCUT TID #15 mL (U-100) Insulin) aspirin 81 mg tablet,delayed 81 mg PO DAILY@12 11/15/22 04/14/23 04/14/23 History release clopidogrel 75 mg tablet 75 mg PO DAILY@11/15/22 04/14/23 04/14/23 History tamsulosin 0.4 mg capsule 0.4 mg PO DAILY@12 11/15/22 04/14/23 04/14/23 History ferrous gluconate 324 mg (37.5 mg 324 mg PO BIDWM #180 tabs 11/30/22 04/14/23 04/14/23 Rx iron) tablet apixaban 5 mg tablet (Eliquis) 5 mg PO BID@0900,2100 #60 tabs 01/07/23 04/14/23 04/14/23 Rx furosemide 40 mg tablet 40 mg PO DAILY@0800 #30 tabs 01/07/23 04/14/23 04/14/23 Rx metoprolol tartrate 25 mg tablet 25 mg PO BID #60 tabs 01/07/23 04/14/23 04/14/23 Rx potassium chloride 10 mEq 10 meq PO DAILY #30 tabs 01/07/23 04/14/23 04/14/23 Rx tablet,extended release sacubitril 49 mg-valsartan 51 mg 1 tab PO BID #60 tabs 01/17/23 04/14/23 04/14/23 Rx tablet FreeStyle Isma 2 Sensor (flash #6 ea 02/22/23 04/14/23 Unknown Rx glucose sensor) metolazone 5 mg tablet 5 mg PO DAILY 04/14/23 04/14/23 Unknown History Allergies Allergy/AdvReac Type Severity Reaction Status Date / Time vancomycin Allergy ALGY-Hives Verified 04/14/23 12:25 Hay Fever Allergy ADR-Itching Uncoded 04/14/23 12:25 Current Medications Generic Name Dose Route Start Last Admin Trade Name Freq PRN Reason Stop Dose Admin Albuterol/Ipratropium 3 ml 04/14/23 16:06 04/21/23 08:51 Ipratropium-Albuterol 3 Ml Neb INHALATION 3 ml Q6H PRN Administration SHORTNESS OF BREATH Apixaban 5 mg 04/14/23 21:00 04/17/23 19:50 Apixaban 5 Mg Tablet PO 5 mg BID@0900,2100 JOSESITO Administration Cholestyramine Resin 4 gm 04/18/23 15:00 04/21/23 10:14 Cholestyramine Powder 4 Gm Pkt PO Not Given TID JOSESITO Clopidogrel Bisulfate 75 mg 04/15/23 12:00 04/20/23 12:50 Clopidogrel 75 Mg Tablet PO 75 mg DAILY@12 JOSESITO Administration Enoxaparin Sodium 120 mg 04/18/23 21:00 04/21/23 08:50 Enoxaparin 120 Mg/0.8 Ml Syringe SUBCUT 120 mg Q12H JOSESITO Administration Furosemide 100 mg/ Sodium 50 mls @ 0 mls/hr 04/20/23 10:30 04/20/23 14:33 Chloride IV 2 mg/hr .Q0M JOSESITO 1 mls/hr Administration Protocol Per Protocol Dobutamine HCl/Dextrose 500 mg in 250 mls @ 9.27 mls/hr 04/21/23 08:45 04/21/23 09:59 Dobutamine Drip IV 2.5 mcg/kg/min .Q24H JOSESITO 9.27 mls/hr Administration 2.5 MCG/KG/MIN Insulin Glargine 5 unit 04/15/23 21:00 04/20/23 22:26 Insulin Glargine 100 Units/1 Ml SUBCUT 5 unit BEDTIME JOSESITO Administration Insulin Human Lispro 0 unit 04/14/23 18:00 04/21/23 08:52 Insulin Lispro 100 Unit/1 Ml SUBCUT 8 unit TIDWM JOSESITO Administration Protocol Loperamide HCl 2 mg 04/19/23 17:25 04/20/23 08:14 Loperamide 2 Mg Capsule PO 2 mg QID PRN Administration DIARRHEA Metolazone 5 mg 04/21/23 09:00 04/21/23 09:59 Metolazone 5 Mg Tablet PO 5 mg DAILY JOSESITO Administration Potassium Chloride 40 meq 04/20/23 18:00 04/21/23 08:50 Potassium Chloride Er 20 Meq Tablet PO 40 meq BID JOSESITO Administration Sacubitril/Valsartan 2 each 04/14/23 18:00 04/15/23 10:50 Sacubitril/Valsartan 24-26 Mg Tablet PO 2 each BID JOSESITO Administration Tamsulosin HCl 0.4 mg 04/15/23 12:00 04/20/23 12:50 Tamsulosin 0.4 Mg Capsule PO 0.4 mg DAILY@12 JOSESITO Administration PFSH Acute 2 PFSH: Medical History Uses LifeVest defibrillator CAD (coronary artery disease) Glaucoma Neuropathy Hematuria Acute heart failure ST elevation (STEMI) myocardial infarction BMI 32.0-32.9,adult Diabetes mellitus Carotid artery disease Peripheral Vascular Disease HTN (hypertension) Venous insufficiency Surgical History History of coronary artery stent placement S/P eye surgery left S/P cholecystectomy H/O toe surgery left toe S/P insertion of penile implant and removal Status post amputation of toe of right foot Family History Father Heart disease Diabetes Mother Cancer Cervical CA Social History Smoking and tobacco/nicotine status: never used tobacco/nicotine Alcohol intake: never Substance/Drug Use: never Vitals/I&O/Wt Last Vital Signs Temp 98.3 F 04/21/23 08:00 Pulse 85 04/21/23 09:01 Resp 22 H 04/21/23 08:51 BP 122/80 04/21/23 08:00 Pulse Ox 95 04/21/23 08:51 O2 Del Method Room Air 04/21/23 08:51 O2 Flow Rate 1.5 04/18/23 20:00 04/20/23 04/21/23 04/21/23 22:59 06:59 14:59 Intake Total 420 / 660 60 / 720 360 / 360 Output Total 600 / 1230 Balance -180 / -570 60 / -510 360 / 360 Weight last 48 hrs Weight 272 lb 8 oz Weight 272 lb 6 oz Physical Exam 2 Narrative: GENERAL: Patient is alert, awake and oriented x3. [] NECK: No jugular vein distension. [] HEENT: No cyanosis. No icterus. No pallor. [] HEART: Regular S1 and S2. No murmur, rub or gallop. [] LUNGS: Diminished air entry. CENTRAL NERVOUS SYSTEM: Grossly nonfocal. [] EXTREMITIES: Lower extremities with 2+ edema bilaterally. Urinary Catheter Management: Schafer: Cath Placed During This Visit: yes Reason for Continuing Indwelling Catheter: Other Urinary Catheter Date of Insertion: 04/14/23 Urinary Catheter Time of Insertion: 17:11 Data 04/20/23 03:36 04/22/23 04:54 A&P Assessment and plan (1) Cardiomyopathy: (2) HFrEF (heart failure with reduced ejection fraction): (3) Atrial fibrillation: (4) Hyperlipemia, mixed: (5) CAD (coronary artery disease): Plan Patient is volume overloaded. He has severe LV dysfunction. Continue Lasix drip. Can be uptitrated. We will add metolazone. Patient to be started on dobutamine. Close I&O's. Monitor renal function. ECHO this admission shows slight decline in the LV systolic function. Low sodium diet and fluid restriction. Thank you for involving us with care of this patient. We will continue to follow. Please call with questions Consult Attestations 2 Medical Necessity Statement: Care expected to cross 2 midnights. Coding Level of Care Code Acute Code for [facility] Fwd Diagnoses Cardiomyopathy I42.9 HFrEF (heart failure with reduced ejection fraction) I50.20 Atrial fibrillation I48.91 Hyperlipemia, mixed E78.2 CAD (coronary artery disease) I25.10
[2023-04-21] MEDS: clopidogrel 75 mg Tablet PO (14:02)
[2023-04-21] MEDS: tamsulosin 0.4 mg Capsule PO (14:02)
--- NOTE | 2023-04-21 15:17 | PC.NURSE ---
Notified doctor on pt has had a urine output of 500 ml since this morning w/dobutamine. he is still on Lasix drip at 2 mg/hr. BP- above 100s systolic, map- above 70s..do you want to titrate the lasix drip? verified lasix drip what dose to titrate and dr ramirez said increase by 1 mg/hr.
--- NOTE | 2023-04-21 18:26 | PC.NURSE ---
Report called to icu hand off report provided to Ms HARI RN..
[2023-04-21] MEDS: cholestyramine powder 4 gm Pkt PO (20:23)
[2023-04-21] MEDS: loperamide 2 mg Capsule PO (20:23)
--- NOTE | 2023-04-21 20:45 | PC.NURSE ---
Per patient's Free Alina 2 continuous glucose monitor patient's glucose level is 304
[2023-04-21] MEDS: insulin glargine 100 units/1 mL 5 UNIT SUBCUT (20:55)
[2023-04-22] VITALS (48 sets, daily range): BP systolic 102–134; BP diastolic 59–89; PULSE 79–95; RESP 16–35; TEMP 36.4–37; O2SAT 90–100
[2023-04-22 05:35] LABS: Anion Gap 15.3 (5-19); Blood Urea Nitrogen 33 mg/dL (8-23); Calcium 8.9 mg/dL (8.5-10.5); Carbon Dioxide 26 mmol/L (22-29); Chloride 102 mmol/L (98-107); Glucose 284 mg/dL (65-115); Osmolality Calculated 306 mOsm/kg (285-295); Potassium 4.3 mmol/L (3.5-5.1); Sodium 139 mmol/L (136-145)
[2023-04-22] MEDS: FUROsemide 100 MG in sodium chloride 0.9% 40 ML IV ×3 (06:29→23:56)
[2023-04-22 08:14] LABS: Glucose Point of Care 332 mg/dL (70-110)
[2023-04-22] MEDS: insulin lispro 100 unit/1 mL SUBCUT ×3 (08:25→17:25)
[2023-04-22] MEDS: DOBUTamine drip 500 MG/250 ML PREMIX 9.27 MG IV (08:25)
[2023-04-22] MEDS: cholestyramine powder 4 gm Pkt PO ×3 (08:26→21:29)
[2023-04-22] MEDS: potassium chloride ER 20 mEq Tablet 40 MEQ PO ×2 (08:26→17:26)
[2023-04-22] MEDS: metOLazone 5 MG Tablet PO (08:26)
[2023-04-22] MEDS: enoxaparin 120 mg/0.8 mL Syringe SUBCUT (08:26)
--- NOTE | 2023-04-22 10:29 | P.PN_ITS ---
Subjective 2 Subjective: Excellent urine output Patient does notice mild change in swelling of legs however she has persistent scrotal edema Continue dobutamine along diuretic gtt. LifeVest ordered He is on 1 L nasal cannula Vitals/I&O/Wt Last Vital Signs Temp 98.6 F 04/22/23 09:43 Pulse 90 04/22/23 09:30 Resp 22 H 04/22/23 09:30 BP 119/78 04/22/23 09:30 Pulse Ox 98 04/22/23 09:30 O2 Del Method Room Air 04/22/23 00:00 O2 Flow Rate 1.5 04/18/23 20:00 04/21/23 04/22/23 04/22/23 22:59 06:59 14:59 Intake Total 504.733 / 1064.733 25.342 / 1090.075 325.957 / 325.957 Output Total 350 / 850 1150 / 2000 Balance 154.733 / 214.733 -1124.658 / -909.925 325.957 / 325.957 Weight last 48 hrs Weight 123.196 kg Weight 123.604 kg Physical Exam 2 Narrative: Pleasant cough Sign of fluid load present but improving Sacral edema General edema present Currently on 1 L Pleasant cooperative Nonfocal neuroexam S1, S2 Sinus rhythm Urinary Catheter Management: Schafer: Cath Placed During This Visit: yes Reason for Continuing Indwelling Catheter: Accurate Measurement of Urinary Output in Critically Ill Patients Urinary Catheter Date of Insertion: 04/14/23 Urinary Catheter Time of Insertion: 17:11 Data 04/20/23 03:36 04/22/23 04:54 A&P Assessment and plan (1) HFrEF (heart failure with reduced ejection fraction): (2) Cardiomyopathy: (3) Atrial fibrillation: (4) Diabetes type 2, uncontrolled: (5) Ulcer of left foot due to type 2 diabetes mellitus: (6) Hypoglycemia due to insulin: (7) Enlarged prostate: Plan Hyperglycemia increase dose of Lantus, currently on insulin sliding scale Anasarca related to reduced ejection fraction cardiomyopathy: Currently on dobutamine drip along Lasix drip I have transitioned his Eliquis to Lovenox every 12 regimen Added metolazone as well Entresto on hold Schafer catheter in place Plan for rehab likely next week DNR/DNI Cardiac diet Attestations 2 Medical Necessity Statement*: Discharge next week Coding Level of Care Code 01943 Diagnoses HFrEF (heart failure with reduced ejection fraction) I50.20 Cardiomyopathy I42.9 Atrial fibrillation I48.91 Diabetes type 2, uncontrolled Ulcer of left foot due to type 2 diabetes mellitus E11.621; L97.529 Hypoglycemia due to insulin E16.0; T38.3X5A Enlarged prostate N40.0
[2023-04-22 11:44] LABS: Glucose Point of Care 350 mg/dL (70-110)
[2023-04-22] MEDS: clopidogrel 75 mg Tablet PO (11:45)
[2023-04-22] MEDS: tamsulosin 0.4 mg Capsule PO (11:45)
--- NOTE | 2023-04-22 12:13 | PC.SOCIAL ---
IMM Updated Updated pt on IMM. No questions voiced. Provided pt a copy. Initialed, dated, & timed copy in chart.
--- NOTE | 2023-04-22 12:38 | P.PN_ITS ---
Subjective 2 Subjective: Patient is feeling better. Has good urine output. Renal function is stable. Vitals/I&O/Wt Last Vital Signs Temp 98.6 F 04/22/23 09:43 Pulse 92 04/22/23 10:30 Resp 31 H 04/22/23 10:30 BP 114/71 04/22/23 10:30 Pulse Ox 97 04/22/23 10:30 O2 Del Method Nasal Cannula 04/22/23 10:00 O2 Flow Rate 2 04/22/23 10:00 04/21/23 04/22/23 04/22/23 22:59 06:59 14:59 Intake Total 504.733 / 1064.733 25.342 / 1090.075 325.957 / 325.957 Output Total 350 / 850 1150 / 2000 Balance 154.733 / 214.733 -1124.658 / -909.925 325.957 / 325.957 Weight last 48 hrs Weight 271 lb 9.6 oz Weight 272 lb 8 oz Physical Exam 2 Narrative: GENERAL: Patient is alert, awake and oriented x3. [] NECK: No jugular vein distension. [] HEENT: No cyanosis. No icterus. No pallor. [] HEART: Regular S1 and S2. No murmur, rub or gallop. [] LUNGS: Diminished air entry. CENTRAL NERVOUS SYSTEM: Grossly nonfocal. [] EXTREMITIES: Lower extremities with 2+ edema bilaterally. Urinary Catheter Management: Schafer: Cath Placed During This Visit: yes Reason for Continuing Indwelling Catheter: Accurate Measurement of Urinary Output in Critically Ill Patients Urinary Catheter Date of Insertion: 04/14/23 Urinary Catheter Time of Insertion: 17:11 Data 04/20/23 03:36 04/22/23 04:54 A&P Assessment and plan (1) Cardiomyopathy: (2) HFrEF (heart failure with reduced ejection fraction): (3) Atrial fibrillation: (4) Hyperlipemia, mixed: (5) CAD (coronary artery disease): Plan Urine output has improved. Will need to continue diuresis with Lasix, metolazone. Continue dobutamine. Close I&O's. Low sodium diet and fluid restriction. Thank you for involving us with care of this patient. We will continue to follow. Please call with questions Attestations 2 Medical Necessity Statement*: Care expected to cross 2 midnights. Coding Level of Care Code Acute Code for [facility] Fwd Diagnoses Cardiomyopathy I42.9 HFrEF (heart failure with reduced ejection fraction) I50.20 Atrial fibrillation I48.91 Hyperlipemia, mixed E78.2 CAD (coronary artery disease) I25.10
[2023-04-22 17:07] LABS: Glucose Point of Care 166 mg/dL (70-110)
[2023-04-22] MEDS: magnesium oxide 400 mg tablet PO (17:26)
[2023-04-22 21:30] LABS: Glucose Point of Care 203 mg/dL (70-110)
[2023-04-23] VITALS (11 sets, daily range): BP systolic 106–121; BP diastolic 62–73; PULSE 0–93; RESP 0–27; TEMP 36.5; O2SAT 92–100; BMI 35.8
--- NOTE | 2023-04-23 01:29 | PC.NURSE ---
Pt has been noted to desat while sleeping. At approximately 0105, this nurse was looking at the monitor and noticed that pt was starting to have lower and lower spo2 readings with good waveform. Pt continued to have lower spo2 readings, so this nurse went into pt room to wake up pt in order to get him to breathe deeply. Pt spo2 reading dipped to 48% before this nurse was able to arouse pt enough to have him breathe deeply. RT was called, per request of this nurse, by laundry tech. When this nurse entered pt room to wake him up, pt had visibly paler lips and was having a few jerking movements of arms and legs. Pt was finally aroused and seemed a bit confused. Pt answered orientation questions and was A&OX4 within 2-4 minutes of nurse arrival to room. RT discussed with pt that he may need a sleep study and/or to wear a CPAP at night. Pt states he used to wear a CPAP at home, but doesn't anymore.
--- NOTE | 2023-04-23 01:36 | PC.NURSE ---
This nurse went into pt room to give pt his 2100 medicines (see MAR; meds included lantus, lovenox, and questran). When this nurse informed pt his BG was 203, and the lantus would be administered as well as the lovenox for VTE. Pt stated that he already got both the lantus and the lovenox 04/22/23 at around 1730 . This nurse went [facility] and saw where pt received a 5 unit lantus dose on 04/21/23 just before 2100. The 5 unit dose had since been d/c and changed on 04/22/23 to a 10 unit dosing at bedtime. The order for the 10 unit dosing was acknowledged by NEGRITA Ruff at 1215 on 04/22/23. Pt also has orders for sliding scale insulin. This nurse saw that pt had received (see MAR) 12 units at 0847, 12 units at 1145, and 4 units at 1725 (all humalog was documented by Speedy). This nurse informed pt of humalog doses and lantus dosing/order changes. Pt continued to insist that he had received lantus and that it was 10 units. Pt refused lantus on the grounds that he belived he had already received it and did not want his BG to drop. This nurse looked at the past removed and the MAR for the lovenox dosing. This nurse noted that the last lovenox removed from [facility] was pulled by Speedy on 04/22/23 in the AM. Lovenox was documented to have been given at 0847. Pt was given this information as well. Pt stated that he had also received another dose of lovenox around 530 tonight . This nurse made sure pt was educated on reason for lovenox, pt continued to refuse medicine on the grounds that he believed he had already received it.
[2023-04-23 04:23] LABS: Alanine Aminotransferase 10 U/L (0-41); Albumin Level 2.9 g/dL (3.5-5.2); Alkaline Phosphatase 99 U/L (40-130); Anion Gap 13.7 (5-19); Aspartate Amino Transferase 15 U/L (0-40); Blood Urea Nitrogen 27 mg/dL (8-23); Calcium 8.8 mg/dL (8.5-10.5); Carbon Dioxide 31 mmol/L (22-29); Chloride 99 mmol/L (98-107); Globulin 2.8 g/dL (1.3-4.6); Glucose 255 mg/dL (65-115); Osmolality Calculated 304 mOsm/kg (285-295); Potassium 3.7 mmol/L (3.5-5.1); Sodium 140 mmol/L (136-145); Total Bilirubin 0.4 mg/dL (0.15-1.2); Total Protein 5.7 g/dL (6.6-8.7)
--- NOTE | 2023-04-23 04:42 | PC.NURSE ---
Addendum entered by Faviola Conley RN 04/23/23 05:58: Pt placed in [facility] at 0550. Paty informed this nurse that [facility] called back and stated pt is a possible candidate, so they will be contacting . Addendum entered by Keven Miranda RN 04/23/23 05:01: This nurse was in another patient's room when Pravin (monitor technician) told me they needed me in this patient's room. When this nurse entered the room they saw that the patient was in v-tach and non responsive. This nurse was told by Faviola (RN) that the patient was DNR/DNI so no intervention was made other than trying to sternal rub the patient to see if we could get a response. This nurse and Faviola auscultated for lung sounds and heart beat but found none. TOD was called by this nurse at 0424. Original Note: At 0418, this nurse was notified by Pravin, monitor technician, that pt had gone into V-tach. This nurse went to pt bedside and attempted to get a response from pt. NEGRITA Baca came to pt bedside. Pt's eyes were closed and he was not moving or breathing. RT Dominga and NEGRITA Newman/Medical Education Coordinator were called by Pravin and came to pt bedside. This nurse confirmed pt was DNI/DNR. Pt was sternal rubbed and spoken to, but no response was noted. Pt monitor continued to show V-tach with a heart rate ranging from 200-290. Pt was observed by this nurse, as well as Keven, to have [address] Bedoya was contacted via phone. This nurse and Keven auscultated chest for heart sounds for 2 minutes. TOD was called at 0424. This nurse contacted Pt's Jordan Angeles. Ms. Angeles was informed of the events that occurred, and offered the opportunity to come see Mr. Phillips, but she declined. Ms. Angeles stated pt needed to be picked up by [facility] in [place]. Paty second-nurse verified the home. Paty called [facility], and Angela stated [facility] would screen further and call back with the decision. The [facility] reference # [id number].
--- NOTE | 2023-04-23 05:20 | PM.DDS ---
Discharge Providers DDS Date of Admission: 04/16/23 13:30 Date Summary Completed: 04/23/23 Attending Provider at Admission: An Britton MD Time of : 04:24 Attending Provider at Discharge: An Britton MD Primary Care Provider: DO NIDHI Simpson Diagnoses Hospital Diagnoses (1) Cardiomyopathy: (2) HFrEF (heart failure with reduced ejection fraction): (3) Atrial fibrillation: (4) Hyperlipemia, mixed: (5) CAD (coronary artery disease): Reason for Visit Reason for Visit retaining water Summary Date and Time of Date of : 04/23/23 Time of : 04:24 Summary Summary: 72-year-old male who was admitted for management evaluation of anasarca related to reduced action fraction heart failure, resistant hypervolemia, he was put on Lasix drip along dobutamine, he was transferred to ICU, cardiology was consulted, LifeVest was ordered, CODE STATUS was discussed with the patient and the family, he was made DNR/DNI, unfortunately patient experienced V-fib and cardiac arrest time of 424AM date 04/23/2023 Additional Data Advance directives?: No Discharge Plan Discharge Patient Disposition: Condition: Stable Prescriptions: No Action carbamazepine 200 mg tablet 200 mg PO Q8H latanoprost 0.005 % drops 1 drop ophthalmic (eye) QPM Rx Instructions: left eye Glucagon Emergency Kit (human) 1 mg recon soln 1 mg SUBCUT Q20M PRN (Reason: hypoglycemia) Qty: 1 0RF ferrous gluconate 324 mg (37.5 mg iron) tablet 324 mg PO BIDWM Qty: 180 3RF atorvastatin 80 mg tablet 80 mg PO QAM insulin degludec [Tresiba FlexTouch U-200] 200 unit/mL (3 mL) insulin pen 35 - 45 unit SUBCUT QAM famotidine 20 mg tablet 20 mg PO BID Qty: 60 11RF finasteride 5 mg tablet 5 mg PO BEDTIME Qty: 30 11RF insulin lispro [Humalog KwikPen Insulin] 100 unit/mL insulin pen 12 - 15 unit SUBCUT TID Qty: 15 11RF (DME) Excell SAP, PolyMem Max Silver, and 2x2 Gauze See Rx Instructions .Route .MEDSUPPLY Qty: 1 0RF Rx Instructions: As directed HOME needs dressing changes Twice a Day- for 90 days sacubitril-valsartan 49-51 mg tablet 1 tab PO BID Qty: 60 3RF Rx Instructions: Stop losartan, start this new med the following day (DME) FreeStyle Isma 2 Sensor Kit See Rx Instructions .ROUTE .MEDSUPPLY Qty: 6 0RF Rx Instructions: change every 14 days metolazone 5 mg tablet 5 mg PO DAILY brimonidine 0.2 % drops 1 drp ophthalmic (eye) BID Rx Instructions: left eye dorzolamide-timolol 22.3-6.8 mg/mL Drops 1 drp OPHTHALMIC (EYE) DAILY Rx Instructions: Left Eye clopidogrel 75 mg tablet 75 mg PO DAILY@12 aspirin 81 mg tablet,delayed release (DR/EC) 81 mg PO DAILY@12 tamsulosin 0.4 mg capsule 0.4 mg PO DAILY@12 Eliquis 5 mg Tablet 5 mg PO BID@0900,2100 Qty: 60 0RF furosemide 40 mg Tablet 40 mg PO DAILY@0800 Qty: 30 0RF metoprolol tartrate 25 mg tablet 25 mg PO BID Qty: 60 0RF potassium chloride 10 mEq tablet extended release 10 meq PO DAILY Qty: 30 0RF Referrals: [facility] [Outside] Nelson Nava DO [Primary Care Provider] - Patient Instructions: Opioid Safety Probable Cause of Probable cause of : Cardiac arrest DS Attestations Time Spent in /Discharge Care*: greater than 30 min Quality - AMI: AMI present?: No Quality - Stroke: CVA present?: No Quality - VTE: VTE present?: No Coding Level of Care Code Acute Code for [facility] Fwd Diagnoses Cardiomyopathy I42.9 HFrEF (heart failure with reduced ejection fraction) I50.20 Atrial fibrillation I48.91 Hyperlipemia, mixed E78.2 CAD (coronary artery disease) I25.10
--- NOTE | 2023-04-23 05:47 | PC.NURSE ---
Patient Belongings sent with pt to [facility]. Pt wearing a wedding ring on ring finger. Belongings in bags included: house shoes, lunch box, phone, phone china decorator, tablet, ilene BG monitor, clothing, tablet china decorator, wallet, glasses, and headphones
--- NOTE | 2023-04-23 06:00 | PC.NURSE ---
Radha time 0600.
== END 2023-04-23 04:25 | disposition expired | DRG 291 ==
LOC: ER 14:16 → ICU 15:37 → MEDSURG 04-15 07:52 → CSU 04-16 15:33 → ICU 04-21 18:54
PROVIDERS: Family Medicine; Admitting Provider Internal Medicine; Emergency Provider Family Medicine; PCP Family Medicine; Visit Provider Internal Medicine
DX: I11.0 Hypertensive heart disease with heart failure (principal); I50.23 Acute on chronic systolic (congestive) heart failure; I46.9 Cardiac arrest, cause unspecified; I49.01 Ventricular fibrillation; I25.10 Atherosclerotic heart disease of native coronary artery without angina pectoris; H40.9 Unspecified glaucoma; E11.40 Type 2 diabetes mellitus with diabetic neuropathy, unspecified; E11.51 Type 2 diabetes mellitus with diabetic peripheral angiopathy without gangrene; E11.65 Type 2 diabetes mellitus with hyperglycemia; E11.649 Type 2 diabetes mellitus with hypoglycemia without coma; I42.9 Cardiomyopathy, unspecified; I48.91 Unspecified atrial fibrillation; E11.621 Type 2 diabetes mellitus with foot ulcer; L97.522 Non-pressure chronic ulcer of other part of left foot with fat layer exposed; N40.1 Benign prostatic hyperplasia with lower urinary tract symptoms; R39.11 Hesitancy of micturition; E78.2 Mixed hyperlipidemia; E86.1 Hypovolemia; Z66 Do not resuscitate; R19.7 Diarrhea, unspecified; R09.02 Hypoxemia; E87.5 Hyperkalemia; I25.2 Old myocardial infarction; Z95.5 Presence of coronary angioplasty implant and graft; Z79.4 Long term (current) use of insulin; Z79.82 Long term (current) use of aspirin; Z79.02 Long term (current) use of antithrombotics/antiplatelets; Z79.01 Long term (current) use of anticoagulants
CPT/HCPCS: 36415; 36416; 36600; 51702; 71045; 71275; 78472; 80048; 80051; 80053; 82330; 82607; 82805; 82962; 83036; 83735; 83880; 84100; 84145; 84443; 85025; 85378; 87493; 93005; 93306; 93970; 94640; 96372; 96374; 96376; 97110; 97161; 97165; 97530; 97535; 99285; A9560; G0378; J1250; J1650; J1815; J1940; J3490; Q0144; Q9967